=== PATIENT | male | born 1960 | race Caucasian/White ===

== ENCOUNTER 2021-06-10 10:14 | Inpatient (IN) ==
[2021-06-10 10:38] VITALS: BMI 31.1
[2021-06-10] MEDS ORDERED: NS 1,000 ML IV 1,000 ML IV ONE (10:56)
--- NOTE | 2021-06-10 11:01 | DR.FEVERAD ---
HPI Time seen Time Seen by Provider: 06/10/21 10:48 PCP Primary Care Physician: Dr Colón Complaints/Symptoms Chief Complaint Doctor Comments: 61 yo male presents for evaluation. Underwent lap ruth 2 weeks ago, has not been feeling well since. Running low grade temps, was 101 yesterday. Currently afebrile, nothing for fever taking this am. Denies cough, congestion, sore throat. No nausea, vomiting, diarrhea, urinary symptoms or rash. Chief Complaint:: Pt had cholecystectomy 2 weeks ago, drain was placed and pulled the next day, d/c home without abx, has been running intermittent fever since then, also having chills and pain to the surgical site. Denies N/V COVID-19 Coronavirus risk:travel/contact w/high risk person: No Has patient experienced Coronavirus symptoms: Yes Coronavirus symptoms experienced: Fever Nurses notes reviewed Nurses Notes Review: Yes Source History Provided: Patient and Significant Other Mode of Arrival Mode of Arrival: Ambulatory Timing Onset of Chief Complaint: 05/31/21 PMH PMH Past Medical History: Yes Past Medical History: Diabetes, Dyslipidemia, GERD, Hypertension and Hypothyroidism Past Surgical History: Yes Surgical History: Cholecystectomy and Ortho Surgery Past Surgical History Comment: R knee replacement, shoulder scopes Family History History of Family Medical Conditions: Yes Family Medical History: Diabetes Mellitus and Hypertension Social History Alcohol Use: None Do you use any recreational Drugs:: No Lives Where: Home Travel Risk Coronavirus risk:travel/contact w/high risk person: No Has patient experienced Coronavirus symptoms: Yes Coronavirus symptoms experienced: Fever Infectious screening In the last 2 months have you had wt loss of >10#?: NO Have you had fever, night sweats or hemotysis?: No Have you traveled outside the country in the last 6 months?: No Isolation: Standard ROS Review of Systems Constitutional: Chills and Fever Eyes: No Symptoms Reported ENTM: No Symptoms Reported Respiratoy: No Symptoms Reported Cardiovascular: No Symptoms Reported Gastrointestinal/Abdominal: No Symptoms Reported and Abdominal Pain (since surgery, no worse) Genitourinary: No Symptoms Reported Neurological: No Symptoms Reported Musculoskeletal: No Symptoms Reported Integumentary: No Symptoms Reported Hematologic/Lymphatic: No Symptoms Reported Psychiatric: No Symptoms Reported All Other Systems: Reviewed and Negative PE Vital Signs Vitals: Temperature 99.4 F Pulse Rate 109 Respiratory Rate 16 Blood Pressure [Right Arm] 122/68 Blood Pressure 140/72 O2 Sat by Pulse Oximetry 98 General Limitations: No Limitations General Appearance: Alert and In No Apparent Distress Head Head Exam: Normal Inspection Eyes Eye exam: Normal Appearance, PERRL and EOMI ENT ENT Exam: Normal Exam Neck Neck Exam: Normal Inspection and Full ROM Respiratory Respiratory Exam: Normal Lung Sounds Bilat; negative Accessory Muscle Use and Respiratory Distress Respiratory Exam: Bilateral: Clear to Auscultation Cardiovascular Cardiovascular Exam: Regular Rate, Normal Rhythm and Normal Heart Sounds Abdominal Exam Abdominal Exam: Normal Inspection, Normal Bowel Sounds, Soft and Tenderness (RUQ, no guarding or rebound. + surgical wounds healing well) Extremities Extremities Exam: Normal Inspection and Full ROM; negative Edema Neurologic Neurological Exam: Alert, Oriented X3 and CN II-XII Intact; negative Motor Sens ory Deficit Psychiatric Psychiatric Exam: Normal Affect Skin Skin Exam: Warm and Dry MDM Differential Diagnosis Differential Diagnosis: Pneumonia, UTI and Viral syndrome COURSE Treatment Treatment: 61 y/o male with recurrent fever since ruth 2 weeks ago. PE benign. W/u initiated. 1624 - labs overall acceptable. CT of the abd/pelvis with IV contrast shows a large fluid collection of the GB fossa, 9 cms. Concerning for possible abscess formation. Will admit to medical service, discussed with Dr Pires, accepts the admmisison. Dr An notified, will be available tomorrow for consult. Will probably require drainage. Pt given IV Zosyn/Vancomycin for coverage. ROR Labs Reviewed Laboratory Results Reviewed?: Yes Result Diagrams: 06/10/21 11:11 06/10/21 11:33 Laboratory: WBC 10.7 X10^3/uL (3.6-10.0) H 06/10/21 11:11 RBC 3.67 X10^6/uL (4.7-6.0) L 06/10/21 11:11 Hgb 11.5 g/dL (13.5-18.0) L 06/10/21 11:11 Hct 32.7 % (42.0-54.0) L 06/10/21 11:11 MCV 89.0 fL (80.0-100.0) 06/10/21 11:11 MCH 31.2 pg (27.0-34.0) 06/10/21 11:11 MCHC 35.1 g/dL (33.0-35.0) H 06/10/21 11:11 RDW 13.3 % (11.6-16.5) 06/10/21 11:11 Plt Count 594 X10^3/uL (150.0-450.0) H 06/10/21 11:11 MPV 7.1 fL (7.4-11.0) L 06/10/21 11:11 Neut % (Auto) 81.2 % (42.0-75.0) H 06/10/21 11:11 Lymph % (Auto) 10.7 % (21.0-51.0) L 06/10/21 11:11 [place] % (Auto) 6.8 % (0.0-13.0) 06/10/21 11:11 Eos % (Auto) 1.0 % (0.9-2.9) 06/10/21 11:11 Baso % (Auto) 0.3 % (0.2-1.0) 06/10/21 11:11 Neut # (Auto) 8.7 x10^3/uL (2.2-4.8) H 06/10/21 11:11 Lymph # (Auto) 1.2 X10^3/uL (1.3-2.9) L 06/10/21 11:11 [place] # (Auto) 0.7 x10^3/uL (0.3-0.8) 06/10/21 11:11 Eos # (Auto) 0.1 x10^3/uL (0.0-0.2) 06/10/21 11:11 Baso # (Auto) 0.0 X10^3/uL (0.0-0.1) 06/10/21 11:11 Absolute Nucleated RBC 0.1 /100WBC 06/10/21 11:11 PT 15.9 SECONDS (11.8-14.3) 06/10/21 11:33 INR Target Range - 06/10/21 11:33 INR 1.33 (0.8-1.3) H 06/10/21 11:33 APTT 38.0 SECONDS (22.9-36.5) H 06/10/21 11:33 PTT Comment - 06/10/21 11:33 Sodium 140 mmol/L (136-145) 06/10/21 11:33 Corrected Sodium 145 mmol/L (136-145) 06/10/21 11:33 Potassium 4.3 mmol/L (3.5-5.1) 06/10/21 11:33 Chloride 106 mmol/L (98-107) 06/10/21 11:33 Carbon Dioxide 24.3 mmol/L (21-32) 06/10/21 11:33 BUN 16 mg/dL (7-18) 06/10/21 11:33 Creatinine 0.98 mg/dL (0.70-1.30) 06/10/21 11:33 Est GFR (MDRD) Af Amer > 60 (>60) 06/10/21 11:33 Est GFR (MDRD) Non-Af > 60 (>60) 06/10/21 11:33 Glucose 289 mg/dL (65-99) H 06/10/21 11:33 Calcium 8.3 mg/dL (8.5-10.1) L 06/10/21 11:33 Corrected Calcium 9.9 mg/dL (8.5-10.1) 06/10/21 11:33 Total Bilirubin 0.30 mg/dL (0.2-1.0) 06/10/21 11:33 AST 23 Units/L (15-37) 06/10/21 11:33 ALT 35 Units/L (12-78) 06/10/21 11:33 Alkaline Phosphatase 126 Units/L (46-116) H 06/10/21 11:33 Total Protein 6.4 g/dL (6.4-8.2) 06/10/21 11:33 Albumin 2.0 g/dL (3.4-5.0) L 06/10/21 11:33 Globulin 4.4 g/dL (2.5-4.5) 06/10/21 11:33 Albumin/Globulin Ratio 0.5 Ratio (1.1-2.1) L 06/10/21 11:33 Lipase 133 Units/L (73-393) 06/10/21 11:33 Specimen Type Clean catch urine 06/10/21 11:42 Urine Color Yellow (YELLOW) 06/10/21 11:42 Urine Appearance Clear (CLEAR) 06/10/21 11:42 Urine pH 6.0 (5.0 - 8.0) 06/10/21 11:42 Ur Specific [place] 1.025 (1.000-1.030) 06/10/21 11:42 Urine Protein 1+ (NEGATIVE) 06/10/21 11:42 Urine Glucose (UA) 4+ (NEGATIVE) 06/10/21 11:42 Urine Ketones Negative (NEGATIVE) 06/10/21 11:42 Urine Occult Blood Negative (NEGATIVE) 06/10/21 11:42 Urine Nitrite Negative (NEGATIVE) 06/10/21 11:42 Urine Bilirubin Negative (NEGATIVE) 06/10/21 11:42 Urine Urobilinogen Normal (NORMAL) 06/10/21 11:42 Ur Leukocyte Esterase Negative (NEGATIVE) 06/10/21 11:42 Urine RBC None seen /HPF (0-3) 06/10/21 11:42 Urine WBC None seen /HPF (0-5) 06/10/21 11:42 Ur Squamous Epith Cells Moderate /HPF (NEGATIVE) 06/10/21 11:42 Urine Bacteria Trace /HPF (NEGATIVE) 06/10/21 11:42 Hyaline Casts Rare /LPF (NEGATIVE) 06/10/21 11:42 Urine Mucus Few /HPF (NEGATIVE) 06/10/21 11:42 Ur Culture Indicated? No/not indicated 06/10/21 11:42 Influenza Type A Ag Negative-presumptive (NEGATIVE) 06/10/21 11:18 Influenza Type B Ag Negative-presumptive (NEGATIVE) 06/10/21 11:18 SARS CoV-2 RNA Rapid ERICH Negative (NEGATIVE) 06/10/21 12:32 XRAY XRAY Interpreted by: Both X-ray Results: CXR - unremarkable. CT of abd/pelvis - + large fluid collection of GB fossa. Opioid Opioid Risk Tool Age (David box if 16-45): No History of Preadolescent Sexual Abuse: No Total: 0 Total Score Risk Category: Low Risk Copyright: [employer] [place] predicting aberrant behaviors Diagnosis Discharge Problem: Intra-abdominal abscess post-procedure
[2021-06-10] MEDS ORDERED: NS 1,000 ML IV 1,000 ML ONE (11:03)
[2021-06-10 11:31] LABS: BASOPHILS % (AUTO) 0.3 % (0.2-1.0); EOSINOPHILS # (AUTO) 0.1 x10^3/uL (0.0-0.2); HEMATOCRIT 32.7 % (42.0-54.0); HEMOGLOBIN 11.5 g/dL (13.5-18.0); LYMPHOCYTES # (AUTO) 1.2 X10^3/uL (1.3-2.9); LYMPHOCYTES % (AUTO) 10.7 % (21.0-51.0); MEAN CORPUSCULAR HEMOGLOBIN 31.2 pg (27.0-34.0); MEAN CORPUSCULAR HGB CONC 35.1 g/dL (33.0-35.0); MEAN PLATELET VOLUME 7.1 fL (7.4-11.0); MONOCYTES # (AUTO) 0.7 x10^3/uL (0.3-0.8); MONOCYTES % (AUTO) 6.8 % (0.0-13.0); NEUTROPHILS # (AUTO) 8.7 x10^3/uL (2.2-4.8); NEUTROPHILS % (AUTO) 81.2 % (42.0-75.0); PLATELET COUNT 594 X10^3/uL (150.0-450.0); RED BLOOD COUNT 3.67 X10^6/uL (4.7-6.0); RED CELL DISTRIBUTION WIDTH 13.3 % (11.6-16.5); WHITE BLOOD COUNT 10.7 X10^3/uL (3.6-10.0)
[2021-06-10 11:54] LABS: BILIRUBIN,URINE NEGATIVE (NEGATIVE); BLOOD/HEMOGLOBIN,URINE NEGATIVE (NEGATIVE); GLUCOSE, URINE 4+ (NEGATIVE); KETONES,URINE NEGATIVE (NEGATIVE); LEUKOCYTE ESTERASE ,URINE NEGATIVE (NEGATIVE); NITRITES,URINE NEGATIVE (NEGATIVE); PROTEIN,URINE 1+ (NEGATIVE); UROBILINOGEN,URINE NORMAL (NORMAL)
[2021-06-10 11:54] LABS: ALANINE AMINOTRANSFERASE 35 Units/L (12-78); ALKALINE PHOSPHATASE 126 Units/L (46-116); ASPARTATE AMINO TRANSFERASE 23 Units/L (15-37); BLOOD UREA NITROGEN 16 mg/dL (7-18); CALCIUM 8.3 mg/dL (8.5-10.1); CARBON DIOXIDE 24.3 mmol/L (21-32); CHLORIDE 106 mmol/L (98-107); COR CA(FOR HYPOALB) 9.9 mg/dL (8.5-10.1); COR NA(FOR HYPERGLY) 145 mmol/L (136-145); CREATININE 0.98 mg/dL (0.70-1.30); LIPASE 133 Units/L (73-393); SODIUM 140 mmol/L (136-145); TOTAL PROTEIN 6.4 g/dL (6.4-8.2); eGFR NON BLACK RACES > 60 (>60)
[2021-06-10 12:12] LABS: APPEARANCE,URINE CLEAR (CLEAR); COLOR,URINE YELLOW (YELLOW)
[2021-06-10 12:13] LABS: BACTERIA,URINE TRACE /HPF (NEGATIVE); HYALINE CASTS, URINE RARE /LPF (NEGATIVE); MUCUS,URINE FEW /HPF (NEGATIVE); RBC,URINE NONE SEEN /HPF (0-3); SQUAMOUS EPITHELIAL CELL,UR MODERATE /HPF (NEGATIVE)
[2021-06-10] MEDS ORDERED: MORPHINE SULFATE INJ 4 MG IVP ONE (12:16)
[2021-06-10] MEDS ORDERED: NS 500 ML IV 500 ML IV SCH (12:17)
[2021-06-10] MEDS ORDERED: NS 100 ML IV 100 ML ONE (13:16)
--- NOTE | 2021-06-10 13:46 | RAD ---
HISTORYPost surgery feverSTUDYAP [id number] ed normal heart size with clear lungs and pleural spaces.IMPRESSIONNo significant interval change or acute chest abnormality demonstrated.Electronically signed by: LIBERTY MIRANDA (Jun 10, 2021 13:44:03)
--- NOTE | 2021-06-10 15:40 | CT ---
HISTORYFever. Post cholecystectomy 2 weeks ago.STUDYABDOMEN/PELVIS WITH [id number]/09/2021.TECHNIQUEMultipl e axial images of the abdomen and pelvis were obtained from the lung bases to the pubic symphysis after the administration of IV contrast. Dose reduction techniques including Automated Exposure Control (AEC) and adjustment of mA and kV were utilized.FINDINGSIncluded portions of the lung bases are clear. The gallbladder is surgically absent. There is an approximately 9 cm fluid collection with nondependent air within the gallbladder fossa concerning for abscess given the reported history of fever post cholecystectomy. There is no intra or extrahepatic biliary ductal dilatation. There are dystrophic calcifications with surrounding fluid along the posterior aspect of the right hepatic lobe and subjacent to the ascending colon near the hepatic flexure which likely reflect spilled gallstones given the similar appearance to the previously noted gallstones on the comparison CT performed in October 2020. The pancreas, spleen, right adrenal gland and kidneys are grossly unremarkable in their CT appearance. There is a 10 mm fat containing left adrenal gland adenoma. The urinary bladder is grossly unremarkable. The appendix is normal. There is sigmoid diverticulosis without evidence of acute diverticulitis. There is no small bowel dilatation. There is no intraperitoneal free air or free fluid. There is atherosclerotic disease of the non aneurysmal abdominal aorta. There is an old displaced fracture of the L2 transverse process on the right. Old right-sided rib fractures are noted as well.IMPRESSION1. Approximately 9 cm fluid collection with nondependent air in the gallbladder fossa concerning for abscess given reported history of fever post cholecystectomy. Surgical consultation is recommended.2. Probable spilled gallstones within the right abdomen as above.3. Sigmoid diverticulosis without evidence of acute diverticulitis.Electronically signed by: EFRAIN COX (Jun 10, 2021 15:39:28)
[2021-06-10] MEDS ORDERED: VANCOMYCIN IV *PREMIX 1 G/200 ML BAG 1 G/200 ML PIGGYBACK IV SCH (15:50)
[2021-06-10] MEDS ORDERED: VANCOMYCIN IV *PREMIX 1 G/200 ML BAG 1 G/200 ML PIGGYBACK IV ONE (15:58)
[2021-06-10] MEDS ORDERED: ZOSYN VIAL 3.375 GRAMS IV ONE (15:58)
[2021-06-10] MEDS ORDERED: NS 100 ML IV + SPIKE MINIBAG* 100 ML IV ONE (15:58)
[2021-06-10] MEDS: ZOSYN VIAL 3.375 GRAMS 3.375 G in NS 100 ML IV + SPIKE MINIBAG* 100 ML IV SCH ×2 (16:09→21:13)
[2021-06-10] MEDS ORDERED: TYLENOL 325 MG TAB PO ONE (16:49)
[2021-06-10] MEDS ORDERED: TYLENOL 325 MG TAB PO PRN (16:49)
[2021-06-10] MEDS: DIABETA PO SCH (19:00)
[2021-06-10] MEDS ORDERED: SNACK - Diabetic Appropriate PO SCH (20:00)
[2021-06-10] MEDS: MORPHINE SULFATE INJ 4 MG IVP PRN (21:05)
[2021-06-10] MEDS: NovoLIN R (or HumuLIN R) SUBCUT PRN (21:17)
[2021-06-10] MEDS: SNACK - Diabetic Appropriate PO SCH (21:18)
[2021-06-10] MEDS ORDERED: NS 250 ML IV 250 ML IV ONE (22:15)
--- NOTE | 2021-06-10 22:37 | DR.PROGNOT ---
Hospital Progress Notes - Progress Note for Day of: Progress Note Date: 06/10/21 - Chief Complaint Chief Complaint: Pt is admitted with generalized weakness , chills and lowgrade fever . s/p Lap ruth 2 weeks ago for acute and chronic calculus cholecystitis . mild leukocytosis with shift to the LT. Pt is Diabetic .. - Past Medical Family Social History Past Med/Fam/Surg Hx: No changes since H&P Allergies: Allergies oxycodone Allergy (Mild, Verified 06/10/21 10:24) RASH itching - Review Of Systems ROS: No change since H&P - Vital Signs Vital Signs: Temperature 98.7 F Pulse Rate [Right Brachial] 85 Pulse Rate 109 Respiratory Rate 19 Blood Pressure [Right Arm] 109/53 Blood Pressure 140/72 O2 Sat by Pulse Oximetry 97 - Physical Exam Oriented: Normal Eyes: Normal Ear: Normal Nose: Normal Throat: Other Cardiovascular: Systolic (moderate congestion) : Normal GI:Palpation: Normal, Spleen Enlarged GI: Tenderness: Normal, Other (soft, flat abdomen ,only mild RT lateral tenderness , no rebound .. BS+ .all incisions are healed well .) Skin: Normal Speech Pattern: Clear, Appropriate - Laboratory and Diagnostics Result Diagrams: 06/10/21 11:11 06/10/21 11:33 Labs: Laboratory WBC 10.7 X10^3/uL (3.6-10.0) H 06/10/21 11:11 RBC 3.67 X10^6/uL (4.7-6.0) L 06/10/21 11:11 Hgb 11.5 g/dL (13.5-18.0) L 06/10/21 11:11 Hct 32.7 % (42.0-54.0) L 06/10/21 11:11 MCV 89.0 fL (80.0-100.0) 06/10/21 11:11 MCH 31.2 pg (27.0-34.0) 06/10/21 11:11 MCHC 35.1 g/dL (33.0-35.0) H 06/10/21 11:11 RDW 13.3 % (11.6-16.5) 06/10/21 11:11 Plt Count 594 X10^3/uL (150.0-450.0) H 06/10/21 11:11 MPV 7.1 fL (7.4-11.0) L 06/10/21 11:11 Neut % (Auto) 81.2 % (42.0-75.0) H 06/10/21 11:11 Lymph % (Auto) 10.7 % (21.0-51.0) L 06/10/21 11:11 [place] % (Auto) 6.8 % (0.0-13.0) 06/10/21 11:11 Eos % (Auto) 1.0 % (0.9-2.9) 06/10/21 11:11 Baso % (Auto) 0.3 % (0.2-1.0) 06/10/21 11:11 Neut # (Auto) 8.7 x10^3/uL (2.2-4.8) H 06/10/21 11:11 Lymph # (Auto) 1.2 X10^3/uL (1.3-2.9) L 06/10/21 11:11 [place] # (Auto) 0.7 x10^3/uL (0.3-0.8) 06/10/21 11:11 Eos # (Auto) 0.1 x10^3/uL (0.0-0.2) 06/10/21 11:11 Baso # (Auto) 0.0 X10^3/uL (0.0-0.1) 06/10/21 11:11 Absolute Nucleated RBC 0.1 /100WBC 06/10/21 11:11 PT 15.9 SECONDS (11.8-14.3) 06/10/21 11:33 INR Target Range - 06/10/21 11:33 INR 1.33 (0.8-1.3) H 06/10/21 11:33 APTT 38.0 SECONDS (22.9-36.5) H 06/10/21 11:33 PTT Comment - 06/10/21 11:33 Sodium 140 mmol/L (136-145) 06/10/21 11:33 Corrected Sodium 145 mmol/L (136-145) 06/10/21 11:33 Potassium 4.3 mmol/L (3.5-5.1) 06/10/21 11:33 Chloride 106 mmol/L (98-107) 06/10/21 11:33 Carbon Dioxide 24.3 mmol/L (21-32) 06/10/21 11:33 BUN 16 mg/dL (7-18) 06/10/21 11:33 Creatinine 0.98 mg/dL (0.70-1.30) 06/10/21 11:33 Est GFR (MDRD) Af Amer > 60 (>60) 06/10/21 11:33 Est GFR (MDRD) Non-Af > 60 (>60) 06/10/21 11:33 Glucose 289 mg/dL (65-99) H 06/10/21 11:33 POC Glucose (mg/dL) 185 mg/dL (65-99) H 06/10/21 20:51 Calcium 8.3 mg/dL (8.5-10.1) L 06/10/21 11:33 Corrected Calcium 9.9 mg/dL (8.5-10.1) 06/10/21 11:33 Total Bilirubin 0.30 mg/dL (0.2-1.0) 06/10/21 11:33 AST 23 Units/L (15-37) 06/10/21 11:33 ALT 35 Units/L (12-78) 06/10/21 11:33 Alkaline Phosphatase 126 Units/L (46-116) H 06/10/21 11:33 Total Protein 6.4 g/dL (6.4-8.2) 06/10/21 11:33 Albumin 2.0 g/dL (3.4-5.0) L 06/10/21 11:33 Globulin 4.4 g/dL (2.5-4.5) 06/10/21 11:33 Albumin/Globulin Ratio 0.5 Ratio (1.1-2.1) L 06/10/21 11:33 Lipase 133 Units/L (73-393) 06/10/21 11:33 Specimen Type Clean catch urine 06/10/21 11:42 Urine Color Yellow (YELLOW) 06/10/21 11:42 Urine Appearance Clear (CLEAR) 06/10/21 11:42 Urine pH 6.0 (5.0 - 8.0) 06/10/21 11:42 Ur Specific [place] 1.025 (1.000-1.030) 06/10/21 11:42 Urine Protein 1+ (NEGATIVE) 06/10/21 11:42 Urine Glucose (UA) 4+ (NEGATIVE) 06/10/21 11:42 Urine Ketones Negative (NEGATIVE) 06/10/21 11:42 Urine Occult Blood Negative (NEGATIVE) 06/10/21 11:42 Urine Nitrite Negative (NEGATIVE) 06/10/21 11:42 Urine Bilirubin Negative (NEGATIVE) 06/10/21 11:42 Urine Urobilinogen Normal (NORMAL) 06/10/21 11:42 Ur Leukocyte Esterase Negative (NEGATIVE) 06/10/21 11:42 Urine RBC None seen /HPF (0-3) 06/10/21 11:42 Urine WBC None seen /HPF (0-5) 06/10/21 11:42 Ur Squamous Epith Cells Moderate /HPF (NEGATIVE) 06/10/21 11:42 Urine Bacteria Trace /HPF (NEGATIVE) 06/10/21 11:42 Hyaline Casts Rare /LPF (NEGATIVE) 06/10/21 11:42 Urine Mucus Few /HPF (NEGATIVE) 06/10/21 11:42 Ur Culture Indicated? No/not indicated 06/10/21 11:42 Influenza Type A Ag Negative-presumptive (NEGATIVE) 06/10/21 11:18 Influenza Type B Ag Negative-presumptive (NEGATIVE) 06/10/21 11:18 SARS CoV-2 RNA Rapid ERICH Negative (NEGATIVE) 06/10/21 12:32 - Assessment and Plan 1: rule out intra abdominal sepsis . no evidence of peritonitis . s/p lap ruth for chronic and acute cholecystitis . to add Flagyl and obtain Blood cult ure . control BS and follow closely .
[2021-06-10] MEDS: FLAGYL IV PREMIX 500 MG BAG 500 MG/100 ML BAG IV SCH (22:49)
[2021-06-11] MEDS: VANCOMYCIN IV *PREMIX 1.25 G/250 ML BAG 1.25 G/250 ML PIGGYBACK IV SCH ×3 (00:01→22:02)
[2021-06-11] MEDS: FLAGYL IV PREMIX 500 MG BAG 500 MG/100 ML BAG IV SCH ×3 (05:04→23:59)
[2021-06-11 05:09] LABS: BASOPHILS # (AUTO) 0.1 X10^3/uL (0.0-0.1); BASOPHILS % (AUTO) 0.9 % (0.2-1.0); EOSINOPHILS # (AUTO) 0.1 x10^3/uL (0.0-0.2); EOSINOPHILS % (AUTO) 1.1 % (0.9-2.9); HEMOGLOBIN 10.4 g/dL (13.5-18.0); LYMPHOCYTES # (AUTO) 1.6 X10^3/uL (1.3-2.9); LYMPHOCYTES % (AUTO) 13.5 % (21.0-51.0); MEAN CORPUSCULAR HEMOGLOBIN 30.5 pg (27.0-34.0); MEAN CORPUSCULAR HGB CONC 34.6 g/dL (33.0-35.0); MEAN CORPUSCULAR VOLUME 88.1 fL (80.0-100.0); MEAN PLATELET VOLUME 7.1 fL (7.4-11.0); MONOCYTES # (AUTO) 0.9 x10^3/uL (0.3-0.8); MONOCYTES % (AUTO) 7.8 % (0.0-13.0); NEUTROPHILS # (AUTO) 9.2 x10^3/uL (2.2-4.8); NEUTROPHILS % (AUTO) 76.7 % (42.0-75.0); PLATELET COUNT 557 X10^3/uL (150.0-450.0); RED CELL DISTRIBUTION WIDTH 13.1 % (11.6-16.5)
[2021-06-11 05:26] LABS: ALANINE AMINOTRANSFERASE 33 Units/L (12-78); ALBUMIN 1.9 g/dL (3.4-5.0); ALKALINE PHOSPHATASE 120 Units/L (46-116); ASPARTATE AMINO TRANSFERASE 24 Units/L (15-37); BLOOD UREA NITROGEN 13 mg/dL (7-18); CARBON DIOXIDE 24.5 mmol/L (21-32); CHLORIDE 106 mmol/L (98-107); COR CA(FOR HYPOALB) 9.7 mg/dL (8.5-10.1); COR NA(FOR HYPERGLY) 141 mmol/L (136-145); CREATININE 0.95 mg/dL (0.70-1.30); SODIUM 140 mmol/L (136-145); TOTAL PROTEIN 6.2 g/dL (6.4-8.2); eGFR NON BLACK RACES > 60 (>60)
[2021-06-11] MEDS: DIABETA PO SCH ×2 (06:14→16:55)
[2021-06-11] MEDS: ZOSYN VIAL 3.375 GRAMS 3.375 G in NS 100 ML IV + SPIKE MINIBAG* 100 ML IV SCH ×2 (06:15→14:11)
[2021-06-11] MEDS ORDERED: TYLENOL 325 MG TAB PO PRN (07:31)
[2021-06-11] MEDS: PriLOSEC PO SCH (08:43)
[2021-06-11] MEDS: FLOMAX PO SCH (08:43)
[2021-06-11] MEDS: ZESTRIL TAB 10 MG PO SCH (08:44)
[2021-06-11] MEDS: SYNTHROID 75 mcg TAB PO SCH (08:44)
--- NOTE | 2021-06-11 10:27 | DR.H&P ---
H&P History & Physical for Day of: H&P Date: 06/10/21 Chief Complaint Chief Complaint: Abdominal pain Allergies Allergies Allergy/AdvReac Type Severity Reaction Status Date / Time oxycodone Allergy Mild RASH Verified 06/10/21 10:24 History of Present Illness History of Present Illness: 61 yo wf who underwent a cholecystectomy 2 weeks ago presented to ED with abdominal pain radiating to right lateral/posterior side. CT of abdomen showed a likely abscess in the RUQ region and some likely loose gallstones in abdomen as well. He had been having fever and low grade Temps. with a Fever of 101 on Sat. 27 2020. Currently is stable and denies Chest pain, NVD and SOB. Past Medical History Past Medical History: Diabetes, Dyslipidemia, GERD, Hypertension and Hypothyroidism Past Surgical History Surgical History: Cholecystectomy and Ortho Surgery Family History Family Medical History: Diabetes Mellitus and Hypertension Social History Does patient currently use any type of tobacco product: No Have you used tobacco products in the last 12 months: No Type of Tobacco Use: None Does any household member use tobacco: No Alcohol Use: Rarely Drug Use: None Medications Home Medications: oxycodone Allergy (Mild, Verified 06/10/21 10:24) RASH CONTINUE taking the following medications aspirin 81 mg PO DAILY 06/10/21 [History] atorvastatin 40 mg PO HS 06/10/21 [History] glyburide 2.5 mg PO BID 06/10/21 [History] levothyroxine 75 mcg PO DAILY 06/10/21 [History] lisinopril 10 mg PO DAILY 06/10/21 [History] meloxicam 15 mg PO DAILY 06/10/21 [History] omeprazole 40 mg PO DAILY 06/10/21 [History] tamsulosin 0.4 mg PO DAILY 06/10/21 [History] Labs Result Diagrams: 06/11/21 04:35 06/11/21 04:35 Labs: Laboratory WBC 12.0 X10^3/uL (3.6-10.0) H 06/11/21 04:35 RBC 3.40 X10^6/uL (4.7-6.0) L 06/11/21 04:35 Hgb 10.4 g/dL (13.5-18.0) L 06/11/21 04:35 Hct 30.0 % (42.0-54.0) L 06/11/21 04:35 MCV 88.1 fL (80.0-100.0) 06/11/21 04:35 MCH 30.5 pg (27.0-34.0) 06/11/21 04:35 MCHC 34.6 g/dL (33.0-35.0) 06/11/21 04:35 RDW 13.1 % (11.6-16.5) 06/11/21 04:35 Plt Count 557 X10^3/uL (150.0-450.0) H 06/11/21 04:35 MPV 7.1 fL (7.4-11.0) L 06/11/21 04:35 Neut % (Auto) 76.7 % (42.0-75.0) H 06/11/21 04:35 Lymph % (Auto) 13.5 % (21.0-51.0) L 06/11/21 04:35 [place] % (Auto) 7.8 % (0.0-13.0) 06/11/21 04:35 Eos % (Auto) 1.1 % (0.9-2.9) 06/11/21 04:35 Baso % (Auto) 0.9 % (0.2-1.0) 06/11/21 04:35 Neut # (Auto) 9.2 x10^3/uL (2.2-4.8) H 06/11/21 04:35 Lymph # (Auto) 1.6 X10^3/uL (1.3-2.9) 06/11/21 04:35 [place] # (Auto) 0.9 x10^3/uL (0.3-0.8) H 06/11/21 04:35 Eos # (Auto) 0.1 x10^3/uL (0.0-0.2) 06/11/21 04:35 Baso # (Auto) 0.1 X10^3/uL (0.0-0.1) 06/11/21 04:35 Absolute Nucleated RBC 0.0 /100WBC 06/11/21 04:35 PT 15.9 SECONDS (11.8-14.3) 06/10/21 11:33 INR Target Range - 06/10/21 11:33 INR 1.33 (0.8-1.3) H 06/10/21 11:33 APTT 38.0 SECONDS (22.9-36.5) H 06/10/21 11:33 PTT Comment - 06/10/21 11:33 Sodium 140 mmol/L (136-145) 06/11/21 04:35 Corrected Sodium 141 mmol/L (136-145) 06/11/21 04:35 Potassium 3.9 mmol/L (3.5-5.1) 06/11/21 04:35 Chloride 106 mmol/L (98-107) 06/11/21 04:35 Carbon Dioxide 24.5 mmol/L (21-32) 06/11/21 04:35 BUN 13 mg/dL (7-18) 06/11/21 04:35 Creatinine 0.95 mg/dL (0.70-1.30) 06/11/21 04:35 Est GFR (MDRD) Af Amer > 60 (>60) 06/11/21 04:35 Est GFR (MDRD) Non-Af > 60 (>60) 06/11/21 04:35 Glucose 148 mg/dL (65-99) H 06/11/21 04:35 POC Glucose (mg/dL) 185 mg/dL (65-99) H 06/10/21 20:51 Calcium 8.0 mg/dL (8.5-10.1) L 06/11/21 04:35 Corrected Calcium 9.7 mg/dL (8.5-10.1) 06/11/21 04:35 Total Bilirubin 0.30 mg/dL (0.2-1.0) 06/11/21 04:35 AST 24 Units/L (15-37) 06/11/21 04:35 ALT 33 Units/L (12-78) 06/11/21 04:35 Alkaline Phosphatase 120 Units/L (46-116) H 06/11/21 04:35 Total Protein 6.2 g/dL (6.4-8.2) L 06/11/21 04:35 Albumin 1.9 g/dL (3.4-5.0) L 06/11/21 04:35 Globulin 4.3 g/dL (2.5-4.5) 06/11/21 04:35 Albumin/Globulin Ratio 0.4 Ratio (1.1-2.1) L 06/11/21 04:35 Lipase 133 Units/L (73-393) 06/10/21 11:33 Specimen Type Clean catch urine 06/10/21 11:42 Urine Color Yellow (YELLOW) 06/10/21 11:42 Urine Appearance Clear (CLEAR) 06/10/21 11:42 Urine pH 6.0 (5.0 - 8.0) 06/10/21 11:42 Ur Specific [place] 1.025 (1.000-1.030) 06/10/21 11:42 Urine Protein 1+ (NEGATIVE) 06/10/21 11:42 Urine Glucose (UA) 4+ (NEGATIVE) 06/10/21 11:42 Urine Ketones Negative (NEGATIVE) 06/10/21 11:42 Urine Occult Blood Negative (NEGATIVE) 06/10/21 11:42 Urine Nitrite Negative (NEGATIVE) 06/10/21 11:42 Urine Bilirubin Negative (NEGATIVE) 06/10/21 11:42 Urine Urobilinogen Normal (NORMAL) 06/10/21 11:42 Ur Leukocyte Esterase Negative (NEGATIVE) 06/10/21 11:42 Urine RBC None seen /HPF (0-3) 06/10/21 11:42 Urine WBC None seen /HPF (0-5) 06/10/21 11:42 Ur Squamous Epith Cells Moderate /HPF (NEGATIVE) 06/10/21 11:42 Urine Bacteria Trace /HPF (NEGATIVE) 06/10/21 11:42 Hyaline Casts Rare /LPF (NEGATIVE) 06/10/21 11:42 Urine Mucus Few /HPF (NEGATIVE) 06/10/21 11:42 Ur Culture Indicated? No/not indicated 06/10/21 11:42 Influenza Type A Ag Negative-presumptive (NEGATIVE) 06/10/21 11:18 Influenza Type B Ag Negative-presumptive (NEGATIVE) 06/10/21 11:18 SARS CoV-2 RNA Rapid ERICH Negative (NEGATIVE) 06/10/21 12:32 Review of Systems Constitutional: Fever Eyes: No Symptoms Reported ENT: No Symptoms Reported Respiratory: No Symptoms Reported Cardiovascular: No Symptoms Reported Gastrointestinal: No Symptoms Reported Genitourinary: No Symptoms Reported Musculoskeletal: No Symptoms Reported Skin: No Symptoms Reported Neurological: No Symptoms Reported Physical Exam Vital Signs: Temperature 98.2 F Pulse Rate [Right Brachial] 80 Pulse Rate 109 Respiratory Rate 19 Blood Pressure [Right Arm] 115/66 Blood Pressure 140/72 O2 Sat by Pulse Oximetry 95 Oriented: Normal Eyes: Normal Ear: Normal Nose: Normal Throat: Normal Respiratory: Clear Throughout Cardiovascular: Normal : Normal Auscultation: Bowel Sounds: Normal Palpation: Other (Right lateral upper side TTP) Tenderness: RUQ Skin: Normal Musculoskeletal: Normal Psychiatric: Normal Mood Description: Calm Affect: Normal Speech Pattern: Clear Assessment/Plan (1) Intra-abdominal abscess post-procedure: Status: Acute Plan: Rx per Gen. Surgery (2) DM2 (diabetes mellitus, type 2): Status: Acute Plan: Regular insulin sliding scale. (3) Hypothyroidism: Status: Acute Plan: Resume levothyroxine (4) HTN (hypertension): Status: Acute Plan: Resume Lisinopril 10 mg (5) GERD (gastroesophageal reflux disease): Status: Acute Plan: Resume Omeprazole 40mg. (6) Dyslipidemia: Status: Acute Review H&P Reviewed: Yes Patient was examined?: Yes
--- NOTE | 2021-06-11 10:43 | PCM.PROG ---
Progress Note Progress Note for Day of Date of Exam: 06/11/21 Subjective Subjective: Patient is feeling ok this am. No new complaint's. He does still have some pain this am but is mostly controlled. Past Medical Family Social History Past Med/Fam/Surg Hx: No changes since H&P Allergies: Allergies oxycodone Allergy (Mild, Verified 06/10/21 10:24) RASH itching Review of Systems ROS: No change since H&P Vital Signs and I&O's Vital Signs: Temperature 98.2 F Pulse Rate [Right Brachial] 80 Pulse Rate 109 Respiratory Rate 19 Blood Pressure [Right Arm] 115/66 Blood Pressure 140/72 O2 Sat by Pulse Oximetry 95 Intake and Output: Intake & Output 06/08/21 06/09/21 06/10/21 06/11/21 11:59 11:59 11:59 11:59 Intake Total 850 / 850 Balance 850 / 850 Physical Exam Oriented: Normal Eyes: Normal Ear: Normal Nose: Normal Throat: Normal Cardiovascular: Normal : Normal Auscultation: Bowel Sounds: Normal Tenderness: RUQ Skin: Normal Musculoskeletal: Normal Psychiatric: Normal Mood Description: Calm Affect: Normal Speech Pattern: Clear Laboratory and Diagnostics Result Diagrams: 06/11/21 04:35 06/11/21 04:35 Labs: Laboratory WBC 12.0 X10^3/uL (3.6-10.0) H 06/11/21 04:35 RBC 3.40 X10^6/uL (4.7-6.0) L 06/11/21 04:35 Hgb 10.4 g/dL (13.5-18.0) L 06/11/21 04:35 Hct 30.0 % (42.0-54.0) L 06/11/21 04:35 MCV 88.1 fL (80.0-100.0) 06/11/21 04:35 MCH 30.5 pg (27.0-34.0) 06/11/21 04:35 MCHC 34.6 g/dL (33.0-35.0) 06/11/21 04:35 RDW 13.1 % (11.6-16.5) 06/11/21 04:35 Plt Count 557 X10^3/uL (150.0-450.0) H 06/11/21 04:35 MPV 7.1 fL (7.4-11.0) L 06/11/21 04:35 Neut % (Auto) 76.7 % (42.0-75.0) H 06/11/21 04:35 Lymph % (Auto) 13.5 % (21.0-51.0) L 06/11/21 04:35 [place] % (Auto) 7.8 % (0.0-13.0) 06/11/21 04:35 Eos % (Auto) 1.1 % (0.9-2.9) 06/11/21 04:35 Baso % (Auto) 0.9 % (0.2-1.0) 06/11/21 04:35 Neut # (Auto) 9.2 x10^3/uL (2.2-4.8) H 06/11/21 04:35 Lymph # (Auto) 1.6 X10^3/uL (1.3-2.9) 06/11/21 04:35 [place] # (Auto) 0.9 x10^3/uL (0.3-0.8) H 06/11/21 04:35 Eos # (Auto) 0.1 x10^3/uL (0.0-0.2) 06/11/21 04:35 Baso # (Auto) 0.1 X10^3/uL (0.0-0.1) 06/11/21 04:35 Absolute Nucleated RBC 0.0 /100WBC 06/11/21 04:35 PT 15.9 SECONDS (11.8-14.3) 06/10/21 11:33 INR Target Range - 06/10/21 11:33 INR 1.33 (0.8-1.3) H 06/10/21 11:33 APTT 38.0 SECONDS (22.9-36.5) H 06/10/21 11:33 PTT Comment - 06/10/21 11:33 Sodium 140 mmol/L (136-145) 06/11/21 04:35 Corrected Sodium 141 mmol/L (136-145) 06/11/21 04:35 Potassium 3.9 mmol/L (3.5-5.1) 06/11/21 04:35 Chloride 106 mmol/L (98-107) 06/11/21 04:35 Carbon Dioxide 24.5 mmol/L (21-32) 06/11/21 04:35 BUN 13 mg/dL (7-18) 06/11/21 04:35 Creatinine 0.95 mg/dL (0.70-1.30) 06/11/21 04:35 Est GFR (MDRD) Af Amer > 60 (>60) 06/11/21 04:35 Est GFR (MDRD) Non-Af > 60 (>60) 06/11/21 04:35 Glucose 148 mg/dL (65-99) H 06/11/21 04:35 POC Glucose (mg/dL) 185 mg/dL (65-99) H 06/10/21 20:51 Calcium 8.0 mg/dL (8.5-10.1) L 06/11/21 04:35 Corrected Calcium 9.7 mg/dL (8.5-10.1) 06/11/21 04:35 Total Bilirubin 0.30 mg/dL (0.2-1.0) 06/11/21 04:35 AST 24 Units/L (15-37) 06/11/21 04:35 ALT 33 Units/L (12-78) 06/11/21 04:35 Alkaline Phosphatase 120 Units/L (46-116) H 06/11/21 04:35 Total Protein 6.2 g/dL (6.4-8.2) L 06/11/21 04:35 Albumin 1.9 g/dL (3.4-5.0) L 06/11/21 04:35 Globulin 4.3 g/dL (2.5-4.5) 06/11/21 04:35 Albumin/Globulin Ratio 0.4 Ratio (1.1-2.1) L 06/11/21 04:35 Lipase 133 Units/L (73-393) 06/10/21 11:33 Specimen Type Clean catch urine 06/10/21 11:42 Urine Color Yellow (YELLOW) 06/10/21 11:42 Urine Appearance Clear (CLEAR) 06/10/21 11:42 Urine pH 6.0 (5.0 - 8.0) 06/10/21 11:42 Ur Specific [place] 1.025 (1.000-1.030) 06/10/21 11:42 Urine Protein 1+ (NEGATIVE) 06/10/21 11:42 Urine Glucose (UA) 4+ (NEGATIVE) 06/10/21 11:42 Urine Ketones Negative (NEGATIVE) 06/10/21 11:42 Urine Occult Blood Negative (NEGATIVE) 06/10/21 11:42 Urine Nitrite Negative (NEGATIVE) 06/10/21 11:42 Urine Bilirubin Negative (NEGATIVE) 06/10/21 11:42 Urine Urobilinogen Normal (NORMAL) 06/10/21 11:42 Ur Leukocyte Esterase Negative (NEGATIVE) 06/10/21 11:42 Urine RBC None seen /HPF (0-3) 06/10/21 11:42 Urine WBC None seen /HPF (0-5) 06/10/21 11:42 Ur Squamous Epith Cells Moderate /HPF (NEGATIVE) 06/10/21 11:42 Urine Bacteria Trace /HPF (NEGATIVE) 06/10/21 11:42 Hyaline Casts Rare /LPF (NEGATIVE) 06/10/21 11:42 Urine Mucus Few /HPF (NEGATIVE) 06/10/21 11:42 Ur Culture Indicated? No/not indicated 06/10/21 11:42 Influenza Type A Ag Negative-presumptive (NEGATIVE) 06/10/21 11:18 Influenza Type B Ag Negative-presumptive (NEGATIVE) 06/10/21 11:18 SARS CoV-2 RNA Rapid ERICH Negative (NEGATIVE) 06/10/21 12:32 Plan (1) Intra-abdominal abscess post-procedure: Status: Acute Plan: Rx per Gen. Surgery (2) DM2 (diabetes mellitus, type 2): Status: Acute Plan: Regular insulin sliding scale. (3) Hypothyroidism: Status: Acute Plan: Resume levothyroxine (4) HTN (hypertension): Status: Acute Plan: Resume Lisinopril 10 mg (5) GERD (gastroesophageal reflux disease): Status: Acute Plan: Resume Omeprazole 40mg. (6) Dyslipidemia: Status: Acute
--- OUTSIDE RECORDS SUMMARY | 2021-06-11 11:19 | XMS | Continuity of Care Document ---
:1960 Author Name [employer] Address Unavailable Unavailable , Care Team Providers Name Role Phone Love Colón Unavailable Colt Akbar Unavailable Irfan Unavailable Mock Unavailable Unavailable Love Colón Unavailable Unavailable Unavailable Problems Name Dates Details Arthritis Status: Active Cholelithiasis with cholecystitis (K80.10, 574.10) Comments: Asymptomatic. Monitor for now. Status: Active Diabetes (E11.9, 250.00) Comments: Uncon trolled. Increase Glyburide from 1.25 mg bid to 2.5 mg bid.Continue Lisinopril 10 mg for Kidney prophylaxis.Continue Atorvastatin 40 mg for Cardiovascular prophylaxis.A1C increased from 6.9% to 8.1%. Status: Active Diabetes (E11.9, 250.00) Comments: Hx of type 2 DM, A1C (september 2019): 5.9% Status: Active Diabetes (E11.9, 250.00) Comments: low a 1c. will d/c glyburide and check A1C in 3 months to re-evaluate to see if pt. is really a diabetic. Status: Active Diabetes Mellitus Status: Active Dysphagia, unspecified type (R13.10, 787.20) Status: Active Fatigue (R53.83, 780.79) Comments: pt. w ants Testosterone panel checked. he will call when he can get his Test. panel drawn. Status: Active Fracture of rib of left side (S22.32XA, 807.00) Comments: pain control. Will change to Hydrocodone.percocet makes him itch. Status: Active Gastroesophageal Reflux Disease Status: Active Gastroesophageal reflux disease with eso phagitis, unspecified whether hemorrhage (K21.00, 530.11) Status: Active GERD without esophagitis (K21.9, 530.81) Status: Active High blood pressure Status: Active HTN (hypertension), benign (I10, 401.1) Comments: Stable, no changes. Status: Active Hypercholesterolemia Status: Active Hyperlipidemia, unspecified hyperlipidemia type (E78.5, 272. 4) Comments: Lipid Panel (09/16/2019): TC-184 TG-239 HDL-34 LDL-102 Status: Active Hypothyroidism, adult (E03.9, 244.9) Com ments: Check TSH in 3 months.September 2019: TSH-3.489 Ft4-0.89 Status: Active Nocturia (R35.1, 788.43) Status: Active Thyroid Disease Status: Active Verruca vulgaris (B07.9, 078.10) Comment s: Causes pain in his finger. Status: Active Medications Name Dates Details Atorvastatin Calcium 40 MG Oral Tablet 1 Tablet at bedtime for 30 days Quantity: 30 {Tablet} Refills: 11 Ordered:15-Feb-2021 Kailey Chandler Start : 15-Feb-2021 Active Comments:#11 REFILLS Centrum Silver Oral Tablet 1 daily Active glyBURIDE 2.5 MG Oral Tablet 1 (one) Tablet two times daily for 30 days Quantity: 60 {Tablet} Refills: 3 Ordered:10-May-2021 [place] Start : 10-May-2021 Active Comments:for diabetes Levothyroxine Sodium 75 MCG Oral Tablet 1 Tablet in the mornings on an empty stomach for 30 days Quantity: 30 {Tablet} Refills: 11 Ordered:15-Feb-2021 Kailey Chandler Start : 15-Feb-2021 Active Comments:#11 REFILLS Lisinopril 10 MG Oral Tablet 1 (one) Tablet daily for 90 days Quantity: 90 {Tablet} Refills: 3 Ordered:02-Aug-2020 [place] Start : 02-Aug-2020 Active Omeprazole 40 MG Oral Capsule Delayed Release 1 Capsule two times daily for 90 days Quantity: 180 {Capsule} Refills: 3 Ordered:14-Sep-2020 [place] Start : 14-Sep-2020 Active Tamsulosin HCl 0.4 MG Oral Capsule 1 (one) Capsule daily for 90 days Quantity: 90 {Capsule} Refills: 3 Ordered:20-Jul-2020 Kailey Chandler Start : 20-Jul-2020 Active HYDROcodone-Acetaminophen 10-325 MG Oral Tablet 1 (one) Tablet every 4-6 hours, as needed for 0 days Quantity: 60 {Tablet} Refills: 0 Ordered:07-Feb-2021 Kailey Chandler Start : 23-Oct-2020 End : 07-Feb-2021 Inactive Comments:Medication taken as needed. metFORMIN HCl 500 MG Oral Tablet 1 Tablet two times daily for 90 days Quantity: 180 {Tablet} Refills: 1 Ordered:20-Jan-2020 [place] Start : 28-Oct-2019 End : 20-Jan-2020 Inactive Tamsulosin HCl 0.4 MG Oral Capsule 0.4 mg daily (0.4 MG) Inactive Allergies and Adverse Reactions Name Dates Details No Known Drug Allergies (Allergy) Onset: 16-Sep-2019 Status : Active Procedures Procedure Dates Details COLLECTION, CAPILLARY BLOOD SPECIMEN Date: 10-May-2021 Com pleted 10-May-2021 ([id number]) Comments: Collection of capillary blood from 3rd finger on Right Hand for HGB A1C check by Kailey Chandler LPN. Patient tolerated well. ELECTROCARDIOGRAM, COMPLETE ([id number]) Date: 08-May-2021 Comp leted 08-May-2021 COLLECTION OF CAPILLARY BLOOD: Date: 23-Oct-2020 Completed 23-Oct-2020 CAPILLARY BLOOD DRAW ([id number]) Comments: C ollection of capillary blood from 3rd finger on left hand for HGB A1C check by Kailey Chandler LPN. Patient tolerated well. HGB A1C = 7.2% COLLECTION OF CAPILLARY BLOOD: Date: 20-Jul-2020 Completed 20-Jul-2020 CAPILLARY BLOOD DRAW ([id number]) Comments: C ollection of capillary blood from 3rd finger on right hand for HGB A1C check on 07/20/2020 at 09:00AM by Kailey Chandler LPN. Patient tolerated well. VENIPUNCTURE FOR BLOOD TEST ([id number]) Date: 20-Jul-2020 Comp leted 20-Jul-2020 Comments: Venipunctu re to Right AC on 07/20/2020 at 09:00AM by Kailey Chandler LPN. Patient tolerated well. COLLECTION OF CAPILLARY BLOOD: Date: 20-Apr-2020 Completed 20-Apr-2020 CAPILLARY BLOOD DRAW ([id number]) Comments: C ollection of capillary blood from 3rd finger on right hand for Hgb A1C check by Kailey Chandler LPN. Patient tolerated well. Hgb A1C = 5.9 VENIPUNCTURE FOR BLOOD TEST ([id number]) Date: 16-Sep-2019 Comp leted 16-Sep-2019 Arthroscopic Shoulder Surgery - Both Com pleted Hemorrhoidectomy Completed Family History Unknown Family Member Name Dates Details Diabetes Mellitus Comments: Father. Mo ther. Daughter. Status: Active Heart Disease Comments: Father. Status: Active Hypertension Comments: Father. Mo ther. Status: Active Social History Name Dates Details Alcohol use: Occasional alcohol use. Drinks beer. Status: Active Caffeine use: Carbonated beverages. 2 servings/day. Status: Active Exercise: daily. walking. Status: Active No drug use Status: Active Seat Belt Use: Always uses seat belts. S tatus: Active Tobacco / smoke exposure: None. Status: Active Tobacco use: Never smoker. Status: Activ e Smoking Status Name Dates Details Never smoked tobacco (finding) Vital Signs Date Test Result Details [id number] Comments: O2 Sa t is 98% with a mask on. Body temperature 98.2 f Comments: Method: Te mporal Heart Rate 111 /min Comments: Pattern: R egular Respiratory rate 20 /min Comments: Pattern: U nlabored O2 SAT 98 % Comments: Room air Systolic blood pressure 134 mm[Hg] Comments: Pativannesa t Position: Sitting; Cuff Location: Left Arm; Cuff Size: Standard Diastolic blood pressure 85 mm[Hg] Comments: Hudson nt Position: Sitting; Cuff Location: Left Arm; Cuff Size: Standard Weight 207.4375 lb Body height 71 in Body mass index (BMI) [Ratio] 28.93 kg/m2 Body surface area Derived from formula 2.14 m2 [id number] Body temperature 97.5 f Comments: Meth od: Oral Heart Rate 120 /min Comments: Pattern: R egular Respiratory rate 20 /min Comments: Pattern: U nlabored O2 SAT 97 % Comments: Room air Systolic blood pressure 136 mm[Hg] Comments: Patien t Position: Sitting; Cuff Location: Left Arm; Cuff Size: Standard Diastolic blood pressure 86 mm[Hg] Comments: Patie nt Position: Sitting; Cuff Location: Left Arm; Cuff Size: Standard Weight 218 lb Body height 71 in Body mass index (BMI) [Ratio] 30.40 kg/m2 Body surface area Derived from formula 2.19 m2 :28 Comments: O2 Sa t is 97% with a mask on. Body temperature 99.1 f Comments: Method: Te mporal Heart Rate 91 /min Comments: Pattern: R egular Respiratory rate 20 /min Comments: Pattern: U nlabored O2 SAT 97 % Comments: Room air Systolic blood pressure 134 mm[Hg] Comments: Patien t Position: Sitting; Cuff Location: Left Arm; Cuff Size: Standard Diastolic blood pressure 86 mm[Hg] Comments: Patie nt Position: Sitting; Cuff Location: Left Arm; Cuff Size: Standard Weight 218 lb Body height 71 in Body mass index (BMI) [Ratio] 30.40 kg/m2 Body surface area Derived from formula 2.19 m2 :06 Body temperature 98.9 f Comments: Meth od: Temporal Heart Rate 85 /min Comments: Pattern: R egular Respiratory rate 20 /min Comments: Pattern: U nlabored O2 SAT 97 % Comments: Room air Systolic blood pressure 121 mm[Hg] Comments: Patien t Position: Sitting; Cuff Location: Left Arm; Cuff Size: Standard Diastolic blood pressure 77 mm[Hg] Comments: Patie nt Position: Sitting; Cuff Location: Left Arm; Cuff Size: Standard Weight 220 lb Body height 71 in Body mass index (BMI) [Ratio] 30.68 kg/m2 Body surface area Derived from formula 2.20 m2 :50 Body temperature 98.7 f Comments: Meth od: Temporal Heart Rate 92 /min Comments: Pattern: R egular Respiratory rate 20 /min Comments: Pattern: U nlabored O2 SAT 95 % Comments: Room air Systolic blood pressure 118 mm[Hg] Comments: Patien t Position: Sitting; Cuff Location: Left Arm; Cuff Size: Standard Diastolic blood pressure 76 mm[Hg] Comments: Patie nt Position: Sitting; Cuff Location: Left Arm; Cuff Size: Standard Weight 214 lb Body height 71 in Body mass index (BMI) [Ratio] 29.85 kg/m2 Body surface area Derived from formula 2.17 m2 :12 Body temperature 98.8 f Comments: Metho d: Temporal Heart Rate 72 /min Comments: Pattern: R egular Respiratory rate 20 /min Comments: Pattern: U nlabored O2 SAT 97 % Comments: Room air Systolic blood pressure 122 mm[Hg] Comments: Patien t Position: Sitting; Cuff Location: Left Arm; Cuff Size: Standard Diastolic blood pressure 78 mm[Hg] Comments: Patie nt Position: Sitting; Cuff Location: Left Arm; Cuff Size: Standard Weight 214 lb Body height 71 in Body mass index (BMI) [Ratio] 29.85 kg/m2 Body surface area Derived from formula 2.17 m2 :43 Body temperature 98.9 f Comments: Metho d: Tympanic Heart Rate 75 /min Comments: Pattern: R egular Respiratory rate 20 /min Comments: Pattern: U nlabored O2 SAT 96 % Comments: Room air Systolic blood pressure 141 mm[Hg] Comments: Patien t Position: Sitting; Cuff Location: Left Arm; Cuff Size: Standard Diastolic blood pressure 96 mm[Hg] Comments: Patie nt Position: Sitting; Cuff Location: Left Arm; Cuff Size: Standard Weight 210 lb Body height 71 in Body mass index (BMI) [Ratio] 29.29 kg/m2 Body surface area Derived from formula 2.15 m2 :34 Body temperature 98.6 f Comments: Metho d: Tympanic Heart Rate 92 /min Comments: Pattern: R egular Respiratory rate 20 /min Comments: Pattern: U nlabored O2 SAT 97 % Comments: Room air Systolic blood pressure 148 mm[Hg] Comments: Patien t Position: Sitting; Cuff Location: Left Arm; Cuff Size: Standard Diastolic blood pressure 94 mm[Hg] Comments: Patie nt Position: Sitting; Cuff Location: Left Arm; Cuff Size: Standard Weight 200 lb Body height 71 in Body mass index (BMI) [Ratio] 27.89 kg/m2 Body surface area Derived from formula 2.11 m2 :06 Body temperature 97.8 f Comments: Metho d: Oral Heart Rate 76 /min Comments: Pattern: R egular Respiratory rate 16 /min Comments: Pattern: U nlabored O2 SAT 97 % Comments: Room air Systolic blood pressure 120 mm[Hg] Comments: Patien t Position: Sitting; Cuff Location: Left Arm; Cuff Size: Standard Diastolic blood pressure 73 mm[Hg] Comments: Patie nt Position: Sitting; Cuff Location: Left Arm; Cuff Size: Standard [id number] Body temperature 97.8 f Comments: Metho d: Tympanic Heart Rate 89 /min Comments: Pattern: R egular Respiratory rate 20 /min Comments: Pattern: U nlabored O2 SAT 96 % Comments: Room air Systolic blood pressure 137 mm[Hg] Comments: Jaylynvannesa t Position: Sitting; Cuff Location: Left Arm; Cuff Size: Standard Diastolic blood pressure 96 mm[Hg] Comments: Patie nt Position: Sitting; Cuff Location: Left Arm; Cuff Size: Standard Weight 198 lb Results Date Description Value Details :20 HGB A1C ([id number]) Comments: Collection of capillary blood from 3rd finger on left hand for HGB A1C check by Kailey Chandler LPN. Patient tolerated well. HGB A1C = 7.2%; Dr. Colón notified. HEMOGLOBIN GLYCLATED (HGB A1C) 7.2 % (Abnormal) Range: 4.6 - 7.1 Comments: Dr. Hearn notified. :02 HGB A1C ([id number]) Comments: Collection of capillary blood from 3rd finger on Right Hand for HGB A1C check by Kailey Chandler LPN. Patient tolerated well.; Dr. Colón notified. HEMOGLOBIN GLYCLATED (HGB A1C) 8.1 % (Abnormal) Range: 4.6 - 7.1 Comments: Dr. Hearn notified. Plan of Care Name Dates Details Instructions GERD, Adult Start: 08-May-2021 Instruction Type: P atient Education Indication: Gastroesophageal reflux dise ase with esophagitis, unspecified whether hemorrhage Smoking Counseling Education Start: 08-May-2021 Instructio n Type: Patient Education Indication: Gastroesophageal reflux dise ase with esophagitis, unspecified whether hemorrhage Smoking Counseling Education Start: 08-May-2021 Instructio n Type: Patient Education Indication: Cholelithiasis with cholecystitis Follow up in 3 months Start: 20-Apr-2020 Instruction Type: Provider Instructions for Treatment Indication: Fatigue Follow up in 3 months Start: 20-Jan-2020 Instruction Type: Provider Instructions for Treatment Indication: Diabetes Follow up in 6 months Start: 28-Oct-2019 Instruction Type: Provider Instructions for Treatment Indication: GERD without esophagitis Follow up in 2 months Start: 16-Sep-2019 Instruction Type: Provider Instructions for Treatment Indication: Diabetes Planned Observations PT/INR ([id number])Indication: Cholelithiasis with cholecy stitis On: :36 Request CMP ([id number])Indication: Cholelithiasis with cholecystitis On: :36 Request CBC, PLATELETS & AUT DIFF ([id number])Indication: Cholelith iasis with cholecystitis On: :36 Request HGB A1C ([id number])Indication: Diabetes On: [id number] Req uest Comments: To be done at [facility] due to insurance changed to [facility]. Thank you! H.Pylori Stool ([id number])Indication: GERD without esophagitis O n: :52 Request PSA (PROSTATE SPECIFIC ANTIGEN) ([id number])Indication: Nocturia On: :20 Request Comments: Venipunctu re to Right AC on 07/20/2020 at 09:00AM by Kailey Chandler LPN. Patient tolerated well. TESTOSTERONE FREE ([id number])Indication: Fatigue On: :19 Request Comments: Venipunctu re to Right AC on 07/20/2020 at 09:00AM by Kailey Chandler LPN. Patient tolerated well. TESTOSTERONE TOTAL ([id number])Indication: Fatigue On: 20-Jul-2020 9:19 Request Comments: Venipunctu re to Right AC on 07/20/2020 at 09:00AM by Kailey Chandler LPN. Patient tolerated well. HGB A1C ([id number])Indication: Diabetes On: :14 Requ est Comments: HGB A1C = 8.7 HGB A1C ([id number])Indication: Diabetes On: :45 Requ est Comments: Hgb A1C = 5.9 HGB A1C ([id number])Indication: Diabetes On: :44 Requ est TSH (THYROID STIMULATING HORMONE) ([id number])Indication: D iabetes On: :43 Request THYROXINE FREE ([id number])Indication: Diabetes On: : 43 Request CMP ([id number])Indication: Diabetes On: :43 Request CBC, PLATELETS & AUT DIFF ([id number])Indication: Diabetes On: :43 Request LIPID PANEL ([id number])Indication: Diabetes On: :43 Request Planned Encounters Medical; Office Visit 20 - Hospital f/u EGD On: 2020 15:30 [facility]; Office Visit 15 - Hospital f/u- gallbladder r emoval On: 19-Jun-2021 10:40 [facility]; Office Visit 30 - 3 month f/u (A1C) On: 16:20 [facility], Nurse Planned Procedures CHEST X-RAY, PA AND LATERAL ([id number])By: Luis Manuel John On: 08-May-2021 Intent Luis Manuel Akbar LAPAROSCOPIC CHOLECYSTECTOMY ([id number])By: Luis Manuel John On: 08-May-2021 Intent Luis Manuel Akbar EGD, WITH BIOPSY ([id number])By: Luis Manuel John, On: 08-May-2021 Intent Luis Manuel Instructions Name Dates Details Follow My Health Start: 10-May-2021 Instruction Type: P atient Education Indication: Diabetes How to Access Health Information Online using Patient Portal and [employer] Apps Start: 10-May-2021 Instruction Type: Patient Education Indication: Diabetes Verified Opioid Agreement Start: 10-May-2021 Instruction T ype: Provider Instructions for Treatment Indication: Diabetes Verified Opioid Agreement Start: 08-May-2021 Instruction T ype: Provider Instructions for Treatment Indication: Gastroesophageal reflux dise ase with esophagitis, unspecified whether hemorrhage Follow My Health Start: 08-May-2021 Instruction Type: P atient Education Indication: Gastroesophageal reflux dise ase with esophagitis, unspecified whether hemorrhage How to Access Health Information Online using Patient Portal and [employer] Apps Start: 08-May-2021 Instruction Type: Patient Education Indication: Gastroesophageal reflux dise ase with esophagitis, unspecified whether hemorrhage Verified Opioid Agreement Start: 08-May-2021 Instruction T ype: Provider Instructions for Treatment Indication: Cholelithiasis with cholecystitis Follow My Health Start: 08-May-2021 Instruction Type: P atient Education Indication: Cholelithiasis with cholecystitis How to Access Health Information Online using Patient Portal and [employer]rd [employer] Apps Start: 08-May-2021 Instruction Type: Patient Education Indication: Cholelithiasis with cholecystitis Follow My Health Start: 07-Feb-2021 Instruction Type: P atient Education Indication: Diabetes How to Access Health Information Online using Patient Portal and [email or web address] Apps Start: 07-Feb-2021 Instruction Type: Patient Education Indication: Diabetes Follow My Health Start: 23-Oct-2020 Instruction Type: P atient Education Indication: Diabetes How to Access Health Information Online using Patient Portal and 3rd [employer] Apps Start: 23-Oct-2020 Instruction Type: Patient Education Indication: Diabetes Follow My Health Start: 26-Jul-2020 Instruction Type: P atient Education Indication: GERD without esophagitis How to Access Health Information Online using Patient Portal and [email or web address] Apps Start: 26-Jul-2020 Instruction Type: Patient Education Indication: GERD without esophagitis Follow My Health Start: 20-Jul-2020 Instruction Type: P atient Education Indication: Diabetes How to Access Health Information Online using Patient Portal and [email or web address] Apps Start: 20-Jul-2020 Instruction Type: Patient Education Indication: Diabetes Encounters Review On: 11-Jun-2021 10:56 [facility] Office Visit On: 10-May-2021 16:20 Encounter Reason: Follow Up - Note for " discuss consultation": Patient is in the office today for his 3 month follow up and HGB A1C check. Patient has no known drug allergies.Encounter Diagnosis: Diabetes, HTN (hypertension), benign End: 10-May-2021 16:23 [facility] Office Visit On: 08-May-2021 14:00 Encounter Diagnosis: Gastroesophageal re flux disease with esophagitis, unspecified whether hemorrhage, Dysphagia, unspecified type, Cholelithiasis with cholecystitis End: 08-May-2021 14:51 [facility] eAuth Medication Prescribed On: 15-Feb-2021 15:31 Encounter Diagnosis: Hypothyroidism, tere lt, Hyperlipidemia, unspecified hyperlipidemia type End: 15-Feb-2021 15:36 [facility] Office Visit On: 07-Feb-2021 16:26 Encounter Reason: Follow Up - Note for " discuss consultation": Patient is in the office today for his 3 month follow up for HGB A1C which will now have to be done since he changed to [place] [employer]. Patient voices no comp End: 07-Feb-2021 16:47 laints at this time. Patient is unable to tolerate Metformin which we have tried to put him on in the past. Patient has no known drug allergies.Encounter Diagnosis: Diabetes, Verruca vulgaris, HTN (hypertension), benign [facility] Office Visit On: 25-Jan-2021 10:34 Encounter Diagnosis: Hyperlipidemia, unspecified hyper lipidemia type End: 25-Jan-2021 10:36 [facility] Office Visit On: 23-Oct-2020 16:02 Encounter Reason: Follow Up - Note for " discuss consultation": Patient is in the office today for his 3 month follow up for HGB A1C check. Patient states he had to go to the ER this weekend due to he fell off a log tr End: 23-Oct-2020 16:41 uck and broke some ribs on his left side . Patient voices no c/o pain at this time. Patient has no known drug allergies.Encounter Diagnosis: Diabetes, Fracture of rib of left side, Cholelithiasis with cholecystitis [facility] Office Visit On: 14-Sep-2020 14:00 Encounter Diagnosis: GERD without esophagitis End: 14:01 [facility] Office Visit On: 02-Aug-2020 9:58 Encounter Diagnosis: HTN (hypertension), benign End: 9:59 [facility] Office Visit On: 26-Jul-2020 14:38 Encounter Reason: Gastroesophageal Reflu x Disease - Symptoms include pain, heartburn and regurgitation. The pain radiates to the epigastrium and upper abdomen. The patient describes this as severe and worsening. Symptoms End: 26-Jul-2020 14:58 are relieved by proton pump inhibitors. Associated symptoms include awakening with choking. Current treatment includes proton pump inhibitors. Note for "Gastroesophageal reflux disease": Patient is in the office today with complaints of ligia re acid reflux. Patient states last night his reflux was "really bad." Patient states he was COVID-19 rapid tested today at [facility] and is NEGATIVE. Patient has no known drug allergies. Encounter Diagnosis: GERD without esophagitis [facility] Office Visit On: 20-Jul-2020 8:50 Encounter Reason: Follow Up - Note for " discuss consultation": Patient is in the office today for his 3 month follow up for HGB A1C check and Lab draw. Patient voices no complaints at this time. Patient has no known drug allergies. End: 20-Jul-2020 9:28 Encounter Diagnosis: Diabetes, Fatigue, Nocturia, HTN (hypertension), benign, Hypothyroidism, adult [facility] eAuth Medication Prescribed On: 24-Apr-2020 13:30 Encounter Diagnosis: Diabetes End: 24-Apr-2020 13:43 [facility] Office Visit On: 20-Apr-2020 16:41 Encounter Diagnosis: Diabetes, HTN (hypertension), bobbi ign, Fatigue End: 20-Apr-2020 16:58 [facility] Office Visit On: 20-Jan-2020 9:31 Encounter Reason: Diarrhea - The onset o f the diarrhea has been acute and has been occurring in a persistent pattern for weeks. The course has been increasing. The stools are watery. The volume of the stools is normal. T End: 20-Jan-2020 9:47 he symptoms have been associated with di abetes mellitus. Note for "Diarrhea": Patient is in the office today with complaints of diarrhea. Patient states he believes the Metformin is causing him to have diarrhea. Patient denies any nausea or v omiting. Patient voices no complaints of pain at this time. Patient has no known drug allergies.Encounter Diagnosis: Diabetes, GERD without esophagitis, Hyperlipidemia, unspecified hyperlipidemia type, Hypothyroidism, adult, HTN (hypertension), benign [facility] Erroneous Encounter On: 20-Jan-2020 8:03 [facility] End: 20-Jan-2020 9:21 Office Visit On: 28-Oct-2019 9:06 Encounter Reason: Follow Up - Pt is here for a 6 week follow up. Patient states he needs a medication for acid reflux. States the Metformin is giving him stomach problems, states it keeps his stomach messed up.Encounter Diagnosis: End: 28-Oct-2019 9:23 GERD without esophagitis, Hyperlipidemia , unspecified hyperlipidemia type, Diabetes, Hypothyroidism, adult, HTN (hypertension), benign [facility] Office Visit On: 16-Sep-2019 14:02 Encounter Reason: New patient. 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
[2021-06-11] MEDS: MORPHINE SULFATE INJ 4 MG IVP PRN ×2 (13:15→22:11)
--- NOTE | 2021-06-11 21:28 | DR.PROGNOT ---
Hospital Progress Notes - Progress Note for Day of: Progress Note Date: 06/11/21 - Chief Complaint Chief Complaint: . still having Rt side abdominal pain . no nausea or vomiting . tolerating diet well . had temp 99.7 this pm. WBC 12.. amaury CMP - Past Medical Family Social History Past Med/Fam/Surg Hx: No changes since H&P Allergies: Allergies oxycodone Allergy (Mild, Verified 06/10/21 10:24) RASH itching - Review Of Systems ROS: No change since H&P - Vital Signs Vital Signs: Temperature 98.7 F Pulse Rate [Right Brachial] 89 Pulse Rate 109 Respiratory Rate 20 Blood Pressure [Right Arm] 122/68 Blood Pressure 140/72 O2 Sat by Pulse Oximetry 96 - Physical Exam Oriented: Normal Eyes: Normal Ear: Normal Nose: Normal Throat: Normal Cardiovascular: Normal : Normal GI:Auscultation: Normal GI:Palpation: Other (Right lateral upper side TTP) GI: Tenderness: RUQ (soft, flat abdomen with mild RT side and flank tenderness . no rebound . BS+) Skin: Normal Musculoskeletal: Normal Psychiatric: Normal Mood Description: Calm Affect: Normal Speech Pattern: Clear, Appropriate - Laboratory and Diagnostics Result Diagrams: 06/11/21 04:35 06/11/21 04:35 Labs: Laboratory WBC 12.0 X10^3/uL (3.6-10.0) H 06/11/21 04:35 RBC 3.40 X10^6/uL (4.7-6.0) L 06/11/21 04:35 Hgb 10.4 g/dL (13.5-18.0) L 06/11/21 04:35 Hct 30.0 % (42.0-54.0) L 06/11/21 04:35 MCV 88.1 fL (80.0-100.0) 06/11/21 04:35 MCH 30.5 pg (27.0-34.0) 06/11/21 04:35 MCHC 34.6 g/dL (33.0-35.0) 06/11/21 04:35 RDW 13.1 % (11.6-16.5) 06/11/21 04:35 Plt Count 557 X10^3/uL (150.0-450.0) H 06/11/21 04:35 MPV 7.1 fL (7.4-11.0) L 06/11/21 04:35 Neut % (Auto) 76.7 % (42.0-75.0) H 06/11/21 04:35 Lymph % (Auto) 13.5 % (21.0-51.0) L 06/11/21 04:35 [place] % (Auto) 7.8 % (0.0-13.0) 06/11/21 04:35 Eos % (Auto) 1.1 % (0.9-2.9) 06/11/21 04:35 Baso % (Auto) 0.9 % (0.2-1.0) 06/11/21 04:35 Neut # (Auto) 9.2 x10^3/uL (2.2-4.8) H 06/11/21 04:35 Lymph # (Auto) 1.6 X10^3/uL (1.3-2.9) 06/11/21 04:35 [place] # (Auto) 0.9 x10^3/uL (0.3-0.8) H 06/11/21 04:35 Eos # (Auto) 0.1 x10^3/uL (0.0-0.2) 06/11/21 04:35 Baso # (Auto) 0.1 X10^3/uL (0.0-0.1) 06/11/21 04:35 Absolute Nucleated RBC 0.0 /100WBC 06/11/21 04:35 PT 15.9 SECONDS (11.8-14.3) 06/10/21 11:33 INR Target Range - 06/10/21 11:33 INR 1.33 (0.8-1.3) H 06/10/21 11:33 APTT 38.0 SECONDS (22.9-36.5) H 06/10/21 11:33 PTT Comment - 06/10/21 11:33 Sodium 140 mmol/L (136-145) 06/11/21 04:35 Corrected Sodium 141 mmol/L (136-145) 06/11/21 04:35 Potassium 3.9 mmol/L (3.5-5.1) 06/11/21 04:35 Chloride 106 mmol/L (98-107) 06/11/21 04:35 Carbon Dioxide 24.5 mmol/L (21-32) 06/11/21 04:35 BUN 13 mg/dL (7-18) 06/11/21 04:35 Creatinine 0.95 mg/dL (0.70-1.30) 06/11/21 04:35 Est GFR (MDRD) Af Amer > 60 (>60) 06/11/21 04:35 Est GFR (MDRD) Non-Af > 60 (>60) 06/11/21 04:35 Glucose 148 mg/dL (65-99) H 06/11/21 04:35 POC Glucose (mg/dL) 153 mg/dL (65-99) H 06/11/21 20:30 Calcium 8.0 mg/dL (8.5-10.1) L 06/11/21 04:35 Corrected Calcium 9.7 mg/dL (8.5-10.1) 06/11/21 04:35 Total Bilirubin 0.30 mg/dL (0.2-1.0) 06/11/21 04:35 AST 24 Units/L (15-37) 06/11/21 04:35 ALT 33 Units/L (12-78) 06/11/21 04:35 Alkaline Phosphatase 120 Units/L (46-116) H 06/11/21 04:35 Total Protein 6.2 g/dL (6.4-8.2) L 06/11/21 04:35 Albumin 1.9 g/dL (3.4-5.0) L 06/11/21 04:35 Globulin 4.3 g/dL (2.5-4.5) 06/11/21 04:35 Albumin/Globulin Ratio 0.4 Ratio (1.1-2.1) L 06/11/21 04:35 Lipase 133 Units/L (73-393) 06/10/21 11:33 Specimen Type Clean catch urine 06/10/21 11:42 Urine Color Yellow (YELLOW) 06/10/21 11:42 Urine Appearance Clear (CLEAR) 06/10/21 11:42 Urine pH 6.0 (5.0 - 8.0) 06/10/21 11:42 Ur Specific [place] 1.025 (1.000-1.030) 06/10/21 11:42 Urine Protein 1+ (NEGATIVE) 06/10/21 11:42 Urine Glucose (UA) 4+ (NEGATIVE) 06/10/21 11:42 Urine Ketones Negative (NEGATIVE) 06/10/21 11:42 Urine Occult Blood Negative (NEGATIVE) 06/10/21 11:42 Urine Nitrite Negative (NEGATIVE) 06/10/21 11:42 Urine Bilirubin Negative (NEGATIVE) 06/10/21 11:42 Urine Urobilinogen Normal (NORMAL) 06/10/21 11:42 Ur Leukocyte Esterase Negative (NEGATIVE) 06/10/21 11:42 Urine RBC None seen /HPF (0-3) 06/10/21 11:42 Urine WBC None seen /HPF (0-5) 06/10/21 11:42 Ur Squamous Epith Cells Moderate /HPF (NEGATIVE) 06/10/21 11:42 Urine Bacteria Trace /HPF (NEGATIVE) 06/10/21 11:42 Hyaline Casts Rare /LPF (NEGATIVE) 06/10/21 11:42 Urine Mucus Few /HPF (NEGATIVE) 06/10/21 11:42 Ur Culture Indicated? No/not indicated 06/10/21 11:42 Influenza Type A Ag Negative-presumptive (NEGATIVE) 06/10/21 11:18 Influenza Type B Ag Negative-presumptive (NEGATIVE) 06/10/21 11:18 SARS CoV-2 RNA Rapid ERICH Negative (NEGATIVE) 06/10/21 12:32 - Assessment and Plan 1: rule out intra abdominal sepsis . no evidence of peritonitis . s/p lap ruth for chronic and acute cholecystitis . same IV ABTs ..awaiting cultures , repeat CT in 2 days. - Problem Patient Problems: Patient Problems Intra-abdominal abscess post-procedure (Acute) T81.43XA
[2021-06-11] MEDS: SNACK - Diabetic Appropriate PO SCH (21:58)
[2021-06-11] MEDS: NovoLIN R (or HumuLIN R) SUBCUT PRN (22:00)
[2021-06-12] MEDS: ZOSYN VIAL 3.375 GRAMS 3.375 G in NS 100 ML IV + SPIKE MINIBAG* 100 ML IV SCH ×4 (01:35→22:43)
[2021-06-12] MEDS: FLAGYL IV PREMIX 500 MG BAG 500 MG/100 ML BAG IV SCH ×3 (05:04→21:49)
[2021-06-12] MEDS: DIABETA PO SCH ×2 (06:20→17:37)
--- NOTE | 2021-06-12 08:36 | PCM.PROG ---
Progress Note Progress Note for Day of Date of Exam: 06/12/21 Subjective Subjective: Patient is feeling a little worse today he reports. Pain is controlled. Not much of an appetite this am. Past Medical Family Social History Past Med/Fam/Surg Hx: No changes since H&P Allergies: Allergies oxycodone Allergy (Mild, Verified 06/10/21 10:24) RASH itching Review of Systems ROS: No change since H&P Vital Signs and I&O's Vital Signs: Temperature 98.8 F Pulse Rate [Right Brachial] 84 Pulse Rate 109 Respiratory Rate 23 Blood Pressure [Right Arm] 121/62 Blood Pressure 140/72 O2 Sat by Pulse Oximetry 96 Intake and Output: Intake & Output 06/09/21 06/10/21 06/11/21 06/12/21 11:59 11:59 11:59 11:59 Intake Total 850 / 850 1670 / 1670 Balance 850 / 850 1670 / 1670 Physical Exam Oriented: Normal Eyes: Normal Ear: Normal Nose: Normal Throat: Normal Respiratory: Normal Cardiovascular: Normal : Normal Auscultation: Bowel Sounds: Normal Tenderness: RUQ (soft, flat abdomen with mild RT side and flank tenderness . no rebound . BS+) Skin: Normal Musculoskeletal: Normal Psychiatric: Normal Mood Description: Calm Affect: Normal Speech Pattern: Clear and Appropriate Laboratory and Diagnostics Result Diagrams: 06/11/21 04:35 06/11/21 04:35 Labs: Laboratory WBC 12.0 X10^3/uL (3.6-10.0) H 06/11/21 04:35 RBC 3.40 X10^6/uL (4.7-6.0) L 06/11/21 04:35 Hgb 10.4 g/dL (13.5-18.0) L 06/11/21 04:35 Hct 30.0 % (42.0-54.0) L 06/11/21 04:35 MCV 88.1 fL (80.0-100.0) 06/11/21 04:35 MCH 30.5 pg (27.0-34.0) 06/11/21 04:35 MCHC 34.6 g/dL (33.0-35.0) 06/11/21 04:35 RDW 13.1 % (11.6-16.5) 06/11/21 04:35 Plt Count 557 X10^3/uL (150.0-450.0) H 06/11/21 04:35 MPV 7.1 fL (7.4-11.0) L 06/11/21 04:35 Neut % (Auto) 76.7 % (42.0-75.0) H 06/11/21 04:35 Lymph % (Auto) 13.5 % (21.0-51.0) L 06/11/21 04:35 [place] % (Auto) 7.8 % (0.0-13.0) 06/11/21 04:35 Eos % (Auto) 1.1 % (0.9-2.9) 06/11/21 04:35 Baso % (Auto) 0.9 % (0.2-1.0) 06/11/21 04:35 Neut # (Auto) 9.2 x10^3/uL (2.2-4.8) H 06/11/21 04:35 Lymph # (Auto) 1.6 X10^3/uL (1.3-2.9) 06/11/21 04:35 [place] # (Auto) 0.9 x10^3/uL (0.3-0.8) H 06/11/21 04:35 Eos # (Auto) 0.1 x10^3/uL (0.0-0.2) 06/11/21 04:35 Baso # (Auto) 0.1 X10^3/uL (0.0-0.1) 06/11/21 04:35 Absolute Nucleated RBC 0.0 /100WBC 06/11/21 04:35 PT 15.9 SECONDS (11.8-14.3) 06/10/21 11:33 INR Target Range - 06/10/21 11:33 INR 1.33 (0.8-1.3) H 06/10/21 11:33 APTT 38.0 SECONDS (22.9-36.5) H 06/10/21 11:33 PTT Comment - 06/10/21 11:33 Sodium 140 mmol/L (136-145) 06/11/21 04:35 Corrected Sodium 141 mmol/L (136-145) 06/11/21 04:35 Potassium 3.9 mmol/L (3.5-5.1) 06/11/21 04:35 Chloride 106 mmol/L (98-107) 06/11/21 04:35 Carbon Dioxide 24.5 mmol/L (21-32) 06/11/21 04:35 BUN 13 mg/dL (7-18) 06/11/21 04:35 Creatinine 0.95 mg/dL (0.70-1.30) 06/11/21 04:35 Est GFR (MDRD) Af Amer > 60 (>60) 06/11/21 04:35 Est GFR (MDRD) Non-Af > 60 (>60) 06/11/21 04:35 Glucose 148 mg/dL (65-99) H 06/11/21 04:35 POC Glucose (mg/dL) 98 mg/dL (65-99) 06/12/21 05:46 Calcium 8.0 mg/dL (8.5-10.1) L 06/11/21 04:35 Corrected Calcium 9.7 mg/dL (8.5-10.1) 06/11/21 04:35 Total Bilirubin 0.30 mg/dL (0.2-1.0) 06/11/21 04:35 AST 24 Units/L (15-37) 06/11/21 04:35 ALT 33 Units/L (12-78) 06/11/21 04:35 Alkaline Phosphatase 120 Units/L (46-116) H 06/11/21 04:35 Total Protein 6.2 g/dL (6.4-8.2) L 06/11/21 04:35 Albumin 1.9 g/dL (3.4-5.0) L 06/11/21 04:35 Globulin 4.3 g/dL (2.5-4.5) 06/11/21 04:35 Albumin/Globulin Ratio 0.4 Ratio (1.1-2.1) L 06/11/21 04:35 Lipase 133 Units/L (73-393) 06/10/21 11:33 Specimen Type Clean catch urine 06/10/21 11:42 Urine Color Yellow (YELLOW) 06/10/21 11:42 Urine Appearance Clear (CLEAR) 06/10/21 11:42 Urine pH 6.0 (5.0 - 8.0) 06/10/21 11:42 Ur Specific [place] 1.025 (1.000-1.030) 06/10/21 11:42 Urine Protein 1+ (NEGATIVE) 06/10/21 11:42 Urine Glucose (UA) 4+ (NEGATIVE) 06/10/21 11:42 Urine Ketones Negative (NEGATIVE) 06/10/21 11:42 Urine Occult Blood Negative (NEGATIVE) 06/10/21 11:42 Urine Nitrite Negative (NEGATIVE) 06/10/21 11:42 Urine Bilirubin Negative (NEGATIVE) 06/10/21 11:42 Urine Urobilinogen Normal (NORMAL) 06/10/21 11:42 Ur Leukocyte Esterase Negative (NEGATIVE) 06/10/21 11:42 Urine RBC None seen /HPF (0-3) 06/10/21 11:42 Urine WBC None seen /HPF (0-5) 06/10/21 11:42 Ur Squamous Epith Cells Moderate /HPF (NEGATIVE) 06/10/21 11:42 Urine Bacteria Trace /HPF (NEGATIVE) 06/10/21 11:42 Hyaline Casts Rare /LPF (NEGATIVE) 06/10/21 11:42 Urine Mucus Few /HPF (NEGATIVE) 06/10/21 11:42 Ur Culture Indicated? No/not indicated 06/10/21 11:42 Influenza Type A Ag Negative-presumptive (NEGATIVE) 06/10/21 11:18 Influenza Type B Ag Negative-presumptive (NEGATIVE) 06/10/21 11:18 SARS CoV-2 RNA Rapid ERICH Negative (NEGATIVE) 06/10/21 12:32 Plan (1) Anemia: Status: Acute Plan: CBC this am. (2) Intra-abdominal abscess post-procedure: Status: Acute Plan: Rx per Gen. Surgery (3) DM2 (diabetes mellitus, type 2): Status: Chronic Plan: Regular insulin sliding scale. (4) Hypothyroidism: Status: Chronic Plan: Resume levothyroxine (5) HTN (hypertension): Status: Chronic Plan: Resume Lisinopril 10 mg (6) GERD (gastroesophageal reflux disease): Status: Chronic Plan: Resume Omeprazole 40mg. (7) Dyslipidemia: Status: Chronic
[2021-06-12 08:52] LABS: BASOPHILS % (AUTO) 0.4 % (0.2-1.0); EOSINOPHILS # (AUTO) 0.1 x10^3/uL (0.0-0.2); EOSINOPHILS % (AUTO) 0.7 % (0.9-2.9); HEMATOCRIT 32.4 % (42.0-54.0); HEMOGLOBIN 11.1 g/dL (13.5-18.0); LYMPHOCYTES # (AUTO) 1.1 X10^3/uL (1.3-2.9); LYMPHOCYTES % (AUTO) 9.8 % (21.0-51.0); MEAN CORPUSCULAR HEMOGLOBIN 30.3 pg (27.0-34.0); MEAN CORPUSCULAR HGB CONC 34.2 g/dL (33.0-35.0); MEAN CORPUSCULAR VOLUME 88.5 fL (80.0-100.0); MEAN PLATELET VOLUME 6.5 fL (7.4-11.0); MONOCYTES # (AUTO) 0.9 x10^3/uL (0.3-0.8); MONOCYTES % (AUTO) 7.6 % (0.0-13.0); NEUTROPHILS # (AUTO) 9.3 x10^3/uL (2.2-4.8); NEUTROPHILS % (AUTO) 81.5 % (42.0-75.0); PLATELET COUNT 521 X10^3/uL (150.0-450.0); RED BLOOD COUNT 3.66 X10^6/uL (4.7-6.0); RED CELL DISTRIBUTION WIDTH 13.2 % (11.6-16.5); WHITE BLOOD COUNT 11.5 X10^3/uL (3.6-10.0)
[2021-06-12 09:00] LABS: ALANINE AMINOTRANSFERASE 32 Units/L (12-78); ALKALINE PHOSPHATASE 121 Units/L (46-116); ASPARTATE AMINO TRANSFERASE 24 Units/L (15-37); BLOOD UREA NITROGEN 11 mg/dL (7-18); CALCIUM 8.4 mg/dL (8.5-10.1); CARBON DIOXIDE 26.8 mmol/L (21-32); CHLORIDE 104 mmol/L (98-107); COR NA(FOR HYPERGLY) 139 mmol/L (136-145); CREATININE 0.94 mg/dL (0.70-1.30); SODIUM 138 mmol/L (136-145); TOTAL PROTEIN 6.5 g/dL (6.4-8.2); eGFR NON BLACK RACES > 60 (>60)
[2021-06-12] MEDS: ZESTRIL TAB 10 MG PO SCH (09:14)
[2021-06-12] MEDS: SYNTHROID 75 mcg TAB PO SCH (09:14)
[2021-06-12] MEDS: FLOMAX PO SCH (09:14)
[2021-06-12] MEDS: PriLOSEC PO SCH (09:14)
[2021-06-12 09:39] LABS: CREATININE 1.03 mg/dL (0.70-1.30); VANCOMYCIN,TROUGH 7.4 ug/mL (15-20)
[2021-06-12] MEDS: VANCOMYCIN IV *PREMIX 1 G/200 ML BAG 1 G/200 ML PIGGYBACK IV SCH ×3 (10:16→21:38)
--- NOTE | 2021-06-12 10:33 | DR.PROGNOT ---
Hospital Progress Notes - Progress Note for Day of: Progress Note Date: 06/12/21 - Chief Complaint Chief Complaint: . mild to moderate Rt side abdominal pain . no nausea or vomiting . tolerating diet well . had temp 99.1 last night. WBC 11.. amaury CMP. blood cultures not available yet .. - Past Medical Family Social History Past Med/Fam/Surg Hx: No changes since H&P Allergies: Allergies oxycodone Allergy (Mild, Verified 06/10/21 10:24) RASH itching - Review Of Systems ROS: No change since H&P - Vital Signs Vital Signs: Temperature 98.8 F Pulse Rate [Right Brachial] 87 Pulse Rate 109 Respiratory Rate 22 Blood Pressure [Right Arm] 132/76 Blood Pressure 140/72 O2 Sat by Pulse Oximetry 93 - Physical Exam Oriented: Normal Eyes: Normal Ear: Normal Nose: Normal Throat: Normal Respiratory: Normal Cardiovascular: Normal : Normal GI:Auscultation: Normal GI:Palpation: Other (Right lateral upper side TTP) GI: Tenderness: RUQ (soft, flat abdomen with mild RT side and flank tenderness . no rebound . BS+) Skin: Normal Musculoskeletal: Normal Psychiatric: Normal Mood Description: Calm Affect: Normal Speech Pattern: Clear, Appropriate - Laboratory and Diagnostics Result Diagrams: 06/12/21 08:36 06/12/21 08:36 Labs: Laboratory WBC 11.5 X10^3/uL (3.6-10.0) H 06/12/21 08:36 RBC 3.66 X10^6/uL (4.7-6.0) L 06/12/21 08:36 Hgb 11.1 g/dL (13.5-18.0) L 06/12/21 08:36 Hct 32.4 % (42.0-54.0) L 06/12/21 08:36 MCV 88.5 fL (80.0-100.0) 06/12/21 08:36 MCH 30.3 pg (27.0-34.0) 06/12/21 08:36 MCHC 34.2 g/dL (33.0-35.0) 06/12/21 08:36 RDW 13.2 % (11.6-16.5) 06/12/21 08:36 Plt Count 521 X10^3/uL (150.0-450.0) H 06/12/21 08:36 MPV 6.5 fL (7.4-11.0) L 06/12/21 08:36 Neut % (Auto) 81.5 % (42.0-75.0) H 06/12/21 08:36 Lymph % (Auto) 9.8 % (21.0-51.0) L 06/12/21 08:36 [place] % (Auto) 7.6 % (0.0-13.0) 06/12/21 08:36 Eos % (Auto) 0.7 % (0.9-2.9) L 06/12/21 08:36 Baso % (Auto) 0.4 % (0.2-1.0) 06/12/21 08:36 Neut # (Auto) 9.3 x10^3/uL (2.2-4.8) H 06/12/21 08:36 Lymph # (Auto) 1.1 X10^3/uL (1.3-2.9) L 06/12/21 08:36 [place] # (Auto) 0.9 x10^3/uL (0.3-0.8) H 06/12/21 08:36 Eos # (Auto) 0.1 x10^3/uL (0.0-0.2) 06/12/21 08:36 Baso # (Auto) 0.0 X10^3/uL (0.0-0.1) 06/12/21 08:36 Absolute Nucleated RBC 0.0 /100WBC 06/12/21 08:36 PT 15.9 SECONDS (11.8-14.3) 06/10/21 11:33 INR Target Range - 06/10/21 11:33 INR 1.33 (0.8-1.3) H 06/10/21 11:33 APTT 38.0 SECONDS (22.9-36.5) H 06/10/21 11:33 PTT Comment - 06/10/21 11:33 Sodium 138 mmol/L (136-145) 06/12/21 08:36 Corrected Sodium 139 mmol/L (136-145) 06/12/21 08:36 Potassium 4.1 mmol/L (3.5-5.1) 06/12/21 08:36 Chloride 104 mmol/L (98-107) 06/12/21 08:36 Carbon Dioxide 26.8 mmol/L (21-32) 06/12/21 08:36 BUN 11 mg/dL (7-18) 06/12/21 08:36 Creatinine 0.94 mg/dL (0.70-1.30) 06/12/21 08:36 Creatinine 1.03 mg/dL (0.70-1.30) 06/12/21 08:36 Est GFR (MDRD) Af Amer > 60 (>60) 06/12/21 08:36 Est GFR (MDRD) Non-Af > 60 (>60) 06/12/21 08:36 Glucose 142 mg/dL (65-99) H 06/12/21 08:36 POC Glucose (mg/dL) 98 mg/dL (65-99) 06/12/21 05:46 Calcium 8.4 mg/dL (8.5-10.1) L 06/12/21 08:36 Corrected Calcium 10.0 mg/dL (8.5-10.1) 06/12/21 08:36 Total Bilirubin 0.50 mg/dL (0.2-1.0) 06/12/21 08:36 AST 24 Units/L (15-37) 06/12/21 08:36 ALT 32 Units/L (12-78) 06/12/21 08:36 Alkaline Phosphatase 121 Units/L (46-116) H 06/12/21 08:36 Total Protein 6.5 g/dL (6.4-8.2) 06/12/21 08:36 Albumin 2.0 g/dL (3.4-5.0) L 06/12/21 08:36 Globulin 4.5 g/dL (2.5-4.5) 06/12/21 08:36 Albumin/Globulin Ratio 0.4 Ratio (1.1-2.1) L 06/12/21 08:36 Lipase 133 Units/L (73-393) 06/10/21 11:33 Specimen Type Clean catch urine 06/10/21 11:42 Urine Color Yellow (YELLOW) 06/10/21 11:42 Urine Appearance Clear (CLEAR) 06/10/21 11:42 Urine pH 6.0 (5.0 - 8.0) 06/10/21 11:42 Ur Specific [place] 1.025 (1.000-1.030) 06/10/21 11:42 Urine Protein 1+ (NEGATIVE) 06/10/21 11:42 Urine Glucose (UA) 4+ (NEGATIVE) 06/10/21 11:42 Urine Ketones Negative (NEGATIVE) 06/10/21 11:42 Urine Occult Blood Negative (NEGATIVE) 06/10/21 11:42 Urine Nitrite Negative (NEGATIVE) 06/10/21 11:42 Urine Bilirubin Negative (NEGATIVE) 06/10/21 11:42 Urine Urobilinogen Normal (NORMAL) 06/10/21 11:42 Ur Leukocyte Esterase Negative (NEGATIVE) 06/10/21 11:42 Urine RBC None seen /HPF (0-3) 06/10/21 11:42 Urine WBC None seen /HPF (0-5) 06/10/21 11:42 Ur Squamous Epith Cells Moderate /HPF (NEGATIVE) 06/10/21 11:42 Urine Bacteria Trace /HPF (NEGATIVE) 06/10/21 11:42 Hyaline Casts Rare /LPF (NEGATIVE) 06/10/21 11:42 Urine Mucus Few /HPF (NEGATIVE) 06/10/21 11:42 Ur Culture Indicated? No/not indicated 06/10/21 11:42 Vancomycin Trough 7.4 ug/mL (15-20) L 06/12/21 08:36 Influenza Type A Ag Negative-presumptive (NEGATIVE) 06/10/21 11:18 Influenza Type B Ag Negative-presumptive (NEGATIVE) 06/10/21 11:18 SARS CoV-2 RNA Rapid ERICH Negative (NEGATIVE) 06/10/21 12:32 - Assessment and Plan 1: rule out intra abdominal sepsis . no evidence of peritonitis . s/p lap ruth for chronic and acute cholecystitis . same IV ABTs ..awaiting cultures ,. abdominal /pelvic CT in am . - Problem Patient Problems: Patient Problems Intra-abdominal abscess post-procedure (Acute) T81.43XA
[2021-06-12] MEDS: VANCOMYCIN IV *PREMIX 1.25 G/250 ML BAG 1.25 G/250 ML PIGGYBACK IV SCH (10:49)
[2021-06-12] MEDS ORDERED: ZOFRAN INJ 4 MG VIAL IVP PRN (15:12)
[2021-06-12] MEDS: SNACK - Diabetic Appropriate PO SCH (20:49)
[2021-06-12] MEDS ORDERED: NS 250 ML IV 250 ML IV ONE (20:58)
[2021-06-13] MEDS: FLAGYL IV PREMIX 500 MG BAG 500 MG/100 ML BAG IV SCH ×3 (05:22→21:09)
[2021-06-13] MEDS ORDERED: PHARMACY COMMENT IV NR (05:30)
[2021-06-13] MEDS ORDERED: D50W ABBOJECT SYR IV ONE ×2 (05:49→11:14)
[2021-06-13] MEDS ORDERED: D50W ABBOJECT SYR ONE (05:50)
[2021-06-13 05:55] LABS: BASOPHILS # (AUTO) 0.1 X10^3/uL (0.0-0.1); BASOPHILS % (AUTO) 0.5 % (0.2-1.0); EOSINOPHILS % (AUTO) 0.2 % (0.9-2.9); HEMATOCRIT 32.4 % (42.0-54.0); LYMPHOCYTES # (AUTO) 1.2 X10^3/uL (1.3-2.9); LYMPHOCYTES % (AUTO) 8.7 % (21.0-51.0); MEAN CORPUSCULAR HEMOGLOBIN 29.8 pg (27.0-34.0); MEAN CORPUSCULAR HGB CONC 33.9 g/dL (33.0-35.0); MEAN PLATELET VOLUME 6.9 fL (7.4-11.0); MONOCYTES # (AUTO) 1.1 x10^3/uL (0.3-0.8); MONOCYTES % (AUTO) 8.3 % (0.0-13.0); NEUTROPHILS # (AUTO) 10.9 x10^3/uL (2.2-4.8); NEUTROPHILS % (AUTO) 82.3 % (42.0-75.0); PLATELET COUNT 550 X10^3/uL (150.0-450.0); RED BLOOD COUNT 3.69 X10^6/uL (4.7-6.0); RED CELL DISTRIBUTION WIDTH 13.4 % (11.6-16.5); WHITE BLOOD COUNT 13.3 X10^3/uL (3.6-10.0)
[2021-06-13 06:05] LABS: ALANINE AMINOTRANSFERASE 32 Units/L (12-78); ALKALINE PHOSPHATASE 119 Units/L (46-116); ASPARTATE AMINO TRANSFERASE 28 Units/L (15-37); BLOOD UREA NITROGEN 12 mg/dL (7-18); CALCIUM 8.3 mg/dL (8.5-10.1); CARBON DIOXIDE 23.5 mmol/L (21-32); CHLORIDE 105 mmol/L (98-107); COR CA(FOR HYPOALB) 9.9 mg/dL (8.5-10.1); CREATININE 0.84 mg/dL (0.70-1.30); SODIUM 139 mmol/L (136-145); TOTAL PROTEIN 6.6 g/dL (6.4-8.2); eGFR NON BLACK RACES > 60 (>60)
[2021-06-13] MEDS: ZOSYN VIAL 3.375 GRAMS 3.375 G in NS 100 ML IV + SPIKE MINIBAG* 100 ML IV SCH ×3 (07:30→22:16)
[2021-06-13] MEDS: DIABETA PO SCH (07:30)
[2021-06-13] MEDS ORDERED: NS 100 ML IV 100 ML ONE (08:20)
--- NOTE | 2021-06-13 08:25 | DR.PROGNOT ---
Hospital Progress Notes - Progress Note for Day of: Progress Note Date: 06/13/21 - Chief Complaint Chief Complaint: . mild Rt side abdominal pain . no nausea or vomiting . tolerating diet well . had temp 99.1 last night. WBC 13.3 .. normal CMP. blood cultures all negative . - Past Medical Family Social History Past Med/Fam/Surg Hx: No changes since H&P Allergies: Allergies oxycodone Allergy (Mild, Verified 06/10/21 10:24) RASH itching - Review Of Systems ROS: No change since H&P - Vital Signs Vital Signs: Temperature 97.6 F Pulse Rate [Right Brachial] 75 Pulse Rate 109 Respiratory Rate 22 Blood Pressure [Right Arm] 111/59 Blood Pressure 140/72 O2 Sat by Pulse Oximetry 98 - Physical Exam Oriented: Normal Eyes: Normal Ear: Normal Nose: Normal Throat: Normal Respiratory: Normal Cardiovascular: Normal : Normal GI:Auscultation: Normal (soft, flat abdomen .. BS+.. only mild RUQ tenderness ) GI:Palpation: Other (Right lateral upper side TTP) GI: Tenderness: RUQ (soft, flat abdomen with mild RT side and flank tenderness . no rebound . BS+) Skin: Normal Musculoskeletal: Normal Psychiatric: Normal Mood Description: Calm Affect: Normal Speech Pattern: Clear, Appropriate - Laboratory and Diagnostics Result Diagrams: 06/13/21 05:21 06/13/21 05:21 Labs: 06/10/21 21:50 Blood Blood Culture - Preliminary 06/10/21 21:46 Blood Blood Culture - Preliminary Laboratory WBC 13.3 X10^3/uL (3.6-10.0) H 06/13/21 05:21 RBC 3.69 X10^6/uL (4.7-6.0) L 06/13/21 05:21 Hgb 11.0 g/dL (13.5-18.0) L 06/13/21 05:21 Hct 32.4 % (42.0-54.0) L 06/13/21 05:21 MCV 88.0 fL (80.0-100.0) 06/13/21 05:21 MCH 29.8 pg (27.0-34.0) 06/13/21 05:21 MCHC 33.9 g/dL (33.0-35.0) 06/13/21 05:21 RDW 13.4 % (11.6-16.5) 06/13/21 05:21 Plt Count 550 X10^3/uL (150.0-450.0) H 06/13/21 05:21 MPV 6.9 fL (7.4-11.0) L 06/13/21 05:21 Neut % (Auto) 82.3 % (42.0-75.0) H 06/13/21 05:21 Lymph % (Auto) 8.7 % (21.0-51.0) L 06/13/21 05:21 [place] % (Auto) 8.3 % (0.0-13.0) 06/13/21 05:21 Eos % (Auto) 0.2 % (0.9-2.9) L 06/13/21 05:21 Baso % (Auto) 0.5 % (0.2-1.0) 06/13/21 05:21 Neut # (Auto) 10.9 x10^3/uL (2.2-4.8) H 06/13/21 05:21 Lymph # (Auto) 1.2 X10^3/uL (1.3-2.9) L 06/13/21 05:21 [place] # (Auto) 1.1 x10^3/uL (0.3-0.8) H 06/13/21 05:21 Eos # (Auto) 0.0 x10^3/uL (0.0-0.2) 06/13/21 05:21 Baso # (Auto) 0.1 X10^3/uL (0.0-0.1) 06/13/21 05:21 Absolute Nucleated RBC 0.0 /100WBC 06/13/21 05:21 PT 15.9 SECONDS (11.8-14.3) 06/10/21 11:33 INR Target Range - 06/10/21 11:33 INR 1.33 (0.8-1.3) H 06/10/21 11:33 APTT 38.0 SECONDS (22.9-36.5) H 06/10/21 11:33 PTT Comment - 06/10/21 11:33 Sodium 139 mmol/L (136-145) 06/13/21 05:21 Corrected Sodium TNP 06/13/21 05:21 Potassium 3.8 mmol/L (3.5-5.1) 06/13/21 05:21 Chloride 105 mmol/L (98-107) 06/13/21 05:21 Carbon Dioxide 23.5 mmol/L (21-32) 06/13/21 05:21 BUN 12 mg/dL (7-18) 06/13/21 05:21 Creatinine 0.84 mg/dL (0.70-1.30) 06/13/21 05:21 Est GFR (MDRD) Af Amer > 60 (>60) 06/13/21 05:21 Est GFR (MDRD) Non-Af > 60 (>60) 06/13/21 05:21 Glucose 54 mg/dL (65-99) L 06/13/21 05:21 POC Glucose (mg/dL) 80 mg/dL (65-99) 06/13/21 06:56 Calcium 8.3 mg/dL (8.5-10.1) L 06/13/21 05:21 Corrected Calcium 9.9 mg/dL (8.5-10.1) 06/13/21 05:21 Total Bilirubin 0.40 mg/dL (0.2-1.0) 06/13/21 05:21 AST 28 Units/L (15-37) 06/13/21 05:21 ALT 32 Units/L (12-78) 06/13/21 05:21 Alkaline Phosphatase 119 Units/L (46-116) H 06/13/21 05:21 Total Protein 6.6 g/dL (6.4-8.2) 06/13/21 05:21 Albumin 2.0 g/dL (3.4-5.0) L 06/13/21 05:21 Globulin 4.6 g/dL (2.5-4.5) H 06/13/21 05:21 Albumin/Globulin Ratio 0.4 Ratio (1.1-2.1) L 06/13/21 05:21 Lipase 133 Units/L (73-393) 06/10/21 11:33 Specimen Type Clean catch urine 06/10/21 11:42 Urine Color Yellow (YELLOW) 06/10/21 11:42 Urine Appearance Clear (CLEAR) 06/10/21 11:42 Urine pH 6.0 (5.0 - 8.0) 06/10/21 11:42 Ur Specific [place] 1.025 (1.000-1.030) 06/10/21 11:42 Urine Protein 1+ (NEGATIVE) 06/10/21 11:42 Urine Glucose (UA) 4+ (NEGATIVE) 06/10/21 11:42 Urine Ketones Negative (NEGATIVE) 06/10/21 11:42 Urine Occult Blood Negative (NEGATIVE) 06/10/21 11:42 Urine Nitrite Negative (NEGATIVE) 06/10/21 11:42 Urine Bilirubin Negative (NEGATIVE) 06/10/21 11:42 Urine Urobilinogen Normal (NORMAL) 06/10/21 11:42 Ur Leukocyte Esterase Negative (NEGATIVE) 06/10/21 11:42 Urine RBC None seen /HPF (0-3) 06/10/21 11:42 Urine WBC None seen /HPF (0-5) 06/10/21 11:42 Ur Squamous Epith Cells Moderate /HPF (NEGATIVE) 06/10/21 11:42 Urine Bacteria Trace /HPF (NEGATIVE) 06/10/21 11:42 Hyaline Casts Rare /LPF (NEGATIVE) 06/10/21 11:42 Urine Mucus Few /HPF (NEGATIVE) 06/10/21 11:42 Ur Culture Indicated? No/not indicated 06/10/21 11:42 Vancomycin Trough 7.4 ug/mL (15-20) L 06/12/21 08:36 Influenza Type A Ag Negative-presumptive (NEGATIVE) 06/10/21 11:18 Influenza Type B Ag Negative-presumptive (NEGATIVE) 06/10/21 11:18 SARS CoV-2 RNA Rapid ERICH Negative (NEGATIVE) 06/10/21 12:32 - Assessment and Plan 1: rule out intra abdominal abscess. no evidence of peritonitis . s/p lap ruth for chronic and acute cholecystitis . same IV ABTs .. abdominal /pelvic CT this am . - Problem Patient Problems: Patient Problems Intra-abdominal abscess post-procedure (Acute) [id number]
--- NOTE | 2021-06-13 09:11 | PCM.PROG ---
Progress Note Progress Note for Day of Date of Exam: 06/13/21 Subjective Subjective: Patient feels about the same this am. Just got back from CT. Hypoglycemia this am with BS of 50. Past Medical Family Social History Past Med/Fam/Surg Hx: No changes since H&P Allergies: Allergies oxycodone Allergy (Mild, Verified 06/10/21 10:24) RASH itching Review of Systems ROS: No change since H&P Vital Signs and I&O's Vital Signs: Temperature 98.1 F Pulse Rate [Right Brachial] 73 Pulse Rate 109 Respiratory Rate 18 Blood Pressure [Right Arm] 111/60 Blood Pressure 140/72 O2 Sat by Pulse Oximetry 97 Intake and Output: Intake & Output 06/10/21 06/11/21 06/12/21 06/13/21 11:59 11:59 11:59 11:59 Intake Total 850 / 850 1670 / 1670 2974 / 2974 Balance 850 / 850 1670 / 1670 2974 / 2974 Physical Exam Oriented: Normal Eyes: Normal Ear: Normal Nose: Normal Throat: Normal Respiratory: Normal Cardiovascular: Normal : Normal Auscultation: Bowel Sounds: Normal (soft, flat abdomen .. BS+.. only mild RUQ tenderness ) Tenderness: RUQ (soft, flat abdomen with mild RT side and flank tenderness . no rebound . BS+) Skin: Normal Musculoskeletal: Normal Psychiatric: Normal Mood Description: Calm Affect: Normal Speech Pattern: Clear and Appropriate Laboratory and Diagnostics Result Diagrams: 06/13/21 05:21 06/13/21 05:21 Labs: 06/10/21 21:50 Blood Blood Culture - Preliminary 06/10/21 21:46 Blood Blood Culture - Preliminary Laboratory WBC 13.3 X10^3/uL (3.6-10.0) H 06/13/21 05:21 RBC 3.69 X10^6/uL (4.7-6.0) L 06/13/21 05:21 Hgb 11.0 g/dL (13.5-18.0) L 06/13/21 05:21 Hct 32.4 % (42.0-54.0) L 06/13/21 05:21 MCV 88.0 fL (80.0-100.0) 06/13/21 05:21 MCH 29.8 pg (27.0-34.0) 06/13/21 05:21 MCHC 33.9 g/dL (33.0-35.0) 06/13/21 05:21 RDW 13.4 % (11.6-16.5) 06/13/21 05:21 Plt Count 550 X10^3/uL (150.0-450.0) H 06/13/21 05:21 MPV 6.9 fL (7.4-11.0) L 06/13/21 05:21 Neut % (Auto) 82.3 % (42.0-75.0) H 06/13/21 05:21 Lymph % (Auto) 8.7 % (21.0-51.0) L 06/13/21 05:21 [place] % (Auto) 8.3 % (0.0-13.0) 06/13/21 05:21 Eos % (Auto) 0.2 % (0.9-2.9) L 06/13/21 05:21 Baso % (Auto) 0.5 % (0.2-1.0) 06/13/21 05:21 Neut # (Auto) 10.9 x10^3/uL (2.2-4.8) H 06/13/21 05:21 Lymph # (Auto) 1.2 X10^3/uL (1.3-2.9) L 06/13/21 05:21 [place] # (Auto) 1.1 x10^3/uL (0.3-0.8) H 06/13/21 05:21 Eos # (Auto) 0.0 x10^3/uL (0.0-0.2) 06/13/21 05:21 Baso # (Auto) 0.1 X10^3/uL (0.0-0.1) 06/13/21 05:21 Absolute Nucleated RBC 0.0 /100WBC 06/13/21 05:21 PT 15.9 SECONDS (11.8-14.3) 06/10/21 11:33 INR Target Range - 06/10/21 11:33 INR 1.33 (0.8-1.3) H 06/10/21 11:33 APTT 38.0 SECONDS (22.9-36.5) H 06/10/21 11:33 PTT Comment - 06/10/21 11:33 Sodium 139 mmol/L (136-145) 06/13/21 05:21 Corrected Sodium TNP 06/13/21 05:21 Potassium 3.8 mmol/L (3.5-5.1) 06/13/21 05:21 Chloride 105 mmol/L (98-107) 06/13/21 05:21 Carbon Dioxide 23.5 mmol/L (21-32) 06/13/21 05:21 BUN 12 mg/dL (7-18) 06/13/21 05:21 Creatinine 0.84 mg/dL (0.70-1.30) 06/13/21 05:21 Est GFR (MDRD) Af Amer > 60 (>60) 06/13/21 05:21 Est GFR (MDRD) Non-Af > 60 (>60) 06/13/21 05:21 Glucose 54 mg/dL (65-99) L 06/13/21 05:21 POC Glucose (mg/dL) 80 mg/dL (65-99) 06/13/21 06:56 Calcium 8.3 mg/dL (8.5-10.1) L 06/13/21 05:21 Corrected Calcium 9.9 mg/dL (8.5-10.1) 06/13/21 05:21 Total Bilirubin 0.40 mg/dL (0.2-1.0) 06/13/21 05:21 AST 28 Units/L (15-37) 06/13/21 05:21 ALT 32 Units/L (12-78) 06/13/21 05:21 Alkaline Phosphatase 119 Units/L (46-116) H 06/13/21 05:21 Total Protein 6.6 g/dL (6.4-8.2) 06/13/21 05:21 Albumin 2.0 g/dL (3.4-5.0) L 06/13/21 05:21 Globulin 4.6 g/dL (2.5-4.5) H 06/13/21 05:21 Albumin/Globulin Ratio 0.4 Ratio (1.1-2.1) L 06/13/21 05:21 Lipase 133 Units/L (73-393) 06/10/21 11:33 Specimen Type Clean catch urine 06/10/21 11:42 Urine Color Yellow (YELLOW) 06/10/21 11:42 Urine Appearance Clear (CLEAR) 06/10/21 11:42 Urine pH 6.0 (5.0 - 8.0) 06/10/21 11:42 Ur Specific [place] 1.025 (1.000-1.030) 06/10/21 11:42 Urine Protein 1+ (NEGATIVE) 06/10/21 11:42 Urine Glucose (UA) 4+ (NEGATIVE) 06/10/21 11:42 Urine Ketones Negative (NEGATIVE) 06/10/21 11:42 Urine Occult Blood Negative (NEGATIVE) 06/10/21 11:42 Urine Nitrite Negative (NEGATIVE) 06/10/21 11:42 Urine Bilirubin Negative (NEGATIVE) 06/10/21 11:42 Urine Urobilinogen Normal (NORMAL) 06/10/21 11:42 Ur Leukocyte Esterase Negative (NEGATIVE) 06/10/21 11:42 Urine RBC None seen /HPF (0-3) 06/10/21 11:42 Urine WBC None seen /HPF (0-5) 06/10/21 11:42 Ur Squamous Epith Cells Moderate /HPF (NEGATIVE) 06/10/21 11:42 Urine Bacteria Trace /HPF (NEGATIVE) 06/10/21 11:42 Hyaline Casts Rare /LPF (NEGATIVE) 06/10/21 11:42 Urine Mucus Few /HPF (NEGATIVE) 06/10/21 11:42 Ur Culture Indicated? No/not indicated 06/10/21 11:42 Vancomycin Trough 7.4 ug/mL (15-20) L 06/12/21 08:36 Influenza Type A Ag Negative-presumptive (NEGATIVE) 06/10/21 11:18 Influenza Type B Ag Negative-presumptive (NEGATIVE) 06/10/21 11:18 SARS CoV-2 RNA Rapid ERICH Negative (NEGATIVE) 06/10/21 12:32 Plan (1) Hypoglycemia: Status: Acute Plan: D/C Glyburide this am. Continue Sliding scale reg. insulin. (2) Anemia: Status: Acute Narrative Support Text: Stable. Plan: Monitor Hb (3) Intra-abdominal abscess post-procedure: Status: Acute Plan: Rx per Gen. Surgery (4) DM2 (diabetes mellitus, type 2): Status: Chronic Plan: Regular insulin sliding scale. (5) Hypothyroidism: Status: Chronic Plan: Resume levothyroxine (6) HTN (hypertension): Status: Chronic Plan: Resume Lisinopril 10 mg (7) GERD (gastroesophageal reflux disease): Status: Chronic Plan: Resume Omeprazole 40mg. (8) Dyslipidemia: Status: Chronic
[2021-06-13 09:14] LABS: VANCOMYCIN,TROUGH 11.6 ug/mL (15-20)
[2021-06-13] MEDS: FLOMAX PO SCH (09:14)
[2021-06-13] MEDS: SYNTHROID 75 mcg TAB PO SCH (09:14)
[2021-06-13] MEDS: ZESTRIL TAB 10 MG PO SCH (09:14)
[2021-06-13] MEDS: PriLOSEC PO SCH (09:14)
[2021-06-13 09:20] LABS: CREATININE 0.93 mg/dL (0.70-1.30)
[2021-06-13] MEDS: LOVENOX INJ 40 MG SYR SC SCH (09:59)
--- NOTE | 2021-06-13 10:36 | CT ---
HISTORYS/P GB 2 WEEKS AGO, ABCESSSTUDYABDOMEN/PELVIS WITH CONCOMPARISONApril 2020 and June 10, 2021TECHNIQUEMultiple axial images of the abdomen and pelvis were obtained from the lung bases to the pubic symphysis after the administration of IV contrast. Dose reduction techniques including Automated Exposure Control (AEC) and adjustment of mA and kV were utilized.FINDINGSThe visualized portions of the lung bases demonstrate basilar subsegmental atelectasis with trace basilar effusions versus thickening. The liver, spleen, adrenals, and pancreas are unremarkable. Bilateral nonobstructive nephrolithiasis is noted. There is descending aortic atherosclerosis. The patient is status post cholecystectomy with dropped gallstones again noted along the right posterior edge of the liver with trace surrounding fluid and enhancement for which superimposed infection is not excluded. As compared to the prior exam, these dropped gallstones appear mobile previously located in the right lower quadrant. Trace perihepatic free fluid is noted. I would again noted is an air and fluid collection in the gallbladder fossa most likely reflecting abscess versus less likely biloma which measures 10 x 11 cm in maximum dimension. No significant mesenteric or retroperitoneal lymphadenopathy is identified. There is sigmoid colonic diverticulosis without definite pericolonic inflammation. Also noted on today's exam is thickening along the cecum for which correlation with recent or follow-up colonoscopy versus direct visualization is recommended depending on the surgical plan to exclude any underlying mass. The appendix is normal. The urinary bladder is grossly unremarkable. There is mild chronic anterior wedging of T11. All bilateral rib deformities are noted.IMPRESSION1. Complex postoperative fluid collection gallbladder fossa with mobile dropped gallstones as above.2. Thickening of the cecum and other incidental findings also detailed above.Electronically signed by: ERIK CEE (Jun 13, 2021 10:30:34)
[2021-06-13] MEDS: VANCOMYCIN IV *PREMIX 1 G/200 ML BAG 1 G/200 ML PIGGYBACK IV SCH ×3 (10:45→21:02)
[2021-06-13] MEDS: SNACK - Diabetic Appropriate PO SCH (20:02)
[2021-06-13] MEDS: TORADOL 30 MG VIAL IVP PRN (22:34)
[2021-06-14] MEDS: MORPHINE SULFATE INJ 4 MG IVP PRN ×2 (04:50→22:08)
[2021-06-14] MEDS: FLAGYL IV PREMIX 500 MG BAG 500 MG/100 ML BAG IV SCH ×4 (05:03→22:03)
[2021-06-14 06:15] LABS: BASOPHILS # (AUTO) 0.1 X10^3/uL (0.0-0.1); EOSINOPHILS # (AUTO) 0.1 x10^3/uL (0.0-0.2); EOSINOPHILS % (AUTO) 0.7 % (0.9-2.9); HEMATOCRIT 30.8 % (42.0-54.0); HEMOGLOBIN 10.8 g/dL (13.5-18.0); LYMPHOCYTES # (AUTO) 1.3 X10^3/uL (1.3-2.9); LYMPHOCYTES % (AUTO) 11.4 % (21.0-51.0); MEAN CORPUSCULAR HEMOGLOBIN 30.7 pg (27.0-34.0); MEAN CORPUSCULAR HGB CONC 35.1 g/dL (33.0-35.0); MEAN CORPUSCULAR VOLUME 87.3 fL (80.0-100.0); MEAN PLATELET VOLUME 6.9 fL (7.4-11.0); MONOCYTES % (AUTO) 9.1 % (0.0-13.0); NEUTROPHILS % (AUTO) 77.8 % (42.0-75.0); PLATELET COUNT 454 X10^3/uL (150.0-450.0); RED BLOOD COUNT 3.53 X10^6/uL (4.7-6.0); RED CELL DISTRIBUTION WIDTH 13.5 % (11.6-16.5); WHITE BLOOD COUNT 11.5 X10^3/uL (3.6-10.0)
[2021-06-14 06:18] LABS: ALANINE AMINOTRANSFERASE 32 Units/L (12-78); ALBUMIN 1.8 g/dL (3.4-5.0); ALKALINE PHOSPHATASE 116 Units/L (46-116); ASPARTATE AMINO TRANSFERASE 27 Units/L (15-37); BLOOD UREA NITROGEN 15 mg/dL (7-18); CALCIUM 8.1 mg/dL (8.5-10.1); CARBON DIOXIDE 22.7 mmol/L (21-32); CHLORIDE 106 mmol/L (98-107); COR CA(FOR HYPOALB) 9.9 mg/dL (8.5-10.1); COR NA(FOR HYPERGLY) 139 mmol/L (136-145); CREATININE 0.86 mg/dL (0.70-1.30); SODIUM 138 mmol/L (136-145); TOTAL PROTEIN 6.1 g/dL (6.4-8.2); eGFR NON BLACK RACES > 60 (>60)
[2021-06-14 06:21] LABS: VANCOMYCIN,TROUGH 11.8 ug/mL (15-20)
[2021-06-14] MEDS: VANCOMYCIN IV *PREMIX 1 G/200 ML BAG 1 G/200 ML PIGGYBACK IV SCH ×4 (06:27→20:03)
[2021-06-14] MEDS ORDERED: XYLOCAINE 1 % (PLAIN) ONE (08:34)
--- NOTE | 2021-06-14 08:45 | DR.PROGNOT ---
Hospital Progress Notes - Progress Note for Day of: Progress Note Date: 06/14/21 - Chief Complaint Chief Complaint: . nochanges . mild abdominal pain . no nausea or vomiting . tolerating diet well . had temp 98.1 last night. WBC 11.3 .. normal CMP. blood cultures all negative . - Past Medical Family Social History Past Med/Fam/Surg Hx: No changes since H&P Allergies: Allergies oxycodone Allergy (Mild, Verified 06/10/21 10:24) RASH itching - Review Of Systems ROS: No change since H&P - Vital Signs Vital Signs: Temperature 98.9 F Pulse Rate [Right Brachial] 80 Pulse Rate 109 Respiratory Rate 18 Blood Pressure [Right Arm] 101/55 Blood Pressure 140/72 O2 Sat by Pulse Oximetry 96 - Physical Exam Oriented: Normal Eyes: Normal Ear: Normal Nose: Normal Throat: Normal Respiratory: Normal Cardiovascular: Normal : Normal GI:Auscultation: Normal (soft, flat abdomen .. BS+.. only mild RUQ tenderness) GI:Palpation: Other (Right lateral upper side TTP) GI: Tenderness: RUQ (soft, flat abdomen with mild RT side and flank tenderness . no rebound . BS+) Skin: Normal Musculoskeletal: Normal Psychiatric: Normal Mood Description: Calm Affect: Normal Speech Pattern: Clear, Appropriate - Laboratory and Diagnostics Result Diagrams: 06/14/21 05:33 06/14/21 05:33 Labs: 06/10/21 21:50 Blood Blood Culture - Preliminary 06/10/21 21:46 Blood Blood Culture - Preliminary Laboratory WBC 11.5 X10^3/uL (3.6-10.0) H 06/14/21 05:33 RBC 3.53 X10^6/uL (4.7-6.0) L 06/14/21 05:33 Hgb 10.8 g/dL (13.5-18.0) L 06/14/21 05:33 Hct 30.8 % (42.0-54.0) L 06/14/21 05:33 MCV 87.3 fL (80.0-100.0) 06/14/21 05:33 MCH 30.7 pg (27.0-34.0) 06/14/21 05:33 MCHC 35.1 g/dL (33.0-35.0) H 06/14/21 05:33 RDW 13.5 % (11.6-16.5) 06/14/21 05:33 Plt Count 454 X10^3/uL (150.0-450.0) H 06/14/21 05:33 MPV 6.9 fL (7.4-11.0) L 06/14/21 05:33 Neut % (Auto) 77.8 % (42.0-75.0) H 06/14/21 05:33 Lymph % (Auto) 11.4 % (21.0-51.0) L 06/14/21 05:33 [place] % (Auto) 9.1 % (0.0-13.0) 06/14/21 05:33 Eos % (Auto) 0.7 % (0.9-2.9) L 06/14/21 05:33 Baso % (Auto) 1.0 % (0.2-1.0) 06/14/21 05:33 Neut # (Auto) 9.0 x10^3/uL (2.2-4.8) H 06/14/21 05:33 Lymph # (Auto) 1.3 X10^3/uL (1.3-2.9) 06/14/21 05:33 [place] # (Auto) 1.0 x10^3/uL (0.3-0.8) H 06/14/21 05:33 Eos # (Auto) 0.1 x10^3/uL (0.0-0.2) 06/14/21 05:33 Baso # (Auto) 0.1 X10^3/uL (0.0-0.1) 06/14/21 05:33 Absolute Nucleated RBC 0.1 /100WBC 06/14/21 05:33 PT 17.1 SECONDS (11.8-14.3) 06/14/21 05:33 INR Target Range - 06/14/21 05:33 INR 1.46 (0.8-1.3) H 06/14/21 05:33 APTT 38.0 SECONDS (22.9-36.5) H 06/10/21 11:33 PTT Comment - 06/10/21 11:33 Sodium 138 mmol/L (136-145) 06/14/21 05:33 Corrected Sodium 139 mmol/L (136-145) 06/14/21 05:33 Potassium 4.2 mmol/L (3.5-5.1) 06/14/21 05:33 Chloride 106 mmol/L (98-107) 06/14/21 05:33 Carbon Dioxide 22.7 mmol/L (21-32) 06/14/21 05:33 BUN 15 mg/dL (7-18) 06/14/21 05:33 Creatinine 0.86 mg/dL (0.70-1.30) 06/14/21 05:33 Est GFR (MDRD) Af Amer > 60 (>60) 06/14/21 05:33 Est GFR (MDRD) Non-Af > 60 (>60) 06/14/21 05:33 Glucose 147 mg/dL (65-99) H 06/14/21 05:33 POC Glucose (mg/dL) 142 mg/dL (65-99) H 06/14/21 05:33 Calcium 8.1 mg/dL (8.5-10.1) L 06/14/21 05:33 Corrected Calcium 9.9 mg/dL (8.5-10.1) 06/14/21 05:33 Total Bilirubin 0.30 mg/dL (0.2-1.0) 06/14/21 05:33 AST 27 Units/L (15-37) 06/14/21 05:33 ALT 32 Units/L (12-78) 06/14/21 05:33 Alkaline Phosphatase 116 Units/L (46-116) 06/14/21 05:33 Total Protein 6.1 g/dL (6.4-8.2) L 06/14/21 05:33 Albumin 1.8 g/dL (3.4-5.0) L 06/14/21 05:33 Globulin 4.3 g/dL (2.5-4.5) 06/14/21 05:33 Albumin/Globulin Ratio 0.4 Ratio (1.1-2.1) L 06/14/21 05:33 Lipase 133 Units/L (73-393) 06/10/21 11:33 Specimen Type Clean catch urine 06/10/21 11:42 Urine Color Yellow (YELLOW) 06/10/21 11:42 Urine Appearance Clear (CLEAR) 06/10/21 11:42 Urine pH 6.0 (5.0 - 8.0) 06/10/21 11:42 Ur Specific [place] 1.025 (1.000-1.030) 06/10/21 11:42 Urine Protein 1+ (NEGATIVE) 06/10/21 11:42 Urine Glucose (UA) 4+ (NEGATIVE) 06/10/21 11:42 Urine Ketones Negative (NEGATIVE) 06/10/21 11:42 Urine Occult Blood Negative (NEGATIVE) 06/10/21 11:42 Urine Nitrite Negative (NEGATIVE) 06/10/21 11:42 Urine Bilirubin Negative (NEGATIVE) 06/10/21 11:42 Urine Urobilinogen Normal (NORMAL) 06/10/21 11:42 Ur Leukocyte Esterase Negative (NEGATIVE) 06/10/21 11:42 Urine RBC None seen /HPF (0-3) 06/10/21 11:42 Urine WBC None seen /HPF (0-5) 06/10/21 11:42 Ur Squamous Epith Cells Moderate /HPF (NEGATIVE) 06/10/21 11:42 Urine Bacteria Trace /HPF (NEGATIVE) 06/10/21 11:42 Hyaline Casts Rare /LPF (NEGATIVE) 06/10/21 11:42 Urine Mucus Few /HPF (NEGATIVE) 06/10/21 11:42 Ur Culture Indicated? No/not indicated 06/10/21 11:42 Vancomycin Trough 11.8 ug/mL (15-20) L 06/14/21 05:33 Influenza Type A Ag Negative-presumptive (NEGATIVE) 06/10/21 11:18 Influenza Type B Ag Negative-presumptive (NEGATIVE) 06/10/21 11:18 SARS CoV-2 RNA Rapid ERICH Negative (NEGATIVE) 06/10/21 12:32 - Assessment and Plan 1: rule out intra abdominal abscess. s/p lap ruth for chronic and acute cholecystitis . same IV ABTs .. for per cutaneous drainage with CT guidance today .. - Problem Patient Problems: Patient Problems Intra-abdominal abscess post-procedure (Acute) T81.43XA
[2021-06-14] MEDS ORDERED: DIPRIVAN VIAL ONE (10:05)
[2021-06-14] MEDS ORDERED: VERSED ONE (10:05)
[2021-06-14] MEDS ORDERED: XYLOCAINE 2 % (PLAIN) ONE (10:05)
[2021-06-14] MEDS ORDERED: NS 1,000 ML IV 1,000 ML ONE (10:47)
[2021-06-14] MEDS: ZOSYN VIAL 3.375 GRAMS 3.375 G in NS 100 ML IV + SPIKE MINIBAG* 100 ML IV SCH ×3 (11:22→20:59)
[2021-06-14] MEDS: LOVENOX INJ 40 MG SYR SC SCH ×2 (11:22→20:46)
[2021-06-14] MEDS: ZESTRIL TAB 10 MG PO SCH (11:23)
[2021-06-14] MEDS: FLOMAX PO SCH (11:55)
[2021-06-14] MEDS: PriLOSEC PO SCH (11:56)
[2021-06-14] MEDS: SYNTHROID 75 mcg TAB PO SCH (11:56)
[2021-06-14] MEDS ORDERED: PHARMACY COMMENT IV ONE (13:30)
--- NOTE | 2021-06-14 16:14 | PCM.PROG ---
Progress Note Progress Note for Day of Date of Exam: 06/14/21 Subjective Subjective: Patient feels about the same this am. Patient is to have drain placed today in abscess per Radiology. BS's are in the 140's this am. Past Medical Family Social History Past Med/Fam/Surg Hx: No changes since H&P Allergies: Allergies oxycodone Allergy (Mild, Verified 06/10/21 10:24) RASH itching Review of Systems ROS: No change since H&P Vital Signs and I&O's Vital Signs: Temperature 98.2 F Pulse Rate [Right Brachial] 77 Pulse Rate 109 Respiratory Rate 18 Blood Pressure [Right Arm] 112/63 Blood Pressure 140/72 O2 Sat by Pulse Oximetry 94 Intake and Output: Intake & Output 06/12/21 06/13/21 06/14/21 06/15/21 11:59 11:59 11:59 11:59 Intake Total 1670 / 1670 2974 / 2974 2342 / 2342 Output Total 650 / 650 Balance 1670 / 1670 2974 / 2974 1692 / 1692 Physical Exam Oriented: Normal Eyes: Normal Ear: Normal Nose: Normal Throat: Normal Respiratory: Normal Cardiovascular: Normal : Normal Auscultation: Bowel Sounds: Normal (soft, flat abdomen .. BS+.. only mild RUQ tenderness ) Tenderness: RUQ (soft, flat abdomen with mild RT side and flank tenderness . no rebound . BS+) Skin: Normal Musculoskeletal: Normal Psychiatric: Normal Mood Description: Calm Affect: Normal Speech Pattern: Clear and Appropriate Laboratory and Diagnostics Result Diagrams: 06/14/21 05:33 06/14/21 05:33 Labs: 06/10/21 21:50 Blood Blood Culture - Preliminary 06/10/21 21:46 Blood Blood Culture - Preliminary Laboratory WBC 11.5 X10^3/uL (3.6-10.0) H 06/14/21 05:33 RBC 3.53 X10^6/uL (4.7-6.0) L 06/14/21 05:33 Hgb 10.8 g/dL (13.5-18.0) L 06/14/21 05:33 Hct 30.8 % (42.0-54.0) L 06/14/21 05:33 MCV 87.3 fL (80.0-100.0) 06/14/21 05:33 MCH 30.7 pg (27.0-34.0) 06/14/21 05:33 MCHC 35.1 g/dL (33.0-35.0) H 06/14/21 05:33 RDW 13.5 % (11.6-16.5) 06/14/21 05:33 Plt Count 454 X10^3/uL (150.0-450.0) H 06/14/21 05:33 MPV 6.9 fL (7.4-11.0) L 06/14/21 05:33 Neut % (Auto) 77.8 % (42.0-75.0) H 06/14/21 05:33 Lymph % (Auto) 11.4 % (21.0-51.0) L 06/14/21 05:33 [place] % (Auto) 9.1 % (0.0-13.0) 06/14/21 05:33 Eos % (Auto) 0.7 % (0.9-2.9) L 06/14/21 05:33 Baso % (Auto) 1.0 % (0.2-1.0) 06/14/21 05:33 Neut # (Auto) 9.0 x10^3/uL (2.2-4.8) H 06/14/21 05:33 Lymph # (Auto) 1.3 X10^3/uL (1.3-2.9) 06/14/21 05:33 [place] # (Auto) 1.0 x10^3/uL (0.3-0.8) H 06/14/21 05:33 Eos # (Auto) 0.1 x10^3/uL (0.0-0.2) 06/14/21 05:33 Baso # (Auto) 0.1 X10^3/uL (0.0-0.1) 06/14/21 05:33 Absolute Nucleated RBC 0.1 /100WBC 06/14/21 05:33 PT 17.1 SECONDS (11.8-14.3) 06/14/21 05:33 INR Target Range - 06/14/21 05:33 INR 1.46 (0.8-1.3) H 06/14/21 05:33 APTT 38.0 SECONDS (22.9-36.5) H 06/10/21 11:33 PTT Comment - 06/10/21 11:33 Sodium 138 mmol/L (136-145) 06/14/21 05:33 Corrected Sodium 139 mmol/L (136-145) 06/14/21 05:33 Potassium 4.2 mmol/L (3.5-5.1) 06/14/21 05:33 Chloride 106 mmol/L (98-107) 06/14/21 05:33 Carbon Dioxide 22.7 mmol/L (21-32) 06/14/21 05:33 BUN 15 mg/dL (7-18) 06/14/21 05:33 Creatinine 0.86 mg/dL (0.70-1.30) 06/14/21 05:33 Est GFR (MDRD) Af Amer > 60 (>60) 06/14/21 05:33 Est GFR (MDRD) Non-Af > 60 (>60) 06/14/21 05:33 Glucose 147 mg/dL (65-99) H 06/14/21 05:33 POC Glucose (mg/dL) 102 mg/dL (65-99) H 06/14/21 11:19 Calcium 8.1 mg/dL (8.5-10.1) L 06/14/21 05:33 Corrected Calcium 9.9 mg/dL (8.5-10.1) 06/14/21 05:33 Total Bilirubin 0.30 mg/dL (0.2-1.0) 06/14/21 05:33 AST 27 Units/L (15-37) 06/14/21 05:33 ALT 32 Units/L (12-78) 06/14/21 05:33 Alkaline Phosphatase 116 Units/L (46-116) 06/14/21 05:33 Total Protein 6.1 g/dL (6.4-8.2) L 06/14/21 05:33 Albumin 1.8 g/dL (3.4-5.0) L 06/14/21 05:33 Globulin 4.3 g/dL (2.5-4.5) 06/14/21 05:33 Albumin/Globulin Ratio 0.4 Ratio (1.1-2.1) L 06/14/21 05:33 Lipase 133 Units/L (73-393) 06/10/21 11:33 Specimen Type Clean catch urine 06/10/21 11:42 Urine Color Yellow (YELLOW) 06/10/21 11:42 Urine Appearance Clear (CLEAR) 06/10/21 11:42 Urine pH 6.0 (5.0 - 8.0) 06/10/21 11:42 Ur Specific [place] 1.025 (1.000-1.030) 06/10/21 11:42 Urine Protein 1+ (NEGATIVE) 06/10/21 11:42 Urine Glucose (UA) 4+ (NEGATIVE) 06/10/21 11:42 Urine Ketones Negative (NEGATIVE) 06/10/21 11:42 Urine Occult Blood Negative (NEGATIVE) 06/10/21 11:42 Urine Nitrite Negative (NEGATIVE) 06/10/21 11:42 Urine Bilirubin Negative (NEGATIVE) 06/10/21 11:42 Urine Urobilinogen Normal (NORMAL) 06/10/21 11:42 Ur Leukocyte Esterase Negative (NEGATIVE) 06/10/21 11:42 Urine RBC None seen /HPF (0-3) 06/10/21 11:42 Urine WBC None seen /HPF (0-5) 06/10/21 11:42 Ur Squamous Epith Cells Moderate /HPF (NEGATIVE) 06/10/21 11:42 Urine Bacteria Trace /HPF (NEGATIVE) 06/10/21 11:42 Hyaline Casts Rare /LPF (NEGATIVE) 06/10/21 11:42 Urine Mucus Few /HPF (NEGATIVE) 06/10/21 11:42 Ur Culture Indicated? No/not indicated 06/10/21 11:42 Vancomycin Trough 11.8 ug/mL (15-20) L 06/14/21 05:33 Influenza Type A Ag Negative-presumptive (NEGATIVE) 06/10/21 11:18 Influenza Type B Ag Negative-presumptive (NEGATIVE) 06/10/21 11:18 SARS CoV-2 RNA Rapid ERICH Negative (NEGATIVE) 06/10/21 12:32 Plan (1) Hypoglycemia: Status: Resolved Plan: D/C Glyburide this am. Continue Sliding scale reg. insulin. (2) Anemia: Status: Acute Plan: Monitor Hb (3) Intra-abdominal abscess post-procedure: Status: Acute Plan: Rx per Gen. Surgery. Drain to be placed in abscess today for drainage per Radiology. (4) DM2 (diabetes mellitus, type 2): Status: Chronic Plan: Regular insulin sliding scale. (5) Hypothyroidism: Status: Chronic Qualifiers: Hypothyroidism type: unspecified Qualified Code(s): E03.9 - Hypothy roidism, unspecified Plan: Resume levothyroxine (6) HTN (hypertension): Status: Chronic Qualifiers: Hypertension type: primary hypertension Qualified Code(s): I10 - Essential (primary) hypertension Plan: Resume Lisinopril 10 mg (7) GERD (gastroesophageal reflux disease): Status: Chronic Qualifiers: Esophagitis presence: without esophagitis Qualified Code(s): K21.9 - Gastro-esophageal reflux disease without esophagitis Plan: Resume Omeprazole 40mg. (8) Dyslipidemia: Status: Chronic
[2021-06-14] MEDS: TORADOL 30 MG VIAL IVP PRN (16:23)
[2021-06-14] MEDS: SNACK - Diabetic Appropriate PO SCH (20:15)
[2021-06-15] MEDS: VANCOMYCIN IV *PREMIX 1 G/200 ML BAG 1 G/200 ML PIGGYBACK IV SCH ×2 (00:45→08:10)
[2021-06-15] MEDS: ZOSYN VIAL 3.375 GRAMS 3.375 G in NS 100 ML IV + SPIKE MINIBAG* 100 ML IV SCH (05:00)
[2021-06-15] MEDS: MORPHINE SULFATE INJ 4 MG IVP PRN ×2 (05:32→12:01)
[2021-06-15] MEDS: FLAGYL IV PREMIX 500 MG BAG 500 MG/100 ML BAG IV SCH (06:01)
[2021-06-15 06:25] LABS: BASOPHILS # (AUTO) 0.1 X10^3/uL (0.0-0.1); EOSINOPHILS # (AUTO) 0.1 x10^3/uL (0.0-0.2); EOSINOPHILS % (AUTO) 0.7 % (0.9-2.9); HEMATOCRIT 30.8 % (42.0-54.0); HEMOGLOBIN 10.7 g/dL (13.5-18.0); LYMPHOCYTES # (AUTO) 1.5 X10^3/uL (1.3-2.9); LYMPHOCYTES % (AUTO) 16.5 % (21.0-51.0); MEAN CORPUSCULAR HEMOGLOBIN 30.5 pg (27.0-34.0); MEAN CORPUSCULAR HGB CONC 34.8 g/dL (33.0-35.0); MEAN CORPUSCULAR VOLUME 87.5 fL (80.0-100.0); MONOCYTES # (AUTO) 0.9 x10^3/uL (0.3-0.8); MONOCYTES % (AUTO) 9.8 % (0.0-13.0); NEUTROPHILS # (AUTO) 6.7 x10^3/uL (2.2-4.8); PLATELET COUNT 441 X10^3/uL (150.0-450.0); RED BLOOD COUNT 3.52 X10^6/uL (4.7-6.0); RED CELL DISTRIBUTION WIDTH 13.3 % (11.6-16.5); WHITE BLOOD COUNT 9.3 X10^3/uL (3.6-10.0)
[2021-06-15 06:36] LABS: ALANINE AMINOTRANSFERASE 28 Units/L (12-78); ALBUMIN 1.8 g/dL (3.4-5.0); ALKALINE PHOSPHATASE 107 Units/L (46-116); ASPARTATE AMINO TRANSFERASE 20 Units/L (15-37); BLOOD UREA NITROGEN 13 mg/dL (7-18); CARBON DIOXIDE 24.1 mmol/L (21-32); CHLORIDE 105 mmol/L (98-107); COR CA(FOR HYPOALB) 9.8 mg/dL (8.5-10.1); COR NA(FOR HYPERGLY) 141 mmol/L (136-145); CREATININE 0.84 mg/dL (0.70-1.30); SODIUM 139 mmol/L (136-145); TOTAL PROTEIN 5.9 g/dL (6.4-8.2); eGFR NON BLACK RACES > 60 (>60)
[2021-06-15] MEDS: LOVENOX INJ 40 MG SYR SC SCH (08:11)
[2021-06-15] MEDS: FLOMAX PO SCH (08:11)
[2021-06-15] MEDS: PriLOSEC PO SCH (08:12)
[2021-06-15] MEDS: ZESTRIL TAB 10 MG PO SCH (08:12)
[2021-06-15] MEDS: SYNTHROID 75 mcg TAB PO SCH (08:12)
[2021-06-15 13:32] VITALS: BP 128/77
--- NOTE | 2021-06-19 08:43 | CT ---
HISTORYPost cholecystectomy gallbladder fossa abscessSTUDYCT-guided abscess drainCOMPARISONDecember 2020FINDINGSThe risks, benefits, and alternatives were discussed. Informed consent was obtained. Time out was performed. CT guidance was utilized to localize optimal percutaneous abscess drainage site utilizing a left lateral oblique extrahepatic paramidline approach. The patient was prepped, draped, and anesthetized in the usual sterile fashion. Anesthesia was present for conscious sedation. An 18 gauge spinal needle was advanced into the fluid collection with bile tinged but predominantly purulent fluid aspirated. Approximately 200 cc was withdrawn. Fluid collection decreased in size by at least half. The option of placement of a pigtail catheter was discussed with the surgeon, but rather than an additional wire guided versus trocar stick, it was decided to culture fluid and adjust antibiotics and repeat CT if patient remained symptomatic. If abscess persists despite decompression, a pigtail catheter will be placed if an adequate window remains. Patient tolerated the procedure well without immediate postprocedure complication and was sent to the floor in stable satisfactory condition.IMPRESSIONTechnically successful CT-guided gallbladder fossa abscess drain.Electronically signed by: ERIK CEE (Jun 19, 2021 08:41:24)
== END 2021-06-15 14:20 | disposition home or self-care (01) | DRG 863 ==
LOC: ER 10:24 → MED/SURG 16:42
PROVIDERS: ADMIT Family Medicine; ATTEND Family Medicine
DX: B96.29 Other Escherichia coli [E. coli] as the cause of diseases classified elsewhere; K21.9 Gastro-esophageal reflux disease without esophagitis; E11.65 Type 2 diabetes mellitus with hyperglycemia; Z90.49 Acquired absence of other specified parts of digestive tract; E78.2 Mixed hyperlipidemia; B95.2 Enterococcus as the cause of diseases classified elsewhere; D64.89 Other specified anemias; I10 Essential (primary) hypertension; R79.1 Abnormal coagulation profile; T81.43XA Infection following a procedure, organ and space surgical site, initial encounter; Z20.822 Contact with and (suspected) exposure to COVID-19; R52 Pain, unspecified; E03.8 Other specified hypothyroidism

== ENCOUNTER 2021-06-21 12:51 | Inpatient (IN) ==
[2021-06-21 14:02] LABS: ALANINE AMINOTRANSFERASE 19 Units/L (12-78); ALKALINE PHOSPHATASE 139 Units/L (46-116); ASPARTATE AMINO TRANSFERASE 21 Units/L (15-37); BLOOD UREA NITROGEN 15 mg/dL (7-18); CALCIUM 9.2 mg/dL (8.5-10.1); CARBON DIOXIDE 25.2 mmol/L (21-32); CHLORIDE 99 mmol/L (98-107); COR NA(FOR HYPERGLY) 136 mmol/L (136-145); CREATININE 0.97 mg/dL (0.70-1.30); SODIUM 135 mmol/L (136-145); TOTAL PROTEIN 7.7 g/dL (6.4-8.2); eGFR NON BLACK RACES > 60 (>60)
[2021-06-21 14:16] LABS: COR CA(FOR HYPOALB) 9.8 mg/dL (8.5-10.1)
[2021-06-21 14:20] LABS: ALBUMIN 3.2 g/dL (3.4-5.0)
[2021-06-21] MEDS ORDERED: XYLOCAINE 1 % (PLAIN) IM ONE (15:00)
[2021-06-21] MEDS ORDERED: XYLOCAINE 1 % (PLAIN) ONE (15:00)
[2021-06-21] MEDS: D5 1/2 NS 1,000 ML 1,000 ML IV SCH ×2 (15:01→23:45)
[2021-06-21] MEDS: VANCOMYCIN IV *PREMIX 1 G/200 ML BAG 1 G/200 ML PIGGYBACK IV SCH ×2 (15:01→21:03)
[2021-06-21] MEDS ORDERED: DIPRIVAN VIAL ONE (15:25)
[2021-06-21] MEDS ORDERED: VERSED ONE (15:25)
[2021-06-21] MEDS ORDERED: DILAUDID INJ ONE ×2 (16:23→16:33)
[2021-06-21] MEDS ORDERED: DEXTROSE 10% 1,000 ML IV PRN (16:40)
--- NOTE | 2021-06-21 16:44 | DR.PROGNOT ---
Hospital Progress Notes - Progress Note for Day of: Progress Note Date: 06/21/21 - Chief Complaint Chief Complaint: Pt is admitted for percutaneous drainage of subhepatic and intrahepatic abscess .. 200 cc of purulent drainage was evacuated . - Past Medical Family Social History Past Med/Fam/Surg Hx: No changes since H&P Allergies: Allergies oxycodone Allergy (Mild, Verified 06/10/21 10:24) RASH itching - Review Of Systems ROS: No change since H&P - Vital Signs Vital Signs: Temperature 97.9 F Pulse Rate [Left Radial] 96 Respiratory Rate 20 Blood Pressure [Right Arm] 131/78 O2 Sat by Pulse Oximetry 99 - Physical Exam Oriented: Normal Eyes: Normal Ear: Normal Nose: Normal Respiratory: Normal GI:Auscultation: Normal GI: Tenderness: Other (Rt side and epigastric tenderness BS+) Speech Pattern: Clear, Appropriate - Laboratory and Diagnostics Result Diagrams: 06/21/21 13:40 Labs: Laboratory Sodium 135 mmol/L (136-145) L 06/21/21 13:40 Corrected Sodium 136 mmol/L (136-145) 06/21/21 13:40 Potassium 4.2 mmol/L (3.5-5.1) 06/21/21 13:40 Chloride 99 mmol/L (98-107) 06/21/21 13:40 Carbon Dioxide 25.2 mmol/L (21-32) 06/21/21 13:40 BUN 15 mg/dL (7-18) 06/21/21 13:40 Creatinine 0.97 mg/dL (0.70-1.30) 06/21/21 13:40 Est GFR (MDRD) Af Amer > 60 (>60) 06/21/21 13:40 Est GFR (MDRD) Non-Af > 60 (>60) 06/21/21 13:40 Glucose 155 mg/dL (65-99) H 06/21/21 13:40 Calcium 9.2 mg/dL (8.5-10.1) 06/21/21 13:40 Corrected Calcium 9.8 mg/dL (8.5-10.1) 06/21/21 13:40 Total Bilirubin 0.60 mg/dL (0.2-1.0) 06/21/21 13:40 AST 21 Units/L (15-37) 06/21/21 13:40 ALT 19 Units/L (12-78) 06/21/21 13:40 Alkaline Phosphatase 139 Units/L (46-116) H 06/21/21 13:40 Total Protein 7.7 g/dL (6.4-8.2) 06/21/21 13:40 Albumin 3.2 g/dL (3.4-5.0) L 06/21/21 13:40 Globulin 4.5 g/dL (2.5-4.5) 06/21/21 13:40 Albumin/Globulin Ratio 0.7 Ratio (1.1-2.1) L 06/21/21 13:40 - Assessment and Plan 1: sub hepatic and intrahepatic abscess . recent calculus cholecystitis s/p lap ruth . DM. on IV ABT . P TPN and close observation .
[2021-06-21 16:56] LABS: MAGNESIUM 2.1 mg/dL (1.7-2.9); PHOSPHORUS 3.3 mg/dL (2.6-4.7)
[2021-06-21] MEDS: [UNRECOGNIZED DRUG - REMARK] IV SCH ×3 (16:57)
[2021-06-21] MEDS ORDERED: PHARMACY CONSULT - TPN XX SCH (17:00)
[2021-06-21 18:05] LABS: BASOPHILS # (AUTO) 0.1 X10^3/uL (0.0-0.1); BASOPHILS % (AUTO) 0.8 % (0.2-1.0); EOSINOPHILS # (AUTO) 0.1 x10^3/uL (0.0-0.2); EOSINOPHILS % (AUTO) 0.6 % (0.9-2.9); HEMATOCRIT 37.3 % (42.0-54.0); HEMOGLOBIN 12.7 g/dL (13.5-18.0); LYMPHOCYTES # (AUTO) 1.8 X10^3/uL (1.3-2.9); LYMPHOCYTES % (AUTO) 13.1 % (21.0-51.0); MEAN CORPUSCULAR HEMOGLOBIN 29.5 pg (27.0-34.0); MEAN CORPUSCULAR VOLUME 86.8 fL (80.0-100.0); MEAN PLATELET VOLUME 7.3 fL (7.4-11.0); MONOCYTES % (AUTO) 7.3 % (0.0-13.0); NEUTROPHILS % (AUTO) 78.2 % (42.0-75.0); PLATELET COUNT 499 X10^3/uL (150.0-450.0); RED CELL DISTRIBUTION WIDTH 13.9 % (11.6-16.5)
[2021-06-21] MEDS: DILAUDID INJ IVP PRN ×3 (19:30→23:34)
[2021-06-21] MEDS: NovoLIN R (or HumuLIN R) SUBCUT PRN (20:28)
[2021-06-22] MEDS: NovoLIN R (or HumuLIN R) SUBCUT PRN ×4 (00:30→17:40)
[2021-06-22] MEDS: DILAUDID INJ IVP PRN ×5 (01:38→21:49)
[2021-06-22] MEDS: D5 1/2 NS 1,000 ML 1,000 ML IV SCH ×5 (02:58→18:32)
[2021-06-22 05:16] LABS: BASOPHILS # (AUTO) 0.1 X10^3/uL (0.0-0.1); BASOPHILS % (AUTO) 0.3 % (0.2-1.0); EOSINOPHILS % (AUTO) 0.1 % (0.9-2.9); HEMATOCRIT 35.4 % (42.0-54.0); HEMOGLOBIN 12.1 g/dL (13.5-18.0); LYMPHOCYTES # (AUTO) 0.8 X10^3/uL (1.3-2.9); MEAN CORPUSCULAR HEMOGLOBIN 29.1 pg (27.0-34.0); MEAN CORPUSCULAR HGB CONC 34.2 g/dL (33.0-35.0); MEAN CORPUSCULAR VOLUME 84.9 fL (80.0-100.0); MEAN PLATELET VOLUME 7.4 fL (7.4-11.0); MONOCYTES # (AUTO) 0.2 x10^3/uL (0.3-0.8); MONOCYTES % (AUTO) 1.1 % (0.0-13.0); NEUTROPHILS # (AUTO) 18.8 x10^3/uL (2.2-4.8); NEUTROPHILS % (AUTO) 94.5 % (42.0-75.0); PLATELET COUNT 407 X10^3/uL (150.0-450.0); RED BLOOD COUNT 4.18 X10^6/uL (4.7-6.0); RED CELL DISTRIBUTION WIDTH 14.1 % (11.6-16.5); WHITE BLOOD COUNT 19.9 X10^3/uL (3.6-10.0)
[2021-06-22 05:21] LABS: PREALBUMIN 12.8 mg/dL (18-35.7)
[2021-06-22 05:26] LABS: ALANINE AMINOTRANSFERASE 14 Units/L (12-78); ALBUMIN 2.1 g/dL (3.4-5.0); ALKALINE PHOSPHATASE 104 Units/L (46-116); ASPARTATE AMINO TRANSFERASE 14 Units/L (15-37); BLOOD UREA NITROGEN 20 mg/dL (7-18); CALCIUM 8.4 mg/dL (8.5-10.1); CARBON DIOXIDE 24.2 mmol/L (21-32); CHLORIDE 99 mmol/L (98-107); COR CA(FOR HYPOALB) 9.9 mg/dL (8.5-10.1); COR NA(FOR HYPERGLY) 135 mmol/L (136-145); CREATININE 0.96 mg/dL (0.70-1.30); SODIUM 131 mmol/L (136-145); TOTAL PROTEIN 6.5 g/dL (6.4-8.2); eGFR NON BLACK RACES > 60 (>60)
[2021-06-22 06:24] LABS: BAND NEUTROPHILS % 16 % (0-10); PLATELET MORPHOLOGY COMMENT NORMAL (NORMAL)
[2021-06-22] MEDS: VANCOMYCIN IV *PREMIX 1 G/200 ML BAG 1 G/200 ML PIGGYBACK IV SCH ×2 (08:15→21:44)
[2021-06-22] MEDS ORDERED: LOVENOX INJ 40 MG SYR SC SCH (09:00)
--- NOTE | 2021-06-22 09:00 | CT ---
HISTORYRight upper quadrant abscessSTUDYCT-guided abscess drainCOMPARISONEarlier the same dayPROCEDUREThe risks, benefits, and alternatives were discussed. Informed consent was obtained. Time out was performed. CT guidance was utilized to localize optimal percutaneous pigtail catheter placement site in the right upper quadrant. The patient was prepped, draped, and anesthetized in the usual sterile fashion. Anesthesia was present for conscious sedation. A right lateral approach was utilized. A 5 [place] catheter was advanced into the fluid collection with purulent fluid aspirated. Subsequently, a guidewire was advanced through the catheter with subsequent satisfactory placement of a 10 [place] pigtail catheter. Approximately 200 cc of purulent fluid was aspirated. The patient tolerated the procedure well without immediate postprocedure complication. Please note a transhepatic approach was utilized. Therefore, catheter should remain in place approximately 6-8 weeks.IMPRESSIONTechnically successful CT-guided right upper quadrant abscess drain.Electronically signed by: ERIK CEE (Jun 22, 2021 08:57:42)
[2021-06-22] MEDS ORDERED: PERCOCET TAB 5/325 MG ONE (09:27)
[2021-06-22] MEDS: LEVEMIR SC SCH ×2 (09:36→20:41)
[2021-06-22] MEDS: NORCO 5/325 MG TAB PO PRN ×4 (10:06→23:01)
--- NOTE | 2021-06-22 10:19 | DR.PROGNOT ---
Hospital Progress Notes - Progress Note for Day of: Progress Note Date: 06/22/21 - Chief Complaint Chief Complaint: moderate RUQ pain .. no nausea , no vomiting . drained abour 30 cc last shift. no chills or fever .. WBC up to 19. LFT are normal . drainage catheter was flushed both ways .. it is open with minimal bile drainage . - Past Medical Family Social History Past Med/Fam/Surg Hx: No changes since H&P Allergies: Allergies oxycodone Allergy (Mild, Verified 06/10/21 10:24) RASH itching - Review Of Systems ROS: No change since H&P - Vital Signs Vital Signs: Temperature 98.6 F Pulse Rate [Left Radial] 105 Respiratory Rate 18 Blood Pressure [Left Arm] 118/77 Blood Pressure [Right Arm] 125/83 O2 Sat by Pulse Oximetry 94 - Physical Exam Oriented: Normal Eyes: Normal Ear: Normal Nose: Normal Respiratory: Normal GI:Auscultation: Normal GI:Palpation: Normal GI: Tenderness: RUQ (soft , flat abdomen . BS+), Other (Rt side and epigastric tenderness BS+) Speech Pattern: Clear, Appropriate - Laboratory and Diagnostics Result Diagrams: 06/22/21 04:46 06/22/21 04:46 Labs: 06/21/21 16:00 Abdomen Wound Gram Stain - Final Laboratory WBC 19.9 X10^3/uL (3.6-10.0) H 06/22/21 04:46 RBC 4.18 X10^6/uL (4.7-6.0) L 06/22/21 04:46 Hgb 12.1 g/dL (13.5-18.0) L 06/22/21 04:46 Hct 35.4 % (42.0-54.0) L 06/22/21 04:46 MCV 84.9 fL (80.0-100.0) 06/22/21 04:46 MCH 29.1 pg (27.0-34.0) 06/22/21 04:46 MCHC 34.2 g/dL (33.0-35.0) 06/22/21 04:46 RDW 14.1 % (11.6-16.5) 06/22/21 04:46 Plt Count 407 X10^3/uL (150.0-450.0) 06/22/21 04:46 Plt Count Comment Adequate (ADEQUATE) 06/22/21 04:46 MPV 7.4 fL (7.4-11.0) 06/22/21 04:46 Neut % (Auto) 94.5 % (42.0-75.0) H 06/22/21 04:46 Lymph % (Auto) 4.0 % (21.0-51.0) L 06/22/21 04:46 [place] % (Auto) 1.1 % (0.0-13.0) 06/22/21 04:46 Eos % (Auto) 0.1 % (0.9-2.9) L 06/22/21 04:46 Baso % (Auto) 0.3 % (0.2-1.0) 06/22/21 04:46 Neut # (Auto) 18.8 x10^3/uL (2.2-4.8) H 06/22/21 04:46 Lymph # (Auto) 0.8 X10^3/uL (1.3-2.9) L 06/22/21 04:46 [place] # (Auto) 0.2 x10^3/uL (0.3-0.8) L 06/22/21 04:46 Eos # (Auto) 0.0 x10^3/uL (0.0-0.2) 06/22/21 04:46 Baso # (Auto) 0.1 X10^3/uL (0.0-0.1) 06/22/21 04:46 Absolute Nucleated RBC 0.1 /100WBC 06/22/21 04:46 Total Counted 100 06/22/21 04:46 Neutrophils % (Manual) 82 % (39-76) H 06/22/21 04:46 Band Neutrophils % 16 % (0-10) H 06/22/21 04:46 Lymphocytes % (Manual) 2 % (13-43) L 06/22/21 04:46 Plt Morphology Comment Normal (NORMAL) 06/22/21 04:46 RBC Morphology Normal (NORMAL) 06/22/21 04:46 Sodium 131 mmol/L (136-145) L 06/22/21 04:46 Corrected Sodium 135 mmol/L (136-145) L 06/22/21 04:46 Potassium 4.4 mmol/L (3.5-5.1) 06/22/21 04:46 Chloride 99 mmol/L (98-107) 06/22/21 04:46 Carbon Dioxide 24.2 mmol/L (21-32) 06/22/21 04:46 BUN 20 mg/dL (7-18) H 06/22/21 04:46 Creatinine 0.96 mg/dL (0.70-1.30) 06/22/21 04:46 Est GFR (MDRD) Af Amer > 60 (>60) 06/22/21 04:46 Est GFR (MDRD) Non-Af > 60 (>60) 06/22/21 04:46 Glucose 287 mg/dL (65-99) H 06/22/21 04:46 POC Glucose (mg/dL) 236 mg/dL (65-99) H 06/22/21 09:51 Calcium 8.4 mg/dL (8.5-10.1) L 06/22/21 04:46 Corrected Calcium 9.9 mg/dL (8.5-10.1) 06/22/21 04:46 Phosphorus 3.3 mg/dL (2.6-4.7) 06/21/21 13:40 Magnesium 2.1 mg/dL (1.7-2.9) 06/21/21 13:40 Total Bilirubin 0.60 mg/dL (0.2-1.0) 06/22/21 04:46 AST 14 Units/L (15-37) L 06/22/21 04:46 ALT 14 Units/L (12-78) 06/22/21 04:46 Alkaline Phosphatase 104 Units/L (46-116) 06/22/21 04:46 Total Protein 6.5 g/dL (6.4-8.2) 06/22/21 04:46 Albumin 2.1 g/dL (3.4-5.0) L 06/22/21 04:46 Globulin 4.4 g/dL (2.5-4.5) 06/22/21 04:46 Albumin/Globulin Ratio 0.5 Ratio (1.1-2.1) L 06/22/21 04:46 Prealbumin 12.8 mg/dL (18-35.7) L 06/22/21 04:46 Triglycerides 76 mg/dL (0-150) 06/21/21 13:40 - Assessment and Plan 1: sub hepatic and intrahepatic abscess . recent calculus cholecystitis s/p lap ruth . DM. on IV ABT . P TPN and close observation . on regular ADA diet . Dr Colón for medical management .
[2021-06-22 13:49] VITALS: BMI 28.8
[2021-06-22] MEDS: [UNRECOGNIZED DRUG - REMARK] IV SCH ×3 (14:00)
[2021-06-22] MEDS: CIPRO IV 400 MG PREMIX* 400 MG/200 ML IV.SOLN. IV SCH ×2 (14:33→20:40)
--- NOTE | 2021-06-22 19:02 | DR.CONSULT ---
CONSULT Consultation for Day of: Date: 06/22/21 Chief Complaint Chief Complaint: Medical Consult Allergies Allergies Allergy/AdvReac Type Severity Reaction Status Date / Time oxycodone Allergy Mild RASH Verified 06/10/21 10:24 History of Present Illness History of Present Illness: 61 yo wm with an intraabdominal abscess. The abscess is being managed by Gen[facility]. Patient has a hx of DM2, HTN Hypothyroidism, GERD and dyslipedemia. Past Medical History Past Medical History: Diabetes, Dyslipidemia, GERD, Hypertension and Hypothyroidism Past Surgical History Surgical History: Cholecystectomy and Ortho Surgery Family History Family Medical History: Diabetes Mellitus and Hypertension Social History Does patient currently use any type of tobacco product: No Have you used tobacco products in the last 12 months: No Type of Tobacco Use: None Does any household member use tobacco: No Alcohol Use: Rarely Drug Use: None Medications Home Medications: oxycodone Allergy (Mild, Verified 06/10/21 10:24) RASH Review of Systems Constitutional: Weakness and Malaise Eyes: No Symptoms Reported ENT: No Symptoms Reported Respiratory: No Symptoms Reported Cardiovascular: No Symptoms Reported Gastrointestinal: Abdominal Pain Genitourinary: No Symptoms Reported Musculoskeletal: No Symptoms Reported Skin: No Symptoms Reported Neurological: No Symptoms Reported Physical Exam Vital Signs: Temperature 97.8 F Pulse Rate [Left Radial] 100 Respiratory Rate 18 Blood Pressure [Left Arm] 113/69 Blood Pressure [Right Arm] 125/83 O2 Sat by Pulse Oximetry 97 Oriented: Normal Eyes: Normal Ear: Normal Nose: Normal Throat: Normal Respiratory: Clear Throughout Cardiovascular: Normal : Normal Auscultation: Bowel Sounds: Normal Palpation: Normal Tenderness: RUQ and Moderate Skin: Normal Musculoskeletal: Normal Psychiatric: Normal Mood Description: Calm Affect: Normal Speech Pattern: Clear Plan (1) HTN (hypertension): Status: Chronic Qualifiers: Hypertension type: primary hypertension Qualified Code(s): I10 - Essential (primary) hypertension (2) GERD (gastroesophageal reflux disease): Status: Chronic Qualifiers: Esophagitis presence: without esophagitis Qualified Code(s): K21.9 - Gastro-esophageal reflux disease without esophagitis (3) Dyslipidemia: Status: Chronic (4) Anemia: Status: Acute Plan: Recheck CBC in am. (5) DM2 (diabetes mellitus, type 2): Status: Chronic Plan: Continue Sliding scale insulin and I will add Levemir 10 units bid for better Glucose control. (6) Hypothyroidism: Status: Chronic Qualifiers: Hypothyroidism type: unspecified Qualified Code(s): E03.9 - Hypothyroidism, unspecified (7) Intra-abdominal abscess post-procedure: Status: Acute Plan: Treatment per [facility].
[2021-06-22] MEDS: SNACK - Diabetic Appropriate PO SCH (20:00)
[2021-06-23] MEDS: DILAUDID INJ IVP PRN ×4 (00:33→22:38)
[2021-06-23] MEDS: NovoLIN R (or HumuLIN R) SUBCUT PRN ×2 (00:40→17:40)
[2021-06-23] MEDS: [UNRECOGNIZED DRUG - REMARK] IV SCH ×3 (04:10)
[2021-06-23] MEDS: NORCO 5/325 MG TAB PO PRN ×2 (04:13→15:34)
[2021-06-23] MEDS: D5 1/2 NS 1,000 ML 1,000 ML IV SCH ×2 (04:14→05:02)
[2021-06-23 06:05] LABS: BASOPHILS # (AUTO) 0.1 X10^3/uL (0.0-0.1); BASOPHILS % (AUTO) 0.6 % (0.2-1.0); EOSINOPHILS # (AUTO) 0.2 x10^3/uL (0.0-0.2); EOSINOPHILS % (AUTO) 0.8 % (0.9-2.9); HEMOGLOBIN 10.2 g/dL (13.5-18.0); LYMPHOCYTES # (AUTO) 1.3 X10^3/uL (1.3-2.9); LYMPHOCYTES % (AUTO) 6.2 % (21.0-51.0); MEAN CORPUSCULAR HEMOGLOBIN 28.9 pg (27.0-34.0); MEAN PLATELET VOLUME 7.7 fL (7.4-11.0); MONOCYTES # (AUTO) 0.6 x10^3/uL (0.3-0.8); MONOCYTES % (AUTO) 2.7 % (0.0-13.0); NEUTROPHILS # (AUTO) 19.4 x10^3/uL (2.2-4.8); NEUTROPHILS % (AUTO) 89.7 % (42.0-75.0); PLATELET COUNT 363 X10^3/uL (150.0-450.0); RED BLOOD COUNT 3.53 X10^6/uL (4.7-6.0); RED CELL DISTRIBUTION WIDTH 14.4 % (11.6-16.5); WHITE BLOOD COUNT 21.6 X10^3/uL (3.6-10.0)
[2021-06-23 06:15] LABS: ALANINE AMINOTRANSFERASE 12 Units/L (12-78); ALBUMIN 1.8 g/dL (3.4-5.0); ALKALINE PHOSPHATASE 104 Units/L (46-116); ASPARTATE AMINO TRANSFERASE 10 Units/L (15-37); BLOOD UREA NITROGEN 15 mg/dL (7-18); CARBON DIOXIDE 25.7 mmol/L (21-32); CHLORIDE 99 mmol/L (98-107); COR CA(FOR HYPOALB) 9.8 mg/dL (8.5-10.1); COR NA(FOR HYPERGLY) 136 mmol/L (136-145); CREATININE 0.89 mg/dL (0.70-1.30); SODIUM 132 mmol/L (136-145); TOTAL PROTEIN 5.8 g/dL (6.4-8.2); eGFR NON BLACK RACES > 60 (>60)
[2021-06-23] MEDS ORDERED: SYNTHROID 75 mcg TAB ONE (06:55)
[2021-06-23 07:20] LABS: BAND NEUTROPHILS % 4 % (0-10)
[2021-06-23 07:21] LABS: PLATELET MORPHOLOGY COMMENT NORMAL (NORMAL)
[2021-06-23] MEDS ORDERED: COLACE CAP 100 MG PO ONE (08:11)
[2021-06-23] MEDS ORDERED: HEPARIN SODIUM INJ 5000 UNITS ONE (08:17)
[2021-06-23] MEDS: HEPARIN SODIUM INJ 5000 UNITS SC SCH ×3 (08:34→22:27)
[2021-06-23] MEDS: LEVEMIR SC SCH ×2 (09:29→22:26)
[2021-06-23] MEDS: COLACE CAP 100 MG PO SCH ×2 (09:29→22:33)
[2021-06-23] MEDS: CIPRO IV 400 MG PREMIX* 400 MG/200 ML IV.SOLN. IV SCH (09:29)
[2021-06-23] MEDS: VANCOMYCIN IV *PREMIX 1 G/200 ML BAG 1 G/200 ML PIGGYBACK IV SCH ×2 (09:30→23:58)
[2021-06-23] MEDS: SYNTHROID 75 mcg TAB PO SCH (09:30)
[2021-06-23] MEDS ORDERED: NS 1/2 1,000 ML IV 1,000 ML IV ONE (09:39)
[2021-06-23] MEDS: NS 1/2 1,000 ML IV 1,000 ML IV SCH (09:54)
[2021-06-23] MEDS: MILK OF MAGNESIA PO PRN (09:54)
--- NOTE | 2021-06-23 10:20 | DR.PROGNOT ---
Hospital Progress Notes - Progress Note for Day of: Progress Note Date: 06/23/21 - Chief Complaint Chief Complaint: c/o bloating and moderate RUQ pain .. no nausea , no vomiting . no BM yet . drainind only small amount of clear bile .. no chills or fever .. WBC up to 21.6. LFT, Bilirubin , BUN/Creat normal. drainage catheter was flushed both ways .. it is open with minimal bile drainage . - Past Medical Family Social History Past Med/Fam/Surg Hx: No changes since H&P Allergies: Allergies oxycodone Allergy (Mild, Verified 06/10/21 10:24) RASH itching - Review Of Systems ROS: No change since H&P - Vital Signs Vital Signs: Temperature 97.8 F Pulse Rate [Left Radial] 100 Respiratory Rate 20 Blood Pressure [Left Arm] 100/55 Blood Pressure [Right Arm] 125/83 O2 Sat by Pulse Oximetry 94 - Physical Exam Oriented: Normal Eyes: Normal Ear: Normal Nose: Normal Throat: Normal Respiratory: Normal Cardiovascular: Normal : Normal GI:Auscultation: Normal GI:Palpation: Normal GI: Tenderness: RUQ, Moderate (soft with mild distention and tympany .. BS hypoactive .. ) Skin: Normal Musculoskeletal: Normal Psychiatric: Normal Mood Description: Calm Affect: Normal Speech Pattern: Clear, Appropriate - Laboratory and Diagnostics Result Diagrams: 06/23/21 04:45 06/23/21 04:45 Labs: 06/21/21 17:24 Blood Blood Culture - Preliminary 06/21/21 17:32 Blood Blood Culture - Preliminary 06/21/21 16:00 Abdomen Wound Gram Stain - Final 06/21/21 16:00 Abdomen Wound Culture - Preliminary Laboratory WBC 21.6 X10^3/uL (3.6-10.0) H 06/23/21 04:45 RBC 3.53 X10^6/uL (4.7-6.0) L 06/23/21 04:45 Hgb 10.2 g/dL (13.5-18.0) L 06/23/21 04:45 Hct 30.0 % (42.0-54.0) L 06/23/21 04:45 MCV 85.0 fL (80.0-100.0) 06/23/21 04:45 MCH 28.9 pg (27.0-34.0) 06/23/21 04:45 MCHC 34.0 g/dL (33.0-35.0) 06/23/21 04:45 RDW 14.4 % (11.6-16.5) 06/23/21 04:45 Plt Count 363 X10^3/uL (150.0-450.0) 06/23/21 04:45 Plt Count Comment Adequate (ADEQUATE) 06/23/21 04:45 MPV 7.7 fL (7.4-11.0) 06/23/21 04:45 Neut % (Auto) 89.7 % (42.0-75.0) H 06/23/21 04:45 Lymph % (Auto) 6.2 % (21.0-51.0) L 06/23/21 04:45 [place] % (Auto) 2.7 % (0.0-13.0) 06/23/21 04:45 Eos % (Auto) 0.8 % (0.9-2.9) L 06/23/21 04:45 Baso % (Auto) 0.6 % (0.2-1.0) 06/23/21 04:45 Neut # (Auto) 19.4 x10^3/uL (2.2-4.8) H 06/23/21 04:45 Lymph # (Auto) 1.3 X10^3/uL (1.3-2.9) 06/23/21 04:45 [place] # (Auto) 0.6 x10^3/uL (0.3-0.8) 06/23/21 04:45 Eos # (Auto) 0.2 x10^3/uL (0.0-0.2) 06/23/21 04:45 Baso # (Auto) 0.1 X10^3/uL (0.0-0.1) 06/23/21 04:45 Absolute Nucleated RBC 0.1 /100WBC 06/23/21 04:45 Total Counted 100 06/23/21 04:45 Neutrophils % (Manual) 82 % (39-76) H 06/23/21 04:45 Band Neutrophils % 4 % (0-10) 06/23/21 04:45 Lymphocytes % (Manual) 9 % (13-43) L 06/23/21 04:45 Monocytes % (Manual) 3 % (4-9) L 06/23/21 04:45 Eosinophils % (Manual) 2 % (0-6) 06/23/21 04:45 Plt Morphology Comment Normal (NORMAL) 06/23/21 04:45 RBC Morphology Normal (NORMAL) 06/23/21 04:45 Sodium 132 mmol/L (136-145) L 06/23/21 04:45 Corrected Sodium 136 mmol/L (136-145) 06/23/21 04:45 Potassium 3.7 mmol/L (3.5-5.1) 06/23/21 04:45 Chloride 99 mmol/L (98-107) 06/23/21 04:45 Carbon Dioxide 25.7 mmol/L (21-32) 06/23/21 04:45 BUN 15 mg/dL (7-18) 06/23/21 04:45 Creatinine 0.89 mg/dL (0.70-1.30) 06/23/21 04:45 Est GFR (MDRD) Af Amer > 60 (>60) 06/23/21 04:45 Est GFR (MDRD) Non-Af > 60 (>60) 06/23/21 04:45 Glucose 266 mg/dL (65-99) H 06/23/21 04:45 POC Glucose (mg/dL) 217 mg/dL (65-99) H 06/23/21 07:37 Calcium 8.0 mg/dL (8.5-10.1) L 06/23/21 04:45 Corrected Calcium 9.8 mg/dL (8.5-10.1) 06/23/21 04:45 Phosphorus 3.3 mg/dL (2.6-4.7) 06/21/21 13:40 Magnesium 2.1 mg/dL (1.7-2.9) 06/21/21 13:40 Total Bilirubin 0.40 mg/dL (0.2-1.0) 06/23/21 04:45 AST 10 Units/L (15-37) L 06/23/21 04:45 ALT 12 Units/L (12-78) 06/23/21 04:45 Alkaline Phosphatase 104 Units/L (46-116) 06/23/21 04:45 Total Protein 5.8 g/dL (6.4-8.2) L 06/23/21 04:45 Albumin 1.8 g/dL (3.4-5.0) L 06/23/21 04:45 Globulin 4.0 g/dL (2.5-4.5) 06/23/21 04:45 Albumin/Globulin Ratio 0.5 Ratio (1.1-2.1) L 06/23/21 04:45 Prealbumin 12.8 mg/dL (18-35.7) L 06/22/21 04:46 Triglycerides 76 mg/dL (0-150) 06/21/21 13:40 - Assessment and Plan 1: sub hepatic and intrahepatic abscess . recent calculus cholecystitis s/p lap ruth . DM. mild ileus. on IV ABT . P TPN and close observation . on regular ADA diet . abdominal CT on friday .
[2021-06-23] MEDS ORDERED: MERREM VIAL ONE (12:44)
[2021-06-23] MEDS ORDERED: NS 100 ML IV + SPIKE MINIBAG* 100 ML IV ONE (12:45)
[2021-06-23] MEDS: MERREM VIAL 1 G in NS 100 ML IV + SPIKE MINIBAG* 100 ML IV SCH ×3 (12:52→22:34)
[2021-06-23] MEDS ORDERED: MERREM VIAL 500 MG in NS 100 ML IV + SPIKE MINIBAG* 100 ML IV SCH (14:00)
--- NOTE | 2021-06-23 18:15 | PCM.PROG ---
Progress Note Progress Note for Day of Date of Exam: 06/23/21 Subjective Subjective: Patient is feeling a little better this am. Also eating some now. No BM in a few days so I will give him some MOM 30 ml PO x 1. Worsening leukocytosis this am also. Past Medical Family Social History Past Med/Fam/Surg Hx: No changes since H&P Allergies: Allergies oxycodone Allergy (Mild, Verified 06/10/21 10:24) RASH itching Review of Systems ROS: No change since H&P Vital Signs and I&O's Vital Signs: Temperature 99.1 F Pulse Rate [Left Radial] 111 Respiratory Rate 20 Blood Pressure [Left Arm] 122/59 Blood Pressure [Right Arm] 125/83 O2 Sat by Pulse Oximetry 96 Intake and Output: Intake & Output 06/21/21 06/22/21 06/23/21 06/24/21 11:59 11:59 11:59 11:59 Intake Total 1758 / 1758 4567 / 4567 1020 / 1020 Output Total 115 / 115 175 / 175 Balance 1728 / 1728 4452 / 4452 845 / 845 Physical Exam Oriented: Normal Eyes: Normal Ear: Normal Nose: Normal Throat: Normal Respiratory: Normal Cardiovascular: Normal : Normal Auscultation: Bowel Sounds: Normal Tenderness: RUQ and Moderate (soft with mild distention and tympany .. BS hypoactive .. ) Skin: Normal Musculoskeletal: Normal Psychiatric: Normal Mood Description: Calm Affect: Normal Speech Pattern: Clear and Appropriate Laboratory and Diagnostics Result Diagrams: 06/23/21 04:45 06/23/21 04:45 Labs: 06/21/21 17:24 Blood Blood Culture - Preliminary 06/21/21 17:32 Blood Blood Culture - Preliminary 06/21/21 16:00 Abdomen Wound Gram Stain - Final 06/21/21 16:00 Abdomen Wound Culture - Preliminary Laboratory WBC 21.6 X10^3/uL (3.6-10.0) H 06/23/21 04:45 RBC 3.53 X10^6/uL (4.7-6.0) L 06/23/21 04:45 Hgb 10.2 g/dL (13.5-18.0) L 06/23/21 04:45 Hct 30.0 % (42.0-54.0) L 06/23/21 04:45 MCV 85.0 fL (80.0-100.0) 06/23/21 04:45 MCH 28.9 pg (27.0-34.0) 06/23/21 04:45 MCHC 34.0 g/dL (33.0-35.0) 06/23/21 04:45 RDW 14.4 % (11.6-16.5) 06/23/21 04:45 Plt Count 363 X10^3/uL (150.0-450.0) 06/23/21 04:45 Plt Count Comment Adequate (ADEQUATE) 06/23/21 04:45 MPV 7.7 fL (7.4-11.0) 06/23/21 04:45 Neut % (Auto) 89.7 % (42.0-75.0) H 06/23/21 04:45 Lymph % (Auto) 6.2 % (21.0-51.0) L 06/23/21 04:45 [place] % (Auto) 2.7 % (0.0-13.0) 06/23/21 04:45 Eos % (Auto) 0.8 % (0.9-2.9) L 06/23/21 04:45 Baso % (Auto) 0.6 % (0.2-1.0) 06/23/21 04:45 Neut # (Auto) 19.4 x10^3/uL (2.2-4.8) H 06/23/21 04:45 Lymph # (Auto) 1.3 X10^3/uL (1.3-2.9) 06/23/21 04:45 [place] # (Auto) 0.6 x10^3/uL (0.3-0.8) 06/23/21 04:45 Eos # (Auto) 0.2 x10^3/uL (0.0-0.2) 06/23/21 04:45 Baso # (Auto) 0.1 X10^3/uL (0.0-0.1) 06/23/21 04:45 Absolute Nucleated RBC 0.1 /100WBC 06/23/21 04:45 Total Counted 100 06/23/21 04:45 Neutrophils % (Manual) 82 % (39-76) H 06/23/21 04:45 Band Neutrophils % 4 % (0-10) 06/23/21 04:45 Lymphocytes % (Manual) 9 % (13-43) L 06/23/21 04:45 Monocytes % (Manual) 3 % (4-9) L 06/23/21 04:45 Eosinophils % (Manual) 2 % (0-6) 06/23/21 04:45 Plt Morphology Comment Normal (NORMAL) 06/23/21 04:45 RBC Morphology Normal (NORMAL) 06/23/21 04:45 Sodium 132 mmol/L (136-145) L 06/23/21 04:45 Corrected Sodium 136 mmol/L (136-145) 06/23/21 04:45 Potassium 3.7 mmol/L (3.5-5.1) 06/23/21 04:45 Chloride 99 mmol/L (98-107) 06/23/21 04:45 Carbon Dioxide 25.7 mmol/L (21-32) 06/23/21 04:45 BUN 15 mg/dL (7-18) 06/23/21 04:45 Creatinine 0.89 mg/dL (0.70-1.30) 06/23/21 04:45 Est GFR (MDRD) Af Amer > 60 (>60) 06/23/21 04:45 Est GFR (MDRD) Non-Af > 60 (>60) 06/23/21 04:45 Glucose 266 mg/dL (65-99) H 06/23/21 04:45 POC Glucose (mg/dL) 273 mg/dL (65-99) H 06/23/21 17:31 Calcium 8.0 mg/dL (8.5-10.1) L 06/23/21 04:45 Corrected Calcium 9.8 mg/dL (8.5-10.1) 06/23/21 04:45 Phosphorus 3.3 mg/dL (2.6-4.7) 06/21/21 13:40 Magnesium 2.1 mg/dL (1.7-2.9) 06/21/21 13:40 Total Bilirubin 0.40 mg/dL (0.2-1.0) 06/23/21 04:45 AST 10 Units/L (15-37) L 06/23/21 04:45 ALT 12 Units/L (12-78) 06/23/21 04:45 Alkaline Phosphatase 104 Units/L (46-116) 06/23/21 04:45 Total Protein 5.8 g/dL (6.4-8.2) L 06/23/21 04:45 Albumin 1.8 g/dL (3.4-5.0) L 06/23/21 04:45 Globulin 4.0 g/dL (2.5-4.5) 06/23/21 04:45 Albumin/Globulin Ratio 0.5 Ratio (1.1-2.1) L 06/23/21 04:45 Prealbumin 12.8 mg/dL (18-35.7) L 06/22/21 04:46 Triglycerides 76 mg/dL (0-150) 06/21/21 13:40 Plan (1) Leukocytosis: Status: Acute Plan: Adding Meropenem this am for additional coverage. (2) HTN (hypertension): Status: Chronic Qualifiers: Hypertension type: primary hypertension Qualified Code(s): I10 - Essential (primary) hypertension (3) GERD (gastroesophageal reflux disease): Status: Chronic Qualifiers: Esophagitis presence: without esophagitis Qualified Code(s): K21.9 - Gastro-esophageal reflux disease without esophagitis (4) Dyslipidemia: Status: Chronic (5) Anemia: Status: Acute (6) DM2 (diabetes mellitus, type 2): Status: Chronic Plan: D/C D5W and change to 1/2 NS for improved BS control. (7) Hypothyroidism: Status: Chronic Qualifiers: Hypothyroidism type: unspecified Qualified Code(s): E03.9 - Hypothyroidism, unspecified (8) Intra-abdominal abscess post-procedure: Status: Acute
[2021-06-23 21:03] LABS: CREATININE 0.96 mg/dL (0.70-1.30); VANCOMYCIN,TROUGH 6.2 ug/mL (15-20)
[2021-06-23] MEDS: SNACK - Diabetic Appropriate PO SCH (22:33)
[2021-06-24] MEDS ORDERED: NS 1/2 1,000 ML IV 1,000 ML IV ONE ×2 (00:03→16:49)
[2021-06-24] MEDS: NS 1/2 1,000 ML IV 1,000 ML IV SCH ×4 (00:06→17:07)
[2021-06-24] MEDS: NORCO 5/325 MG TAB PO PRN ×2 (00:38→11:47)
[2021-06-24] MEDS: CIPRO IV 400 MG PREMIX* 400 MG/200 ML IV.SOLN. IV SCH ×2 (00:58→10:00)
[2021-06-24] MEDS: DILAUDID INJ IVP PRN ×3 (02:30→21:45)
[2021-06-24 05:06] LABS: MAGNESIUM 1.9 mg/dL (1.7-2.9); PHOSPHORUS 3.4 mg/dL (2.6-4.7)
[2021-06-24 05:07] LABS: BASOPHILS # (AUTO) 0.1 X10^3/uL (0.0-0.1); BASOPHILS % (AUTO) 0.7 % (0.2-1.0); EOSINOPHILS # (AUTO) 0.1 x10^3/uL (0.0-0.2); EOSINOPHILS % (AUTO) 0.8 % (0.9-2.9); HEMOGLOBIN 9.7 g/dL (13.5-18.0); LYMPHOCYTES # (AUTO) 1.3 X10^3/uL (1.3-2.9); LYMPHOCYTES % (AUTO) 8.7 % (21.0-51.0); MEAN CORPUSCULAR HEMOGLOBIN 29.4 pg (27.0-34.0); MEAN CORPUSCULAR HGB CONC 34.4 g/dL (33.0-35.0); MEAN CORPUSCULAR VOLUME 85.3 fL (80.0-100.0); MEAN PLATELET VOLUME 7.6 fL (7.4-11.0); MONOCYTES # (AUTO) 0.8 x10^3/uL (0.3-0.8); MONOCYTES % (AUTO) 5.2 % (0.0-13.0); NEUTROPHILS # (AUTO) 12.6 x10^3/uL (2.2-4.8); NEUTROPHILS % (AUTO) 84.6 % (42.0-75.0); PLATELET COUNT 352 X10^3/uL (150.0-450.0); RED BLOOD COUNT 3.29 X10^6/uL (4.7-6.0); RED CELL DISTRIBUTION WIDTH 14.1 % (11.6-16.5); WHITE BLOOD COUNT 14.9 X10^3/uL (3.6-10.0)
[2021-06-24 05:29] LABS: ALANINE AMINOTRANSFERASE 16 Units/L (12-78); ALBUMIN 1.7 g/dL (3.4-5.0); ALKALINE PHOSPHATASE 122 Units/L (46-116); ASPARTATE AMINO TRANSFERASE 14 Units/L (15-37); BLOOD UREA NITROGEN 9 mg/dL (7-18); CARBON DIOXIDE 27.2 mmol/L (21-32); CHLORIDE 101 mmol/L (98-107); COR CA(FOR HYPOALB) 9.8 mg/dL (8.5-10.1); COR NA(FOR HYPERGLY) 138 mmol/L (136-145); SODIUM 135 mmol/L (136-145); TOTAL PROTEIN 5.7 g/dL (6.4-8.2); eGFR NON BLACK RACES > 60 (>60)
[2021-06-24] MEDS: MERREM VIAL 1 G in NS 100 ML IV + SPIKE MINIBAG* 100 ML IV SCH ×3 (06:23→23:43)
[2021-06-24] MEDS: HEPARIN SODIUM INJ 5000 UNITS SC SCH ×3 (06:25→23:38)
[2021-06-24] MEDS: VANCOMYCIN IV *PREMIX 1 G/200 ML BAG 1 G/200 ML PIGGYBACK IV SCH (09:28)
[2021-06-24] MEDS: SYNTHROID 75 mcg TAB PO SCH (09:29)
--- NOTE | 2021-06-24 09:30 | DR.PROGNOT ---
Hospital Progress Notes - Progress Note for Day of: Progress Note Date: 06/24/21 - Chief Complaint Chief Complaint: feeling better with less bloating feeling ..no nausea and tolerating diet well . had normal BM.. drainind 200 cc of bile. WBC 14.6 .. Hgb 9.7 .. BS 157. LFT, Bilirubin , BUN/Creat normal. temp 99.1. - Past Medical Family Social History Past Med/Fam/Surg Hx: No changes since H&P Allergies: Allergies oxycodone Allergy (Mild, Verified 06/10/21 10:24) RASH itching - Review Of Systems ROS: No change since H&P - Vital Signs Vital Signs: Temperature 99.1 F Pulse Rate [Left Radial] 109 Respiratory Rate 20 Blood Pressure [Left Arm] 114/69 Blood Pressure [Right Arm] 125/83 O2 Sat by Pulse Oximetry 93 - Physical Exam Oriented: Normal Eyes: Normal Ear: Normal Nose: Normal Throat: Normal Respiratory: Normal Cardiovascular: Normal : Normal GI:Auscultation: Normal GI:Palpation: Normal GI: Tenderness: RUQ, Moderate (soft with mild distention and tympany .. BS hypoactive ..) Skin: Normal Musculoskeletal: Normal Psychiatric: Normal Mood Description: Calm Affect: Normal Speech Pattern: Clear, Appropriate - Laboratory and Diagnostics Result Diagrams: 06/24/21 03:52 06/24/21 03:52 Labs: 06/21/21 16:00 Abdomen Wound Gram Stain - Final 06/21/21 16:00 Abdomen Wound Culture - Final Escherichia Coli 06/21/21 17:24 Blood Blood Culture - Preliminary 06/21/21 17:32 Blood Blood Culture - Preliminary Laboratory WBC 14.9 X10^3/uL (3.6-10.0) H 06/24/21 03:52 RBC 3.29 X10^6/uL (4.7-6.0) L 06/24/21 03:52 Hgb 9.7 g/dL (13.5-18.0) L 06/24/21 03:52 Hct 28.0 % (42.0-54.0) L 06/24/21 03:52 MCV 85.3 fL (80.0-100.0) 06/24/21 03:52 MCH 29.4 pg (27.0-34.0) 06/24/21 03:52 MCHC 34.4 g/dL (33.0-35.0) 06/24/21 03:52 RDW 14.1 % (11.6-16.5) 06/24/21 03:52 Plt Count 352 X10^3/uL (150.0-450.0) 06/24/21 03:52 Plt Count Comment Adequate (ADEQUATE) 06/23/21 04:45 MPV 7.6 fL (7.4-11.0) 06/24/21 03:52 Neut % (Auto) 84.6 % (42.0-75.0) H 06/24/21 03:52 Lymph % (Auto) 8.7 % (21.0-51.0) L 06/24/21 03:52 [place] % (Auto) 5.2 % (0.0-13.0) 06/24/21 03:52 Eos % (Auto) 0.8 % (0.9-2.9) L 06/24/21 03:52 Baso % (Auto) 0.7 % (0.2-1.0) 06/24/21 03:52 Neut # (Auto) 12.6 x10^3/uL (2.2-4.8) H 06/24/21 03:52 Lymph # (Auto) 1.3 X10^3/uL (1.3-2.9) 06/24/21 03:52 [place] # (Auto) 0.8 x10^3/uL (0.3-0.8) 06/24/21 03:52 Eos # (Auto) 0.1 x10^3/uL (0.0-0.2) 06/24/21 03:52 Baso # (Auto) 0.1 X10^3/uL (0.0-0.1) 06/24/21 03:52 Absolute Nucleated RBC 0.0 /100WBC 06/24/21 03:52 Total Counted 100 06/23/21 04:45 Neutrophils % (Manual) 82 % (39-76) H 06/23/21 04:45 Band Neutrophils % 4 % (0-10) 06/23/21 04:45 Lymphocytes % (Manual) 9 % (13-43) L 06/23/21 04:45 Monocytes % (Manual) 3 % (4-9) L 06/23/21 04:45 Eosinophils % (Manual) 2 % (0-6) 06/23/21 04:45 Plt Morphology Comment Normal (NORMAL) 06/23/21 04:45 RBC Morphology Normal (NORMAL) 06/23/21 04:45 Sodium 135 mmol/L (136-145) L 06/24/21 03:52 Corrected Sodium 138 mmol/L (136-145) 06/24/21 03:52 Potassium 3.5 mmol/L (3.5-5.1) 06/24/21 03:52 Chloride 101 mmol/L (98-107) 06/24/21 03:52 Carbon Dioxide 27.2 mmol/L (21-32) 06/24/21 03:52 BUN 9 mg/dL (7-18) 06/24/21 03:52 Creatinine 0.80 mg/dL (0.70-1.30) 06/24/21 03:52 Est GFR (MDRD) Af Amer > 60 (>60) 06/24/21 03:52 Est GFR (MDRD) Non-Af > 60 (>60) 06/24/21 03:52 Glucose 226 mg/dL (65-99) H 06/24/21 03:52 POC Glucose (mg/dL) 157 mg/dL (65-99) H 06/24/21 06:20 Calcium 8.0 mg/dL (8.5-10.1) L 06/24/21 03:52 Corrected Calcium 9.8 mg/dL (8.5-10.1) 06/24/21 03:52 Phosphorus 3.4 mg/dL (2.6-4.7) 06/24/21 03:52 Magnesium 1.9 mg/dL (1.7-2.9) 06/24/21 03:52 Total Bilirubin 0.30 mg/dL (0.2-1.0) 06/24/21 03:52 AST 14 Units/L (15-37) L 06/24/21 03:52 ALT 16 Units/L (12-78) 06/24/21 03:52 Alkaline Phosphatase 122 Units/L (46-116) H 06/24/21 03:52 C-Reactive Protein 205.20 mg/L (0-3.0) H 06/24/21 03:52 Total Protein 5.7 g/dL (6.4-8.2) L 06/24/21 03:52 Albumin 1.7 g/dL (3.4-5.0) L 06/24/21 03:52 Globulin 4.0 g/dL (2.5-4.5) 06/24/21 03:52 Albumin/Globulin Ratio 0.4 Ratio (1.1-2.1) L 06/24/21 03:52 Prealbumin 12.8 mg/dL (18-35.7) L 06/22/21 04:46 Triglycerides 61 mg/dL (0-150) 06/24/21 03:52 Vancomycin Trough 6.2 ug/mL (15-20) L 06/23/21 20:30 - Assessment and Plan 1: sub hepatic and intrahepatic abscess .s/p percutaneous drainage .. recent calculus cholecystitis s/p lap ruth . DM. mild ileus. on IV ABT . close observation . on regular ADA diet with supplements. abdominal CT on friday . repeat Bile cultures in drainage bag ..
[2021-06-24] MEDS: LEVEMIR SC SCH ×2 (09:43→23:39)
[2021-06-24] MEDS: MILK OF MAGNESIA PO PRN (09:47)
[2021-06-24] MEDS: NovoLIN R (or HumuLIN R) SUBCUT PRN (12:09)
--- NOTE | 2021-06-24 15:39 | PCM.PROG ---
Progress Note Progress Note for Day of Date of Exam: 06/24/21 Subjective Subjective: Patient is feeling a little better this am. Also eating some now. Does report his pain is not controlled. Leukocytosis has improved to 14.9 Past Medical Family Social History Past Med/Fam/Surg Hx: No changes since H&P Allergies: Allergies oxycodone Allergy (Mild, Verified 06/10/21 10:24) RASH itching Review of Systems ROS: No change since H&P Vital Signs and I&O's Vital Signs: Temperature 98.6 F Pulse Rate [Left Radial] 94 Respiratory Rate 20 Blood Pressure [Left Arm] 109/69 Blood Pressure [Right Arm] 125/83 O2 Sat by Pulse Oximetry 93 Intake and Output: Intake & Output 06/22/21 06/23/21 06/24/21 06/25/21 11:59 11:59 11:59 11:59 Intake Total 1758 / 1758 4567 / 4567 3160 / 3160 Output Total 115 / 115 375 / 375 Balance 1728 / 1728 4452 / 4452 2785 / 2785 Physical Exam Oriented: Normal Eyes: Normal Ear: Normal Nose: Normal Throat: Normal Respiratory: Normal Cardiovascular: Normal : Normal Auscultation: Bowel Sounds: Normal Tenderness: RUQ and Moderate (soft with mild distention and tympany .. BS hypoactive .. ) Skin: Normal Musculoskeletal: Normal Psychiatric: Normal Mood Description: Calm Affect: Normal Speech Pattern: Clear and Appropriate Laboratory and Diagnostics Result Diagrams: 06/24/21 03:52 06/24/21 03:52 Labs: 06/21/21 16:00 Abdomen Wound Gram Stain - Final 06/21/21 16:00 Abdomen Wound Culture - Final Escherichia Coli 06/21/21 17:24 Blood Blood Culture - Preliminary 06/21/21 17:32 Blood Blood Culture - Preliminary Laboratory WBC 14.9 X10^3/uL (3.6-10.0) H 06/24/21 03:52 RBC 3.29 X10^6/uL (4.7-6.0) L 06/24/21 03:52 Hgb 9.7 g/dL (13.5-18.0) L 06/24/21 03:52 Hct 28.0 % (42.0-54.0) L 06/24/21 03:52 MCV 85.3 fL (80.0-100.0) 06/24/21 03:52 MCH 29.4 pg (27.0-34.0) 06/24/21 03:52 MCHC 34.4 g/dL (33.0-35.0) 06/24/21 03:52 RDW 14.1 % (11.6-16.5) 06/24/21 03:52 Plt Count 352 X10^3/uL (150.0-450.0) 06/24/21 03:52 Plt Count Comment Adequate (ADEQUATE) 06/23/21 04:45 MPV 7.6 fL (7.4-11.0) 06/24/21 03:52 Neut % (Auto) 84.6 % (42.0-75.0) H 06/24/21 03:52 Lymph % (Auto) 8.7 % (21.0-51.0) L 06/24/21 03:52 [place] % (Auto) 5.2 % (0.0-13.0) 06/24/21 03:52 Eos % (Auto) 0.8 % (0.9-2.9) L 06/24/21 03:52 Baso % (Auto) 0.7 % (0.2-1.0) 06/24/21 03:52 Neut # (Auto) 12.6 x10^3/uL (2.2-4.8) H 06/24/21 03:52 Lymph # (Auto) 1.3 X10^3/uL (1.3-2.9) 06/24/21 03:52 [place] # (Auto) 0.8 x10^3/uL (0.3-0.8) 06/24/21 03:52 Eos # (Auto) 0.1 x10^3/uL (0.0-0.2) 06/24/21 03:52 Baso # (Auto) 0.1 X10^3/uL (0.0-0.1) 06/24/21 03:52 Absolute Nucleated RBC 0.0 /100WBC 06/24/21 03:52 Total Counted 100 06/23/21 04:45 Neutrophils % (Manual) 82 % (39-76) H 06/23/21 04:45 Band Neutrophils % 4 % (0-10) 06/23/21 04:45 Lymphocytes % (Manual) 9 % (13-43) L 06/23/21 04:45 Monocytes % (Manual) 3 % (4-9) L 06/23/21 04:45 Eosinophils % (Manual) 2 % (0-6) 06/23/21 04:45 Plt Morphology Comment Normal (NORMAL) 06/23/21 04:45 RBC Morphology Normal (NORMAL) 06/23/21 04:45 Sodium 135 mmol/L (136-145) L 06/24/21 03:52 Corrected Sodium 138 mmol/L (136-145) 06/24/21 03:52 Potassium 3.5 mmol/L (3.5-5.1) 06/24/21 03:52 Chloride 101 mmol/L (98-107) 06/24/21 03:52 Carbon Dioxide 27.2 mmol/L (21-32) 06/24/21 03:52 BUN 9 mg/dL (7-18) 06/24/21 03:52 Creatinine 0.80 mg/dL (0.70-1.30) 06/24/21 03:52 Est GFR (MDRD) Af Amer > 60 (>60) 06/24/21 03:52 Est GFR (MDRD) Non-Af > 60 (>60) 06/24/21 03:52 Glucose 226 mg/dL (65-99) H 06/24/21 03:52 POC Glucose (mg/dL) 252 mg/dL (65-99) H 06/24/21 11:45 Calcium 8.0 mg/dL (8.5-10.1) L 06/24/21 03:52 Corrected Calcium 9.8 mg/dL (8.5-10.1) 06/24/21 03:52 Phosphorus 3.4 mg/dL (2.6-4.7) 06/24/21 03:52 Magnesium 1.9 mg/dL (1.7-2.9) 06/24/21 03:52 Total Bilirubin 0.30 mg/dL (0.2-1.0) 06/24/21 03:52 AST 14 Units/L (15-37) L 06/24/21 03:52 ALT 16 Units/L (12-78) 06/24/21 03:52 Alkaline Phosphatase 122 Units/L (46-116) H 06/24/21 03:52 C-Reactive Protein 205.20 mg/L (0-3.0) H 06/24/21 03:52 Total Protein 5.7 g/dL (6.4-8.2) L 06/24/21 03:52 Albumin 1.7 g/dL (3.4-5.0) L 06/24/21 03:52 Globulin 4.0 g/dL (2.5-4.5) 06/24/21 03:52 Albumin/Globulin Ratio 0.4 Ratio (1.1-2.1) L 06/24/21 03:52 Prealbumin 12.8 mg/dL (18-35.7) L 06/22/21 04:46 Triglycerides 61 mg/dL (0-150) 06/24/21 03:52 Vancomycin Trough 6.2 ug/mL (15-20) L 06/23/21 20:30 Plan (1) Leukocytosis: Status: Acute Narrative Support Text: Improved since yesterday. Plan: Meropenem day 2 for additional coverage. (2) HTN (hypertension): Status: Chronic Qualifiers: Hypertension type: primary hypertension Qualified Code(s): I10 - Essential (primary) hypertension (3) GERD (gastroesophageal reflux disease): Status: Chronic Qualifiers: Esophagitis presence: without esophagitis Qualified Code(s): K21.9 - Gastro-esophageal reflux disease without esophagitis (4) Dyslipidemia: Status: Chronic (5) Anemia: Status: Acute (6) DM2 (diabetes mellitus, type 2): Status: Chronic Plan: D/C D5W and change to 1/2 NS for improved BS control. (7) Hypothyroidism: Status: Chronic Qualifiers: Hypothyroidism type: unspecified Qualified Code(s): E03.9 - Hypothyroidism, unspecified (8) Intra-abdominal abscess post-procedure: Status: Acute Narrative Support Text: Pain not controlled. Plan: Change [place] to 7.5/325 mg Q4 hours PRN pain.
[2021-06-24] MEDS: NORCO 7.5/325 MG TAB PO PRN ×2 (19:35→23:48)
[2021-06-24] MEDS: SNACK - Diabetic Appropriate PO SCH (23:26)
[2021-06-24] MEDS: COLACE CAP 100 MG PO SCH (23:48)
[2021-06-25] MEDS: CIPRO IV 400 MG PREMIX* 400 MG/200 ML IV.SOLN. IV SCH ×2 (00:43→10:00)
[2021-06-25] MEDS: NS 1/2 1,000 ML IV 1,000 ML IV SCH ×3 (01:43→15:01)
[2021-06-25] MEDS: VANCOMYCIN IV *PREMIX 1 G/200 ML BAG 1 G/200 ML PIGGYBACK IV SCH ×2 (01:43→09:57)
[2021-06-25 05:14] LABS: BASOPHILS # (AUTO) 0.1 X10^3/uL (0.0-0.1); BASOPHILS % (AUTO) 0.6 % (0.2-1.0); EOSINOPHILS # (AUTO) 0.1 x10^3/uL (0.0-0.2); EOSINOPHILS % (AUTO) 0.9 % (0.9-2.9); HEMATOCRIT 32.2 % (42.0-54.0); HEMOGLOBIN 10.8 g/dL (13.5-18.0); LYMPHOCYTES # (AUTO) 1.8 X10^3/uL (1.3-2.9); LYMPHOCYTES % (AUTO) 13.4 % (21.0-51.0); MEAN CORPUSCULAR HEMOGLOBIN 28.8 pg (27.0-34.0); MEAN CORPUSCULAR HGB CONC 33.4 g/dL (33.0-35.0); MEAN CORPUSCULAR VOLUME 86.1 fL (80.0-100.0); MEAN PLATELET VOLUME 7.7 fL (7.4-11.0); MONOCYTES % (AUTO) 7.7 % (0.0-13.0); NEUTROPHILS # (AUTO) 10.2 x10^3/uL (2.2-4.8); NEUTROPHILS % (AUTO) 77.4 % (42.0-75.0); PLATELET COUNT 443 X10^3/uL (150.0-450.0); RED BLOOD COUNT 3.74 X10^6/uL (4.7-6.0); RED CELL DISTRIBUTION WIDTH 14.4 % (11.6-16.5); WHITE BLOOD COUNT 13.1 X10^3/uL (3.6-10.0)
[2021-06-25 05:25] LABS: ALANINE AMINOTRANSFERASE 14 Units/L (12-78); ALBUMIN 1.9 g/dL (3.4-5.0); ALKALINE PHOSPHATASE 164 Units/L (46-116); ASPARTATE AMINO TRANSFERASE 16 Units/L (15-37); BLOOD UREA NITROGEN 10 mg/dL (7-18); CALCIUM 8.3 mg/dL (8.5-10.1); CARBON DIOXIDE 29.1 mmol/L (21-32); CHLORIDE 100 mmol/L (98-107); COR NA(FOR HYPERGLY) 140 mmol/L (136-145); CREATININE 0.82 mg/dL (0.70-1.30); SODIUM 138 mmol/L (136-145); TOTAL PROTEIN 6.4 g/dL (6.4-8.2); eGFR NON BLACK RACES > 60 (>60)
[2021-06-25] MEDS: HEPARIN SODIUM INJ 5000 UNITS SC SCH ×2 (05:46→16:33)
[2021-06-25] MEDS: MERREM VIAL 1 G in NS 100 ML IV + SPIKE MINIBAG* 100 ML IV SCH ×2 (05:48→15:00)
[2021-06-25] MEDS: DILAUDID INJ IVP PRN ×2 (06:03→21:29)
--- NOTE | 2021-06-25 07:54 | CT ---
HISTORYABD PAINSTUDYABDOMEN/PELVIS W/O CONCOMPARISONCT-guided aspiration from 06/21/2021.TECHNIQUEMultiple axial images of the abdomen and pelvis were obtained from the lung bases to the pubic symphysis without the administration of IV contrast. Dose reduction techniques including Automated Exposure Control (AEC) and adjustment of mA and kV were utilized.FINDINGSLack of contrast limits evaluation.Small right and trace left pleural effusions. Associated mild atelectasis. The heart is normal in size. Status post cholecystectomy. There is an a right upper quadrant abscess drain. The abscess appears essentially resolved. There is inflammatory fat stranding about the drain and extending toward the gallbladder fossa. Moderate amount of fluid about the liver (likely subcapsular) with a focus of gas superior to the hepatic dome image 30 series 5. The fluid has mass effect on the right elvie liver. See image 30 series 3 on the current study. Mild low attenuation in the liver adjacent to the drain image 20 series 5. The Hounsfield units of the perihepatic fluid is fluid attenuation or near fluid attenuation. The spleen, pancreas, adrenal glands have a benign noncontrast appearance. There are a few right renal calculi that measure up to 4 mm at the right midpole. No hydronephrosis. Urinary bladder appears benign. The prostate is normal in size. There is mild fluid in the pelvis. Diverticulosis of the colon without evidence of diverticulitis. The appendix appears normal. Negative for bowel obstruction. Unchanged small foci of air between the 2nd portion of duodenum and pancreatic head on image 46 series 3 favored to be due to a small duodenal diverticulum image 24 series 5. Moderately atherosclerotic normal caliber abdominal aorta. No pathologic adenopathy. Chronic right 10th rib fracture. Chronic calcifications posterior to the right elvie liver on image 37 series 3. Chronic right L2 and L4 transverse process fracture.IMPRESSIONThe previously seen abscess in the right gallbladder fossa is essentially resolved. However, there is a new moderate-sized right subcapsular liver collection with a focus of gas. There is mild low attenuation in the liver about catheter. Given clinical course/history this is suspicious for infection. Likely reactive small right pleural effusion.Nonobstructing right nephrolithiasis.Electronically signed by: Robby Vargas (Jun 25, 2021 07:52:48)
[2021-06-25] MEDS ORDERED: NS 1/2 1,000 ML IV 1,000 ML IV ONE ×2 (09:54→23:53)
[2021-06-25] MEDS: LEVEMIR SC SCH (09:57)
[2021-06-25] MEDS: SYNTHROID 75 mcg TAB PO SCH (09:57)
[2021-06-25] MEDS: NORCO 7.5/325 MG TAB PO PRN ×3 (12:45→23:11)
--- NOTE | 2021-06-25 13:04 | DR.PROGNOT ---
Hospital Progress Notes - Progress Note for Day of: Progress Note Date: 06/25/21 - Chief Complaint Chief Complaint: moderate RUQ and RT side abdominal pain .. ..no nausea . appetite is getting better . had normal BM.. draining bile in the bag . CT showed good resolution of the abscess , but there is moderate size subcapsular hematoma . LFT are normal . WBC 13.6. afebrile for the past few days . WBC 13.6 .. Hgb 9.7 .. BS 157. LFT, Bilirubin , BUN/Creat normal. temp 99.1. - Past Medical Family Social History Past Med/Fam/Surg Hx: No changes since H&P Allergies: Allergies oxycodone Allergy (Mild, Verified 06/10/21 10:24) RASH itching - Review Of Systems ROS: No change since H&P - Vital Signs Vital Signs: Temperature 98.5 F Pulse Rate [Left Radial] 101 Respiratory Rate 20 Blood Pressure [Left Arm] 127/60 Blood Pressure [Right Arm] 125/83 O2 Sat by Pulse Oximetry 93 - Physical Exam Oriented: Normal Eyes: Normal Ear: Normal Nose: Normal Throat: Normal Respiratory: Normal Cardiovascular: Normal : Normal GI:Auscultation: Normal GI:Palpation: Normal GI: Tenderness: RUQ, Moderate (soft with mild distention and tympany .. BS hypoactive ..) Skin: Normal Musculoskeletal: Normal Psychiatric: Normal Mood Description: Calm Affect: Normal Speech Pattern: Clear, Appropriate - Laboratory and Diagnostics Result Diagrams: 06/25/21 04:10 06/25/21 04:10 Labs: 06/24/21 09:20 Drainage Wound Culture - Preliminary 06/21/21 16:00 Abdomen Wound Gram Stain - Final 06/21/21 16:00 Abdomen Wound Culture - Final Escherichia Coli 06/21/21 17:24 Blood Blood Culture - Preliminary 06/21/21 17:32 Blood Blood Culture - Preliminary Laboratory WBC 13.1 X10^3/uL (3.6-10.0) H 06/25/21 04:10 RBC 3.74 X10^6/uL (4.7-6.0) L 06/25/21 04:10 Hgb 10.8 g/dL (13.5-18.0) L 06/25/21 04:10 Hct 32.2 % (42.0-54.0) L 06/25/21 04:10 MCV 86.1 fL (80.0-100.0) 06/25/21 04:10 MCH 28.8 pg (27.0-34.0) 06/25/21 04:10 MCHC 33.4 g/dL (33.0-35.0) 06/25/21 04:10 RDW 14.4 % (11.6-16.5) 06/25/21 04:10 Plt Count 443 X10^3/uL (150.0-450.0) 06/25/21 04:10 Plt Count Comment Adequate (ADEQUATE) 06/23/21 04:45 MPV 7.7 fL (7.4-11.0) 06/25/21 04:10 Neut % (Auto) 77.4 % (42.0-75.0) H 06/25/21 04:10 Lymph % (Auto) 13.4 % (21.0-51.0) L 06/25/21 04:10 [place] % (Auto) 7.7 % (0.0-13.0) 06/25/21 04:10 Eos % (Auto) 0.9 % (0.9-2.9) 06/25/21 04:10 Baso % (Auto) 0.6 % (0.2-1.0) 06/25/21 04:10 Neut # (Auto) 10.2 x10^3/uL (2.2-4.8) H 06/25/21 04:10 Lymph # (Auto) 1.8 X10^3/uL (1.3-2.9) 06/25/21 04:10 [place] # (Auto) 1.0 x10^3/uL (0.3-0.8) H 06/25/21 04:10 Eos # (Auto) 0.1 x10^3/uL (0.0-0.2) 06/25/21 04:10 Baso # (Auto) 0.1 X10^3/uL (0.0-0.1) 06/25/21 04:10 Absolute Nucleated RBC 0.0 /100WBC 06/25/21 04:10 Total Counted 100 06/23/21 04:45 Neutrophils % (Manual) 82 % (39-76) H 06/23/21 04:45 Band Neutrophils % 4 % (0-10) 06/23/21 04:45 Lymphocytes % (Manual) 9 % (13-43) L 06/23/21 04:45 Monocytes % (Manual) 3 % (4-9) L 06/23/21 04:45 Eosinophils % (Manual) 2 % (0-6) 06/23/21 04:45 Plt Morphology Comment Normal (NORMAL) 06/23/21 04:45 RBC Morphology Normal (NORMAL) 06/23/21 04:45 Sodium 138 mmol/L (136-145) 06/25/21 04:10 Corrected Sodium 140 mmol/L (136-145) 06/25/21 04:10 Potassium 3.5 mmol/L (3.5-5.1) 06/25/21 04:10 Chloride 100 mmol/L (98-107) 06/25/21 04:10 Carbon Dioxide 29.1 mmol/L (21-32) 06/25/21 04:10 BUN 10 mg/dL (7-18) 06/25/21 04:10 Creatinine 0.82 mg/dL (0.70-1.30) 06/25/21 04:10 Est GFR (MDRD) Af Amer > 60 (>60) 06/25/21 04:10 Est GFR (MDRD) Non-Af > 60 (>60) 06/25/21 04:10 Glucose 165 mg/dL (65-99) H 06/25/21 04:10 POC Glucose (mg/dL) 253 mg/dL (65-99) H 06/24/21 21:31 Calcium 8.3 mg/dL (8.5-10.1) L 06/25/21 04:10 Corrected Calcium 10.0 mg/dL (8.5-10.1) 06/25/21 04:10 Phosphorus 3.4 mg/dL (2.6-4.7) 06/24/21 03:52 Magnesium 1.9 mg/dL (1.7-2.9) 06/24/21 03:52 Total Bilirubin 0.40 mg/dL (0.2-1.0) 06/25/21 04:10 AST 16 Units/L (15-37) 06/25/21 04:10 ALT 14 Units/L (12-78) 06/25/21 04:10 Alkaline Phosphatase 164 Units/L (46-116) H 06/25/21 04:10 C-Reactive Protein 190.20 mg/L (0-3.0) H 06/25/21 04:10 Total Protein 6.4 g/dL (6.4-8.2) 06/25/21 04:10 Albumin 1.9 g/dL (3.4-5.0) L 06/25/21 04:10 Globulin 4.5 g/dL (2.5-4.5) 06/25/21 04:10 Albumin/Globulin Ratio 0.4 Ratio (1.1-2.1) L 06/25/21 04:10 Prealbumin 12.8 mg/dL (18-35.7) L 06/22/21 04:46 Triglycerides 61 mg/dL (0-150) 06/24/21 03:52 Vancomycin Trough 6.2 ug/mL (15-20) L 06/23/21 20:30 - Assessment and Plan 1: sub hepatic and intrahepatic abscess .s/p percutaneous drainage . moderate size subcapsular hematoma . recent calculus cholecystitis s/p lap ruth . DM. mild ileus. on IV ABT and IVF .
--- NOTE | 2021-06-25 14:39 | PCM.PROG ---
Progress Note Progress Note for Day of Date of Exam: 06/25/21 Subjective Subjective: Patient is feeling a little better this am. Also eating some now. Does report his pain is better controlled. Leukocytosis has improved from 14.9 to 13.1. CRP is 190.20 down from 205.20. Past Medical Family Social History Past Med/Fam/Surg Hx: No changes since H&P Allergies: Allergies oxycodone Allergy (Mild, Verified 06/10/21 10:24) RASH itching Review of Systems ROS: No change since H&P Vital Signs and I&O's Vital Signs: Temperature 98.2 F Pulse Rate [Left Radial] 94 Respiratory Rate 20 Blood Pressure [Left Arm] 132/80 Blood Pressure [Right Arm] 125/83 O2 Sat by Pulse Oximetry 95 Intake and Output: Intake & Output 06/23/21 06/24/21 06/25/21 06/26/21 11:59 11:59 11:59 11:59 Intake Total 4567 / 4567 3160 / 3160 2740 / 2740 Output Total 115 / 115 375 / 375 1450 / 1450 Balance 4452 / 4452 2785 / 2785 1290 / 1290 Physical Exam Oriented: Normal Eyes: Normal Ear: Normal Nose: Normal Throat: Normal Respiratory: Normal Cardiovascular: Normal : Normal Auscultation: Bowel Sounds: Normal Tenderness: RUQ and Moderate (soft with mild distention and tympany .. BS hypoactive .. ) Skin: Normal Musculoskeletal: Normal Psychiatric: Normal Mood Description: Calm Affect: Normal Speech Pattern: Clear and Appropriate Laboratory and Diagnostics Result Diagrams: 06/25/21 04:10 06/25/21 04:10 Labs: 06/24/21 09:20 Drainage Wound Culture - Preliminary 06/21/21 16:00 Abdomen Wound Gram Stain - Final 06/21/21 16:00 Abdomen Wound Culture - Final Escherichia Coli 06/21/21 17:24 Blood Blood Culture - Preliminary 06/21/21 17:32 Blood Blood Culture - Preliminary Laboratory WBC 13.1 X10^3/uL (3.6-10.0) H 06/25/21 04:10 RBC 3.74 X10^6/uL (4.7-6.0) L 06/25/21 04:10 Hgb 10.8 g/dL (13.5-18.0) L 06/25/21 04:10 Hct 32.2 % (42.0-54.0) L 06/25/21 04:10 MCV 86.1 fL (80.0-100.0) 06/25/21 04:10 MCH 28.8 pg (27.0-34.0) 06/25/21 04:10 MCHC 33.4 g/dL (33.0-35.0) 06/25/21 04:10 RDW 14.4 % (11.6-16.5) 06/25/21 04:10 Plt Count 443 X10^3/uL (150.0-450.0) 06/25/21 04:10 Plt Count Comment Adequate (ADEQUATE) 06/23/21 04:45 MPV 7.7 fL (7.4-11.0) 06/25/21 04:10 Neut % (Auto) 77.4 % (42.0-75.0) H 06/25/21 04:10 Lymph % (Auto) 13.4 % (21.0-51.0) L 06/25/21 04:10 [place] % (Auto) 7.7 % (0.0-13.0) 06/25/21 04:10 Eos % (Auto) 0.9 % (0.9-2.9) 06/25/21 04:10 Baso % (Auto) 0.6 % (0.2-1.0) 06/25/21 04:10 Neut # (Auto) 10.2 x10^3/uL (2.2-4.8) H 06/25/21 04:10 Lymph # (Auto) 1.8 X10^3/uL (1.3-2.9) 06/25/21 04:10 [place] # (Auto) 1.0 x10^3/uL (0.3-0.8) H 06/25/21 04:10 Eos # (Auto) 0.1 x10^3/uL (0.0-0.2) 06/25/21 04:10 Baso # (Auto) 0.1 X10^3/uL (0.0-0.1) 06/25/21 04:10 Absolute Nucleated RBC 0.0 /100WBC 06/25/21 04:10 Total Counted 100 06/23/21 04:45 Neutrophils % (Manual) 82 % (39-76) H 06/23/21 04:45 Band Neutrophils % 4 % (0-10) 06/23/21 04:45 Lymphocytes % (Manual) 9 % (13-43) L 06/23/21 04:45 Monocytes % (Manual) 3 % (4-9) L 06/23/21 04:45 Eosinophils % (Manual) 2 % (0-6) 06/23/21 04:45 Plt Morphology Comment Normal (NORMAL) 06/23/21 04:45 RBC Morphology Normal (NORMAL) 06/23/21 04:45 Sodium 138 mmol/L (136-145) 06/25/21 04:10 Corrected Sodium 140 mmol/L (136-145) 06/25/21 04:10 Potassium 3.5 mmol/L (3.5-5.1) 06/25/21 04:10 Chloride 100 mmol/L (98-107) 06/25/21 04:10 Carbon Dioxide 29.1 mmol/L (21-32) 06/25/21 04:10 BUN 10 mg/dL (7-18) 06/25/21 04:10 Creatinine 0.82 mg/dL (0.70-1.30) 06/25/21 04:10 Est GFR (MDRD) Af Amer > 60 (>60) 06/25/21 04:10 Est GFR (MDRD) Non-Af > 60 (>60) 06/25/21 04:10 Glucose 165 mg/dL (65-99) H 06/25/21 04:10 POC Glucose (mg/dL) 253 mg/dL (65-99) H 06/24/21 21:31 Calcium 8.3 mg/dL (8.5-10.1) L 06/25/21 04:10 Corrected Calcium 10.0 mg/dL (8.5-10.1) 06/25/21 04:10 Phosphorus 3.4 mg/dL (2.6-4.7) 06/24/21 03:52 Magnesium 1.9 mg/dL (1.7-2.9) 06/24/21 03:52 Total Bilirubin 0.40 mg/dL (0.2-1.0) 06/25/21 04:10 AST 16 Units/L (15-37) 06/25/21 04:10 ALT 14 Units/L (12-78) 06/25/21 04:10 Alkaline Phosphatase 164 Units/L (46-116) H 06/25/21 04:10 C-Reactive Protein 190.20 mg/L (0-3.0) H 06/25/21 04:10 Total Protein 6.4 g/dL (6.4-8.2) 06/25/21 04:10 Albumin 1.9 g/dL (3.4-5.0) L 06/25/21 04:10 Globulin 4.5 g/dL (2.5-4.5) 06/25/21 04:10 Albumin/Globulin Ratio 0.4 Ratio (1.1-2.1) L 06/25/21 04:10 Prealbumin 12.8 mg/dL (18-35.7) L 06/22/21 04:46 Triglycerides 61 mg/dL (0-150) 06/24/21 03:52 Vancomycin Trough 6.2 ug/mL (15-20) L 06/23/21 20:30 Plan (1) Leukocytosis: Status: Acute Narrative Support Text: Leukocytosis much improved. Plan: Meropenem day 3 for additional coverage. (2) HTN (hypertension): Status: Chronic Qualifiers: Hypertension type: primary hypertension Qualified Code(s): I10 - Ess ential (primary) hypertension Narrative Support Text: Stable. Plan: Monitor BP (3) GERD (gastroesophageal reflux disease): Status: Chronic Qualifiers: Esophagitis presence: without esophagitis Qualified Code(s): K21.9 - Gastro-esophageal reflux disease without esophagitis (4) Dyslipidemia: Status: Chronic (5) Anemia: Status: Acute Narrative Support Text: Stable. Plan: Monitor CBC's (6) DM2 (diabetes mellitus, type 2): Status: Chronic Plan: D/C D5W and change to 1/2 NS for improved BS control. (7) Hypothyroidism: Status: Chronic Qualifiers: Hypothyroidism type: unspecified Qualified Code(s): E03.9 - Hypothyroidism, unspecified (8) Intra-abdominal abscess post-procedure: Status: Acute Plan: Change [place] to 7.5/325 mg Q4 hours PRN pain.
[2021-06-25] MEDS: NovoLIN R (or HumuLIN R) SUBCUT PRN (17:05)
[2021-06-25] MEDS: SNACK - Diabetic Appropriate PO SCH (20:04)
[2021-06-26] MEDS: LEVEMIR SC SCH ×3 (00:09→20:29)
[2021-06-26] MEDS: HEPARIN SODIUM INJ 5000 UNITS SC SCH ×4 (00:10→21:06)
[2021-06-26] MEDS: COLACE CAP 100 MG PO SCH ×2 (00:19→20:25)
[2021-06-26] MEDS: MERREM VIAL 1 G in NS 100 ML IV + SPIKE MINIBAG* 100 ML IV SCH ×4 (00:22→21:06)
[2021-06-26] MEDS: NS 1/2 1,000 ML IV 1,000 ML IV SCH ×4 (00:23→23:40)
[2021-06-26] MEDS: DILAUDID INJ IVP PRN ×2 (00:30→05:45)
[2021-06-26] MEDS: CIPRO IV 400 MG PREMIX* 400 MG/200 ML IV.SOLN. IV SCH ×3 (02:43→20:24)
[2021-06-26] MEDS: VANCOMYCIN IV *PREMIX 1 G/200 ML BAG 1 G/200 ML PIGGYBACK IV SCH ×3 (04:08→20:25)
[2021-06-26] MEDS: NORCO 7.5/325 MG TAB PO PRN ×3 (04:08→21:43)
[2021-06-26] MEDS: MILK OF MAGNESIA PO PRN (05:46)
[2021-06-26 05:53] LABS: BASOPHILS # (AUTO) 0.1 X10^3/uL (0.0-0.1); BASOPHILS % (AUTO) 0.6 % (0.2-1.0); EOSINOPHILS # (AUTO) 0.1 x10^3/uL (0.0-0.2); EOSINOPHILS % (AUTO) 1.2 % (0.9-2.9); HEMATOCRIT 28.3 % (42.0-54.0); HEMOGLOBIN 9.8 g/dL (13.5-18.0); LYMPHOCYTES # (AUTO) 1.3 X10^3/uL (1.3-2.9); LYMPHOCYTES % (AUTO) 13.8 % (21.0-51.0); MEAN CORPUSCULAR HEMOGLOBIN 29.2 pg (27.0-34.0); MEAN CORPUSCULAR HGB CONC 34.7 g/dL (33.0-35.0); MEAN CORPUSCULAR VOLUME 84.3 fL (80.0-100.0); MEAN PLATELET VOLUME 6.9 fL (7.4-11.0); MONOCYTES # (AUTO) 1.1 x10^3/uL (0.3-0.8); MONOCYTES % (AUTO) 11.5 % (0.0-13.0); NEUTROPHILS # (AUTO) 6.7 x10^3/uL (2.2-4.8); NEUTROPHILS % (AUTO) 72.9 % (42.0-75.0); PLATELET COUNT 368 X10^3/uL (150.0-450.0); RED BLOOD COUNT 3.36 X10^6/uL (4.7-6.0); RED CELL DISTRIBUTION WIDTH 14.3 % (11.6-16.5); WHITE BLOOD COUNT 9.2 X10^3/uL (3.6-10.0)
[2021-06-26 06:31] LABS: ALANINE AMINOTRANSFERASE 16 Units/L (12-78); ALBUMIN 1.6 g/dL (3.4-5.0); ALKALINE PHOSPHATASE 161 Units/L (46-116); ASPARTATE AMINO TRANSFERASE 17 Units/L (15-37); BLOOD UREA NITROGEN 10 mg/dL (7-18); CARBON DIOXIDE 27.5 mmol/L (21-32); CHLORIDE 103 mmol/L (98-107); COR CA(FOR HYPOALB) 9.9 mg/dL (8.5-10.1); COR NA(FOR HYPERGLY) 140 mmol/L (136-145); CREATININE 0.75 mg/dL (0.70-1.30); SODIUM 138 mmol/L (136-145); TOTAL PROTEIN 5.6 g/dL (6.4-8.2); eGFR NON BLACK RACES > 60 (>60)
[2021-06-26] MEDS: ALBUMIN HUMAN 25%- 100 ML 100 ML IV SCH (08:39)
[2021-06-26] MEDS: SYNTHROID 75 mcg TAB PO SCH (08:40)
--- NOTE | 2021-06-26 09:58 | DR.PROGNOT ---
Hospital Progress Notes - Progress Note for Day of: Progress Note Date: 06/26/21 - Chief Complaint Chief Complaint: same moderate RUQ and RT side abdominal pain .. ..no nausea . appetite is getting better . constipated from narcotics .. less bile draining in the bag . LFT are normal . WBC 9.2.. normal BUN/Creat... Albumin 1.9. afebrile for the past few days . - Past Medical Family Social History Past Med/Fam/Surg Hx: No changes since H&P Allergies: Allergies oxycodone Allergy (Mild, Verified 06/10/21 10:24) RASH itching - Review Of Systems ROS: No change since H&P - Vital Signs Vital Signs: Temperature 98.1 F Pulse Rate [Left Radial] 92 Respiratory Rate 20 Blood Pressure [Left Arm] 126/72 Blood Pressure [Right Arm] 125/83 O2 Sat by Pulse Oximetry 95 - Physical Exam Oriented: Normal Eyes: Normal Ear: Normal Nose: Normal Throat: Normal Respiratory: Normal Cardiovascular: Normal : Normal GI:Auscultation: Normal GI:Palpation: Normal GI: Tenderness: RUQ, Moderate (soft with mild distention and tympany .. BS hypoactive ..) Skin: Normal Musculoskeletal: Normal Psychiatric: Normal Mood Description: Calm Affect: Normal Speech Pattern: Clear, Appropriate - Laboratory and Diagnostics Result Diagrams: 06/26/21 05:32 06/26/21 05:32 Labs: 06/24/21 09:20 Drainage Wound Culture - Preliminary 06/21/21 16:00 Abdomen Wound Gram Stain - Final 06/21/21 16:00 Abdomen Wound Culture - Final Escherichia Coli 06/21/21 17:24 Blood Blood Culture - Preliminary 06/21/21 17:32 Blood Blood Culture - Preliminary Laboratory WBC 9.2 X10^3/uL (3.6-10.0) 06/26/21 05:32 RBC 3.36 X10^6/uL (4.7-6.0) L 06/26/21 05:32 Hgb 9.8 g/dL (13.5-18.0) L 06/26/21 05:32 Hct 28.3 % (42.0-54.0) L 06/26/21 05:32 MCV 84.3 fL (80.0-100.0) 06/26/21 05:32 MCH 29.2 pg (27.0-34.0) 06/26/21 05:32 MCHC 34.7 g/dL (33.0-35.0) 06/26/21 05:32 RDW 14.3 % (11.6-16.5) 06/26/21 05:32 Plt Count 368 X10^3/uL (150.0-450.0) 06/26/21 05:32 Plt Count Comment Adequate (ADEQUATE) 06/23/21 04:45 MPV 6.9 fL (7.4-11.0) L 06/26/21 05:32 Neut % (Auto) 72.9 % (42.0-75.0) 06/26/21 05:32 Lymph % (Auto) 13.8 % (21.0-51.0) L 06/26/21 05:32 [place] % (Auto) 11.5 % (0.0-13.0) 06/26/21 05:32 Eos % (Auto) 1.2 % (0.9-2.9) 06/26/21 05:32 Baso % (Auto) 0.6 % (0.2-1.0) 06/26/21 05:32 Neut # (Auto) 6.7 x10^3/uL (2.2-4.8) H 06/26/21 05:32 Lymph # (Auto) 1.3 X10^3/uL (1.3-2.9) 06/26/21 05:32 [place] # (Auto) 1.1 x10^3/uL (0.3-0.8) H 06/26/21 05:32 Eos # (Auto) 0.1 x10^3/uL (0.0-0.2) 06/26/21 05:32 Baso # (Auto) 0.1 X10^3/uL (0.0-0.1) 06/26/21 05:32 Absolute Nucleated RBC 0.0 /100WBC 06/26/21 05:32 Total Counted 100 06/23/21 04:45 Neutrophils % (Manual) 82 % (39-76) H 06/23/21 04:45 Band Neutrophils % 4 % (0-10) 06/23/21 04:45 Lymphocytes % (Manual) 9 % (13-43) L 06/23/21 04:45 Monocytes % (Manual) 3 % (4-9) L 06/23/21 04:45 Eosinophils % (Manual) 2 % (0-6) 06/23/21 04:45 Plt Morphology Comment Normal (NORMAL) 06/23/21 04:45 RBC Morphology Normal (NORMAL) 06/23/21 04:45 Sodium 138 mmol/L (136-145) 06/26/21 05:32 Corrected Sodium 140 mmol/L (136-145) 06/26/21 05:32 Potassium 3.7 mmol/L (3.5-5.1) 06/26/21 05:32 Chloride 103 mmol/L (98-107) 06/26/21 05:32 Carbon Dioxide 27.5 mmol/L (21-32) 06/26/21 05:32 BUN 10 mg/dL (7-18) 06/26/21 05:32 Creatinine 0.75 mg/dL (0.70-1.30) 06/26/21 05:32 Est GFR (MDRD) Af Amer > 60 (>60) 06/26/21 05:32 Est GFR (MDRD) Non-Af > 60 (>60) 06/26/21 05:32 Glucose 164 mg/dL (65-99) H 06/26/21 05:32 POC Glucose (mg/dL) 152 mg/dL (65-99) H 06/26/21 06:27 Calcium 8.0 mg/dL (8.5-10.1) L 06/26/21 05:32 Corrected Calcium 9.9 mg/dL (8.5-10.1) 06/26/21 05:32 Phosphorus 3.4 mg/dL (2.6-4.7) 06/24/21 03:52 Magnesium 1.9 mg/dL (1.7-2.9) 06/24/21 03:52 Total Bilirubin 0.30 mg/dL (0.2-1.0) 06/26/21 05:32 AST 17 Units/L (15-37) 06/26/21 05:32 ALT 16 Units/L (12-78) 06/26/21 05:32 Alkaline Phosphatase 161 Units/L (46-116) H 06/26/21 05:32 C-Reactive Protein 140.30 mg/L (0-3.0) H 06/26/21 05:32 Total Protein 5.6 g/dL (6.4-8.2) L 06/26/21 05:32 Albumin 1.6 g/dL (3.4-5.0) L 06/26/21 05:32 Globulin 4.0 g/dL (2.5-4.5) 06/26/21 05:32 Albumin/Globulin Ratio 0.4 Ratio (1.1-2.1) L 06/26/21 05:32 Prealbumin 12.8 mg/dL (18-35.7) L 06/22/21 04:46 Triglycerides 61 mg/dL (0-150) 06/24/21 03:52 Vancomycin Trough 6.2 ug/mL (15-20) L 06/23/21 20:30 - Assessment and Plan 1: sub hepatic and intrahepatic abscess .s/p percutaneous drainage . moderate size subcapsular hematoma . recent calculus cholecystitis s/p lap ruth . DM. hypothyroidism. narcotic related constipation . same plan .. added Albumin IV .. on IV ABT and IVF .
--- NOTE | 2021-06-26 14:11 | PCM.PROG ---
Progress Note Progress Note for Day of Date of Exam: 06/26/21 Subjective Subjective: Patient is feeling a little better this am. Also eating some now. Does report his pain is better controlled. Leukocytosis has resolved. CRP is 140.30 down from 190.20 and down from 205.20. Past Medical Family Social History Past Med/Fam/Surg Hx: No changes since H&P Allergies: Allergies oxycodone Allergy (Mild, Verified 06/10/21 10:24) RASH itching Review of Systems ROS: No change since H&P Vital Signs and I&O's Vital Signs: Temperature 97.9 F Pulse Rate [Left Radial] 87 Respiratory Rate 20 Blood Pressure [Left Arm] 145/67 Blood Pressure [Right Arm] 125/83 O2 Sat by Pulse Oximetry 96 Intake and Output: Intake & Output 06/24/21 06/25/21 06/26/21 06/27/21 11:59 11:59 11:59 11:59 Intake Total 3160 / 3160 2740 / 2740 1786 / 1786 Output Total 375 / 375 1450 / 1450 600 / 600 Balance 2785 / 2785 1290 / 1290 1186 / 1186 Physical Exam Oriented: Normal Eyes: Normal Ear: Normal Nose: Normal Throat: Normal Respiratory: Normal Cardiovascular: Normal : Normal Auscultation: Bowel Sounds: Normal Tenderness: RUQ and Moderate (soft with mild distention and tympany .. BS hypoactive .. ) Skin: Normal Musculoskeletal: Normal Psychiatric: Normal Mood Description: Calm Affect: Normal Speech Pattern: Clear and Appropriate Laboratory and Diagnostics Result Diagrams: 06/26/21 05:32 06/26/21 05:32 Labs: 06/24/21 09:20 Drainage Wound Culture - Preliminary 06/21/21 16:00 Abdomen Wound Gram Stain - Final 06/21/21 16:00 Abdomen Wound Culture - Final Escherichia Coli 06/21/21 17:24 Blood Blood Culture - Preliminary 06/21/21 17:32 Blood Blood Culture - Preliminary Laboratory WBC 9.2 X10^3/uL (3.6-10.0) 06/26/21 05:32 RBC 3.36 X10^6/uL (4.7-6.0) L 06/26/21 05:32 Hgb 9.8 g/dL (13.5-18.0) L 06/26/21 05:32 Hct 28.3 % (42.0-54.0) L 06/26/21 05:32 MCV 84.3 fL (80.0-100.0) 06/26/21 05:32 MCH 29.2 pg (27.0-34.0) 06/26/21 05:32 MCHC 34.7 g/dL (33.0-35.0) 06/26/21 05:32 RDW 14.3 % (11.6-16.5) 06/26/21 05:32 Plt Count 368 X10^3/uL (150.0-450.0) 06/26/21 05:32 Plt Count Comment Adequate (ADEQUATE) 06/23/21 04:45 MPV 6.9 fL (7.4-11.0) L 06/26/21 05:32 Neut % (Auto) 72.9 % (42.0-75.0) 06/26/21 05:32 Lymph % (Auto) 13.8 % (21.0-51.0) L 06/26/21 05:32 [place] % (Auto) 11.5 % (0.0-13.0) 06/26/21 05:32 Eos % (Auto) 1.2 % (0.9-2.9) 06/26/21 05:32 Baso % (Auto) 0.6 % (0.2-1.0) 06/26/21 05:32 Neut # (Auto) 6.7 x10^3/uL (2.2-4.8) H 06/26/21 05:32 Lymph # (Auto) 1.3 X10^3/uL (1.3-2.9) 06/26/21 05:32 [place] # (Auto) 1.1 x10^3/uL (0.3-0.8) H 06/26/21 05:32 Eos # (Auto) 0.1 x10^3/uL (0.0-0.2) 06/26/21 05:32 Baso # (Auto) 0.1 X10^3/uL (0.0-0.1) 06/26/21 05:32 Absolute Nucleated RBC 0.0 /100WBC 06/26/21 05:32 Total Counted 100 06/23/21 04:45 Neutrophils % (Manual) 82 % (39-76) H 06/23/21 04:45 Band Neutrophils % 4 % (0-10) 06/23/21 04:45 Lymphocytes % (Manual) 9 % (13-43) L 06/23/21 04:45 Monocytes % (Manual) 3 % (4-9) L 06/23/21 04:45 Eosinophils % (Manual) 2 % (0-6) 06/23/21 04:45 Plt Morphology Comment Normal (NORMAL) 06/23/21 04:45 RBC Morphology Normal (NORMAL) 06/23/21 04:45 Sodium 138 mmol/L (136-145) 06/26/21 05:32 Corrected Sodium 140 mmol/L (136-145) 06/26/21 05:32 Potassium 3.7 mmol/L (3.5-5.1) 06/26/21 05:32 Chloride 103 mmol/L (98-107) 06/26/21 05:32 Carbon Dioxide 27.5 mmol/L (21-32) 06/26/21 05:32 BUN 10 mg/dL (7-18) 06/26/21 05:32 Creatinine 0.75 mg/dL (0.70-1.30) 06/26/21 05:32 Est GFR (MDRD) Af Amer > 60 (>60) 06/26/21 05:32 Est GFR (MDRD) Non-Af > 60 (>60) 06/26/21 05:32 Glucose 164 mg/dL (65-99) H 06/26/21 05:32 POC Glucose (mg/dL) 192 mg/dL (65-99) H 06/26/21 11:58 Calcium 8.0 mg/dL (8.5-10.1) L 06/26/21 05:32 Corrected Calcium 9.9 mg/dL (8.5-10.1) 06/26/21 05:32 Phosphorus 3.4 mg/dL (2.6-4.7) 06/24/21 03:52 Magnesium 1.9 mg/dL (1.7-2.9) 06/24/21 03:52 Total Bilirubin 0.30 mg/dL (0.2-1.0) 06/26/21 05:32 AST 17 Units/L (15-37) 06/26/21 05:32 ALT 16 Units/L (12-78) 06/26/21 05:32 Alkaline Phosphatase 161 Units/L (46-116) H 06/26/21 05:32 C-Reactive Protein 140.30 mg/L (0-3.0) H 06/26/21 05:32 Total Protein 5.6 g/dL (6.4-8.2) L 06/26/21 05:32 Albumin 1.6 g/dL (3.4-5.0) L 06/26/21 05:32 Globulin 4.0 g/dL (2.5-4.5) 06/26/21 05:32 Albumin/Globulin Ratio 0.4 Ratio (1.1-2.1) L 06/26/21 05:32 Prealbumin 12.8 mg/dL (18-35.7) L 06/22/21 04:46 Triglycerides 61 mg/dL (0-150) 06/24/21 03:52 Vancomycin Trough 6.2 ug/mL (15-20) L 06/23/21 20:30 Radiology Reviewed: Yes Plan (1) Leukocytosis: Status: Resolved Plan: Meropenem day 4 for additional coverage. (2) HTN (hypertension): Status: Chronic Qualifiers: Hypertension type: primary hypertension Qualified Code(s): I10 - Essential (primary) hypertension Narrative Support Text: BP stable at this time. Plan: Monitor BP (3) GERD (gastroesophageal reflux disease): Status: Chronic Qualifiers: Esophagitis presence: without esophagitis Qualified Code(s): K21.9 - Gastro-esophageal reflux disease without esophagitis (4) Dyslipidemia: Status: Chronic (5) Anemia: Status: Acute Narrative Support Text: Hb 9.8 down fro 10.8 on the previous day. Plan: Monitor CBC's (6) DM2 (diabetes mellitus, type 2): Status: Chronic Plan: D/C D5W and change to 1/2 NS for improved BS control. (7) Hypothyroidism: Status: Chronic Qualifiers: Hypothyroidism type: unspecified Qualified Code(s): E03.9 - Hypoth yroidism, unspecified (8) Intra-abdominal abscess post-procedure: Status: Acute Narrative Support Text: CT showed abscess has been drained however there was gas seen on liver and attenuation suggesting possible infection. Will continue abx. Plan: Following daily CRP's.
[2021-06-26] MEDS ORDERED: NS 1/2 1,000 ML IV 1,000 ML IV ONE (15:14)
[2021-06-26] MEDS: NovoLIN R (or HumuLIN R) SUBCUT PRN (18:07)
[2021-06-26] MEDS: SNACK - Diabetic Appropriate PO SCH (21:45)
[2021-06-27 05:25] LABS: MAGNESIUM 1.8 mg/dL (1.7-2.9); PHOSPHORUS 3.1 mg/dL (2.6-4.7)
[2021-06-27] MEDS ORDERED: NS 1/2 1,000 ML IV 1,000 ML IV ONE (05:41)
[2021-06-27] MEDS: MERREM VIAL 1 G in NS 100 ML IV + SPIKE MINIBAG* 100 ML IV SCH ×3 (06:11→22:30)
[2021-06-27] MEDS: NS 1/2 1,000 ML IV 1,000 ML IV SCH ×2 (06:12→16:00)
[2021-06-27] MEDS: HEPARIN SODIUM INJ 5000 UNITS SC SCH ×3 (06:13→23:38)
[2021-06-27] MEDS: NORCO 7.5/325 MG TAB PO PRN ×3 (06:13→20:32)
[2021-06-27] MEDS: ALBUMIN HUMAN 25%- 100 ML 100 ML IV SCH (10:05)
[2021-06-27] MEDS: VANCOMYCIN IV *PREMIX 1 G/200 ML BAG 1 G/200 ML PIGGYBACK IV SCH ×2 (10:06→23:00)
[2021-06-27] MEDS: SYNTHROID 75 mcg TAB PO SCH (10:06)
[2021-06-27] MEDS: LEVEMIR SC SCH ×2 (10:06→20:31)
[2021-06-27] MEDS: CIPRO IV 400 MG PREMIX* 400 MG/200 ML IV.SOLN. IV SCH ×2 (10:06→20:27)
[2021-06-27 10:45] LABS: BASOPHILS # (AUTO) 0.1 X10^3/uL (0.0-0.1); BASOPHILS % (AUTO) 0.7 % (0.2-1.0); EOSINOPHILS # (AUTO) 0.1 x10^3/uL (0.0-0.2); EOSINOPHILS % (AUTO) 1.1 % (0.9-2.9); HEMATOCRIT 28.4 % (42.0-54.0); HEMOGLOBIN 9.5 g/dL (13.5-18.0); LYMPHOCYTES # (AUTO) 1.2 X10^3/uL (1.3-2.9); LYMPHOCYTES % (AUTO) 14.7 % (21.0-51.0); MEAN CORPUSCULAR HEMOGLOBIN 28.4 pg (27.0-34.0); MEAN CORPUSCULAR HGB CONC 33.6 g/dL (33.0-35.0); MEAN CORPUSCULAR VOLUME 84.7 fL (80.0-100.0); MEAN PLATELET VOLUME 6.9 fL (7.4-11.0); MONOCYTES # (AUTO) 0.9 x10^3/uL (0.3-0.8); MONOCYTES % (AUTO) 10.4 % (0.0-13.0); NEUTROPHILS # (AUTO) 6.1 x10^3/uL (2.2-4.8); NEUTROPHILS % (AUTO) 73.1 % (42.0-75.0); PLATELET COUNT 349 X10^3/uL (150.0-450.0); RED BLOOD COUNT 3.35 X10^6/uL (4.7-6.0); RED CELL DISTRIBUTION WIDTH 14.6 % (11.6-16.5); WHITE BLOOD COUNT 8.3 X10^3/uL (3.6-10.0)
[2021-06-27 10:47] LABS: ALANINE AMINOTRANSFERASE 15 Units/L (12-78); ALBUMIN 1.8 g/dL (3.4-5.0); ALKALINE PHOSPHATASE 152 Units/L (46-116); ASPARTATE AMINO TRANSFERASE 17 Units/L (15-37); BLOOD UREA NITROGEN 12 mg/dL (7-18); CALCIUM 7.9 mg/dL (8.5-10.1); CARBON DIOXIDE 24.8 mmol/L (21-32); CHLORIDE 102 mmol/L (98-107); COR CA(FOR HYPOALB) 9.7 mg/dL (8.5-10.1); COR NA(FOR HYPERGLY) 139 mmol/L (136-145); CREATININE 0.82 mg/dL (0.70-1.30); SODIUM 135 mmol/L (136-145); TOTAL PROTEIN 5.8 g/dL (6.4-8.2); eGFR NON BLACK RACES > 60 (>60)
--- NOTE | 2021-06-27 11:21 | DR.PROGNOT ---
Hospital Progress Notes - Progress Note for Day of: Progress Note Date: 06/27/21 - Chief Complaint Chief Complaint: same moderate RUQ and RT side abdominal pain .. ..no nausea . appetite is getting better . constipated from narcotics .. less bile draining in the bag . LFT are normal . WBC 9.2.. normal BUN/Creat... Albumin 1.9. afebrile for the past few days . - Past Medical Family Social History Past Med/Fam/Surg Hx: No changes since H&P Allergies: Allergies oxycodone Allergy (Mild, Verified 06/10/21 10:24) RASH itching - Review Of Systems ROS: No change since H&P - Vital Signs Vital Signs: Temperature 98.3 F Pulse Rate [Left Radial] 96 Respiratory Rate 18 Blood Pressure [Left Arm] 126/75 Blood Pressure [Right Arm] 125/83 O2 Sat by Pulse Oximetry 94 - Physical Exam Oriented: Normal Eyes: Normal Ear: Normal Nose: Normal Throat: Normal Respiratory: Normal Cardiovascular: Normal : Normal GI:Auscultation: Normal GI:Palpation: Normal GI: Tenderness: RUQ, Moderate (soft with mild distention and tympany .. BS hypoactive ..) Skin: Normal, Other (mild peripheral edema ( low albumine )) Musculoskeletal: Normal Psychiatric: Normal Mood Description: Calm Affect: Normal Speech Pattern: Clear, Appropriate - Laboratory and Diagnostics Result Diagrams: 06/27/21 10:26 06/27/21 10: Labs: 06/24/21 09:20 Drainage Wound Culture - Final Staphylococcus Epidermidis 06/21/21 16:00 Abdomen Wound Gram Stain - Final 06/21/21 16:00 Abdomen Wound Culture - Final Escherichia Coli 06/21/21 17:24 Blood Blood Culture - Preliminary 06/21/21 17:32 Blood Blood Culture - Preliminary Laboratory WBC 8.3 X10^3/uL (3.6-10.0) 06/27/21 10: RBC 3.35 X10^6/uL (4.7-6.0) L 06/27/21 10:26 Hgb 9.5 g/dL (13.5-18.0) L 06/27/21 10: Hct 28.4 % (42.0-54.0) L 06/27/21 10:26 MCV 84.7 fL (80.0-100.0) 06/27/21 10:26 MCH 28.4 pg (27.0-34.0) 06/27/21 10: MCHC 33.6 g/dL (33.0-35.0) 06/27/21 10: RDW 14.6 % (11.6-16.5) 06/27/21 10: Plt Count 349 X10^3/uL (150.0-450.0) 06/27/21 10:26 Plt Count Comment Adequate (ADEQUATE) 06/23/21 04:45 MPV 6.9 fL (7.4-11.0) L 06/27/21 10:26 Neut % (Auto) 73.1 % (42.0-75.0) 06/27/21 10: Lymph % (Auto) 14.7 % (21.0-51.0) L 06/27/21 10: [place] % (Auto) 10.4 % (0.0-13.0) 06/27/21 10:26 Eos % (Auto) 1.1 % (0.9-2.9) 06/27/21 10:26 Baso % (Auto) 0.7 % (0.2-1.0) 06/27/21 10:26 Neut # (Auto) 6.1 x10^3/uL (2.2-4.8) H 06/27/21 10:26 Lymph # (Auto) 1.2 X10^3/uL (1.3-2.9) L 06/27/21 10:26 [place] # (Auto) 0.9 x10^3/uL (0.3-0.8) H 06/27/21 10:26 Eos # (Auto) 0.1 x10^3/uL (0.0-0.2) 06/27/21 10:26 Baso # (Auto) 0.1 X10^3/uL (0.0-0.1) 06/27/21 10:26 Absolute Nucleated RBC 0.0 /100WBC 06/27/21 10:26 Total Counted 100 06/23/21 04:45 Neutrophils % (Manual) 82 % (39-76) H 06/23/21 04:45 Band Neutrophils % 4 % (0-10) 06/23/21 04:45 Lymphocytes % (Manual) 9 % (13-43) L 06/23/21 04:45 Monocytes % (Manual) 3 % (4-9) L 06/23/21 04:45 Eosinophils % (Manual) 2 % (0-6) 06/23/21 04:45 Plt Morphology Comment Normal (NORMAL) 06/23/21 04:45 RBC Morphology Normal (NORMAL) 06/23/21 04:45 Sodium 135 mmol/L (136-145) L 06/27/21 10:26 Corrected Sodium 139 mmol/L (136-145) 06/27/21 10:26 Potassium 3.8 mmol/L (3.5-5.1) 06/27/21 10:26 Chloride 102 mmol/L (98-107) 06/27/21 10:26 Carbon Dioxide 24.8 mmol/L (21-32) 06/27/21 10:26 BUN 12 mg/dL (7-18) 06/27/21 10:26 Creatinine 0.82 mg/dL (0.70-1.30) 06/27/21 10:26 Est GFR (MDRD) Af Amer > 60 (>60) 06/27/21 10:26 Est GFR (MDRD) Non-Af > 60 (>60) 06/27/21 10:26 Glucose 260 mg/dL (65-99) H 06/27/21 10:26 POC Glucose (mg/dL) 157 mg/dL (65-99) H 06/27/21 05:48 Calcium 7.9 mg/dL (8.5-10.1) L 06/27/21 10:26 Corrected Calcium 9.7 mg/dL (8.5-10.1) 06/27/21 10:26 Phosphorus 3.1 mg/dL (2.6-4.7) 06/27/21 05:00 Magnesium 1.8 mg/dL (1.7-2.9) 06/27/21 05:00 Total Bilirubin 0.20 mg/dL (0.2-1.0) 06/27/21 10:26 AST 17 Units/L (15-37) 06/27/21 10:26 ALT 15 Units/L (12-78) 06/27/21 10:26 Alkaline Phosphatase 152 Units/L (46-116) H 06/27/21 10:26 C-Reactive Protein 140.30 mg/L (0-3.0) H 06/26/21 05:32 Total Protein 5.8 g/dL (6.4-8.2) L 06/27/21 10:26 Albumin 1.8 g/dL (3.4-5.0) L 06/27/21 10:26 Globulin 4.0 g/dL (2.5-4.5) 06/27/21 10:26 Albumin/Globulin Ratio 0.5 Ratio (1.1-2.1) L 06/27/21 10:26 Prealbumin 12.8 mg/dL (18-35.7) L 06/22/21 04:46 Triglycerides 102 mg/dL (0-150) 06/27/21 05:00 Vancomycin Trough 6.2 ug/mL (15-20) L 06/23/21 20:30 - Assessment and Plan 1: sub hepatic and intrahepatic abscess .s/p percutaneous drainage . moderate size subcapsular hematoma . DM. hypothyroidism. narcotic related constipation . same plan .. added Albumin IV daily ... on IV ABT and IVF . to place PIC line and home ABT..
--- NOTE | 2021-06-27 18:02 | RAD ---
EXAM: CHEST X-RAYHISTORY: Verification of PICC line position status post PICC placement.TECHNIQUE: AP chest x-ray dated June 27, 2021 at 5:40 PM.COMPARISON: CXR dated June 10, 2021.FINDINGS:There is a left upper extremity PICC line with the distal tip in the expected location of the proximal cavoatrial junction (adequate position). Recommend careful clinical correlation to ensure venous blood return.The heart size and mediastinum are within normal limits. There is interval appearance of approximately 7 cm asymmetrical elevation of the right hemidiaphragm, with mild compressive right basilar atelectasis; cannot rule out pneumonic infiltrate in this region in the appropriate clinical setting. Consider follow-up evaluation with CT for optimal assessment of the region as clinically warranted.The lung portillo and costophrenic angles are otherwise clear. There is no acute parenchymal infiltrate, pleural effusion, or pneumothorax seen. The visualized bony structures are within normal limits.IMPRESSION:1. Left upper extremity PICC line with the distal tip in the expected location of the proximal cavoatrial junction (adequate position). Recommend careful clinical correlation to ensure venous blood return.2. Interval appearance of approximately 7 cm asymmetrical elevation of the right hemidiaphragm, with mild compressive right basilar atelectasis; cannot rule out pneumonic infiltrate in this region in the appropriate clinical setting. Consider follow-up evaluation with CT for optimal assessment of the region as clinically warranted.Electronically signed by: Kimberly Marcano (Jun 27, 2021 18:00:18)
--- NOTE | 2021-06-27 18:08 | DR.UPDATE ---
H&P Update History and Physical Update: History and Physical reviewed and patient examined. 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 H&P Reviewed: Yes Patient was examined?: Yes Procedures (ALL) - Central Line Placement PCM.CLCO: written consent Time out performed: Yes Patient placed pm monitor/pulse ox: Yes MD prep: mask, gown, gloves, other Centrial line prep: chlorhexidine scrub, sterile drapes applied Local anesthsia used: lidocane 1% Ultrasound used for placement: Yes (left basilic id'd via u/s and cannulation visualized) Central line lumen ininserted: double (5.5fr arrowpicc) Post procedure: good blood return, all ports aspirated, flushed,capped, sterile dressing applied Post procedure xray: tip oc catheter in good position (tip in cavoatrial junction), no pneumothorax seen Patient tolerated procedure: Yes Complications: none
[2021-06-27] MEDS: SNACK - Diabetic Appropriate PO SCH (20:00)
[2021-06-27] MEDS: COLACE CAP 100 MG PO SCH (20:31)
[2021-06-27] MEDS: NovoLIN R (or HumuLIN R) SUBCUT PRN (20:32)
[2021-06-27 22:42] LABS: CREATININE 0.83 mg/dL (0.70-1.30); VANCOMYCIN,TROUGH 6.7 ug/mL (15-20)
[2021-06-28 04:03] LABS: BASOPHILS # (AUTO) 0.1 X10^3/uL (0.0-0.1); BASOPHILS % (AUTO) 1.2 % (0.2-1.0); EOSINOPHILS # (AUTO) 0.1 x10^3/uL (0.0-0.2); EOSINOPHILS % (AUTO) 1.4 % (0.9-2.9); HEMOGLOBIN 9.6 g/dL (13.5-18.0); LYMPHOCYTES # (AUTO) 1.6 X10^3/uL (1.3-2.9); LYMPHOCYTES % (AUTO) 18.6 % (21.0-51.0); MEAN CORPUSCULAR HEMOGLOBIN 28.9 pg (27.0-34.0); MEAN CORPUSCULAR HGB CONC 34.4 g/dL (33.0-35.0); MEAN CORPUSCULAR VOLUME 84.2 fL (80.0-100.0); MEAN PLATELET VOLUME 7.2 fL (7.4-11.0); MONOCYTES # (AUTO) 0.8 x10^3/uL (0.3-0.8); MONOCYTES % (AUTO) 9.2 % (0.0-13.0); NEUTROPHILS # (AUTO) 6.1 x10^3/uL (2.2-4.8); NEUTROPHILS % (AUTO) 69.6 % (42.0-75.0); PLATELET COUNT 371 X10^3/uL (150.0-450.0); RED BLOOD COUNT 3.33 X10^6/uL (4.7-6.0); RED CELL DISTRIBUTION WIDTH 14.7 % (11.6-16.5); WHITE BLOOD COUNT 8.8 X10^3/uL (3.6-10.0)
[2021-06-28 04:20] LABS: ALANINE AMINOTRANSFERASE 16 Units/L (12-78); ALBUMIN 2.2 g/dL (3.4-5.0); ALKALINE PHOSPHATASE 146 Units/L (46-116); ASPARTATE AMINO TRANSFERASE 18 Units/L (15-37); BLOOD UREA NITROGEN 12 mg/dL (7-18); CALCIUM 8.3 mg/dL (8.5-10.1); CARBON DIOXIDE 27.4 mmol/L (21-32); CHLORIDE 104 mmol/L (98-107); COR CA(FOR HYPOALB) 9.7 mg/dL (8.5-10.1); CREATININE 0.67 mg/dL (0.70-1.30); SODIUM 140 mmol/L (136-145); TOTAL PROTEIN 6.2 g/dL (6.4-8.2); eGFR NON BLACK RACES > 60 (>60)
[2021-06-28 04:41] LABS: PREALBUMIN 11.4 mg/dL (18-35.7)
[2021-06-28] MEDS ORDERED: NS 1/2 1,000 ML IV 1,000 ML IV ONE (05:08)
[2021-06-28] MEDS: MERREM VIAL 1 G in NS 100 ML IV + SPIKE MINIBAG* 100 ML IV SCH ×3 (05:52→21:35)
[2021-06-28] MEDS: HEPARIN SODIUM INJ 5000 UNITS SC SCH ×3 (05:53→21:38)
[2021-06-28] MEDS: NS 1/2 1,000 ML IV 1,000 ML IV SCH ×3 (05:53→23:00)
[2021-06-28] MEDS: NORCO 7.5/325 MG TAB PO PRN ×2 (05:54→21:37)
[2021-06-28] MEDS ORDERED: RESTORIL CAP 30 MG PO PRN (08:29)
[2021-06-28] MEDS: CIPRO IV 400 MG PREMIX* 400 MG/200 ML IV.SOLN. IV SCH ×2 (09:14→20:30)
[2021-06-28] MEDS: VANCOMYCIN IV *PREMIX 1 G/200 ML BAG 1 G/200 ML PIGGYBACK IV SCH ×3 (09:14→21:34)
[2021-06-28] MEDS: LEVEMIR SC SCH ×3 (09:15→21:51)
[2021-06-28] MEDS: SYNTHROID 75 mcg TAB PO SCH (09:15)
[2021-06-28] MEDS: ALBUMIN HUMAN 25%- 100 ML 100 ML IV SCH (09:15)
[2021-06-28] MEDS: MILK OF MAGNESIA PO PRN (09:54)
[2021-06-28] MEDS: NovoLIN R (or HumuLIN R) SUBCUT PRN (11:34)
--- NOTE | 2021-06-28 13:28 | PCM.PROG ---
Progress Note Progress Note for Day of Date of Exam: 06/27/21 Subjective Subjective: Patient reports he is doing better. He is still on abx. He will get a pic line later today and discharged in 2 days. WBC count has normalized. Still a little anemic. Hb is 9.5 Past Medical Family Social History Past Med/Fam/Surg Hx: No changes since H&P Allergies: Allergies oxycodone Allergy (Mild, Verified 06/10/21 10:24) RASH itching Review of Systems ROS: No change since H&P Vital Signs and I&O's Vital Signs: Temperature 98.4 F Pulse Rate [Left Radial] 83 Pulse Rate 94 Respiratory Rate 20 Blood Pressure [Left Arm] 146/78 Blood Pressure [Right Arm] 124/73 O2 Sat by Pulse Oximetry 94 Intake and Output: Intake & Output 06/26/21 06/27/21 06/28/21 06/29/21 11:59 11:59 11:59 11:59 Intake Total 1786 / 1786 1000 / 1000 3197 / 3197 Output Total 600 / 600 1100 / 1100 130 / 130 Balance 1186 / 1186 -100 / -100 3067 / 3067 Physical Exam Oriented: Normal Eyes: Normal Ear: Normal Nose: Normal Throat: Normal Respiratory: Normal Cardiovascular: Normal : Normal Auscultation: Bowel Sounds: Normal Tenderness: RUQ, Mild and Moderate (soft with mild distention and tympany .. BS hypoactive .. ) Skin: Normal and Other (mild peripheral edema ( low albumine )) Musculoskeletal: Normal Psychiatric: Normal Mood Description: Calm Affect: Normal Speech Pattern: Clear and Appropriate Laboratory and Diagnostics Result Diagrams: 06/28/21 03:00 06/28/21 03:00 Labs: 06/21/21 17:24 Blood Blood Culture - Final 06/21/21 17:32 Blood Blood Culture - Final 06/24/21 09:20 Drainage Wound Culture - Final Staphylococcus Epidermidis 06/21/21 16:00 Abdomen Wound Gram Stain - Final 06/21/21 16:00 Abdomen Wound Culture - Final Escherichia Coli Laboratory WBC 8.8 X10^3/uL (3.6-10.0) 06/28/21 03:00 RBC 3.33 X10^6/uL (4.7-6.0) L 06/28/21 03:00 Hgb 9.6 g/dL (13.5-18.0) L 06/28/21 03:00 Hct 28.0 % (42.0-54.0) L 06/28/21 03:00 MCV 84.2 fL (80.0-100.0) 06/28/21 03:00 MCH 28.9 pg (27.0-34.0) 06/28/21 03:00 MCHC 34.4 g/dL (33.0-35.0) 06/28/21 03:00 RDW 14.7 % (11.6-16.5) 06/28/21 03:00 Plt Count 371 X10^3/uL (150.0-450.0) 06/28/21 03:00 Plt Count Comment Adequate (ADEQUATE) 06/23/21 04:45 MPV 7.2 fL (7.4-11.0) L 06/28/21 03:00 Neut % (Auto) 69.6 % (42.0-75.0) 06/28/21 03:00 Lymph % (Auto) 18.6 % (21.0-51.0) L 06/28/21 03:00 [place] % (Auto) 9.2 % (0.0-13.0) 06/28/21 03:00 Eos % (Auto) 1.4 % (0.9-2.9) 06/28/21 03:00 Baso % (Auto) 1.2 % (0.2-1.0) H 06/28/21 03:00 Neut # (Auto) 6.1 x10^3/uL (2.2-4.8) H 06/28/21 03:00 Lymph # (Auto) 1.6 X10^3/uL (1.3-2.9) 06/28/21 03:00 [place] # (Auto) 0.8 x10^3/uL (0.3-0.8) 06/28/21 03:00 Eos # (Auto) 0.1 x10^3/uL (0.0-0.2) 06/28/21 03:00 Baso # (Auto) 0.1 X10^3/uL (0.0-0.1) 06/28/21 03:00 Absolute Nucleated RBC 0.2 /100WBC 06/28/21 03:00 Total Counted 100 06/23/21 04:45 Neutrophils % (Manual) 82 % (39-76) H 06/23/21 04:45 Band Neutrophils % 4 % (0-10) 06/23/21 04:45 Lymphocytes % (Manual) 9 % (13-43) L 06/23/21 04:45 Monocytes % (Manual) 3 % (4-9) L 06/23/21 04:45 Eosinophils % (Manual) 2 % (0-6) 06/23/21 04:45 Plt Morphology Comment Normal (NORMAL) 06/23/21 04:45 RBC Morphology Normal (NORMAL) 06/23/21 04:45 Sodium 140 mmol/L (136-145) 06/28/21 03:00 Corrected Sodium TNP 06/28/21 03:00 Potassium 3.9 mmol/L (3.5-5.1) 06/28/21 03:00 Chloride 104 mmol/L (98-107) 06/28/21 03:00 Carbon Dioxide 27.4 mmol/L (21-32) 06/28/21 03:00 BUN 12 mg/dL (7-18) 06/28/21 03:00 Creatinine 0.67 mg/dL (0.70-1.30) L 06/28/21 03:00 Est GFR (MDRD) Af Amer > 60 (>60) 06/28/21 03:00 Est GFR (MDRD) Non-Af > 60 (>60) 06/28/21 03:00 Glucose 97 mg/dL (65-99) 06/28/21 03:00 POC Glucose (mg/dL) 215 mg/dL (65-99) H 06/28/21 11:26 Calcium 8.3 mg/dL (8.5-10.1) L 06/28/21 03:00 Corrected Calcium 9.7 mg/dL (8.5-10.1) 06/28/21 03:00 Phosphorus 3.1 mg/dL (2.6-4.7) 06/27/21 05:00 Magnesium 1.8 mg/dL (1.7-2.9) 06/27/21 05:00 Total Bilirubin 0.40 mg/dL (0.2-1.0) 06/28/21 03:00 AST 18 Units/L (15-37) 06/28/21 03:00 ALT 16 Units/L (12-78) 06/28/21 03:00 Alkaline Phosphatase 146 Units/L (46-116) H 06/28/21 03:00 C-Reactive Protein 140.30 mg/L (0-3.0) H 06/26/21 05:32 Total Protein 6.2 g/dL (6.4-8.2) L 06/28/21 03:00 Albumin 2.2 g/dL (3.4-5.0) L 06/28/21 03:00 Globulin 4.0 g/dL (2.5-4.5) 06/28/21 03:00 Albumin/Globulin Ratio 0.6 Ratio (1.1-2.1) L 06/28/21 03:00 Prealbumin 11.4 mg/dL (18-35.7) L 06/28/21 03:00 Triglycerides 102 mg/dL (0-150) 06/27/21 05:00 Vancomycin Trough 6.7 ug/mL (15-20) L 06/27/21 22:10 Plan (1) HTN (hypertension): Status: Chronic Qualifiers: Hypertension type: primary hypertension Qualified Code(s): I10 - Essential (primary) hypertension Narrative Support Text: Stable. Plan: Stable, no changes to BP meds. (2) GERD (gastroesophageal reflux disease): Status: Chronic Qualifiers: Esophagitis presence: without esophagitis Qualified Code(s): K21.9 - Gastro-esophageal reflux disease without esophagitis (3) Dyslipidemia: Status: Chronic (4) Anemia: Status: Acute Narrative Support Text: Hb is stable. Plan: Monitor CBC's (5) DM2 (diabetes mellitus, type 2): Status: Chronic Plan: D/C D5W and change to 1/2 NS for improved BS control. (6) Hypothyroidism: Status: Chronic Qualifiers: Hypothyroidism type: unspecified Qualified Code(s): E03.9 - Hypothyroidism, unspecified (7) Intra-abdominal abscess post-procedure: Status: Acute Plan: Will check CRP in am.. (8) Leukocytosis: Status: Resolved Plan: Meropenem day 4 for additional coverage.
--- NOTE | 2021-06-28 13:30 | PCM.PROG ---
Progress Note Progress Note for Day of Date of Exam: 06/28/21 Subjective Subjective: Patient reports he is doing better. He is still on abx. Picc line placed yesterday. Plan on discharge home in am. Will continue IV antibiotics at this time. Past Medical Family Social History Past Med/Fam/Surg Hx: No changes since H&P Allergies: Allergies oxycodone Allergy (Mild, Verified 06/10/21 10:24) RASH itching Review of Systems ROS: No change since H&P Vital Signs and I&O's Vital Signs: Temperature 98.4 F Pulse Rate [Left Radial] 83 Pulse Rate 94 Respiratory Rate 20 Blood Pressure [Left Arm] 146/78 Blood Pressure [Right Arm] 124/73 O2 Sat by Pulse Oximetry 94 Intake and Output: Intake & Output 06/26/21 06/27/21 06/28/21 06/29/21 11:59 11:59 11:59 11:59 Intake Total 1786 / 1786 1000 / 1000 3197 / 3197 Output Total 600 / 600 1100 / 1100 130 / 130 Balance 1186 / 1186 -100 / -100 3067 / 3067 Physical Exam Oriented: Normal Eyes: Normal Ear: Normal Nose: Normal Throat: Normal Respiratory: Normal Cardiovascular: Normal : Normal Auscultation: Bowel Sounds: Normal Tenderness: RUQ, Mild and Moderate (soft with mild distention and tympany .. BS hypoactive .. ) Skin: Normal and Other (mild peripheral edema ( low albumine )) Musculoskeletal: Normal Psychiatric: Normal Mood Description: Calm Affect: Normal Speech Pattern: Clear and Appropriate Laboratory and Diagnostics Result Diagrams: 06/28/21 03:00 06/28/21 03:00 Labs: 06/21/21 17:24 Blood Blood Culture - Final 06/21/21 17:32 Blood Blood Culture - Final 06/24/21 09:20 Drainage Wound Culture - Final Staphylococcus Epidermidis 06/21/21 16:00 Abdomen Wound Gram Stain - Final 06/21/21 16:00 Abdomen Wound Culture - Final Escherichia Coli Laboratory WBC 8.8 X10^3/uL (3.6-10.0) 06/28/21 03:00 RBC 3.33 X10^6/uL (4.7-6.0) L 06/28/21 03:00 Hgb 9.6 g/dL (13.5-18.0) L 06/28/21 03:00 Hct 28.0 % (42.0-54.0) L 06/28/21 03:00 MCV 84.2 fL (80.0-100.0) 06/28/21 03:00 MCH 28.9 pg (27.0-34.0) 06/28/21 03:00 MCHC 34.4 g/dL (33.0-35.0) 06/28/21 03:00 RDW 14.7 % (11.6-16.5) 06/28/21 03:00 Plt Count 371 X10^3/uL (150.0-450.0) 06/28/21 03:00 Plt Count Comment Adequate (ADEQUATE) 06/23/21 04:45 MPV 7.2 fL (7.4-11.0) L 06/28/21 03:00 Neut % (Auto) 69.6 % (42.0-75.0) 06/28/21 03:00 Lymph % (Auto) 18.6 % (21.0-51.0) L 06/28/21 03:00 [place] % (Auto) 9.2 % (0.0-13.0) 06/28/21 03:00 Eos % (Auto) 1.4 % (0.9-2.9) 06/28/21 03:00 Baso % (Auto) 1.2 % (0.2-1.0) H 06/28/21 03:00 Neut # (Auto) 6.1 x10^3/uL (2.2-4.8) H 06/28/21 03:00 Lymph # (Auto) 1.6 X10^3/uL (1.3-2.9) 06/28/21 03:00 [place] # (Auto) 0.8 x10^3/uL (0.3-0.8) 06/28/21 03:00 Eos # (Auto) 0.1 x10^3/uL (0.0-0.2) 06/28/21 03:00 Baso # (Auto) 0.1 X10^3/uL (0.0-0.1) 06/28/21 03:00 Absolute Nucleated RBC 0.2 /100WBC 06/28/21 03:00 Total Counted 100 06/23/21 04:45 Neutrophils % (Manual) 82 % (39-76) H 06/23/21 04:45 Band Neutrophils % 4 % (0-10) 06/23/21 04:45 Lymphocytes % (Manual) 9 % (13-43) L 06/23/21 04:45 Monocytes % (Manual) 3 % (4-9) L 06/23/21 04:45 Eosinophils % (Manual) 2 % (0-6) 06/23/21 04:45 Plt Morphology Comment Normal (NORMAL) 06/23/21 04:45 RBC Morphology Normal (NORMAL) 06/23/21 04:45 Sodium 140 mmol/L (136-145) 06/28/21 03:00 Corrected Sodium TNP 06/28/21 03:00 Potassium 3.9 mmol/L (3.5-5.1) 06/28/21 03:00 Chloride 104 mmol/L (98-107) 06/28/21 03:00 Carbon Dioxide 27.4 mmol/L (21-32) 06/28/21 03:00 BUN 12 mg/dL (7-18) 06/28/21 03:00 Creatinine 0.67 mg/dL (0.70-1.30) L 06/28/21 03:00 Est GFR (MDRD) Af Amer > 60 (>60) 06/28/21 03:00 Est GFR (MDRD) Non-Af > 60 (>60) 06/28/21 03:00 Glucose 97 mg/dL (65-99) 06/28/21 03:00 POC Glucose (mg/dL) 215 mg/dL (65-99) H 06/28/21 11:26 Calcium 8.3 mg/dL (8.5-10.1) L 06/28/21 03:00 Corrected Calcium 9.7 mg/dL (8.5-10.1) 06/28/21 03:00 Phosphorus 3.1 mg/dL (2.6-4.7) 06/27/21 05:00 Magnesium 1.8 mg/dL (1.7-2.9) 06/27/21 05:00 Total Bilirubin 0.40 mg/dL (0.2-1.0) 06/28/21 03:00 AST 18 Units/L (15-37) 06/28/21 03:00 ALT 16 Units/L (12-78) 06/28/21 03:00 Alkaline Phosphatase 146 Units/L (46-116) H 06/28/21 03:00 C-Reactive Protein 140.30 mg/L (0-3.0) H 06/26/21 05:32 Total Protein 6.2 g/dL (6.4-8.2) L 06/28/21 03:00 Albumin 2.2 g/dL (3.4-5.0) L 06/28/21 03:00 Globulin 4.0 g/dL (2.5-4.5) 06/28/21 03:00 Albumin/Globulin Ratio 0.6 Ratio (1.1-2.1) L 06/28/21 03:00 Prealbumin 11.4 mg/dL (18-35.7) L 06/28/21 03:00 Triglycerides 102 mg/dL (0-150) 06/27/21 05:00 Vancomycin Trough 6.7 ug/mL (15-20) L 06/27/21 22:10 Plan (1) Intra-abdominal abscess post-procedure: Status: Acute Narrative Support Text: Much improved overall. Plan: Will check CRP in am. (2) HTN (hypertension): Status: Chronic Qualifiers: Hypertension type: primary hypertension Qualified Code(s): I10 - Essential (primary) hypertension Plan: Stable, no changes to BP meds. (3) GERD (gastroesophageal reflux disease): Status: Chronic Qualifiers: Esophagitis presence: without esophagitis Qualified Code(s): K21.9 - Gastro-esophageal reflux disease without esophagitis (4) Dyslipidemia: Status: Chronic (5) Anemia: Status: Acute Plan: Monitor CBC's (6) DM2 (diabetes mellitus, type 2): Status: Chronic Plan: D/C D5W and change to 1/2 NS for improved BS control. (7) Hypothyroidism: Status: Chronic Qualifiers: Hypothyroidism type: unspecified Qualified Code(s): E03.9 - Hypothyroidism, unspecified (8) Leukocytosis: Status: Resolved Plan: Meropenem day 4 for additional coverage.
--- NOTE | 2021-06-28 16:23 | DR.PROGNOT ---
Hospital Progress Notes - Progress Note for Day of: Progress Note Date: 06/28/21 - Chief Complaint Chief Complaint: same moderate RUQ and RT side abdominal pain .. ..no nausea . appetite is getting better . had normal BM . mile bile drinage in the bag. less bile draining in the bag . lab work is normal . afebrile . LFT are normal . WBC 9.2.. normal BUN/Creat... Albumin 1.9. afebrile for the past few days . - Past Medical Family Social History Past Med/Fam/Surg Hx: No changes since H&P Allergies: Allergies oxycodone Allergy (Mild, Verified 06/10/21 10:24) RASH itching - Review Of Systems ROS: No change since H&P - Vital Signs Vital Signs: Temperature 98.4 F Pulse Rate [Left Radial] 83 Pulse Rate 94 Respiratory Rate 20 Blood Pressure [Left Arm] 146/78 Blood Pressure [Right Arm] 124/73 O2 Sat by Pulse Oximetry 94 - Physical Exam Oriented: Normal Eyes: Normal Ear: Normal Nose: Normal Throat: Normal Respiratory: Normal Cardiovascular: Normal : Normal GI:Auscultation: Normal GI:Palpation: Normal GI: Tenderness: RUQ, Mild, Moderate (soft with mild distention and tympany .. BS hypoactive ..) Skin: Normal, Other (mild peripheral edema ( low albumine )) Musculoskeletal: Normal Psychiatric: Normal Mood Description: Calm Affect: Normal Speech Pattern: Clear, Appropriate - Laboratory and Diagnostics Result Diagrams: 06/28/21 03:00 06/28/21 03:00 Labs: 06/21/21 17:24 Blood Blood Culture - Final 06/21/21 17:32 Blood Blood Culture - Final 06/24/21 09:20 Drainage Wound Culture - Final Staphylococcus Epidermidis 06/21/21 16:00 Abdomen Wound Gram Stain - Final 06/21/21 16:00 Abdomen Wound Culture - Final Escherichia Coli Laboratory WBC 8.8 X10^3/uL (3.6-10.0) 06/28/21 03:00 RBC 3.33 X10^6/uL (4.7-6.0) L 06/28/21 03:00 Hgb 9.6 g/dL (13.5-18.0) L 06/28/21 03:00 Hct 28.0 % (42.0-54.0) L 06/28/21 03:00 MCV 84.2 fL (80.0-100.0) 06/28/21 03:00 MCH 28.9 pg (27.0-34.0) 06/28/21 03:00 MCHC 34.4 g/dL (33.0-35.0) 06/28/21 03:00 RDW 14.7 % (11.6-16.5) 06/28/21 03:00 Plt Count 371 X10^3/uL (150.0-450.0) 06/28/21 03:00 Plt Count Comment Adequate (ADEQUATE) 06/23/21 04:45 MPV 7.2 fL (7.4-11.0) L 06/28/21 03:00 Neut % (Auto) 69.6 % (42.0-75.0) 06/28/21 03:00 Lymph % (Auto) 18.6 % (21.0-51.0) L 06/28/21 03:00 [place] % (Auto) 9.2 % (0.0-13.0) 06/28/21 03:00 Eos % (Auto) 1.4 % (0.9-2.9) 06/28/21 03:00 Baso % (Auto) 1.2 % (0.2-1.0) H 06/28/21 03:00 Neut # (Auto) 6.1 x10^3/uL (2.2-4.8) H 06/28/21 03:00 Lymph # (Auto) 1.6 X10^3/uL (1.3-2.9) 06/28/21 03:00 [place] # (Auto) 0.8 x10^3/uL (0.3-0.8) 06/28/21 03:00 Eos # (Auto) 0.1 x10^3/uL (0.0-0.2) 06/28/21 03:00 Baso # (Auto) 0.1 X10^3/uL (0.0-0.1) 06/28/21 03:00 Absolute Nucleated RBC 0.2 /100WBC 06/28/21 03:00 Total Counted 100 06/23/21 04:45 Neutrophils % (Manual) 82 % (39-76) H 06/23/21 04:45 Band Neutrophils % 4 % (0-10) 06/23/21 04:45 Lymphocytes % (Manual) 9 % (13-43) L 06/23/21 04:45 Monocytes % (Manual) 3 % (4-9) L 06/23/21 04:45 Eosinophils % (Manual) 2 % (0-6) 06/23/21 04:45 Plt Morphology Comment Normal (NORMAL) 06/23/21 04:45 RBC Morphology Normal (NORMAL) 06/23/21 04:45 Sodium 140 mmol/L (136-145) 06/28/21 03:00 Corrected Sodium TNP 06/28/21 03:00 Potassium 3.9 mmol/L (3.5-5.1) 06/28/21 03:00 Chloride 104 mmol/L (98-107) 06/28/21 03:00 Carbon Dioxide 27.4 mmol/L (21-32) 06/28/21 03:00 BUN 12 mg/dL (7-18) 06/28/21 03:00 Creatinine 0.67 mg/dL (0.70-1.30) L 06/28/21 03:00 Est GFR (MDRD) Af Amer > 60 (>60) 06/28/21 03:00 Est GFR (MDRD) Non-Af > 60 (>60) 06/28/21 03:00 Glucose 97 mg/dL (65-99) 06/28/21 03:00 POC Glucose (mg/dL) 215 mg/dL (65-99) H 06/28/21 11:26 Calcium 8.3 mg/dL (8.5-10.1) L 06/28/21 03:00 Corrected Calcium 9.7 mg/dL (8.5-10.1) 06/28/21 03:00 Phosphorus 3.1 mg/dL (2.6-4.7) 06/27/21 05:00 Magnesium 1.8 mg/dL (1.7-2.9) 06/27/21 05:00 Total Bilirubin 0.40 mg/dL (0.2-1.0) 06/28/21 03:00 AST 18 Units/L (15-37) 06/28/21 03:00 ALT 16 Units/L (12-78) 06/28/21 03:00 Alkaline Phosphatase 146 Units/L (46-116) H 06/28/21 03:00 C-Reactive Protein 140.30 mg/L (0-3.0) H 06/26/21 05:32 Total Protein 6.2 g/dL (6.4-8.2) L 06/28/21 03:00 Albumin 2.2 g/dL (3.4-5.0) L 06/28/21 03:00 Globulin 4.0 g/dL (2.5-4.5) 06/28/21 03:00 Albumin/Globulin Ratio 0.6 Ratio (1.1-2.1) L 06/28/21 03:00 Prealbumin 11.4 mg/dL (18-35.7) L 06/28/21 03:00 Triglycerides 102 mg/dL (0-150) 06/27/21 05:00 Vancomycin Trough 6.7 ug/mL (15-20) L 06/27/21 22:10 - Assessment and Plan 1: sub hepatic and intrahepatic abscess .s/p percutaneous drainage . moderate size subcapsular hematoma . DM. hypothyroidism. narcotic related constipation . same plan .. added Albumin IV daily ... on IV ABT and IVF . to repeat abdominal CT in AM and maybe diacharge ..
[2021-06-28] MEDS: COLACE CAP 100 MG PO SCH (21:35)
[2021-06-28] MEDS: SNACK - Diabetic Appropriate PO SCH (21:39)
[2021-06-28] MEDS ORDERED: RESTORIL CAP 15 MG PO ONE (21:44)
[2021-06-29] MEDS ORDERED: NS 1/2 1,000 ML IV 1,000 ML IV ONE (01:38)
[2021-06-29] MEDS: MERREM VIAL 1 G in NS 100 ML IV + SPIKE MINIBAG* 100 ML IV SCH ×2 (05:34→15:40)
[2021-06-29] MEDS: HEPARIN SODIUM INJ 5000 UNITS SC SCH ×2 (06:21→15:39)
[2021-06-29] MEDS: VANCOMYCIN IV *PREMIX 1 G/200 ML BAG 1 G/200 ML PIGGYBACK IV SCH (06:21)
[2021-06-29] MEDS: NORCO 7.5/325 MG TAB PO PRN (06:24)
[2021-06-29 06:39] LABS: BASOPHILS % (AUTO) 0.3 % (0.2-1.0); EOSINOPHILS # (AUTO) 0.1 x10^3/uL (0.0-0.2); EOSINOPHILS % (AUTO) 1.6 % (0.9-2.9); HEMATOCRIT 29.8 % (42.0-54.0); LYMPHOCYTES # (AUTO) 1.4 X10^3/uL (1.3-2.9); LYMPHOCYTES % (AUTO) 15.4 % (21.0-51.0); MEAN CORPUSCULAR HEMOGLOBIN 28.3 pg (27.0-34.0); MEAN CORPUSCULAR HGB CONC 33.5 g/dL (33.0-35.0); MEAN CORPUSCULAR VOLUME 84.4 fL (80.0-100.0); MEAN PLATELET VOLUME 7.6 fL (7.4-11.0); MONOCYTES # (AUTO) 0.7 x10^3/uL (0.3-0.8); NEUTROPHILS # (AUTO) 6.8 x10^3/uL (2.2-4.8); NEUTROPHILS % (AUTO) 74.7 % (42.0-75.0); PLATELET COUNT 371 X10^3/uL (150.0-450.0); RED BLOOD COUNT 3.53 X10^6/uL (4.7-6.0); WHITE BLOOD COUNT 9.1 X10^3/uL (3.6-10.0)
[2021-06-29 06:46] LABS: ALANINE AMINOTRANSFERASE 19 Units/L (12-78); ALBUMIN 2.4 g/dL (3.4-5.0); ALKALINE PHOSPHATASE 144 Units/L (46-116); ASPARTATE AMINO TRANSFERASE 21 Units/L (15-37); BLOOD UREA NITROGEN 11 mg/dL (7-18); CALCIUM 8.2 mg/dL (8.5-10.1); CARBON DIOXIDE 25.3 mmol/L (21-32); CHLORIDE 104 mmol/L (98-107); COR CA(FOR HYPOALB) 9.5 mg/dL (8.5-10.1); COR NA(FOR HYPERGLY) 139 mmol/L (136-145); CREATININE 0.64 mg/dL (0.70-1.30); SODIUM 138 mmol/L (136-145); TOTAL PROTEIN 6.4 g/dL (6.4-8.2); eGFR NON BLACK RACES > 60 (>60)
[2021-06-29] MEDS: ALBUMIN HUMAN 25%- 100 ML 100 ML IV SCH (09:45)
[2021-06-29] MEDS: SYNTHROID 75 mcg TAB PO SCH (09:45)
[2021-06-29] MEDS: LEVEMIR SC SCH (09:46)
[2021-06-29] MEDS: CIPRO IV 400 MG PREMIX* 400 MG/200 ML IV.SOLN. IV SCH (10:37)
[2021-06-29] MEDS ORDERED: PHARMACY COMMENT IV ONE (13:30)
[2021-06-29 16:16] LABS: CREATININE 0.77 mg/dL (0.70-1.30); VANCOMYCIN,TROUGH 12.5 ug/mL (15-20)
[2021-06-29 16:29] VITALS: BP 139/75
== END 2021-06-29 20:00 | disposition home or self-care (01) | DRG 863 ==
LOC: MED/SURG 12:52
PROVIDERS: ADMIT Surgery; ATTEND Surgery
DX: T81.49XA Infection following a procedure, other surgical site, initial encounter; I10 Essential (primary) hypertension; B95.4 Other streptococcus as the cause of diseases classified elsewhere; I87.2 Venous insufficiency (chronic) (peripheral); R10.11 Right upper quadrant pain; E78.00 Pure hypercholesterolemia, unspecified; Z90.49 Acquired absence of other specified parts of digestive tract; K68.11 Postprocedural retroperitoneal abscess; R26.81 Unsteadiness on feet; E03.9 Hypothyroidism, unspecified; K21.9 Gastro-esophageal reflux disease without esophagitis; B96.29 Other Escherichia coli [E. coli] as the cause of diseases classified elsewhere; E11.9 Type 2 diabetes mellitus without complications

== ENCOUNTER 2022-03-15 09:19 | Inpatient (IN) ==
[2022-03-15] MEDS ORDERED: TORADOL 30 MG VIAL IVP ONE (09:28)
[2022-03-15] MEDS ORDERED: ZOFRAN INJ 4 MG VIAL ONE (09:28)
[2022-03-15] MEDS ORDERED: NS 1,000 ML IV 1,000 ML IV ONE (09:28)
[2022-03-15] MEDS ORDERED: ZOFRAN INJ 4 MG VIAL IVP ONE (09:28)
[2022-03-15] MEDS ORDERED: NS 1,000 ML IV 1,000 ML ONE ×2 (09:28→13:22)
[2022-03-15] MEDS ORDERED: TORADOL 30 MG VIAL ONE (09:28)
--- NOTE | 2022-03-15 09:29 | DR.GENAD ---
HPI Time Seen Time Seen by Provider: 03/15/22 09:28 Complaint/Symptoms Chief Complaint Doctors Comments: PATIENT C/O RIGHT FLANK PAIN THAT GOT WORSE LAST PM. HE COULD NOT SLEEEP ALL NIGHT BECAUSE OF THE PAIN. HE SAW HIS UROLOGIST 3 WEEKS AGO AND GOT LITHOTRIPSY AND HAD FOLLOWUP 5 DAYS AGO. PMH PMH Past Medical History: Diabetes, Dyslipidemia, GERD, Hypertension and Hypothyroidism Past Surgical History: Yes Surgical History: Cholecystectomy and Ortho Surgery Family History Family Medical History: Diabetes Mellitus and Hypertension Social History Do you use any recreational Drugs:: No ROS Review of Systems Constitutional: Other (RIGHT FLANK PAIN) Eyes: No Symptoms Reported ENTM: No Symptoms Reported Respiratoy: No Symptoms Reported Cardiovascular: No Symptoms Reported Gastrointestinal/Abdominal: Abdominal Pain (RIGHT FLANK PAIN) Genitourinary: No Symptoms Reported Neurological: No Symptoms Reported Musculoskeletal: Right and Other (LOWER CHEST PAIN) Integumentary: No Symptoms Reported Hematologic/Lymphatic: No Symptoms Reported Endocrine: No Symptoms Reported Psychiatric: No Symptoms Reported PE Vital Signs Vitals: Temperature 98.1 F Pulse Rate 105 Respiratory Rate 20 Blood Pressure [Left Arm] 139/75 Blood Pressure 141/81 O2 Sat by Pulse Oximetry 99 General Limitations: No Limitations and Physical Limitation Head Head Exam: Normal Inspection and Atraumatic Eyes Eye exam: Normal Appearance, PERRL and EOMI ENT ENT Exam: Normal Exam, Normal Oropharynx and Normal External Ear Exam External Ear Exam: Normal External Inspection TM/Canal Exam: Bilateral: Normal Nose Exam: Normal Nose Exam Mouth Exam: Normal Inspection Throat Exam: Normal Inspection Neck Neck Exam: Normal Inspection, Full ROM and Trachea Midline Chest Chest Inspection: Normal Inspection and Tenderness (TENDER IN R LATERAL LOWER CHEST AT MID AXILLARY LINE) Respiratory Respiratory Exam: Normal Lung Sounds Bilat Respiratory Exam: Bilateral: Clear to Auscultation Cardiovascular Cardiovascular Exam: Regular Rate and Normal Rhythm Abdominal Exam Abdominal Exam: Normal Inspection, Normal Bowel Sounds and Soft Abdominal Tenderness: Other (RIGHT MID AXILLARY LINE AT FLANK AREA) Extremities Extremities Exam: Normal Inspection and Full ROM Back Back Exam: Normal Inspection and Full ROM Neurologic Neurological Exam: Alert, Oriented X3 and CN II-XII Intact Psychiatric Psychiatric Exam: Normal Affect and Normal Mood Skin Skin Exam: Warm, Dry and Intact MDM Differential Diagnosis Differential Diagnosis: RENAL COLIC,COSTOCHONDRITIS,ZOSTER COURSE Treatment Treatment: PATIENT WAS GIVEN ONE LITER BOLUS ON NACL AND 30MG TORADOL IV FOR PAIN. WE GOT THE RESULTS OF CT OF ABD/PELVIS THAT SHOWED FOCAL SUSPECTED ABSCESS FORMATION IN SUBCAPSULAR ASPECT OF THE RIGHT LIVER POSTERIORLY ENGULFING PREVIOUSLY SEEN FREE GALLSTONES IN THE AREA MEASURING 8.2X9.4CM WITH SECONDARY PERINEPHRIC STRANDIN IN THE RIGHT. THIS PATIENT WAS DISCUSSED WITH DR MO, WHO WAS THE SURGEON THAT PERFORMED THE HOLECYSTECTOMY AND HE STATED TO ADMITH THE PATIENT TO THE MEDICAL DOCTOR BODY SERVICE TEAM MEMBER AND HE WOULD CONSULT ON HIM IN 2 DAYS. START PATIEN ON ZOSYN 3,375 GRAMS IV Q [address] SIU AND HE ACEPTED THE PATIENT TO ADMISSION. UTILIZATION REVIEW STATED THAT THE PATIENT COULD BE IN OBSERVATION. THE PATIENT WAS TOLD OF THE INTENT TO ADMIT AND WAS AGREABLE TO THE ADMISSION. ROR Labs Reviewed Laboratory Results Reviewed?: Yes Result Diagrams: 03/15/22 09:45 03/15/22 09:45 Laboratory: WBC 11.9 X10^3/uL (3.6-10.0) H 03/15/22 09:45 RBC 4.66 X10^6/uL (4.7-6.0) L 03/15/22 09:45 Hgb 13.1 g/dL (13.5-18.0) L 03/15/22 09:45 Hct 38.2 % (42.0-54.0) L 03/15/22 09:45 MCV 81.9 fL (80.0-100.0) 03/15/22 09:45 MCH 28.1 pg (27.0-34.0) 03/15/22 09:45 MCHC 34.3 g/dL (33.0-35.0) 03/15/22 09:45 RDW 13.7 % (11.6-16.5) 03/15/22 09:45 Plt Count 340 X10^3/uL (150.0-450.0) 03/15/22 09:45 MPV 6.7 fL (7.4-11.0) L 03/15/22 09:45 Neut % (Auto) 78.2 % (42.0-75.0) H 03/15/22 09:45 Lymph % (Auto) 13.6 % (21.0-51.0) L 03/15/22 09:45 [place] % (Auto) 6.5 % (0.0-13.0) 03/15/22 09:45 Eos % (Auto) 0.7 % (0.9-2.9) L 03/15/22 09:45 Baso % (Auto) 1.0 % (0.2-1.0) 03/15/22 09:45 Neut # (Auto) 9.3 x10^3/uL (2.2-4.8) H 03/15/22 09:45 Lymph # (Auto) 1.6 X10^3/uL (1.3-2.9) 03/15/22 09:45 [place] # (Auto) 0.8 x10^3/uL (0.3-0.8) 03/15/22 09:45 Eos # (Auto) 0.1 x10^3/uL (0.0-0.2) 03/15/22 09:45 Baso # (Auto) 0.1 X10^3/uL (0.0-0.1) 03/15/22 09:45 Absolute Nucleated RBC 0.0 /100WBC 03/15/22 09:45 Sodium 136 mmol/L (136-145) 03/15/22 09:45 Corrected Sodium 138 mmol/L (136-145) 03/15/22 09:45 Potassium 4.7 mmol/L (3.5-5.1) 03/15/22 09:45 Chloride 101 mmol/L (98-107) 03/15/22 09:45 Carbon Dioxide 27.3 mmol/L (21-32) 03/15/22 09:45 BUN 11 mg/dL (7-18) 03/15/22 09:45 Creatinine 0.95 mg/dL (0.70-1.30) 03/15/22 09:45 Est GFR (MDRD) Af Amer > 60 (>60) 03/15/22 09:45 Est GFR (MDRD) Non-Af > 60 (>60) 03/15/22 09:45 Glucose 171 mg/dL (65-99) H 03/15/22 09:45 Calcium 8.5 mg/dL (8.5-10.1) 03/15/22 09:45 Corrected Calcium 9.2 mg/dL (8.5-10.1) 03/15/22 09:45 Total Bilirubin 0.80 mg/dL (0.2-1.0) 03/15/22 09:45 AST 14 Units/L (15-37) L 03/15/22 09:45 ALT 19 Units/L (12-78) 03/15/22 09:45 Alkaline Phosphatase 171 Units/L (46-116) H 03/15/22 09:45 Total Protein 7.7 g/dL (6.4-8.2) 03/15/22 09:45 Albumin 3.1 g/dL (3.4-5.0) L 03/15/22 09:45 Globulin 4.6 g/dL (2.5-4.5) H 03/15/22 09:45 Albumin/Globulin Ratio 0.7 Ratio (1.1-2.1) L 03/15/22 09:45 Specimen Type Clean catch urine 03/15/22 11:55 Urine Color Yellow (YELLOW) 03/15/22 11:55 Urine Appearance Clear (CLEAR) 03/15/22 11:55 Urine pH 6.0 (5.0 - 8.0) 03/15/22 11:55 Ur Specific [place] 1.020 (1.000-1.030) 03/15/22 11:55 Urine Protein Negative (NEGATIVE) 03/15/22 11:55 Urine Glucose (UA) Negative (NEGATIVE) 03/15/22 11:55 Urine Ketones 2+ (NEGATIVE) 03/15/22 11:55 Urine Blood Negative (NEGATIVE) 03/15/22 11:55 Urine Nitrite Negative (NEGATIVE) 03/15/22 11:55 Urine Bilirubin Negative (NEGATIVE) 03/15/22 11:55 Urine Urobilinogen Normal (NORMAL) 03/15/22 11:55 Ur Leukocyte Esterase Negative (NEGATIVE) 03/15/22 11:55 Opioid Opioid Risk Tool Age (David box if 16-45): No History of Preadolescent Sexual Abuse: No Total: 0 Total Score Risk Category: Low Risk Copyright: Reji [place] predicting aberrant behaviors Discharge Plan Diagnosis Discharge Problem: Abscess of liver, Perinephric abscess Discharge Plan Patient Disposition: 01 HOME, SELF-CARE Condition: Stable Prescriptions: No Action atorvastatin 40 mg tablet 40 mg PO HS Label Comments: TAKE 1 TABLET BY MOUTH AT BEDTIME FOR CHOLESTEROL glyburide 2.5 mg tablet 2.5 mg PO BID Label Comments: TAKE 1 TABLET BY MOUTH TWICE DAILY FOR DIABETES MELLITUS meloxicam 15 mg tablet 15 mg PO DAILY Label Comments: TAKE 1 TABLET BY MOUTH DAILY omeprazole 40 mg capsule,delayed release(DR/EC) 40 mg PO DAILY Label Comments: TAKE 1 CAPSULE BY MOUTH TWICE DAILY FOR ACID REFLUX aspirin 81 mg tablet,delayed release (DR/EC) 81 mg PO DAILY Label Comments: TAKE 1 TABLET BY MOUTH EVERY DAY levothyroxine 75 mcg tablet 75 mcg PO DAILY Label Comments: TAKE 1 TABLET BY MOUTH IN THE MORNING ON AN EMPTY STOMACH FOR THYROID tamsulosin 0.4 mg capsule 0.4 mg PO DAILY Label Comments: TAKE 1 CAPSULE BY MOUTH EVERY DAY lisinopril 10 mg tablet 10 mg PO DAILY Label Comments: TAKE 1 TABLET BY MOUTH DAILY FOR BLOOD PRESSURE hydrocodone-acetaminophen 5-325 mg Tablet 1 tab PO Q6H MDD 4 PRN (Reason: Pain) Qty: 30 0RF Health Concerns: Post Hospitalization: new medications and changes needed to prevent readmission or further decline. Pt educated and given instructions on all concerns. Plan of Treatment: Continue with present treatment and follow up plan. Pt is to keep follow up appointment as instructed and take medications as ordered. Orders to Discharge Patient Discharge Orders: Discharge (Routine); Ordered 03/15/22 Ordered By: Merrill Tobar Transfer (Routine); Ordered 03/15/22 Ordered By: Merrill Tobar Follow ups/Referrals Follow ups/Referrals: GEORGIE JERNIGAN [Primary Care Provider] - 3 days Instructions Stand Alone Forms: Precautions for COVID19, [facility], Patient Portal, Social Distancing
[2022-03-15 09:34] VITALS: BMI 26.0
[2022-03-15 09:51] LABS: BASOPHILS # (AUTO) 0.1 X10^3/uL (0.0-0.1); EOSINOPHILS # (AUTO) 0.1 x10^3/uL (0.0-0.2); EOSINOPHILS % (AUTO) 0.7 % (0.9-2.9); HEMATOCRIT 38.2 % (42.0-54.0); HEMOGLOBIN 13.1 g/dL (13.5-18.0); LYMPHOCYTES # (AUTO) 1.6 X10^3/uL (1.3-2.9); LYMPHOCYTES % (AUTO) 13.6 % (21.0-51.0); MEAN CORPUSCULAR HEMOGLOBIN 28.1 pg (27.0-34.0); MEAN CORPUSCULAR HGB CONC 34.3 g/dL (33.0-35.0); MEAN CORPUSCULAR VOLUME 81.9 fL (80.0-100.0); MEAN PLATELET VOLUME 6.7 fL (7.4-11.0); MONOCYTES # (AUTO) 0.8 x10^3/uL (0.3-0.8); MONOCYTES % (AUTO) 6.5 % (0.0-13.0); NEUTROPHILS # (AUTO) 9.3 x10^3/uL (2.2-4.8); NEUTROPHILS % (AUTO) 78.2 % (42.0-75.0); RED BLOOD COUNT 4.66 X10^6/uL (4.7-6.0); RED CELL DISTRIBUTION WIDTH 13.7 % (11.6-16.5); WHITE BLOOD COUNT 11.9 X10^3/uL (3.6-10.0)
[2022-03-15 10:03] LABS: ALANINE AMINOTRANSFERASE 19 Units/L (12-78); ALBUMIN 3.1 g/dL (3.4-5.0); ALKALINE PHOSPHATASE 171 Units/L (46-116); ASPARTATE AMINO TRANSFERASE 14 Units/L (15-37); BLOOD UREA NITROGEN 11 mg/dL (7-18); CALCIUM 8.5 mg/dL (8.5-10.1); CARBON DIOXIDE 27.3 mmol/L (21-32); CHLORIDE 101 mmol/L (98-107); COR CA(FOR HYPOALB) 9.2 mg/dL (8.5-10.1); COR NA(FOR HYPERGLY) 138 mmol/L (136-145); CREATININE 0.95 mg/dL (0.70-1.30); SODIUM 136 mmol/L (136-145); TOTAL PROTEIN 7.7 g/dL (6.4-8.2); eGFR NON BLACK RACES > 60 (>60)
--- NOTE | 2022-03-15 10:41 | CT ---
HISTORYRIGHT FLANK PAINSTUDYABDOMEN/PELVIS W/O [id number] images through the abdomen and pelvis were performed without intravenous contrast. CT scan was performed following ALARA (As low as Reasonably Achievable).Coronal and Sagittal reformatted images were performed.FINDINGSThe lung bases demonstrate a trace right effusion with pleural parenchymal thickening. Since prior study from there is a focal low attenuation lesion with Hounsfield units of 23 projecting in the subcapsular region of the liver posteriorly measuring approximately 8.3 x 9.4 AP by transverse dimension, the collection is engulfing previously small gallstones projecting at the levelm patient is status post cholecystectomy. The spleen is nonenlargedThe pancreas is unremarkable mthere is no intra or extrahepatic biliary dilatation.The stomach is not distended. There is no abnormal dilated small bowel loops, no colitisNo adrenal masses. There are bilateral normal-sized kidneys without hydronephrosis. There is right perinephric stranding probably secondary to collection in the right upper quadrant at the posterior liver. There is no evidence of obstructive ureteral stones. The terminal ileum is unremarkable. There is no evidence of appendicitisPelvis: No free fluid. The prostate is not enlarged,no adnexal masses,the urinary bladder is unremarkable. No evidence of diverticulitis. No retroperitoneal masses. No focal dilatation of the abdominal aortaBone windows no evidence of aggressive bone lesions. No acute fractures.IMPRESSIONFocal suspected abscess formation in the subcapsular aspect of the right liver posteriorly engulfing previously seen free gallstones in the area measuring 8.2 x 9.4 centimeters with secondary perinephric stranding in the right.Electronically signed by: Neelima Guerrero (Mar 15, 2022 10:40:40)
[2022-03-15 12:10] LABS: BILIRUBIN,URINE NEGATIVE (NEGATIVE); BLOOD/HEMOGLOBIN,URINE NEGATIVE (NEGATIVE); GLUCOSE, URINE NEGATIVE (NEGATIVE); KETONES,URINE 2+ (NEGATIVE); LEUKOCYTE ESTERASE ,URINE NEGATIVE (NEGATIVE); NITRITES,URINE NEGATIVE (NEGATIVE); PROTEIN,URINE NEGATIVE (NEGATIVE); UROBILINOGEN,URINE NORMAL (NORMAL)
[2022-03-15 12:13] LABS: APPEARANCE,URINE CLEAR (CLEAR); COLOR,URINE YELLOW (YELLOW)
[2022-03-15] MEDS ORDERED: DEMEROL INJ IVP PRN (13:16)
[2022-03-15] MEDS ORDERED: ZOSYN VIAL 3.375 GRAMS IV ONE (13:21)
[2022-03-15] MEDS ORDERED: NS 100 ML IV 100 ML ONE (13:22)
[2022-03-15] MEDS: NS 1,000 ML IV 1,000 ML IV SCH (13:30)
[2022-03-15] MEDS: ZOSYN VIAL 3.375 GRAMS 3.375 G in NS 100 ML IV 100 ML IV SCH ×3 (13:31→21:13)
[2022-03-15] MEDS ORDERED: NORCO 5/325 MG TAB PO PRN (13:41)
[2022-03-15] MEDS: NORCO 5/325 MG TAB PO PRN (15:17)
[2022-03-15] MEDS ORDERED: DIABETA PO SCH (17:00)
[2022-03-15] MEDS: MORPHINE SULFATE INJ 2 MG INJ IVP PRN ×2 (17:38→21:30)
[2022-03-15] MEDS ORDERED: SNACK - Diabetic Appropriate PO SCH (20:00)
[2022-03-15] MEDS: SNACK - Diabetic Appropriate PO SCH (20:55)
[2022-03-15] MEDS ORDERED: LIPITOR TAB 40 MG PO SCH (21:00)
[2022-03-15] MEDS: LIPITOR TAB 40 MG PO SCH (21:12)
[2022-03-15] MEDS: DIABETA PO SCH (21:12)
[2022-03-15] MEDS: PriLOSEC PO SCH (21:13)
[2022-03-16] MEDS: MORPHINE SULFATE INJ 2 MG INJ IVP PRN ×5 (01:15→22:18)
[2022-03-16] MEDS: NS 1,000 ML IV 1,000 ML IV SCH ×3 (04:02→19:19)
[2022-03-16 05:20] LABS: BASOPHILS # (AUTO) 0.1 X10^3/uL (0.0-0.1); BASOPHILS % (AUTO) 0.6 % (0.2-1.0); EOSINOPHILS # (AUTO) 0.2 x10^3/uL (0.0-0.2); EOSINOPHILS % (AUTO) 1.8 % (0.9-2.9); HEMOGLOBIN 11.2 g/dL (13.5-18.0); LYMPHOCYTES # (AUTO) 1.8 X10^3/uL (1.3-2.9); LYMPHOCYTES % (AUTO) 16.8 % (21.0-51.0); MEAN CORPUSCULAR HEMOGLOBIN 28.7 pg (27.0-34.0); MEAN PLATELET VOLUME 6.8 fL (7.4-11.0); MONOCYTES # (AUTO) 0.7 x10^3/uL (0.3-0.8); MONOCYTES % (AUTO) 6.9 % (0.0-13.0); NEUTROPHILS # (AUTO) 7.8 x10^3/uL (2.2-4.8); NEUTROPHILS % (AUTO) 73.9 % (42.0-75.0); RED BLOOD COUNT 3.91 X10^6/uL (4.7-6.0); RED CELL DISTRIBUTION WIDTH 13.7 % (11.6-16.5); WHITE BLOOD COUNT 10.5 X10^3/uL (3.6-10.0)
[2022-03-16 05:24] LABS: ALANINE AMINOTRANSFERASE 13 Units/L (12-78); ALBUMIN 2.3 g/dL (3.4-5.0); ALKALINE PHOSPHATASE 127 Units/L (46-116); ASPARTATE AMINO TRANSFERASE 9 Units/L (15-37); BLOOD UREA NITROGEN 17 mg/dL (7-18); CALCIUM 7.4 mg/dL (8.5-10.1); CARBON DIOXIDE 30.3 mmol/L (21-32); CHLORIDE 103 mmol/L (98-107); COR CA(FOR HYPOALB) 8.8 mg/dL (8.5-10.1); COR NA(FOR HYPERGLY) 138 mmol/L (136-145); CREATININE 1.02 mg/dL (0.70-1.30); SODIUM 136 mmol/L (136-145); TOTAL PROTEIN 5.9 g/dL (6.4-8.2); eGFR NON BLACK RACES > 60 (>60)
[2022-03-16] MEDS: ZOSYN VIAL 3.375 GRAMS 3.375 G in NS 100 ML IV 100 ML IV SCH ×3 (05:43→21:09)
[2022-03-16] MEDS ORDERED: SYNTHROID 75 mcg TAB PO SCH (06:30)
[2022-03-16] MEDS: DIABETA PO SCH ×2 (08:22→20:44)
[2022-03-16] MEDS: PriLOSEC PO SCH ×2 (08:23→20:33)
[2022-03-16] MEDS: FLOMAX PO SCH (08:23)
[2022-03-16] MEDS: ZESTRIL TAB 10 MG PO SCH (08:24)
[2022-03-16] MEDS: SYNTHROID 75 mcg TAB PO SCH (08:24)
--- NOTE | 2022-03-16 08:48 | DR.H&P ---
H&P History & Physical for Day of: H&P Date: 03/15/22 Chief Complaint Chief Complaint: Abdominal pain, Nausea Chills Allergies Allergies Allergy/AdvReac Type Severity Reaction Status Date / Time oxycodone Allergy Mild RASH Verified 06/10/21 10:24 History of Present Illness History of Present Illness: Pt is a 61 year old male past medical history of hypertension, diabetes mellitus, and hypothyroidism presenting with worsening abdominal pain, nausea, and chills for the past 2-3 days. He has had no relief of symptoms. In the ED, labs/imaging: Wbc 11.9, Hgb 13.1, Plt 340, Na 136, K 4.7, Creatinine 0.95, Glucose 171, UA negative, COVID-19 negative, CTAP was performed that revealed: Focal suspected abscess formation in the subcapsular aspect of the right liver posteriorly engulfing previously seen free gallstones in the area measuring 8.2 x 9.4 centimeters with secondary perinephric stranding in the right. Pt was admitted for abscess of the liver. He has had previous event in the past post cholecystectomy that required drain to be placed by surgery. Surgery-Dr An consulted, will evaluate on Friday. Will start on IVF NS@80ml/h, IV antibiotics: Zosyn q8h, pain control with IV morphine q4h prn and Omar q4h prn. Order diet. Restart home medications. Will continue to closely monitor and follow up labs. Past Medical History Past Medical History: Diabetes, Dyslipidemia, GERD, Hypertension and Hypothyroi dism Past Surgical History Surgical History: Cholecystectomy, Ortho Surgery and Lithotripsy Family History Family Medical History: Diabetes Mellitus and Hypertension Social History Does patient currently use any type of tobacco product: No Have you used tobacco products in the last 12 months: No Type of Tobacco Use: None Does any household member use tobacco: No Alcohol Use: Occasionally Drug Use: None Medications Home Medications: oxycodone Allergy (Mild, Verified 06/10/21 10:24) RASH Labs Result Diagrams: 03/16/22 04:50 03/16/22 04:50 Labs: Laboratory WBC 10.5 X10^3/uL (3.6-10.0) H 03/16/22 04:50 RBC 3.91 X10^6/uL (4.7-6.0) L 03/16/22 04:50 Hgb 11.2 g/dL (13.5-18.0) L 03/16/22 04:50 Hct 32.0 % (42.0-54.0) L 03/16/22 04:50 MCV 82.0 fL (80.0-100.0) 03/16/22 04:50 MCH 28.7 pg (27.0-34.0) 03/16/22 04:50 MCHC 35.0 g/dL (33.0-35.0) 03/16/22 04:50 RDW 13.7 % (11.6-16.5) 03/16/22 04:50 Plt Count 291 X10^3/uL (150.0-450.0) 03/16/22 04:50 MPV 6.8 fL (7.4-11.0) L 03/16/22 04:50 Neut % (Auto) 73.9 % (42.0-75.0) 03/16/22 04:50 Lymph % (Auto) 16.8 % (21.0-51.0) L 03/16/22 04:50 [place] % (Auto) 6.9 % (0.0-13.0) 03/16/22 04:50 Eos % (Auto) 1.8 % (0.9-2.9) 03/16/22 04:50 Baso % (Auto) 0.6 % (0.2-1.0) 03/16/22 04:50 Neut # (Auto) 7.8 x10^3/uL (2.2-4.8) H 03/16/22 04:50 Lymph # (Auto) 1.8 X10^3/uL (1.3-2.9) 03/16/22 04:50 [place] # (Auto) 0.7 x10^3/uL (0.3-0.8) 03/16/22 04:50 Eos # (Auto) 0.2 x10^3/uL (0.0-0.2) 03/16/22 04:50 Baso # (Auto) 0.1 X10^3/uL (0.0-0.1) 03/16/22 04:50 Absolute Nucleated RBC 0.0 /100WBC 03/16/22 04:50 Sodium 136 mmol/L (136-145) 03/16/22 04:50 Corrected Sodium 138 mmol/L (136-145) 03/16/22 04:50 Potassium 4.1 mmol/L (3.5-5.1) 03/16/22 04:50 Chloride 103 mmol/L (98-107) 03/16/22 04:50 Carbon Dioxide 30.3 mmol/L (21-32) 03/16/22 04:50 BUN 17 mg/dL (7-18) 03/16/22 04:50 Creatinine 1.02 mg/dL (0.70-1.30) 03/16/22 04:50 Est GFR (MDRD) Af Amer > 60 (>60) 03/16/22 04:50 Est GFR (MDRD) Non-Af > 60 (>60) 03/16/22 04:50 Glucose 184 mg/dL (65-99) H 03/16/22 04:50 POC Glucose (mg/dL) 194 mg/dL (65-99) H 03/15/22 19:33 Calcium 7.4 mg/dL (8.5-10.1) L 03/16/22 04:50 Corrected Calcium 8.8 mg/dL (8.5-10.1) 03/16/22 04:50 Total Bilirubin 0.40 mg/dL (0.2-1.0) 03/16/22 04:50 AST 9 Units/L (15-37) L 03/16/22 04:50 ALT 13 Units/L (12-78) 03/16/22 04:50 Alkaline Phosphatase 127 Units/L (46-116) H 03/16/22 04:50 Total Protein 5.9 g/dL (6.4-8.2) L 03/16/22 04:50 Albumin 2.3 g/dL (3.4-5.0) L 03/16/22 04:50 Globulin 3.6 g/dL (2.5-4.5) 03/16/22 04:50 Albumin/Globulin Ratio 0.6 Ratio (1.1-2.1) L 03/16/22 04:50 Specimen Type Clean catch urine 03/15/22 11:55 Urine Color Yellow (YELLOW) 03/15/22 11:55 Urine Appearance Clear (CLEAR) 03/15/22 11:55 Urine pH 6.0 (5.0 - 8.0) 03/15/22 11:55 Ur Specific [place] 1.020 (1.000-1.030) 03/15/22 11:55 Urine Protein Negative (NEGATIVE) 03/15/22 11:55 Urine Glucose (UA) Negative (NEGATIVE) 03/15/22 11:55 Urine Ketones 2+ (NEGATIVE) 03/15/22 11:55 Urine Blood Negative (NEGATIVE) 03/15/22 11:55 Urine Nitrite Negative (NEGATIVE) 03/15/22 11:55 Urine Bilirubin Negative (NEGATIVE) 03/15/22 11:55 Urine Urobilinogen Normal (NORMAL) 03/15/22 11:55 Ur Leukocyte Esterase Negative (NEGATIVE) 03/15/22 11:55 SARS-CoV-2 (PCR) Negative (NEGATIVE) 03/15/22 12:48 Review of Systems Constitutional: Chills; denies Fever Eyes: No Symptoms Reported ENT: No Symptoms Reported Respiratory: No Symptoms Reported Cardiovascular: No Symptoms Reported Gastrointestinal: Nausea and Abdominal Pain Genitourinary: No Symptoms Reported Musculoskeletal: No Symptoms Reported Skin: No Symptoms Reported Neurological: No Symptoms Reported Physical Exam Vital Signs: Temperature 98.3 F Pulse Rate [Left Radial] 70 Pulse Rate 105 Respiratory Rate 18 Blood Pressure [Left Arm] 102/57 Blood Pressure 141/81 O2 Sat by Pulse Oximetry 95 Oriented: Normal Eyes: Normal Ear: Normal Nose: Normal Throat: Normal Respiratory: Clear Throughout Cardiovascular: Normal : Normal Auscultation: Bowel Sounds: Normal Palpation: Normal Tenderness: RUQ, Epigastric and Moderate Skin: Normal Musculoskeletal: Normal Psychiatric: Normal Mood Description: Calm and Appropriate Affect: Normal Speech Pattern: Clear and Appropriate Assessment/Plan (1) Abscess of liver: Narrative Support Text: Consult general surgery IV abx:Zosyn Continue IVF Pain control Status: Acute (2) Leukocytosis: Status: Resolved (3) HTN (hypertension): Qualifiers: Hypertension type: primary hypertension Qualified Code(s): I10 - Es sential (primary) hypertension Status: Chronic (4) Hypothyroidism: Qualifiers: Hypothyroidism type: unspecified Qualified Code(s): E03.9 - Hypot hyroidism, unspecified Status: Chronic (5) DM2 (diabetes mellitus, type 2): Status: Chronic Review H&P Reviewed: Yes Patient was examined?: Yes
[2022-03-16] MEDS ORDERED: ASPIRIN EC 81 MG PO SCH (09:00)
[2022-03-16] MEDS ORDERED: PriLOSEC PO SCH ×2 (09:00)
[2022-03-16] MEDS ORDERED: ZESTRIL TAB 10 MG PO SCH (09:00)
[2022-03-16] MEDS ORDERED: FLOMAX PO SCH (09:00)
--- NOTE | 2022-03-16 10:38 | PCM.PROG ---
Progress Note Progress Note for Day of Date of Exam: 03/16/22 Subjective Subjective: Pt is a 61 year old male past medical history of hypertension, diabetes mellitus, and hypothyroidism admitted for abscess of liver and leukocytosis. This morning he reports pain has stayed the same. Reports epigastric and right upper quadrant tenderness. No acute events overnight. Labs/imaging: Wbc 10.5, Hgb 11.2, Plt 291, Na 136, K 4.1, Creatinine 1.02, Glucose 184. CTAP was performed that revealed: Focal suspected abscess formation in the subcapsular aspect of the right liver posteriorly engulfing previously seen free gallstones in the area measuring 8.2 x 9.4 centimeters with secondary perinephric stranding in the right. Surgery-Dr An consulted, will be available to evaluate patient tomorrow. Will continue with IVF NS@80ml/h, IV antibiotics: Zosyn q8h, pain control with IV morphine q4h prn and [place] q4h prn. Home medications resumed. Leukocytosis trending down. Will continue to closely monitor and follow up labs. Past Medical Family Social History Allergies: Allergies oxycodone Allergy (Mild, Verified 06/10/21 10:24) RASH itching Review of Systems ROS: No change since H&P Vital Signs and I&O's Vital Signs: Temperature 97.9 F Pulse Rate [Left Radial] 75 Pulse Rate 105 Respiratory Rate 18 Blood Pressure [Left Arm] 102/54 Blood Pressure 141/81 O2 Sat by Pulse Oximetry 95 Intake and Output: Intake & Output 03/13/22 03/14/22 03/15/22 03/16/22 23:59 23:59 23:59 23:59 Intake Total 894 / 894 0 / 0 Balance 894 / 894 0 / 0 Physical Exam Oriented: Normal Eyes: Normal Ear: Normal Nose: Normal Throat: Normal Cardiovascular: Normal : Normal Auscultation: Bowel Sounds: Normal Tenderness: RUQ, Epigastric and Moderate Skin: Normal Musculoskeletal: Normal Psychiatric: Normal Mood Description: Calm and Appropriate Affect: Normal Speech Pattern: Clear and Appropriate Laboratory and Diagnostics Result Diagrams: 03/16/22 04:50 03/16/22 04:50 Labs: Laboratory WBC 10.5 X10^3/uL (3.6-10.0) H 03/16/22 04:50 RBC 3.91 X10^6/uL (4.7-6.0) L 03/16/22 04:50 Hgb 11.2 g/dL (13.5-18.0) L 03/16/22 04:50 Hct 32.0 % (42.0-54.0) L 03/16/22 04:50 MCV 82.0 fL (80.0-100.0) 03/16/22 04:50 MCH 28.7 pg (27.0-34.0) 03/16/22 04:50 MCHC 35.0 g/dL (33.0-35.0) 03/16/22 04:50 RDW 13.7 % (11.6-16.5) 03/16/22 04:50 Plt Count 291 X10^3/uL (150.0-450.0) 03/16/22 04:50 MPV 6.8 fL (7.4-11.0) L 03/16/22 04:50 Neut % (Auto) 73.9 % (42.0-75.0) 03/16/22 04:50 Lymph % (Auto) 16.8 % (21.0-51.0) L 03/16/22 04:50 [place] % (Auto) 6.9 % (0.0-13.0) 03/16/22 04:50 Eos % (Auto) 1.8 % (0.9-2.9) 03/16/22 04:50 Baso % (Auto) 0.6 % (0.2-1.0) 03/16/22 04:50 Neut # (Auto) 7.8 x10^3/uL (2.2-4.8) H 03/16/22 04:50 Lymph # (Auto) 1.8 X10^3/uL (1.3-2.9) 03/16/22 04:50 [place] # (Auto) 0.7 x10^3/uL (0.3-0.8) 03/16/22 04:50 Eos # (Auto) 0.2 x10^3/uL (0.0-0.2) 03/16/22 04:50 Baso # (Auto) 0.1 X10^3/uL (0.0-0.1) 03/16/22 04:50 Absolute Nucleated RBC 0.0 /100WBC 03/16/22 04:50 Sodium 136 mmol/L (136-145) 03/16/22 04:50 Corrected Sodium 138 mmol/L (136-145) 03/16/22 04:50 Potassium 4.1 mmol/L (3.5-5.1) 03/16/22 04:50 Chloride 103 mmol/L (98-107) 03/16/22 04:50 Carbon Dioxide 30.3 mmol/L (21-32) 03/16/22 04:50 BUN 17 mg/dL (7-18) 03/16/22 04:50 Creatinine 1.02 mg/dL (0.70-1.30) 03/16/22 04:50 Est GFR (MDRD) Af Amer > 60 (>60) 03/16/22 04:50 Est GFR (MDRD) Non-Af > 60 (>60) 03/16/22 04:50 Glucose 184 mg/dL (65-99) H 03/16/22 04:50 POC Glucose (mg/dL) 194 mg/dL (65-99) H 03/15/22 19:33 Calcium 7.4 mg/dL (8.5-10.1) L 03/16/22 04:50 Corrected Calcium 8.8 mg/dL (8.5-10.1) 03/16/22 04:50 Total Bilirubin 0.40 mg/dL (0.2-1.0) 03/16/22 04:50 AST 9 Units/L (15-37) L 03/16/22 04:50 ALT 13 Units/L (12-78) 03/16/22 04:50 Alkaline Phosphatase 127 Units/L (46-116) H 03/16/22 04:50 Total Protein 5.9 g/dL (6.4-8.2) L 03/16/22 04:50 Albumin 2.3 g/dL (3.4-5.0) L 03/16/22 04:50 Globulin 3.6 g/dL (2.5-4.5) 03/16/22 04:50 Albumin/Globulin Ratio 0.6 Ratio (1.1-2.1) L 03/16/22 04:50 Specimen Type Clean catch urine 03/15/22 11:55 Urine Color Yellow (YELLOW) 03/15/22 11:55 Urine Appearance Clear (CLEAR) 03/15/22 11:55 Urine pH 6.0 (5.0 - 8.0) 03/15/22 11:55 Ur Specific [place] 1.020 (1.000-1.030) 03/15/22 11:55 Urine Protein Negative (NEGATIVE) 03/15/22 11:55 Urine Glucose (UA) Negative (NEGATIVE) 03/15/22 11:55 Urine Ketones 2+ (NEGATIVE) 03/15/22 11:55 Urine Blood Negative (NEGATIVE) 03/15/22 11:55 Urine Nitrite Negative (NEGATIVE) 03/15/22 11:55 Urine Bilirubin Negative (NEGATIVE) 03/15/22 11:55 Urine Urobilinogen Normal (NORMAL) 03/15/22 11:55 Ur Leukocyte Esterase Negative (NEGATIVE) 03/15/22 11:55 SARS-CoV-2 (PCR) Negative (NEGATIVE) 03/15/22 12:48 Plan (1) Abscess of liver: Status: Acute (2) Leukocytosis: Status: Resolved (3) HTN (hypertension): Status: Chronic Qualifiers: Hypertension type: primary hypertension Qualified Code(s): I10 - Essential (primary) hypertension (4) Hypothyroidism: Status: Chronic Qualifiers: Hypothyroidism type: unspecified Qualified Code(s): E03.9 - Hypothyroidism, unspecified (5) DM2 (diabetes mellitus, type 2): Status: Chronic
[2022-03-16] MEDS: NORCO 5/325 MG TAB PO PRN ×2 (13:49→19:19)
[2022-03-16] MEDS: SNACK - Diabetic Appropriate PO SCH ×2 (20:31→21:09)
[2022-03-16] MEDS: LIPITOR TAB 40 MG PO SCH (20:33)
[2022-03-17 05:11] LABS: BASOPHILS # (AUTO) 0.1 X10^3/uL (0.0-0.1); BASOPHILS % (AUTO) 0.8 % (0.2-1.0); EOSINOPHILS # (AUTO) 0.2 x10^3/uL (0.0-0.2); EOSINOPHILS % (AUTO) 1.7 % (0.9-2.9); HEMATOCRIT 32.9 % (42.0-54.0); HEMOGLOBIN 11.3 g/dL (13.5-18.0); LYMPHOCYTES # (AUTO) 1.5 X10^3/uL (1.3-2.9); LYMPHOCYTES % (AUTO) 16.1 % (21.0-51.0); MEAN CORPUSCULAR HEMOGLOBIN 28.2 pg (27.0-34.0); MEAN CORPUSCULAR HGB CONC 34.4 g/dL (33.0-35.0); MEAN CORPUSCULAR VOLUME 82.1 fL (80.0-100.0); MEAN PLATELET VOLUME 6.8 fL (7.4-11.0); MONOCYTES # (AUTO) 0.6 x10^3/uL (0.3-0.8); MONOCYTES % (AUTO) 6.9 % (0.0-13.0); NEUTROPHILS # (AUTO) 7.1 x10^3/uL (2.2-4.8); NEUTROPHILS % (AUTO) 74.5 % (42.0-75.0); RED BLOOD COUNT 4.01 X10^6/uL (4.7-6.0); RED CELL DISTRIBUTION WIDTH 13.5 % (11.6-16.5); WHITE BLOOD COUNT 9.5 X10^3/uL (3.6-10.0)
[2022-03-17 05:17] LABS: ALANINE AMINOTRANSFERASE 12 Units/L (12-78); ALBUMIN 2.3 g/dL (3.4-5.0); ALKALINE PHOSPHATASE 128 Units/L (46-116); ASPARTATE AMINO TRANSFERASE 9 Units/L (15-37); BLOOD UREA NITROGEN 8 mg/dL (7-18); CALCIUM 7.7 mg/dL (8.5-10.1); CARBON DIOXIDE 31.9 mmol/L (21-32); CHLORIDE 104 mmol/L (98-107); COR CA(FOR HYPOALB) 9.1 mg/dL (8.5-10.1); COR NA(FOR HYPERGLY) 140 mmol/L (136-145); CREATININE 0.87 mg/dL (0.70-1.30); SODIUM 138 mmol/L (136-145); TOTAL PROTEIN 6.3 g/dL (6.4-8.2); eGFR NON BLACK RACES > 60 (>60)
[2022-03-17] MEDS: ZOSYN VIAL 3.375 GRAMS 3.375 G in NS 100 ML IV 100 ML IV SCH ×3 (05:23→21:01)
[2022-03-17] MEDS: NS 1,000 ML IV 1,000 ML IV SCH ×4 (05:23→21:13)
[2022-03-17] MEDS: FLOMAX PO SCH (08:06)
[2022-03-17] MEDS: ZESTRIL TAB 10 MG PO SCH (08:06)
[2022-03-17] MEDS: PriLOSEC PO SCH ×2 (08:06→20:24)
[2022-03-17] MEDS: SYNTHROID 75 mcg TAB PO SCH (08:07)
[2022-03-17] MEDS: MORPHINE SULFATE INJ 2 MG INJ IVP PRN ×3 (08:07→16:55)
[2022-03-17] MEDS: DIABETA PO SCH ×2 (08:07→20:23)
[2022-03-17] MEDS: NORCO 5/325 MG TAB PO PRN ×2 (10:26→15:48)
--- NOTE | 2022-03-17 10:29 | PCM.PROG ---
Progress Note Progress Note for Day of Date of Exam: 03/17/22 Subjective Subjective: Pt is a 61 year old male past medical history of hypertension, diabetes mellitus, and hypothyroidism admitted for abscess of liver and leukocytosis. This morning he reports no change in his abdominal pain. He has been managing with the pain medication he is receiving. Reports epigastric and right upper quadrant tenderness. No acute events overnight. Labs/imaging: Wbc 9.5, Hgb 11.3, Plt 273, Na 138, K 4.0, Creatinine 0.87, Glucose 166. AST 9, ALT 12, ALKP 128, T. blil 0.30, CTAP was performed that revealed: Focal suspected abscess formation in the subcapsular aspect of the right liver posteriorly engulfing previously seen free gallstones in the area measuring 8.2 x 9.4 centimeters with secondary perinephric stranding in the right. Surgery-Dr An consulted, will be seeing patient today, follow up recommendations. Will continue with IVF NS@80ml/h, IV antibiotics: Zosyn q8h, pain control with IV morphine q4h prn and [place] q4h prn. Home medications resumed. Leukocytosis trending down. Will continue to closely monitor and follow up labs. Past Medical Family Social History Allergies: Allergies oxycodone Allergy (Mild, Verified 06/10/21 10:24) RASH itching Review of Systems ROS: No change since H&P Vital Signs and I&O's Vital Signs: Temperature 98.2 F Pulse Rate [Left Radial] 87 Pulse Rate 105 Respiratory Rate 18 Blood Pressure [Left Arm] 109/54 Blood Pressure 141/81 O2 Sat by Pulse Oximetry 97 Intake and Output: Intake & Output 03/14/22 03/15/22 03/16/22 03/17/22 23:59 23:59 23:59 23:59 Intake Total 894 / 894 2468 / 2468 790 / 790 Output Total 750 / 750 Balance 894 / 894 2468 / 2468 40 / 40 Physical Exam Oriented: Normal Eyes: Normal Ear: Normal Nose: Normal Throat: Normal Cardiovascular: Normal : Normal Auscultation: Bowel Sounds: Normal Tenderness: RUQ, Epigastric and Moderate Skin: Normal Musculoskeletal: Normal Psychiatric: Normal Mood Description: Calm and Appropriate Affect: Normal Speech Pattern: Clear and Appropriate Laboratory and Diagnostics Result Diagrams: 03/17/22 04:45 03/17/22 04:45 Labs: Laboratory WBC 9.5 X10^3/uL (3.6-10.0) 03/17/22 04:45 RBC 4.01 X10^6/uL (4.7-6.0) L 03/17/22 04:45 Hgb 11.3 g/dL (13.5-18.0) L 03/17/22 04:45 Hct 32.9 % (42.0-54.0) L 03/17/22 04:45 MCV 82.1 fL (80.0-100.0) 03/17/22 04:45 MCH 28.2 pg (27.0-34.0) 03/17/22 04:45 MCHC 34.4 g/dL (33.0-35.0) 03/17/22 04:45 RDW 13.5 % (11.6-16.5) 03/17/22 04:45 Plt Count 273 X10^3/uL (150.0-450.0) 03/17/22 04:45 MPV 6.8 fL (7.4-11.0) L 03/17/22 04:45 Neut % (Auto) 74.5 % (42.0-75.0) 03/17/22 04:45 Lymph % (Auto) 16.1 % (21.0-51.0) L 03/17/22 04:45 [place] % (Auto) 6.9 % (0.0-13.0) 03/17/22 04:45 Eos % (Auto) 1.7 % (0.9-2.9) 03/17/22 04:45 Baso % (Auto) 0.8 % (0.2-1.0) 03/17/22 04:45 Neut # (Auto) 7.1 x10^3/uL (2.2-4.8) H 03/17/22 04:45 Lymph # (Auto) 1.5 X10^3/uL (1.3-2.9) 03/17/22 04:45 [place] # (Auto) 0.6 x10^3/uL (0.3-0.8) 03/17/22 04:45 Eos # (Auto) 0.2 x10^3/uL (0.0-0.2) 03/17/22 04:45 Baso # (Auto) 0.1 X10^3/uL (0.0-0.1) 03/17/22 04:45 Absolute Nucleated RBC 0.0 /100WBC 03/17/22 04:45 Sodium 138 mmol/L (136-145) 03/17/22 04:45 Corrected Sodium 140 mmol/L (136-145) 03/17/22 04:45 Potassium 4.0 mmol/L (3.5-5.1) 03/17/22 04:45 Chloride 104 mmol/L (98-107) 03/17/22 04:45 Carbon Dioxide 31.9 mmol/L (21-32) 03/17/22 04:45 BUN 8 mg/dL (7-18) 03/17/22 04:45 Creatinine 0.87 mg/dL (0.70-1.30) 03/17/22 04:45 Est GFR (MDRD) Af Amer > 60 (>60) 03/17/22 04:45 Est GFR (MDRD) Non-Af > 60 (>60) 03/17/22 04:45 Glucose 166 mg/dL (65-99) H 03/17/22 04:45 POC Glucose (mg/dL) 154 mg/dL (65-99) H 03/17/22 05:19 Calcium 7.7 mg/dL (8.5-10.1) L 03/17/22 04:45 Corrected Calcium 9.1 mg/dL (8.5-10.1) 03/17/22 04:45 Total Bilirubin 0.30 mg/dL (0.2-1.0) 03/17/22 04:45 AST 9 Units/L (15-37) L 03/17/22 04:45 ALT 12 Units/L (12-78) 03/17/22 04:45 Alkaline Phosphatase 128 Units/L (46-116) H 03/17/22 04:45 Total Protein 6.3 g/dL (6.4-8.2) L 03/17/22 04:45 Albumin 2.3 g/dL (3.4-5.0) L 03/17/22 04:45 Globulin 4.0 g/dL (2.5-4.5) 03/17/22 04:45 Albumin/Globulin Ratio 0.6 Ratio (1.1-2.1) L 03/17/22 04:45 Specimen Type Clean catch urine 03/15/22 11:55 Urine Color Yellow (YELLOW) 03/15/22 11:55 Urine Appearance Clear (CLEAR) 03/15/22 11:55 Urine pH 6.0 (5.0 - 8.0) 03/15/22 11:55 Ur Specific [place] 1.020 (1.000-1.030) 03/15/22 11:55 Urine Protein Negative (NEGATIVE) 03/15/22 11:55 Urine Glucose (UA) Negative (NEGATIVE) 03/15/22 11:55 Urine Ketones 2+ (NEGATIVE) 03/15/22 11:55 Urine Blood Negative (NEGATIVE) 03/15/22 11:55 Urine Nitrite Negative (NEGATIVE) 03/15/22 11:55 Urine Bilirubin Negative (NEGATIVE) 03/15/22 11:55 Urine Urobilinogen Normal (NORMAL) 03/15/22 11:55 Ur Leukocyte Esterase Negative (NEGATIVE) 03/15/22 11:55 SARS-CoV-2 (PCR) Negative (NEGATIVE) 03/15/22 12:48 Plan (1) Abscess of liver: Status: Acute (2) Leukocytosis: Status: Resolved (3) HTN (hypertension): Status: Chronic Qualifiers: Hypertension type: primary hypertension Qualified Code(s): I10 - Essential (primary) hypertension (4) Hypothyroidism: Status: Chronic Qualifiers: Hypothyroidism type: unspecified Qualified Code(s): E03.9 - Hypothyroidism, unspecified (5) DM2 (diabetes mellitus, type 2): Status: Chronic
[2022-03-17] MEDS ORDERED: COLACE CAP 100 MG PO PRN (14:17)
[2022-03-17] MEDS ORDERED: MILK OF MAGNESIA PO PRN (14:17)
--- NOTE | 2022-03-17 19:24 | DR.PROGNOT ---
Hospital Progress Notes - Progress Note for Day of: Progress Note Date: 03/17/22 - Chief Complaint Chief Complaint: still having RT flak pain . no nausea or vomiting , no chills or fever over the past 3 days . WBC is down 9.5. LFT , Bilirubin all N ..ALk Ph silightly high 128 - Past Medical Family Social History Allergies: Allergies oxycodone Allergy (Mild, Verified 06/10/21 10:24) RASH itching - Review Of Systems ROS: No change since H&P - Vital Signs Vital Signs: Temperature 97.3 F Pulse Rate [Left Radial] 75 Pulse Rate 105 Respiratory Rate 18 Blood Pressure [Left Arm] 98/55 Blood Pressure 141/81 O2 Sat by Pulse Oximetry 96 - Physical Exam Oriented: Normal Eyes: Normal Ear: Normal Nose: Normal Throat: Normal Cardiovascular: Normal : Normal GI:Auscultation: Normal GI:Palpation: Normal GI: Tenderness: RUQ, Other (RT flank tederness with soft abdomen , nontender , BS+..) Skin: Normal Musculoskeletal: Normal Psychiatric: Normal Mood Description: Calm, Appropriate Affect: Normal Speech Pattern: Clear, Appropriate - Laboratory and Diagnostics Result Diagrams: 03/17/22 04:45 03/17/22 04:45 Labs: Laboratory WBC 9.5 X10^3/uL (3.6-10.0) 03/17/22 04:45 RBC 4.01 X10^6/uL (4.7-6.0) L 03/17/22 04:45 Hgb 11.3 g/dL (13.5-18.0) L 03/17/22 04:45 Hct 32.9 % (42.0-54.0) L 03/17/22 04:45 MCV 82.1 fL (80.0-100.0) 03/17/22 04:45 MCH 28.2 pg (27.0-34.0) 03/17/22 04:45 MCHC 34.4 g/dL (33.0-35.0) 03/17/22 04:45 RDW 13.5 % (11.6-16.5) 03/17/22 04:45 Plt Count 273 X10^3/uL (150.0-450.0) 03/17/22 04:45 MPV 6.8 fL (7.4-11.0) L 03/17/22 04:45 Neut % (Auto) 74.5 % (42.0-75.0) 03/17/22 04:45 Lymph % (Auto) 16.1 % (21.0-51.0) L 03/17/22 04:45 [place] % (Auto) 6.9 % (0.0-13.0) 03/17/22 04:45 Eos % (Auto) 1.7 % (0.9-2.9) 03/17/22 04:45 Baso % (Auto) 0.8 % (0.2-1.0) 03/17/22 04:45 Neut # (Auto) 7.1 x10^3/uL (2.2-4.8) H 03/17/22 04:45 Lymph # (Auto) 1.5 X10^3/uL (1.3-2.9) 03/17/22 04:45 [place] # (Auto) 0.6 x10^3/uL (0.3-0.8) 03/17/22 04:45 Eos # (Auto) 0.2 x10^3/uL (0.0-0.2) 03/17/22 04:45 Baso # (Auto) 0.1 X10^3/uL (0.0-0.1) 03/17/22 04:45 Absolute Nucleated RBC 0.0 /100WBC 03/17/22 04:45 Sodium 138 mmol/L (136-145) 03/17/22 04:45 Corrected Sodium 140 mmol/L (136-145) 03/17/22 04:45 Potassium 4.0 mmol/L (3.5-5.1) 03/17/22 04:45 Chloride 104 mmol/L (98-107) 03/17/22 04:45 Carbon Dioxide 31.9 mmol/L (21-32) 03/17/22 04:45 BUN 8 mg/dL (7-18) 03/17/22 04:45 Creatinine 0.87 mg/dL (0.70-1.30) 03/17/22 04:45 Est GFR (MDRD) Af Amer > 60 (>60) 03/17/22 04:45 Est GFR (MDRD) Non-Af > 60 (>60) 03/17/22 04:45 Glucose 166 mg/dL (65-99) H 03/17/22 04:45 POC Glucose (mg/dL) 235 mg/dL (65-99) H 03/17/22 16:41 Calcium 7.7 mg/dL (8.5-10.1) L 03/17/22 04:45 Corrected Calcium 9.1 mg/dL (8.5-10.1) 03/17/22 04:45 Total Bilirubin 0.30 mg/dL (0.2-1.0) 03/17/22 04:45 AST 9 Units/L (15-37) L 03/17/22 04:45 ALT 12 Units/L (12-78) 03/17/22 04:45 Alkaline Phosphatase 128 Units/L (46-116) H 03/17/22 04:45 Total Protein 6.3 g/dL (6.4-8.2) L 03/17/22 04:45 Albumin 2.3 g/dL (3.4-5.0) L 03/17/22 04:45 Globulin 4.0 g/dL (2.5-4.5) 03/17/22 04:45 Albumin/Globulin Ratio 0.6 Ratio (1.1-2.1) L 03/17/22 04:45 Specimen Type Clean catch urine 03/15/22 11:55 Urine Color Yellow (YELLOW) 03/15/22 11:55 Urine Appearance Clear (CLEAR) 03/15/22 11:55 Urine pH 6.0 (5.0 - 8.0) 03/15/22 11:55 Ur Specific [place] 1.020 (1.000-1.030) 03/15/22 11:55 Urine Protein Negative (NEGATIVE) 03/15/22 11:55 Urine Glucose (UA) Negative (NEGATIVE) 03/15/22 11:55 Urine Ketones 2+ (NEGATIVE) 03/15/22 11:55 Urine Blood Negative (NEGATIVE) 03/15/22 11:55 Urine Nitrite Negative (NEGATIVE) 03/15/22 11:55 Urine Bilirubin Negative (NEGATIVE) 03/15/22 11:55 Urine Urobilinogen Normal (NORMAL) 03/15/22 11:55 Ur Leukocyte Esterase Negative (NEGATIVE) 03/15/22 11:55 SARS-CoV-2 (PCR) Negative (NEGATIVE) 03/15/22 12:48 - Assessment and Plan 1: RT flank pain . recent lithotripsy RT side . recent Lap ruth with bile collection and abscess required PTC . DM . on IV Antibiotics . to repeat abd/pelv CTin am . - Problem Patient Problems: Patient Problems Abscess of liver (Acute) K75.0 Perinephric abscess (Acute) N15.1
[2022-03-17] MEDS: SNACK - Diabetic Appropriate PO SCH (20:22)
[2022-03-17] MEDS: LIPITOR TAB 40 MG PO SCH (20:23)
[2022-03-17] MEDS: DILAUDID INJ IVP PRN (20:33)
[2022-03-18] MEDS: DILAUDID INJ IVP PRN ×6 (00:13→23:05)
[2022-03-18 05:09] LABS: BASOPHILS # (AUTO) 0.1 X10^3/uL (0.0-0.1); BASOPHILS % (AUTO) 0.8 % (0.2-1.0); EOSINOPHILS # (AUTO) 0.2 x10^3/uL (0.0-0.2); EOSINOPHILS % (AUTO) 1.8 % (0.9-2.9); HEMATOCRIT 33.1 % (42.0-54.0); HEMOGLOBIN 11.5 g/dL (13.5-18.0); LYMPHOCYTES # (AUTO) 1.6 X10^3/uL (1.3-2.9); LYMPHOCYTES % (AUTO) 14.5 % (21.0-51.0); MEAN CORPUSCULAR HEMOGLOBIN 28.3 pg (27.0-34.0); MEAN CORPUSCULAR HGB CONC 34.6 g/dL (33.0-35.0); MEAN CORPUSCULAR VOLUME 81.6 fL (80.0-100.0); MEAN PLATELET VOLUME 6.9 fL (7.4-11.0); MONOCYTES # (AUTO) 0.7 x10^3/uL (0.3-0.8); MONOCYTES % (AUTO) 6.6 % (0.0-13.0); NEUTROPHILS # (AUTO) 8.4 x10^3/uL (2.2-4.8); NEUTROPHILS % (AUTO) 76.3 % (42.0-75.0); RED BLOOD COUNT 4.06 X10^6/uL (4.7-6.0); RED CELL DISTRIBUTION WIDTH 13.5 % (11.6-16.5)
[2022-03-18] MEDS: ZOSYN VIAL 3.375 GRAMS 3.375 G in NS 100 ML IV 100 ML IV SCH ×3 (05:10→23:05)
[2022-03-18 05:16] LABS: ALANINE AMINOTRANSFERASE 17 Units/L (12-78); ALBUMIN 2.4 g/dL (3.4-5.0); ALKALINE PHOSPHATASE 137 Units/L (46-116); ASPARTATE AMINO TRANSFERASE 12 Units/L (15-37); BLOOD UREA NITROGEN 7 mg/dL (7-18); CARBON DIOXIDE 30.6 mmol/L (21-32); CHLORIDE 102 mmol/L (98-107); COR CA(FOR HYPOALB) 9.3 mg/dL (8.5-10.1); CREATININE 0.77 mg/dL (0.70-1.30); SODIUM 138 mmol/L (136-145); TOTAL PROTEIN 6.5 g/dL (6.4-8.2); eGFR NON BLACK RACES > 60 (>60)
[2022-03-18] MEDS: ZOFRAN INJ 4 MG VIAL IVP PRN (05:52)
[2022-03-18] MEDS: NS 1,000 ML IV 1,000 ML IV SCH ×3 (08:27→23:05)
[2022-03-18] MEDS ORDERED: NS 100 ML IV 100 ML ONE (09:24)
[2022-03-18] MEDS: LOVENOX INJ 40 MG SYR SC SCH (09:41)
--- NOTE | 2022-03-18 11:12 | PCM.PROG ---
Progress Note Progress Note for Day of Date of Exam: 03/18/22 Subjective Subjective: Pt is a 61 year old male past medical history of hypertension, diabetes mellitus, and hypothyroidism admitted for abscess of liver and leukocytosis. This morning he reports some improvement in abdominal pain. His pain medications were adjusted yesterday. Reports epigastric and right upper qu adrant tenderness. No acute events overnight. Labs/imaging: Wbc 11, Hgb 11.5, Plt 294, Na 138, K 4.0, Creatinine 0.77, Glucose 106. Initial CTAP revealed: Focal suspected abscess formation in the subcapsular aspect of the right liver posteriorly engulfing previously seen free gallstones in the area measuring 8.2 x 9.4 centimeters with secondary perinephric stranding in the right. Surgery-Dr An consulted, will repeat CTAP this morning to re-evaluate abscess. Will continue with IVF NS@80ml/h, IV antibiotics: Zosyn q8h, pain control with IV Dilaudid q4h prn and [place] q4h prn. Home medications resumed. Will continue to closely monitor and follow up labs. Past Medical Family Social History Allergies: Allergies oxycodone Allergy (Mild, Verified 06/10/21 10:24) RASH itching Review of Systems ROS: No change since H&P Vital Signs and I&O's Vital Signs: Temperature 97.9 F Pulse Rate [Left Radial] 74 Pulse Rate 105 Respiratory Rate 20 Blood Pressure [Left Arm] 108/64 Blood Pressure 141/81 O2 Sat by Pulse Oximetry 94 Intake and Output: Intake & Output 03/15/22 03/16/22 03/17/22 03/18/22 23:59 23:59 23:59 23:59 Intake Total 894 / 894 2468 / 2468 2210 / 2210 910 / 910 Output Total 750 / 750 Balance 894 / 894 2468 / 2468 1460 / 1460 910 / 910 Physical Exam Oriented: Normal Eyes: Normal Ear: Normal Nose: Normal Throat: Normal Cardiovascular: Normal : Normal Auscultation: Bowel Sounds: Normal Tenderness: RUQ and Other (RT flank tederness with soft abdomen , nontender , BS+..) Skin: Normal Musculoskeletal: Normal Psychiatric: Normal Mood Description: Calm and Appropriate Affect: Normal Speech Pattern: Clear and Appropriate Laboratory and Diagnostics Result Diagrams: 03/18/22 04:40 03/18/22 04:40 Labs: Laboratory WBC 11.0 X10^3/uL (3.6-10.0) H 03/18/22 04:40 RBC 4.06 X10^6/uL (4.7-6.0) L 03/18/22 04:40 Hgb 11.5 g/dL (13.5-18.0) L 03/18/22 04:40 Hct 33.1 % (42.0-54.0) L 03/18/22 04:40 MCV 81.6 fL (80.0-100.0) 03/18/22 04:40 MCH 28.3 pg (27.0-34.0) 03/18/22 04:40 MCHC 34.6 g/dL (33.0-35.0) 03/18/22 04:40 RDW 13.5 % (11.6-16.5) 03/18/22 04:40 Plt Count 294 X10^3/uL (150.0-450.0) 03/18/22 04:40 MPV 6.9 fL (7.4-11.0) L 03/18/22 04:40 Neut % (Auto) 76.3 % (42.0-75.0) H 03/18/22 04:40 Lymph % (Auto) 14.5 % (21.0-51.0) L 03/18/22 04:40 [place] % (Auto) 6.6 % (0.0-13.0) 03/18/22 04:40 Eos % (Auto) 1.8 % (0.9-2.9) 03/18/22 04:40 Baso % (Auto) 0.8 % (0.2-1.0) 03/18/22 04:40 Neut # (Auto) 8.4 x10^3/uL (2.2-4.8) H 03/18/22 04:40 Lymph # (Auto) 1.6 X10^3/uL (1.3-2.9) 03/18/22 04:40 [place] # (Auto) 0.7 x10^3/uL (0.3-0.8) 03/18/22 04:40 Eos # (Auto) 0.2 x10^3/uL (0.0-0.2) 03/18/22 04:40 Baso # (Auto) 0.1 X10^3/uL (0.0-0.1) 03/18/22 04:40 Absolute Nucleated RBC 0.0 /100WBC 03/18/22 04:40 Sodium 138 mmol/L (136-145) 03/18/22 04:40 Corrected Sodium TNP 03/18/22 04:40 Potassium 4.0 mmol/L (3.5-5.1) 03/18/22 04:40 Chloride 102 mmol/L (98-107) 03/18/22 04:40 Carbon Dioxide 30.6 mmol/L (21-32) 03/18/22 04:40 BUN 7 mg/dL (7-18) 03/18/22 04:40 Creatinine 0.77 mg/dL (0.70-1.30) 03/18/22 04:40 Est GFR (MDRD) Af Amer > 60 (>60) 03/18/22 04:40 Est GFR (MDRD) Non-Af > 60 (>60) 03/18/22 04:40 Glucose 106 mg/dL (65-99) H 03/18/22 04:40 POC Glucose (mg/dL) 113 mg/dL (65-99) H 03/18/22 05:29 Calcium 8.0 mg/dL (8.5-10.1) L 03/18/22 04:40 Corrected Calcium 9.3 mg/dL (8.5-10.1) 03/18/22 04:40 Total Bilirubin 0.30 mg/dL (0.2-1.0) 03/18/22 04:40 AST 12 Units/L (15-37) L 03/18/22 04:40 ALT 17 Units/L (12-78) 03/18/22 04:40 Alkaline Phosphatase 137 Units/L (46-116) H 03/18/22 04:40 Total Protein 6.5 g/dL (6.4-8.2) 03/18/22 04:40 Albumin 2.4 g/dL (3.4-5.0) L 03/18/22 04:40 Globulin 4.1 g/dL (2.5-4.5) 03/18/22 04:40 Albumin/Globulin Ratio 0.6 Ratio (1.1-2.1) L 03/18/22 04:40 Specimen Type Clean catch urine 03/15/22 11:55 Urine Color Yellow (YELLOW) 03/15/22 11:55 Urine Appearance Clear (CLEAR) 03/15/22 11:55 Urine pH 6.0 (5.0 - 8.0) 03/15/22 11:55 Ur Specific [place] 1.020 (1.000-1.030) 03/15/22 11:55 Urine Protein Negative (NEGATIVE) 03/15/22 11:55 Urine Glucose (UA) Negative (NEGATIVE) 03/15/22 11:55 Urine Ketones 2+ (NEGATIVE) 03/15/22 11:55 Urine Blood Negative (NEGATIVE) 03/15/22 11:55 Urine Nitrite Negative (NEGATIVE) 03/15/22 11:55 Urine Bilirubin Negative (NEGATIVE) 03/15/22 11:55 Urine Urobilinogen Normal (NORMAL) 03/15/22 11:55 Ur Leukocyte Esterase Negative (NEGATIVE) 03/15/22 11:55 SARS-CoV-2 (PCR) Negative (NEGATIVE) 03/15/22 12:48 Plan (1) Abscess of liver: Status: Acute (2) Leukocytosis: Status: Resolved (3) HTN (hypertension): Status: Chronic Qualifiers: Hypertension type: primary hypertension Qualified Code(s): I10 - [place] t[place] (primary) hypertension (4) Hypothyroidism: Status: Chronic Qualifiers: Hypothyroidism type: unspecified Qualified Code(s): E03.9 - Hypothyr oidism, unspecified (5) DM2 (diabetes mellitus, type 2): Status: Chronic
[2022-03-18] MEDS: SYNTHROID 75 mcg TAB PO SCH (11:20)
[2022-03-18] MEDS: FLOMAX PO SCH (11:20)
[2022-03-18] MEDS: DIABETA PO SCH ×2 (11:20→20:18)
[2022-03-18] MEDS: PriLOSEC PO SCH ×2 (11:20→20:17)
[2022-03-18] MEDS: ZESTRIL TAB 10 MG PO SCH (11:20)
[2022-03-18] MEDS: NORCO 5/325 MG TAB PO PRN ×3 (11:25→20:23)
--- NOTE | 2022-03-18 15:28 | CT ---
HISTORYFLANK PAIN, LIVER ABSCESS, PERINEPHERIC ABSCESSSTUDYABDOMEN/PELVIS WITH [id number] of the abdomen and pelvis obtained with IV contrast. Dose reduction techniques including Automated Exposure Control (AEC) and adjustment of mA and kV were utilized.FINDINGSVisualized portions of the lower thorax demonstrate no acute process.Small right-sided effusion. Multilevel degenerative changes in the visualized spine.The liver, spleen, pancreas, bilateral adrenal glands, and bilateral kidneys demonstrate no acute process. Prior cholecystectomy. Similar peripherally enhancing fluid collection along the periphery of the right hepatic lobe measuring 9.9 x 6.4 x 7.4 cm (AP, transverse, cc).No evidence of bowel obstruction. The appendix is unremarkable. Diverticulosis without evidence of diverticulitis. Moderate colonic stool.The bladder is unremarkable. No free air or fluid. Nonaneurysmal aorta. Scattered vascular calcifications.IMPRESSIONSimilar probable abscess along the peripheral right hepatic lobe measuring 9.9 x 6.4 x 7.4 cm.Slightly increasing small right-sided effusion.Diverticulosis without evidence of diverticulitis.Electronically signed by: RUTH LOPEZ (Mar 18, 2022 15:27:13)
--- NOTE | 2022-03-18 16:29 | DR.PROGNOT ---
Hospital Progress Notes - Progress Note for Day of: Progress Note Date: 03/18/22 - Chief Complaint Chief Complaint: still having RT flak pain ,controlled with medications. no nausea or vomiting , no chills or fever over the past 3 days . WBC is down 11. LFT , Bilirubin all N ..ALk Ph silightly high 128. CT showed lateral fluid collection 9x7x6 cm .couild be an abscess .. - Past Medical Family Social History Past Med/Fam/Surg Hx: No changes since H&P Allergies: Allergies oxycodone Allergy (Mild, Verified 06/10/21 10:24) RASH itching - Review Of Systems ROS: No change since H&P - Vital Signs Vital Signs: Temperature 98.6 F Pulse Rate [Left Radial] 83 Pulse Rate 105 Respiratory Rate 20 Blood Pressure [Left Arm] 106/57 Blood Pressure 141/81 O2 Sat by Pulse Oximetry 100 - Physical Exam Oriented: Normal Eyes: Normal Ear: Normal Nose: Normal Throat: Normal Cardiovascular: Normal : Normal GI:Auscultation: Normal GI:Palpation: Normal GI: Tenderness: RUQ, Other (RT flank tederness with soft abdomen , nontender , BS+..) Skin: Normal Musculoskeletal: Normal Psychiatric: Normal Mood Description: Calm, Appropriate Affect: Normal Speech Pattern: Clear, Appropriate - Laboratory and Diagnostics Result Diagrams: 03/18/22 04:40 03/18/22 04:40 Labs: Laboratory WBC 11.0 X10^3/uL (3.6-10.0) H 03/18/22 04:40 RBC 4.06 X10^6/uL (4.7-6.0) L 03/18/22 04:40 Hgb 11.5 g/dL (13.5-18.0) L 03/18/22 04:40 Hct 33.1 % (42.0-54.0) L 03/18/22 04:40 MCV 81.6 fL (80.0-100.0) 03/18/22 04:40 MCH 28.3 pg (27.0-34.0) 03/18/22 04:40 MCHC 34.6 g/dL (33.0-35.0) 03/18/22 04:40 RDW 13.5 % (11.6-16.5) 03/18/22 04:40 Plt Count 294 X10^3/uL (150.0-450.0) 03/18/22 04:40 MPV 6.9 fL (7.4-11.0) L 03/18/22 04:40 Neut % (Auto) 76.3 % (42.0-75.0) H 03/18/22 04:40 Lymph % (Auto) 14.5 % (21.0-51.0) L 03/18/22 04:40 [place] % (Auto) 6.6 % (0.0-13.0) 03/18/22 04:40 Eos % (Auto) 1.8 % (0.9-2.9) 03/18/22 04:40 Baso % (Auto) 0.8 % (0.2-1.0) 03/18/22 04:40 Neut # (Auto) 8.4 x10^3/uL (2.2-4.8) H 03/18/22 04:40 Lymph # (Auto) 1.6 X10^3/uL (1.3-2.9) 03/18/22 04:40 [place] # (Auto) 0.7 x10^3/uL (0.3-0.8) 03/18/22 04:40 Eos # (Auto) 0.2 x10^3/uL (0.0-0.2) 03/18/22 04:40 Baso # (Auto) 0.1 X10^3/uL (0.0-0.1) 03/18/22 04:40 Absolute Nucleated RBC 0.0 /100WBC 03/18/22 04:40 Sodium 138 mmol/L (136-145) 03/18/22 04:40 Corrected Sodium TNP 03/18/22 04:40 Potassium 4.0 mmol/L (3.5-5.1) 03/18/22 04:40 Chloride 102 mmol/L (98-107) 03/18/22 04:40 Carbon Dioxide 30.6 mmol/L (21-32) 03/18/22 04:40 BUN 7 mg/dL (7-18) 03/18/22 04:40 Creatinine 0.77 mg/dL (0.70-1.30) 03/18/22 04:40 Est GFR (MDRD) Af Amer > 60 (>60) 03/18/22 04:40 Est GFR (MDRD) Non-Af > 60 (>60) 03/18/22 04:40 Glucose 106 mg/dL (65-99) H 03/18/22 04:40 POC Glucose (mg/dL) 190 mg/dL (65-99) H 03/18/22 11:24 Calcium 8.0 mg/dL (8.5-10.1) L 03/18/22 04:40 Corrected Calcium 9.3 mg/dL (8.5-10.1) 03/18/22 04:40 Total Bilirubin 0.30 mg/dL (0.2-1.0) 03/18/22 04:40 AST 12 Units/L (15-37) L 03/18/22 04:40 ALT 17 Units/L (12-78) 03/18/22 04:40 Alkaline Phosphatase 137 Units/L (46-116) H 03/18/22 04:40 Total Protein 6.5 g/dL (6.4-8.2) 03/18/22 04:40 Albumin 2.4 g/dL (3.4-5.0) L 03/18/22 04:40 Globulin 4.1 g/dL (2.5-4.5) 03/18/22 04:40 Albumin/Globulin Ratio 0.6 Ratio (1.1-2.1) L 03/18/22 04:40 Specimen Type Clean catch urine 03/15/22 11:55 Urine Color Yellow (YELLOW) 03/15/22 11:55 Urine Appearance Clear (CLEAR) 03/15/22 11:55 Urine pH 6.0 (5.0 - 8.0) 03/15/22 11:55 Ur Specific [place] 1.020 (1.000-1.030) 03/15/22 11:55 Urine Protein Negative (NEGATIVE) 03/15/22 11:55 Urine Glucose (UA) Negative (NEGATIVE) 03/15/22 11:55 Urine Ketones 2+ (NEGATIVE) 03/15/22 11:55 Urine Blood Negative (NEGATIVE) 03/15/22 11:55 Urine Nitrite Negative (NEGATIVE) 03/15/22 11:55 Urine Bilirubin Negative (NEGATIVE) 03/15/22 11:55 Urine Urobilinogen Normal (NORMAL) 03/15/22 11:55 Ur Leukocyte Esterase Negative (NEGATIVE) 03/15/22 11:55 SARS-CoV-2 (PCR) Negative (NEGATIVE) 03/15/22 12:48 - Assessment and Plan 1: RT flank pain . small abscess lateral to the Rt liver lobe . small RT pleural effusin . recent lithotripsy RT side . recent Lap ruth with bile col lection and abscess required PTC . DM . on IV Antibiotics . to d/w the radiologist for drainage .. . - Problem Patient Problems: Patient Problems Abscess of liver (Acute) K75.0 Perinephric abscess (Acute) N15.1
[2022-03-18] MEDS: LIPITOR TAB 40 MG PO SCH (20:18)
[2022-03-18] MEDS: SNACK - Diabetic Appropriate PO SCH (21:00)
[2022-03-19] MEDS: NORCO 5/325 MG TAB PO PRN ×3 (00:41→20:30)
[2022-03-19] MEDS: DILAUDID INJ IVP PRN ×5 (03:05→22:13)
[2022-03-19 05:02] LABS: BASOPHILS % (AUTO) 0.6 % (0.2-1.0); EOSINOPHILS # (AUTO) 0.1 x10^3/uL (0.0-0.2); EOSINOPHILS % (AUTO) 1.7 % (0.9-2.9); HEMATOCRIT 33.6 % (42.0-54.0); HEMOGLOBIN 11.7 g/dL (13.5-18.0); LYMPHOCYTES # (AUTO) 1.5 X10^3/uL (1.3-2.9); MEAN CORPUSCULAR HEMOGLOBIN 28.3 pg (27.0-34.0); MEAN CORPUSCULAR HGB CONC 34.7 g/dL (33.0-35.0); MEAN CORPUSCULAR VOLUME 81.5 fL (80.0-100.0); MEAN PLATELET VOLUME 6.7 fL (7.4-11.0); MONOCYTES # (AUTO) 0.6 x10^3/uL (0.3-0.8); MONOCYTES % (AUTO) 7.1 % (0.0-13.0); NEUTROPHILS % (AUTO) 72.6 % (42.0-75.0); RED BLOOD COUNT 4.12 X10^6/uL (4.7-6.0); RED CELL DISTRIBUTION WIDTH 13.6 % (11.6-16.5); WHITE BLOOD COUNT 8.3 X10^3/uL (3.6-10.0)
[2022-03-19 05:08] LABS: ALANINE AMINOTRANSFERASE 16 Units/L (12-78); ALBUMIN 2.5 g/dL (3.4-5.0); ALKALINE PHOSPHATASE 135 Units/L (46-116); ASPARTATE AMINO TRANSFERASE 14 Units/L (15-37); BLOOD UREA NITROGEN 7 mg/dL (7-18); CALCIUM 8.1 mg/dL (8.5-10.1); CARBON DIOXIDE 31.7 mmol/L (21-32); CHLORIDE 104 mmol/L (98-107); COR CA(FOR HYPOALB) 9.3 mg/dL (8.5-10.1); CREATININE 0.77 mg/dL (0.70-1.30); SODIUM 140 mmol/L (136-145); TOTAL PROTEIN 6.5 g/dL (6.4-8.2); eGFR NON BLACK RACES > 60 (>60)
[2022-03-19] MEDS: ZOSYN VIAL 3.375 GRAMS 3.375 G in NS 100 ML IV 100 ML IV SCH ×3 (05:43→21:24)
[2022-03-19] MEDS: DIABETA PO SCH ×2 (08:42→20:29)
[2022-03-19] MEDS: LOVENOX INJ 40 MG SYR SC SCH (08:43)
[2022-03-19] MEDS: SYNTHROID 75 mcg TAB PO SCH (08:43)
[2022-03-19] MEDS: PriLOSEC PO SCH ×2 (08:43→20:30)
[2022-03-19] MEDS: FLOMAX PO SCH (08:43)
[2022-03-19] MEDS: ZESTRIL TAB 10 MG PO SCH (08:43)
[2022-03-19] MEDS: NS 1,000 ML IV 1,000 ML IV SCH ×2 (08:43→23:13)
[2022-03-19] MEDS: ZOFRAN INJ 4 MG VIAL IVP PRN (09:02)
[2022-03-19 09:22] LABS: INR 1.18 (0.8-1.3)
--- NOTE | 2022-03-19 15:27 | PCM.PROG ---
Progress Note Progress Note for Day of Date of Exam: 03/19/22 Subjective Subjective: Pt is a 61 year old male past medical history of hypertension, diabetes mellitus, and hypothyroidism admitted for abscess of liver and leukocytosis. This morning he reports some improvement in abdominal pain. I spoke with general surgeon, Dr. John and he plans on possibly having interve ntional radiology put in a drain or failure not able to do it he plans on doing surgery to do a washout of the affected area. We will continue current treatment at this time with no changes. Past Medical Family Social History Past Med/Fam/Surg Hx: No changes since H&P Allergies: Allergies oxycodone Allergy (Mild, Verified 06/10/21 10:24) RASH itching Review of Systems ROS: No change since H&P Vital Signs and I&O's Vital Signs: Temperature 97.8 F Pulse Rate [Left Radial] 86 Pulse Rate 105 Respiratory Rate 18 Blood Pressure [Left Arm] 111/63 Blood Pressure 141/81 O2 Sat by Pulse Oximetry 96 Intake and Output: Intake & Output 03/17/22 03/18/22 03/19/22 03/20/22 11:59 11:59 11:59 11:59 Intake Total 3258 / 3258 2330 / 2330 4888 / 4888 Output Total 750 / 750 2380 / 2380 Balance 2508 / 2508 2330 / 2330 2508 / 2508 Physical Exam Oriented: Normal Eyes: Normal Ear: Normal Nose: Normal Throat: Normal Respiratory: Normal Cardiovascular: Normal : Normal Auscultation: Bowel Sounds: Normal Tenderness: RUQ and Other (RT flank tederness with soft abdomen , nontender , BS+..) Skin: Normal Musculoskeletal: Normal Psychiatric: Normal Mood Description: Calm and Appropriate Affect: Normal Speech Pattern: Clear and Appropriate Laboratory and Diagnostics Result Diagrams: 03/19/22 04:35 03/19/22 04:35 Labs: Laboratory WBC 8.3 X10^3/uL (3.6-10.0) 03/19/22 04:35 RBC 4.12 X10^6/uL (4.7-6.0) L 03/19/22 04:35 Hgb 11.7 g/dL (13.5-18.0) L 03/19/22 04:35 Hct 33.6 % (42.0-54.0) L 03/19/22 04:35 MCV 81.5 fL (80.0-100.0) 03/19/22 04:35 MCH 28.3 pg (27.0-34.0) 03/19/22 04:35 MCHC 34.7 g/dL (33.0-35.0) 03/19/22 04:35 RDW 13.6 % (11.6-16.5) 03/19/22 04:35 Plt Count 287 X10^3/uL (150.0-450.0) 03/19/22 04:35 MPV 6.7 fL (7.4-11.0) L 03/19/22 04:35 Neut % (Auto) 72.6 % (42.0-75.0) 03/19/22 04:35 Lymph % (Auto) 18.0 % (21.0-51.0) L 03/19/22 04:35 [place] % (Auto) 7.1 % (0.0-13.0) 03/19/22 04:35 Eos % (Auto) 1.7 % (0.9-2.9) 03/19/22 04:35 Baso % (Auto) 0.6 % (0.2-1.0) 03/19/22 04:35 Neut # (Auto) 6.0 x10^3/uL (2.2-4.8) H 03/19/22 04:35 Lymph # (Auto) 1.5 X10^3/uL (1.3-2.9) 03/19/22 04:35 [place] # (Auto) 0.6 x10^3/uL (0.3-0.8) 03/19/22 04:35 Eos # (Auto) 0.1 x10^3/uL (0.0-0.2) 03/19/22 04:35 Baso # (Auto) 0.0 X10^3/uL (0.0-0.1) 03/19/22 04:35 Absolute Nucleated RBC 0.0 /100WBC 03/19/22 04:35 PT 14.6 SECONDS (11.8-14.3) 03/19/22 04:35 INR Target Range - 03/19/22 04:35 INR 1.18 (0.8-1.3) 03/19/22 04:35 Sodium 140 mmol/L (136-145) 03/19/22 04:35 Corrected Sodium TNP 03/19/22 04:35 Potassium 4.5 mmol/L (3.5-5.1) 03/19/22 04:35 Chloride 104 mmol/L (98-107) 03/19/22 04:35 Carbon Dioxide 31.7 mmol/L (21-32) 03/19/22 04:35 BUN 7 mg/dL (7-18) 03/19/22 04:35 Creatinine 0.77 mg/dL (0.70-1.30) 03/19/22 04:35 Est GFR (MDRD) Af Amer > 60 (>60) 03/19/22 04:35 Est GFR (MDRD) Non-Af > 60 (>60) 03/19/22 04:35 Glucose 100 mg/dL (65-99) H 03/19/22 04:35 POC Glucose (mg/dL) 197 mg/dL (65-99) H 03/19/22 11:37 Calcium 8.1 mg/dL (8.5-10.1) L 03/19/22 04:35 Corrected Calcium 9.3 mg/dL (8.5-10.1) 03/19/22 04:35 Total Bilirubin 0.40 mg/dL (0.2-1.0) 03/19/22 04:35 AST 14 Units/L (15-37) L 03/19/22 04:35 ALT 16 Units/L (12-78) 03/19/22 04:35 Alkaline Phosphatase 135 Units/L (46-116) H 03/19/22 04:35 Total Protein 6.5 g/dL (6.4-8.2) 03/19/22 04:35 Albumin 2.5 g/dL (3.4-5.0) L 03/19/22 04:35 Globulin 4.0 g/dL (2.5-4.5) 03/19/22 04:35 Albumin/Globulin Ratio 0.6 Ratio (1.1-2.1) L 03/19/22 04:35 Specimen Type Clean catch urine 03/15/22 11:55 Urine Color Yellow (YELLOW) 03/15/22 11:55 Urine Appearance Clear (CLEAR) 03/15/22 11:55 Urine pH 6.0 (5.0 - 8.0) 03/15/22 11:55 Ur Specific [place] 1.020 (1.000-1.030) 03/15/22 11:55 Urine Protein Negative (NEGATIVE) 03/15/22 11:55 Urine Glucose (UA) Negative (NEGATIVE) 03/15/22 11:55 Urine Ketones 2+ (NEGATIVE) 03/15/22 11:55 Urine Blood Negative (NEGATIVE) 03/15/22 11:55 Urine Nitrite Negative (NEGATIVE) 03/15/22 11:55 Urine Bilirubin Negative (NEGATIVE) 03/15/22 11:55 Urine Urobilinogen Normal (NORMAL) 03/15/22 11:55 Ur Leukocyte Esterase Negative (NEGATIVE) 03/15/22 11:55 SARS-CoV-2 (PCR) Negative (NEGATIVE) 03/15/22 12:48 Plan (1) Abscess of liver: Status: Acute Plan: Drain placement per interventional radiology or surgical intervention. (2) Leukocytosis: Status: Resolved (3) HTN (hypertension): Status: Chronic Qualifiers: Hypertension type: primary hypertension Qualified Code(s): I10 - Essential (primary) hypertension Narrative Support Text: Blood pressure stable Plan: Monitor blood pressure (4) Hypothyroidism: Status: Chronic Qualifiers: Hypothyroidism type: unspecified Qualified Code(s): E03.9 - Hypothyroidism, unspecified Plan: Resume home dose of levothyroxine (5) DM2 (diabetes mellitus, type 2): Status: Chronic Plan: Continue patient on his glyburide. And daily blood glucose checks.
--- NOTE | 2022-03-19 17:57 | DR.PROGNOT ---
Hospital Progress Notes - Progress Note for Day of: Progress Note Date: 03/19/22 - Chief Complaint Chief Complaint: still having RT flak pain ,controlled with medications. no nausea or vomiting , no chills or fever over the past 3 days . WBC is down 8.2. LFT , Bilirubin all N ..ALk Ph silightly high 135. CT showed lateral fluid collection 9x7x6 cm .could be an abscess .. - Past Medical Family Social History Past Med/Fam/Surg Hx: No changes since H&P Allergies: Allergies oxycodone Allergy (Mild, Verified 06/10/21 10:24) RASH itching - Review Of Systems ROS: No change since H&P - Vital Signs Vital Signs: Temperature 97.6 F Pulse Rate [Left Radial] 76 Pulse Rate 105 Respiratory Rate 18 Blood Pressure [Left Arm] 111/64 Blood Pressure 141/81 O2 Sat by Pulse Oximetry 98 - Physical Exam Oriented: Normal Eyes: Normal Ear: Normal Nose: Normal Throat: Normal Respiratory: Normal Cardiovascular: Normal : Normal GI:Auscultation: Normal GI:Palpation: Normal GI: Tenderness: RUQ, Other (RT flank tederness with soft abdomen , nontender , BS+..) Skin: Normal Musculoskeletal: Normal Psychiatric: Normal Mood Description: Calm, Appropriate Affect: Normal Speech Pattern: Clear, Appropriate - Laboratory and Diagnostics Result Diagrams: 03/19/22 04:35 03/19/22 04:35 Labs: Laboratory WBC 8.3 X10^3/uL (3.6-10.0) 03/19/22 04:35 RBC 4.12 X10^6/uL (4.7-6.0) L 03/19/22 04:35 Hgb 11.7 g/dL (13.5-18.0) L 03/19/22 04:35 Hct 33.6 % (42.0-54.0) L 03/19/22 04:35 MCV 81.5 fL (80.0-100.0) 03/19/22 04:35 MCH 28.3 pg (27.0-34.0) 03/19/22 04:35 MCHC 34.7 g/dL (33.0-35.0) 03/19/22 04:35 RDW 13.6 % (11.6-16.5) 03/19/22 04:35 Plt Count 287 X10^3/uL (150.0-450.0) 03/19/22 04:35 MPV 6.7 fL (7.4-11.0) L 03/19/22 04:35 Neut % (Auto) 72.6 % (42.0-75.0) 03/19/22 04:35 Lymph % (Auto) 18.0 % (21.0-51.0) L 03/19/22 04:35 [place] % (Auto) 7.1 % (0.0-13.0) 03/19/22 04:35 Eos % (Auto) 1.7 % (0.9-2.9) 03/19/22 04:35 Baso % (Auto) 0.6 % (0.2-1.0) 03/19/22 04:35 Neut # (Auto) 6.0 x10^3/uL (2.2-4.8) H 03/19/22 04:35 Lymph # (Auto) 1.5 X10^3/uL (1.3-2.9) 03/19/22 04:35 [place] # (Auto) 0.6 x10^3/uL (0.3-0.8) 03/19/22 04:35 Eos # (Auto) 0.1 x10^3/uL (0.0-0.2) 03/19/22 04:35 Baso # (Auto) 0.0 X10^3/uL (0.0-0.1) 03/19/22 04:35 Absolute Nucleated RBC 0.0 /100WBC 03/19/22 04:35 PT 14.6 SECONDS (11.8-14.3) 03/19/22 04:35 INR Target Range - 03/19/22 04:35 INR 1.18 (0.8-1.3) 03/19/22 04:35 Sodium 140 mmol/L (136-145) 03/19/22 04:35 Corrected Sodium TNP 03/19/22 04:35 Potassium 4.5 mmol/L (3.5-5.1) 03/19/22 04:35 Chloride 104 mmol/L (98-107) 03/19/22 04:35 Carbon Dioxide 31.7 mmol/L (21-32) 03/19/22 04:35 BUN 7 mg/dL (7-18) 03/19/22 04:35 Creatinine 0.77 mg/dL (0.70-1.30) 03/19/22 04:35 Est GFR (MDRD) Af Amer > 60 (>60) 03/19/22 04:35 Est GFR (MDRD) Non-Af > 60 (>60) 03/19/22 04:35 Glucose 100 mg/dL (65-99) H 03/19/22 04:35 POC Glucose (mg/dL) 202 mg/dL (65-99) H 03/19/22 16:38 Calcium 8.1 mg/dL (8.5-10.1) L 03/19/22 04:35 Corrected Calcium 9.3 mg/dL (8.5-10.1) 03/19/22 04:35 Total Bilirubin 0.40 mg/dL (0.2-1.0) 03/19/22 04:35 AST 14 Units/L (15-37) L 03/19/22 04:35 ALT 16 Units/L (12-78) 03/19/22 04:35 Alkaline Phosphatase 135 Units/L (46-116) H 03/19/22 04:35 Total Protein 6.5 g/dL (6.4-8.2) 03/19/22 04:35 Albumin 2.5 g/dL (3.4-5.0) L 03/19/22 04:35 Globulin 4.0 g/dL (2.5-4.5) 03/19/22 04:35 Albumin/Globulin Ratio 0.6 Ratio (1.1-2.1) L 03/19/22 04:35 Specimen Type Clean catch urine 03/15/22 11:55 Urine Color Yellow (YELLOW) 03/15/22 11:55 Urine Appearance Clear (CLEAR) 03/15/22 11:55 Urine pH 6.0 (5.0 - 8.0) 03/15/22 11:55 Ur Specific [place] 1.020 (1.000-1.030) 03/15/22 11:55 Urine Protein Negative (NEGATIVE) 03/15/22 11:55 Urine Glucose (UA) Negative (NEGATIVE) 03/15/22 11:55 Urine Ketones 2+ (NEGATIVE) 03/15/22 11:55 Urine Blood Negative (NEGATIVE) 03/15/22 11:55 Urine Nitrite Negative (NEGATIVE) 03/15/22 11:55 Urine Bilirubin Negative (NEGATIVE) 03/15/22 11:55 Urine Urobilinogen Normal (NORMAL) 03/15/22 11:55 Ur Leukocyte Esterase Negative (NEGATIVE) 03/15/22 11:55 SARS-CoV-2 (PCR) Negative (NEGATIVE) 03/15/22 12:48 - Assessment and Plan 1: RT flank pain . small abscess lateral to the Rt liver lobe . small RT pleural effusin . recent lithotripsy RT side . recent Lap ruth with bile collection and abscess required PTC . DM . on IV Antibiotics . for PTC and drainage in am . - Problem Patient Problems: Patient Problems Abscess of liver (Acute) K75.0 Perinephric abscess (Acute) N15.1
[2022-03-19] MEDS: SNACK - Diabetic Appropriate PO SCH (20:30)
[2022-03-19] MEDS: LIPITOR TAB 40 MG PO SCH (20:30)
[2022-03-20] MEDS: NORCO 5/325 MG TAB PO PRN (00:41)
[2022-03-20] MEDS: DILAUDID INJ IVP PRN ×2 (02:13→06:08)
[2022-03-20] MEDS: NS 1,000 ML IV 1,000 ML IV SCH ×2 (02:23→12:57)
[2022-03-20] MEDS: ZOSYN VIAL 3.375 GRAMS 3.375 G in NS 100 ML IV 100 ML IV SCH ×2 (05:47→14:04)
[2022-03-20] MEDS: DIABETA PO SCH (08:04)
[2022-03-20] MEDS: LOVENOX INJ 40 MG SYR SC SCH (08:12)
[2022-03-20] MEDS: FLOMAX PO SCH (08:12)
[2022-03-20] MEDS: PriLOSEC PO SCH (08:12)
[2022-03-20] MEDS: ZESTRIL TAB 10 MG PO SCH (08:13)
[2022-03-20] MEDS: SYNTHROID 75 mcg TAB PO SCH (08:13)
[2022-03-20 08:20] VITALS: BP 103/68
[2022-03-20 08:27] LABS: BASOPHILS % (AUTO) 0.5 % (0.2-1.0); EOSINOPHILS # (AUTO) 0.1 x10^3/uL (0.0-0.2); EOSINOPHILS % (AUTO) 1.6 % (0.9-2.9); HEMATOCRIT 37.1 % (42.0-54.0); HEMOGLOBIN 12.5 g/dL (13.5-18.0); LYMPHOCYTES # (AUTO) 1.6 X10^3/uL (1.3-2.9); LYMPHOCYTES % (AUTO) 18.2 % (21.0-51.0); MEAN CORPUSCULAR HEMOGLOBIN 27.8 pg (27.0-34.0); MEAN CORPUSCULAR HGB CONC 33.7 g/dL (33.0-35.0); MEAN CORPUSCULAR VOLUME 82.6 fL (80.0-100.0); MEAN PLATELET VOLUME 6.6 fL (7.4-11.0); MONOCYTES # (AUTO) 0.5 x10^3/uL (0.3-0.8); MONOCYTES % (AUTO) 5.8 % (0.0-13.0); NEUTROPHILS # (AUTO) 6.5 x10^3/uL (2.2-4.8); NEUTROPHILS % (AUTO) 73.9 % (42.0-75.0); RED CELL DISTRIBUTION WIDTH 13.5 % (11.6-16.5); WHITE BLOOD COUNT 8.7 X10^3/uL (3.6-10.0)
[2022-03-20 08:36] LABS: INR 1.17 (0.8-1.3)
[2022-03-20 08:45] LABS: ALANINE AMINOTRANSFERASE 19 Units/L (12-78); ALBUMIN 2.7 g/dL (3.4-5.0); ALKALINE PHOSPHATASE 156 Units/L (46-116); ASPARTATE AMINO TRANSFERASE 14 Units/L (15-37); BLOOD UREA NITROGEN 9 mg/dL (7-18); CALCIUM 8.5 mg/dL (8.5-10.1); CARBON DIOXIDE 31.7 mmol/L (21-32); CHLORIDE 103 mmol/L (98-107); COR CA(FOR HYPOALB) 9.5 mg/dL (8.5-10.1); COR NA(FOR HYPERGLY) 139 mmol/L (136-145); CREATININE 0.94 mg/dL (0.70-1.30); SODIUM 138 mmol/L (136-145); TOTAL PROTEIN 7.1 g/dL (6.4-8.2); eGFR NON BLACK RACES > 60 (>60)
--- NOTE | 2022-03-20 09:21 | PCM.PROG ---
Progress Note Progress Note for Day of Date of Exam: 03/20/22 Subjective Subjective: Pt is a 61 year old male past medical history of hypertension, diabetes mellitus, and hypothyroidism admitted for abscess of liver and leukocytosis. The patient will have the abscess drained today per interventional radiology. Patient is currently awaiting to go down to have that done. We will follow-up with him later on today after the procedure. Past Medical Family Social History Past Med/Fam/Surg Hx: No changes since H&P Allergies: Allergies oxycodone Allergy (Mild, Verified 06/10/21 10:24) RASH itching Review of Systems ROS: No change since H&P Vital Signs and I&O's Vital Signs: Temperature 97.9 F Pulse Rate [Left Radial] 81 Pulse Rate 74 Respiratory Rate 18 Blood Pressure [Left Arm] 103/68 Blood Pressure 141/81 O2 Sat by Pulse Oximetry 94 Intake and Output: Intake & Output 03/17/22 03/18/22 03/19/22 03/20/22 11:59 11:59 11:59 11:59 Intake Total 3258 / 3258 2330 / 2330 4888 / 4888 4314 / 4314 Output Total 750 / 750 2380 / 2380 Balance 2508 / 2508 2330 / 2330 2508 / 2508 4314 / 4314 Physical Exam Oriented: Normal Eyes: Normal Ear: Normal Nose: Normal Throat: Normal Respiratory: Normal Cardiovascular: Normal : Normal Auscultation: Bowel Sounds: Normal Tenderness: RUQ and Other (RT flank tederness with soft abdomen , nontender , BS+..) Skin: Normal Musculoskeletal: Normal Psychiatric: Normal Mood Description: Calm and Appropriate Affect: Normal Speech Pattern: Clear and Appropriate Laboratory and Diagnostics Result Diagrams: 03/20/22 08:09 03/20/22 08:09 Labs: Laboratory WBC 8.7 X10^3/uL (3.6-10.0) 03/20/22 08:09 RBC 4.50 X10^6/uL (4.7-6.0) L 03/20/22 08:09 Hgb 12.5 g/dL (13.5-18.0) L 03/20/22 08:09 Hct 37.1 % (42.0-54.0) L 03/20/22 08:09 MCV 82.6 fL (80.0-100.0) 03/20/22 08:09 MCH 27.8 pg (27.0-34.0) 03/20/22 08:09 MCHC 33.7 g/dL (33.0-35.0) 03/20/22 08:09 RDW 13.5 % (11.6-16.5) 03/20/22 08:09 Plt Count 333 X10^3/uL (150.0-450.0) 03/20/22 08:09 MPV 6.6 fL (7.4-11.0) L 03/20/22 08:09 Neut % (Auto) 73.9 % (42.0-75.0) 03/20/22 08:09 Lymph % (Auto) 18.2 % (21.0-51.0) L 03/20/22 08:09 [place] % (Auto) 5.8 % (0.0-13.0) 03/20/22 08:09 Eos % (Auto) 1.6 % (0.9-2.9) 03/20/22 08:09 Baso % (Auto) 0.5 % (0.2-1.0) 03/20/22 08:09 Neut # (Auto) 6.5 x10^3/uL (2.2-4.8) H 03/20/22 08:09 Lymph # (Auto) 1.6 X10^3/uL (1.3-2.9) 03/20/22 08:09 [place] # (Auto) 0.5 x10^3/uL (0.3-0.8) 03/20/22 08:09 Eos # (Auto) 0.1 x10^3/uL (0.0-0.2) 03/20/22 08:09 Baso # (Auto) 0.0 X10^3/uL (0.0-0.1) 03/20/22 08:09 Absolute Nucleated RBC 0.1 /100WBC 03/20/22 08:09 PT 14.6 SECONDS (11.8-14.3) 03/20/22 08:09 INR Target Range - 03/20/22 08:09 INR 1.17 (0.8-1.3) 03/20/22 08:09 APTT 29.1 SECONDS (22.9-36.5) 03/20/22 08:09 PTT Comment - 03/20/22 08:09 Sodium 138 mmol/L (136-145) 03/20/22 08:09 Corrected Sodium 139 mmol/L (136-145) 03/20/22 08:09 Potassium 4.3 mmol/L (3.5-5.1) 03/20/22 08:09 Chloride 103 mmol/L (98-107) 03/20/22 08:09 Carbon Dioxide 31.7 mmol/L (21-32) 03/20/22 08:09 BUN 9 mg/dL (7-18) 03/20/22 08:09 Creatinine 0.94 mg/dL (0.70-1.30) 03/20/22 08:09 Est GFR (MDRD) Af Amer > 60 (>60) 03/20/22 08:09 Est GFR (MDRD) Non-Af > 60 (>60) 03/20/22 08:09 Glucose 130 mg/dL (65-99) H 03/20/22 08:09 POC Glucose (mg/dL) 170 mg/dL (65-99) H 03/20/22 05:30 Calcium 8.5 mg/dL (8.5-10.1) 03/20/22 08:09 Corrected Calcium 9.5 mg/dL (8.5-10.1) 03/20/22 08:09 Total Bilirubin 0.30 mg/dL (0.2-1.0) 03/20/22 08:09 AST 14 Units/L (15-37) L 03/20/22 08:09 ALT 19 Units/L (12-78) 03/20/22 08:09 Alkaline Phosphatase 156 Units/L (46-116) H 03/20/22 08:09 Total Protein 7.1 g/dL (6.4-8.2) 03/20/22 08:09 Albumin 2.7 g/dL (3.4-5.0) L 03/20/22 08:09 Globulin 4.4 g/dL (2.5-4.5) 03/20/22 08:09 Albumin/Globulin Ratio 0.6 Ratio (1.1-2.1) L 03/20/22 08:09 Specimen Type Clean catch urine 03/15/22 11:55 Urine Color Yellow (YELLOW) 03/15/22 11:55 Urine Appearance Clear (CLEAR) 03/15/22 11:55 Urine pH 6.0 (5.0 - 8.0) 03/15/22 11:55 Ur Specific [place] 1.020 (1.000-1.030) 03/15/22 11:55 Urine Protein Negative (NEGATIVE) 03/15/22 11:55 Urine Glucose (UA) Negative (NEGATIVE) 03/15/22 11:55 Urine Ketones 2+ (NEGATIVE) 03/15/22 11:55 Urine Blood Negative (NEGATIVE) 03/15/22 11:55 Urine Nitrite Negative (NEGATIVE) 03/15/22 11:55 Urine Bilirubin Negative (NEGATIVE) 03/15/22 11:55 Urine Urobilinogen Normal (NORMAL) 03/15/22 11:55 Ur Leukocyte Esterase Negative (NEGATIVE) 03/15/22 11:55 SARS-CoV-2 (PCR) Negative (NEGATIVE) 03/15/22 12:48 Plan (1) Abscess of liver: Status: Acute Plan: Drain placement per interventional radiology or surgical intervention. (2) Leukocytosis: Status: Resolved (3) HTN (hypertension): Status: Chronic Qualifiers: Hypertension type: primary hypertension Qualified Code(s): I10 - Essential (primary) hypertension Plan: Monitor blood pressure (4) Hypothyroidism: Status: Chronic Qualifiers: Hypothyroidism type: unspecified Qualified Code(s): E03.9 - Hypothyroidism, unspecified Plan: Resume home dose of levothyroxine (5) DM2 (diabetes mellitus, type 2): Status: Chronic Plan: Continue patient on his glyburide. And daily blood glucose checks.
--- NOTE | 2022-03-20 15:37 | PCM.DCPLAN ---
DISCHARGE SUMMARY Admission Date Date of Admission: 03/15/22 Discharge Date Discharge Date: 03/20/22 Admission Diagnoses (1) Abscess of liver: Status: Acute (2) Leukocytosis: Status: Resolved (3) HTN (hypertension): Status: Chronic (4) Hypothyroidism: Status: Chronic (5) DM2 (diabetes mellitus, type 2): Status: Chronic Discharge Diagnoses Discharge Diagnosis: 1. Abscess adjacent to the liver 2. Leukocytosis resolved 3. Hypertension stable 4. Hypothyroidism stable 5. Diabetes mellitus type 2 stable 6. Status-post drainage of abscess adjacent to liver Discharge Medications Discharge Medications: 1. Ciprofloxacin 500 mg twice daily 2. Flagyl 500 mg 3 times daily 3. [place] 7.5/325 mg Prescriptions: Hospital Course Vital Signs: Temperature 97.9 F Pulse Rate [Left Radial] 81 Pulse Rate 74 Respiratory Rate 18 Blood Pressure [Left Arm] 103/68 Blood Pressure 141/81 O2 Sat by Pulse Oximetry 94 Latest Lab Results: Laboratory Last Values WBC 8.7 X10^3/uL (3.6-10.0) 03/20/22 08:09 RBC 4.50 X10^6/uL (4.7-6.0) L 03/20/22 08:09 Hgb 12.5 g/dL (13.5-18.0) L 03/20/22 08:09 Hct 37.1 % (42.0-54.0) L 03/20/22 08:09 MCV 82.6 fL (80.0-100.0) 03/20/22 08:09 MCH 27.8 pg (27.0-34.0) 03/20/22 08:09 MCHC 33.7 g/dL (33.0-35.0) 03/20/22 08:09 RDW 13.5 % (11.6-16.5) 03/20/22 08:09 Plt Count 333 X10^3/uL (150.0-450.0) 03/20/22 08:09 MPV 6.6 fL (7.4-11.0) L 03/20/22 08:09 Neut % (Auto) 73.9 % (42.0-75.0) 03/20/22 08:09 Lymph % (Auto) 18.2 % (21.0-51.0) L 03/20/22 08:09 [place] % (Auto) 5.8 % (0.0-13.0) 03/20/22 08:09 Eos % (Auto) 1.6 % (0.9-2.9) 03/20/22 08:09 Baso % (Auto) 0.5 % (0.2-1.0) 03/20/22 08:09 Neut # (Auto) 6.5 x10^3/uL (2.2-4.8) H 03/20/22 08:09 Lymph # (Auto) 1.6 X10^3/uL (1.3-2.9) 03/20/22 08:09 [place] # (Auto) 0.5 x10^3/uL (0.3-0.8) 03/20/22 08:09 Eos # (Auto) 0.1 x10^3/uL (0.0-0.2) 03/20/22 08:09 Baso # (Auto) 0.0 X10^3/uL (0.0-0.1) 03/20/22 08:09 Absolute Nucleated RBC 0.1 /100WBC 03/20/22 08:09 PT 14.6 SECONDS (11.8-14.3) 03/20/22 08:09 INR Target Range - 03/20/22 08:09 INR 1.17 (0.8-1.3) 03/20/22 08:09 APTT 29.1 SECONDS (22.9-36.5) 03/20/22 08:09 PTT Comment - 03/20/22 08:09 Sodium 138 mmol/L (136-145) 03/20/22 08:09 Corrected Sodium 139 mmol/L (136-145) 03/20/22 08:09 Potassium 4.3 mmol/L (3.5-5.1) 03/20/22 08:09 Chloride 103 mmol/L (98-107) 03/20/22 08:09 Carbon Dioxide 31.7 mmol/L (21-32) 03/20/22 08:09 BUN 9 mg/dL (7-18) 03/20/22 08:09 Creatinine 0.94 mg/dL (0.70-1.30) 03/20/22 08:09 Est GFR (MDRD) Af Amer > 60 (>60) 03/20/22 08:09 Est GFR (MDRD) Non-Af > 60 (>60) 03/20/22 08:09 Glucose 130 mg/dL (65-99) H 03/20/22 08:09 POC Glucose (mg/dL) 126 mg/dL (65-99) H 03/20/22 11:47 Calcium 8.5 mg/dL (8.5-10.1) 03/20/22 08:09 Corrected Calcium 9.5 mg/dL (8.5-10.1) 03/20/22 08:09 Total Bilirubin 0.30 mg/dL (0.2-1.0) 03/20/22 08:09 AST 14 Units/L (15-37) L 03/20/22 08:09 ALT 19 Units/L (12-78) 03/20/22 08:09 Alkaline Phosphatase 156 Units/L (46-116) H 03/20/22 08:09 Total Protein 7.1 g/dL (6.4-8.2) 03/20/22 08:09 Albumin 2.7 g/dL (3.4-5.0) L 03/20/22 08:09 Globulin 4.4 g/dL (2.5-4.5) 03/20/22 08:09 Albumin/Globulin Ratio 0.6 Ratio (1.1-2.1) L 03/20/22 08:09 Specimen Type Clean catch urine 03/15/22 11:55 Urine Color Yellow (YELLOW) 03/15/22 11:55 Urine Appearance Clear (CLEAR) 03/15/22 11:55 Urine pH 6.0 (5.0 - 8.0) 03/15/22 11:55 Ur Specific [place] 1.020 (1.000-1.030) 03/15/22 11:55 Urine Protein Negative (NEGATIVE) 03/15/22 11:55 Urine Glucose (UA) Negative (NEGATIVE) 03/15/22 11:55 Urine Ketones 2+ (NEGATIVE) 03/15/22 11:55 Urine Blood Negative (NEGATIVE) 03/15/22 11:55 Urine Nitrite Negative (NEGATIVE) 03/15/22 11:55 Urine Bilirubin Negative (NEGATIVE) 03/15/22 11:55 Urine Urobilinogen Normal (NORMAL) 03/15/22 11:55 Ur Leukocyte Esterase Negative (NEGATIVE) 03/15/22 11:55 SARS-CoV-2 (PCR) Negative (NEGATIVE) 03/15/22 12:48 Hospital Course: Pt is a 61 year old male past medical history of hypertension, diabetes mellitus, and hypothyroidism admitted for abscess of liver and leukocytosis. This morning he reports some improvement in abdominal pain. His pain medications were adjusted yesterday. Reports epigastric and right upper quadrant tenderness. No acute events overnight. Labs/imaging: Wbc 11, Hgb 11.5, Plt 294, Na 138, K 4.0, Creatinine 0.77, Glucose 106. Initial CTAP revealed: Focal suspected abscess formation in the subcapsular aspect of the right liver posteriorly engulfing previously seen free gallstones in the area measuring 8.2 x 9.4 centimeters with secondary perinephric stranding in the right. Surgery-Dr An consulted, will repeat CTAP this morning to re-evaluate abscess. Will continue with IVF NS@80ml/h, IV antibiotics: Zosyn q8h, pain control with IV Dilaudid q4h prn and [place] q4h prn. Home medications resumed. Will continue to closely monitor and follow up labs. Patient was continued on IV Zosyn over the next several days and during that time his white blood cell count resolved and his vital signs also became stable he had no fever. Today on 20 March 2022 patient had interventional radiology drain the abscess and following the procedure the patient was watched for a while and was stable. He had no real problems after the procedure so he was discharged home. He will be discharged home on ciprofloxacin, Flagyl and [place] for pain patient will be following up with general surgeon, Dr. John as well as myself for hospital follow-up wit hin 7 to 10 days. Patient was discharged home in stable condition.
--- NOTE | 2022-03-20 15:59 | DR.PROGNOT ---
Hospital Progress Notes - Progress Note for Day of: Progress Note Date: 03/20/22 - Chief Complaint Chief Complaint: had PTC and drainage of RT subphrenic abscess . about 150 cc was drained .. LFT , Bilirubin all N ..ALk Ph silightly high 135. afebrile . soft abdomen with RT flank tenderness .. BS + - Past Medical Family Social History Past Med/Fam/Surg Hx: No changes since H&P Allergies: Allergies oxycodone Allergy (Mild, Verified 06/10/21 10:24) RASH itching - Review Of Systems ROS: No change since H&P - Vital Signs Vital Signs: Temperature 97.9 F Pulse Rate [Left Radial] 81 Pulse Rate 74 Respiratory Rate 18 Blood Pressure [Left Arm] 103/68 Blood Pressure 141/81 O2 Sat by Pulse Oximetry 94 - Physical Exam Oriented: Normal Eyes: Normal Ear: Normal Nose: Normal Throat: Normal Respiratory: Normal Cardiovascular: Normal : Normal GI:Auscultation: Normal GI:Palpation: Normal GI: Tenderness: RUQ, Other (RT flank tederness with soft abdomen , nontender , BS+..) Skin: Normal Musculoskeletal: Normal Psychiatric: Normal Mood Description: Calm, Appropriate Affect: Normal Speech Pattern: Clear, Appropriate - Laboratory and Diagnostics Result Diagrams: 03/20/22 08:09 03/20/22 08:09 Labs: Laboratory WBC 8.7 X10^3/uL (3.6-10.0) 03/20/22 08:09 RBC 4.50 X10^6/uL (4.7-6.0) L 03/20/22 08:09 Hgb 12.5 g/dL (13.5-18.0) L 03/20/22 08:09 Hct 37.1 % (42.0-54.0) L 03/20/22 08:09 MCV 82.6 fL (80.0-100.0) 03/20/22 08:09 MCH 27.8 pg (27.0-34.0) 03/20/22 08:09 MCHC 33.7 g/dL (33.0-35.0) 03/20/22 08:09 RDW 13.5 % (11.6-16.5) 03/20/22 08:09 Plt Count 333 X10^3/uL (150.0-450.0) 03/20/22 08:09 MPV 6.6 fL (7.4-11.0) L 03/20/22 08:09 Neut % (Auto) 73.9 % (42.0-75.0) 03/20/22 08:09 Lymph % (Auto) 18.2 % (21.0-51.0) L 03/20/22 08:09 [place] % (Auto) 5.8 % (0.0-13.0) 03/20/22 08:09 Eos % (Auto) 1.6 % (0.9-2.9) 03/20/22 08:09 Baso % (Auto) 0.5 % (0.2-1.0) 03/20/22 08:09 Neut # (Auto) 6.5 x10^3/uL (2.2-4.8) H 03/20/22 08:09 Lymph # (Auto) 1.6 X10^3/uL (1.3-2.9) 03/20/22 08:09 [place] # (Auto) 0.5 x10^3/uL (0.3-0.8) 03/20/22 08:09 Eos # (Auto) 0.1 x10^3/uL (0.0-0.2) 03/20/22 08:09 Baso # (Auto) 0.0 X10^3/uL (0.0-0.1) 03/20/22 08:09 Absolute Nucleated RBC 0.1 /100WBC 03/20/22 08:09 PT 14.6 SECONDS (11.8-14.3) 03/20/22 08:09 INR Target Range - 03/20/22 08:09 INR 1.17 (0.8-1.3) 03/20/22 08:09 APTT 29.1 SECONDS (22.9-36.5) 03/20/22 08:09 PTT Comment - 03/20/22 08:09 Sodium 138 mmol/L (136-145) 03/20/22 08:09 Corrected Sodium 139 mmol/L (136-145) 03/20/22 08:09 Potassium 4.3 mmol/L (3.5-5.1) 03/20/22 08:09 Chloride 103 mmol/L (98-107) 03/20/22 08:09 Carbon Dioxide 31.7 mmol/L (21-32) 03/20/22 08:09 BUN 9 mg/dL (7-18) 03/20/22 08:09 Creatinine 0.94 mg/dL (0.70-1.30) 03/20/22 08:09 Est GFR (MDRD) Af Amer > 60 (>60) 03/20/22 08:09 Est GFR (MDRD) Non-Af > 60 (>60) 03/20/22 08:09 Glucose 130 mg/dL (65-99) H 03/20/22 08:09 POC Glucose (mg/dL) 126 mg/dL (65-99) H 03/20/22 11:47 Calcium 8.5 mg/dL (8.5-10.1) 03/20/22 08:09 Corrected Calcium 9.5 mg/dL (8.5-10.1) 03/20/22 08:09 Total Bilirubin 0.30 mg/dL (0.2-1.0) 03/20/22 08:09 AST 14 Units/L (15-37) L 03/20/22 08:09 ALT 19 Units/L (12-78) 03/20/22 08:09 Alkaline Phosphatase 156 Units/L (46-116) H 03/20/22 08:09 Total Protein 7.1 g/dL (6.4-8.2) 03/20/22 08:09 Albumin 2.7 g/dL (3.4-5.0) L 03/20/22 08:09 Globulin 4.4 g/dL (2.5-4.5) 03/20/22 08:09 Albumin/Globulin Ratio 0.6 Ratio (1.1-2.1) L 03/20/22 08:09 Specimen Type Clean catch urine 03/15/22 11:55 Urine Color Yellow (YELLOW) 03/15/22 11:55 Urine Appearance Clear (CLEAR) 03/15/22 11:55 Urine pH 6.0 (5.0 - 8.0) 03/15/22 11:55 Ur Specific [place] 1.020 (1.000-1.030) 03/15/22 11:55 Urine Protein Negative (NEGATIVE) 03/15/22 11:55 Urine Glucose (UA) Negative (NEGATIVE) 03/15/22 11:55 Urine Ketones 2+ (NEGATIVE) 03/15/22 11:55 Urine Blood Negative (NEGATIVE) 03/15/22 11:55 Urine Nitrite Negative (NEGATIVE) 03/15/22 11:55 Urine Bilirubin Negative (NEGATIVE) 03/15/22 11:55 Urine Urobilinogen Normal (NORMAL) 03/15/22 11:55 Ur Leukocyte Esterase Negative (NEGATIVE) 03/15/22 11:55 SARS-CoV-2 (PCR) Negative (NEGATIVE) 03/15/22 12:48 - Assessment and Plan 1: RT flank pain . small abscess lateral to the Rt liver lobe . small RT pleural effusin . recent lithotripsy RT side . recent Lap ruth with bile collection and abscess required PTC . DM . to discharge on Cipro and Flagyl to and will follow in the office in one week .. - Problem Patient Problems: Patient Problems Abscess of liver (Acute) K75.0 Perinephric abscess (Acute) N15.1
--- NOTE | 2022-03-20 16:15 | CT ---
HISTORYSubdiaphragmatic and perihepatic abscessSTUDYCT-guided right upper quadrant abscess [id number] risk, benefits, and alternatives were discussed. Informed consent was obtained. Time out was performed. CT guidance was utilized to localize the optimal percutaneous abscess drainage site for [a perihepatic fluid collection in the right upper quadrant]. The patient was prepped, draped, and anesthetized in the usual sterile fashion. An 18 gauge spinal needle was advanced into the region of interest with approximately 163 cc of purulent fluid aspirated without event. Dropped gallstones and cholecystectomy clips noted. Remaining subdiaphragmatic as well as perihilar hepatic fluid was noted but without definite adequate window to allow pigtail catheter placement without traversing the diaphragm. Additionally, anesthesia was unavailable. Total volume of fluid has decreased by approximately 2/3. The patient tolerated the procedure well without immediate postprocedure complication.IMPRESSION[Technically successful CT-guided right upper quadrant abscess aspiration.]Electronically signed by: ERIK CEE (Mar 20, 2022 16:13:44)
== END 2022-03-20 13:35 | disposition home or self-care (01) | DRG 441 ==
LOC: MED/SURG 09:19 → ER 09:19 → MED/SURG 14:07
PROVIDERS: ADMIT Family Medicine; ATTEND Family Medicine
DX: E03.8 Other specified hypothyroidism; J90 Pleural effusion, not elsewhere classified; N15.1 Renal and perinephric abscess; I10 Essential (primary) hypertension; R10.84 Generalized abdominal pain; Z20.822 Contact with and (suspected) exposure to COVID-19; K57.30 Diverticulosis of large intestine without perforation or abscess without bleeding; B96.29 Other Escherichia coli [E. coli] as the cause of diseases classified elsewhere; K75.0 Abscess of liver; K21.9 Gastro-esophageal reflux disease without esophagitis; E78.2 Mixed hyperlipidemia; E11.65 Type 2 diabetes mellitus with hyperglycemia